=== PATIENT | male | born 1955 | race Caucasian/White ===

== ENCOUNTER → 2016-09-14 | Outpatient (REF) | payer BC ==
[2016-09-14 16:56] LABS: ALBUMIN 4.2 GM/DL (3.2-5.2); ALKALINE PHOSPHATASE 229 U/L (45-117); ALT/SGPT 387 U/L (12-78); ANION GAP 9 MEQ/L (8-16); AST/SGOT 514 U/L (15-37); BILIRUBIN,TOTAL 0.8 MG/DL (0.2-1.0); BLOOD UREA NITROGEN 5 MG/DL (7-18); CALCIUM LEVEL 9.1 MG/DL (8.8-10.2); CARBON DIOXIDE LEVEL 29 MEQ/L (21-32); CHLORIDE LEVEL 93 MEQ/L (98-107); CHOLESTEROL LEVEL 197 MG/DL (<200); CREATININE FOR GFR 0.91 MG/DL (0.70-1.30); GLOMERULAR FILTRATION RATE > 60.0 (>49); GLUCOSE, FASTING 92 MG/DL (80-110); POTASSIUM SERUM 5.1 MEQ/L (3.5-5.1); SODIUM LEVEL 131 MEQ/L (136-145); TOTAL PROTEIN 7.2 GM/DL (6.4-8.2); TRIGLYCERIDES LEVEL 40 MG/DL (<150)
== END ==
LOC: M SFHCSACK 07:57
PROVIDERS: ATTEND Physician Assistant
DX: I10 Essential (primary) hypertension (principal); E78.5 Hyperlipidemia, unspecified; E87.1 Hypo-osmolality and hyponatremia

== ENCOUNTER → 2016-09-22 | Outpatient (REF) | payer BC ==
[2016-09-22 15:25] LABS: BASO % 0.3 % (0.0-1.0); EOS % 0.7 % (0.0-3.0); LYMPH # 0.4 K/mm3 (1.5-4.5); LYMPH % 15.6 % (24.0-44.0); MEAN CORPUSCULAR HEMOGLOBIN 32.3 pg (27.0-33.0); MEAN CORPUSCULAR HGB CONC 34.3 g/dl (32.0-36.5); MEAN CORPUSCULAR VOLUME 94.2 fl (80.0-96.0); MONO # 0.5 K/mm3 (0.0-0.8); MONO % 16.8 % (0.0-5.0); NEUTROPHILS # 1.8 K/mm3 (1.8-7.7); NEUTROPHILS % 62.4 % (36.0-66.0); RED CELL DISTRIBUTION WIDTH 12.1 % (11.5-14.5); WHITE BLOOD COUNT 2.8 K/mm3 (4.0-10.0)
== END ==
LOC: M LAB REF 14:33
PROVIDERS: ATTEND Physician Assistant Medical
DX: K74.69 Other cirrhosis of liver (principal)

== ENCOUNTER → 2016-09-28 | Outpatient (CLI) | payer BC ==
[2016-09-28 11:04] LABS: ALBUMIN 4.3 GM/DL (3.2-5.2); ALBUMIN/GLOBULIN RATIO 1.39 (1.00-1.93); ALKALINE PHOSPHATASE 88 U/L (45-117); ALT/SGPT 50 U/L (12-78); ANION GAP 11 MEQ/L (8-16); AST/SGOT 40 U/L (15-37); BILIRUBIN,TOTAL 0.4 MG/DL (0.2-1.0); BLOOD UREA NITROGEN 5 MG/DL (7-18); CALCIUM LEVEL 8.8 MG/DL (8.8-10.2); CARBON DIOXIDE LEVEL 28 MEQ/L (21-32); CHLORIDE LEVEL 89 MEQ/L (98-107); CREATININE FOR GFR 0.98 MG/DL (0.70-1.30); GLOMERULAR FILTRATION RATE > 60.0 (>49); GLUCOSE, FASTING 108 MG/DL (80-110); POTASSIUM SERUM 4.4 MEQ/L (3.5-5.1); SODIUM LEVEL 128 MEQ/L (136-145); TOTAL PROTEIN 7.4 GM/DL (6.4-8.2)
--- NOTE | 2016-09-28 11:32 | REP ---
Chest x-ray: Two views. History: COPD. Comparison chest x-rays from April 08, 2015. Findings: The lungs are somewhat hyperinflated but clear. Pleural angles are sharp. Heart size is normal. The aorta is calcific and a little tortuous. Pulmonary vasculature is not increased. There are multiple old healed rib fractures on the right. Impression: Hyperinflation. Otherwise no acute disease. Signed by Rj Garcia MD 09/28/2016 10:19 A
--- NOTE | 2016-09-28 11:32 | REP ---
Right upper quadrant sonography: History: Increased liver function studies. Alcohol abuse. Comparison study: No comparison Findings: Scanning through the right upper quadrant of the abdomen demonstrates a normal sized, thin-walled gallbladder without evidence of stone or polyp. Common bile duct is mildly prominent measuring 0.8 cm in greatest diameter. No focal liver lesion is seen. Liver size is normal. No pancreatic abnormality is observed. No right renal abnormality is seen. There is no evidence of ascites. The right kidney measures 9.3 x 5.4 x 3.9 cm. Impression: Mildly dilated common bile duct, 0.8 cm, otherwise negative right upper quadrant sonography. Signed by Rj Garcia MD 09/28/2016 10:18 A
== END ==
LOC: M RAD 09:42 → M LAB 09:42
PROVIDERS: ATTEND Physician Assistant Medical
DX: K74.69 Other cirrhosis of liver (principal)

== ENCOUNTER → 2016-10-05 | Outpatient (CLI) | payer BC ==
[~2016-10-05] MED LIST: GASTROGRAFIN SOLUTION 30ML (Q9963) As Ordered ONE; ISOVUE-370 76% 100ML VIAL (Q9967) As Ordered ONE
--- NOTE | 2016-10-06 06:46 | REP ---
Clinical: Abdominal pain with history of cirrhosis. Technique: Axial contrast enhanced images from the lung bases to the pubic symphysis using oral and 100 ml Isovue 370 intravenous contrast material as well as precontrast and delayed images of the abdomen with coronal and sagittal re-formations. Comparison: None. Findings: Lung bases are clear. Visualized heart and pericardium normal. Liver, spleen, pancreas, gallbladder, bilateral adrenal glands and kidneys are normal. Specifically, the liver has a normal contour and without evidence for cirrhosis by CT evaluation and the spleen is of normal size without evidence for splenomegaly or portal venous hypertension. No varices are identified. The enteric system is without obstruction or acute inflammatory process. Normal terminal ileum and appendix are identified in the right lower quadrant. Scattered colonic and sigmoid diverticula noted without evidence for acute diverticulitis. Pelvis demonstrates normal partially collapsed bladder and age appropriate prostate/seminal vesicles. No pelvic fluid or ascites. Moderate atherosclerotic changes to the aorta and branch vessels noted. Skeletal structures demonstrate age-related changes without focal osseous abnormality. Impression: 1. Normal appearance to the liver and spleen without varices or CT evidence to suggest acute pathology or cirrhosis. 2. Moderate atherosclerotic changes to the aorta and branch vessels without dissection. 3. Colonic diverticula without acute diverticulitis. Signed by Huey Montes MD 10/06/2016 06:38 A
== END ==
LOC: M RAD 14:08
PROVIDERS: ATTEND Physician Assistant Medical
DX: K74.69 Other cirrhosis of liver (principal)
CPT/HCPCS: 74178; Q9963; Q9967

== ENCOUNTER 2016-12-28 09:53 | Inpatient (IN) | payer MEDICAID, SELFPAY ==
[~2016-12-28] VITALS: Ht 162.6 cm; Wt 51.3 kg
[2016-12-28] MEDS ORDERED: LISI40TAB PO (10:06)
[2016-12-28] MEDS ORDERED: METO-207 PO (10:06)
[2016-12-28] MEDS ORDERED: SIMV20TA2 PO (10:06)
[2016-12-28] MEDS ORDERED: NS 1,000 ML IV SCH (10:34)
[2016-12-28] MEDS ORDERED: NS 1,000 ML IV ONE (10:37)
[2016-12-28] MEDS ORDERED: ACETAMINOPHEN 325 MG TAB As Ordered ONE (10:41)
[2016-12-28] MEDS ORDERED: LISINOPRIL 40 MG TAB PO ONE (10:45)
[2016-12-28] MEDS ORDERED: methylPREDNISolone INJ 125 MG/2 ML VIAL (J2930) IV ONE (10:45)
[2016-12-28] MEDS ORDERED: LISINOPRIL 10 MG TAB PO ONE ×2 (10:45→22:15)
[2016-12-28] MEDS ORDERED: METOPROLOL SUCC (TopROL XL) 50MG **XL** TAB PO ONE ×2 (10:45→22:15)
[2016-12-28] MEDS: IPRATROPIUM 0.5MG/ALBUTEROL 2.5MG INH SOL UD 3ML (DUONEB)(J7620) NEB PRN ×3 (10:48→11:53)
[2016-12-28 10:53] LABS: INR 1.02
[2016-12-28 11:00] LABS: ALBUMIN 3.1 GM/DL (3.2-5.2); ALBUMIN/GLOBULIN RATIO 0.67 (1.00-1.93); ALKALINE PHOSPHATASE 53 U/L (45-117); ALT/SGPT 31 U/L (12-78); ANION GAP 11 MEQ/L (8-16); AST/SGOT 33 U/L (15-37); BILIRUBIN,DIRECT 0.2 MG/DL (0.0-0.2); BILIRUBIN,TOTAL 0.6 MG/DL (0.2-1.0); BLOOD UREA NITROGEN 10 MG/DL (7-18); CALCIUM LEVEL 8.9 MG/DL (8.8-10.2); CARBON DIOXIDE LEVEL 24 MEQ/L (21-32); CHLORIDE LEVEL 89 MEQ/L (98-107); CREATININE FOR GFR 0.83 MG/DL (0.70-1.30); GLOMERULAR FILTRATION RATE > 60.0 (>49); GLUCOSE, FASTING 116 MG/DL (80-110); POTASSIUM SERUM 3.8 MEQ/L (3.5-5.1); SODIUM LEVEL 124 MEQ/L (136-145); TOTAL PROTEIN 7.7 GM/DL (6.4-8.2)
[2016-12-28] MEDS ORDERED: ACETAMINOPHEN 325 MG TAB PO ONE (11:00)
[2016-12-28 11:04] LABS: MEAN CORPUSCULAR HEMOGLOBIN 32.7 pg (27.0-33.0); MEAN CORPUSCULAR HGB CONC 34.9 g/dl (32.0-36.5); MEAN CORPUSCULAR VOLUME 93.5 fl (80.0-96.0); PLATELET COUNT, AUTOMATED 247 k/mm3 (150-450); RED CELL DISTRIBUTION WIDTH 12.5 % (11.5-14.5); WHITE BLOOD COUNT 9.8 K/mm3 (4.0-10.0)
[2016-12-28 11:08] LABS: ABG BASE EXCESS 0.5 (-2.0-2.0); ABG HCO3 24.1 MEQ/L (22.0-26.0); ABG PARTIAL PRESSURE CO2 35.7 mmHg (35.0-45.0); ABG PARTIAL PRESSURE O2 75.7 mmHg (75.0-100.0); ABG STANDARD HCO3 24.9 MEQ/L (22.0-26.0); ABG TOTAL CO2 25.2 MEQ/L (23.0-31.0); ABG pH (ARTERIAL) 7.448 UNITS (7.350-7.450)
[2016-12-28 11:35] LABS: BANDS 13 % (< 11)
[2016-12-28 11:36] LABS: ANISOCYTOSIS 1+; DOHLE BODIES 1+; TOXIC GRANULATION 1+
--- NOTE | 2016-12-28 11:43 | REP ---
PORTABLE CHEST: COMPARISON: 09/28/2016 There is no evidence of acute infiltrate. No pleural effusion is seen. The heart is normal in size. The mediastinal silhouette is unremarkable. The visualized osseous structures are intact. IMPRESSION: No acute pulmonary disease. Signed by Eric Duffy MD 12/28/2016 05:42 P
[2016-12-28] MEDS ORDERED: THIAMINE HCL 200 MG/2 ML VIAL (J3411) IM ONE (15:45)
[2016-12-28] MEDS ORDERED: OXAZEPAM 15 MG CAP PO PRN (18:45)
[2016-12-28] MEDS ORDERED: methylPREDNISolone INJ 125 MG/2 ML VIAL (J2930) IV SCH (19:00)
[2016-12-28] MEDS: IPRATROPIUM 0.5MG/ALBUTEROL 2.5MG INH SOL UD 3ML (DUONEB)(J7620) NEB SCH (20:31)
[2016-12-28] MEDS ORDERED: SIMVASTATIN 20 MG TAB PO SCH (21:00)
[2016-12-28 21:09] LABS: OSMOLALITY SERUM 262 MOSM/KG (280-301)
--- NOTE | 2016-12-28 21:30 | HPEPDOC ---
General Date of Admission December 28, 2016 at 19:05 Primary Care Physician: Rosalba Savage Attending Physician: ALEX TILLMAN MD Chief Complaint The patient is a 61-year-old male admitted with a reason for visit of Copd W/ Acute Bronchitis. Source: Patient, RN notes reviewed, Old records Exam Limitations: No limitations Timing/Duration: Day(s) (5 days) Severity: Moderate Associated Symptoms: Cough, Loss of appetite, Shortness of breath History of Present Illness Mr. Joseph is a 61 year old male who presents to [facility]'s Emergency Department with breathing difficulties, non-productive cough , and sneezing productive of mucous. Past medical history is significant for hypertension, dyslipidemia, chronic obstructive pulmonary disease, history of B12 deficiency, low back pain status post fall, alcohol dependence, right sided ischemic cerebrovascular accident, mild diastolic dysfunction. Patient reports breathing difficulties, non-productive cough, and sneezing productive of mucous over the last 5 days. States that he did not initially present to the emergency department because he thought he would improve. Reports increased sleep, decreased appetite, feeling hot (but did not check his temperature) over the last 5 days. He has been using Breo which has significantly alleviated his breathing difficulties. Admits to sore throat secondary to cough. Denies hemoptysis and weight changes. Also reports non- bloody diarrhea over the last 5 days. Denies sick contacts. Reports increased shortness of breath with ambulation. At baseline has no limitations. Denies chest pain, headache, chills, night sweats, nausea, vomiting, abdominal pain, skin rashes or lesions, palpitations. Besides positive review of systems listed above, all others were negative. Hospitalist service was consulted and patient was subsequently admitted for further medical management. Home Medications Scheduled (Senna Plus 8.6-50 mg) 1 Tab Tab, 1 TAB PO BID Amlodipine Besylate (Amlodipine Besylate) 10 Mg Tab, 10 MG PO DAILY Aspirin (Aspirin Low Strength) 81 Mg Chw, 81 MG PO DAILY Enalapril Maleate (Enalapril Maleate) 10 Mg Tab, 10 MG PO BID Folic Acid (Folic Acid) 1 Mg Tab, 1 MG PO DAILY Ipratropium Gr[place] (Ipratropium Grimstead) 0.5 Mg/2.5 Ml Soln, 0.5 MG INH RQID Levalbuterol Hydrochloride (Xopenex Concentrate) 1.25 Mg/0.5 Ml Neb, 1.25 MG INH RQID Metoprolol Succinate (Metoprolol Succinate ER) 50 Mg Tab, 50 MG PO DAILY, ( Reported) Multivitamins *[facility] STOCKED* (Thera M Plus *[facility] STOCKED*) 1 Tab Tab, 1 TAB PO DAILY Nicotine (Nicotine Transdermal Syst) 21 Mg/24 Hr Dis, 1 PATCH TD DAILY Prednisone (Prednisone) 5 Mg Tab, 5 MG PO DAILY Thiamine Hcl (Thiamine Hcl) 100 Mg Tab, 100 MG PO DAILY Allergies Coded Allergies: No Known Allergies (Unverified , 12/28/16) Past Medical History Medical History 1. Hypertension 2. Dyslipidemia 3. Chronic obstructive pulmonary disease 4. History of B12 deficiency 5. Low back pain status post fall 6. Alcohol dependence 7. History of right sided ischemic cerebrovascular accident 8. Mild diastolic dysfunction Surgical History 1. Tonsillectomy 2. 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 Remote history of asbestos exposure Denies pets in the home Remote international travel Review of Symptoms Constitutional: Reports: Fever, Denies: Chills, Night Sweats, Weight Loss Eyes: Denies: Vision change ENT: Reports: Sinus Congestion, Sore Throat, Denies: Head Aches, Epistaxis Skin: Denies: Rash, Lesions Pulmonary: Reports: Dyspnea, Cough Cardiovascular: Denies: Chest Pain, Palpitations, Edema, Lt Headedness Gastrointestinal: Reports: Diarrhea, Denies: Nausea, Vomiting, Abdominal Pain, Constipation, Melena, Hematochezia Genitourinary: Denies: Dysuria, Frequency, Incontinence, Hematuria Hematologic: Denies: Bruising Musculoskeletal: Reports: Back Pain, Denies: Joint Pain Neurological: Denies: Weakness, Numbness Physical Examination General Exam: Positive: Alert, Cooperative Eye Exam: Positive: PERRLA, EOMI, Sclera icteric, Other Eye Symptoms (Wears spectacles) ENT Exam: Positive: Atraumatic, Mucous membr. moist/pink, Tongue Midline, Pharyngeal Edema, Nares Patent, Other ENT (Edentulous, upper partial denture) Neck Exam: Positive: Supple, Negative: JVD, thyromegaly, Lymphadenopathy Chest Exam: Positive: Wheezing, Diminished Heart Exam: Positive: Rate Normal, Tachycardic, Regular Rhythm, Normal S1, Normal S2, Negative: Gallops, Murmurs, Rubs Abdomen Exam: Positive: Normal bowel sounds, BS Hyperactive, Soft, Tenderness ( Rebound guarding in left upper quadrant), Negative: Hepatospenomegaly, Mass, Hernia Extremity Exam: Positive: Normal pulses, Negative: Clubbing, Cyanosis, Edema Skin Exam: Negative: Rash, Lesion Neuro Exam: Positive: Normal Speech, Strength at 5/5 X4 ext, Cranial Nerves 3- 12 NL Vital Signs Vital Signs Date Time Temp Pulse Resp B/P (MAP) Pulse Ox O2 Delivery O2 Flow Rate FiO2 12/28/16 17:32 88 18 95 12/28/16 17:31 179/87 (117) 12/28/16 15:39 Room Air 12/28/16 12:17 98.9 12/28/16 10:11 95 Height (in): 64 Weight (kg): 56.25 BMI (kg): 21.3 Laboratory Data Labs 24H Laboratory Tests 2 12/28/16 10:11: Anion Gap 11, Glomerular Filtration Rate > 60.0, Calcium Level 8.9, Aspartate Amino Transf (AST/SGOT) 33, Alanine Aminotransferase (ALT/SGPT) 31, Alkaline Phosphatase 53, Total Bilirubin 0.6, Direct Bilirubin 0.2, Total Creatine Kinase 73, Creatine Kinase MB 1.0, Creatine Kinase MB Relative Index 1.36, Troponin I < 0.02, B-Type Natriuretic Peptide 134H, Total Protein 7.7, Albumin 3.1L, Albumin/Globulin Ratio 0.67L, Thyroid Stimulating Hormone (TSH) 0.529 12/28/16 10:12: Neutrophils 69, Band Neutrophils 13H, Lymphocytes (Manual) 14L, Monocytes ( Manual) 4, Toxic Granulation 1+, Dohle Bodies 1+, Platelet Estimate NORMAL, Anisocytosis 1+, Prothrombin Time 13.5, Prothromb Time International Ratio 1.02 12/28/16 10:34: Lactic Acid Level 1.1, Magnesium Level 2.4 12/28/16 10:58: Blood Gas Bicarbonate Standard 24.9, Arterial Blood pH 7.448, Arterial Blood Partial Pressure CO2 35.7, Arterial Blood Partial Pressure O2 75.7, Arterial Blood Total CO2 25.2, Arterial Blood HCO3 24.1, Arterial Blood Base Excess 0.5, Arterial Blood Oxygen Saturation 95.1 CBC/BMP Laboratory Tests 12/28/16 10:11 12/28/16 10:12 Red Blood Count 3.99 L, Mean Corpuscular Volume 93.5, Mean Corpuscular Hemoglobin 32.7, Mean Corpuscular Hemoglobin Concent 34.9, Red Cell Distribution Width 12.5 Microbiology Microbiology 12/28/16 Blood Culture, Received Pending 12/28/16 Blood Culture, Received Pending RAD Interpretation STUDY: CXR (No acute cardiopulmonary process) Assessment/Plan Mr. Joseph is a 61 year old male who presents with symptoms most consistent with bronchitis vs. COPD exacerbation. 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 CXR was clear and ABG did not report any acute underlying abnormality. Have ordered Duoneb treatments. Patient takes Breo as an outpatient. Will continue with a similar medication while inpatient - Advair. After loading steroid dose, will start patient on SoluMedrol 60mg every eight hours. Due to patients decrease oxygenation, will maintain with oxygen therapy orders to maintain oxygenation between 88-92% and incentive spirometry. Also to be monitored continuously with pulse oximeter. Hyponatremia Patient's sodium at time of presentation was 124. Likely euvolemic with potential differentials including beer potomania, thyroid disease, adrenal insufficiency. Obtaining a serum osmolality, TSH, and AM cortisol level to evaluate for potential causes. Obtaining serial BMPs to evaluate sodium level. Tachycardia Patient's heart rate at time of admission was 104. During evaluation patient's heart rate was in the 80s. Patient has been restarted on his blood pressure medications, including metoprolol and lisinopril. Tachycardia could likely be secondary to underlying acute medical illness. Will monitor on telemetry and obtain a cardiac marker panel. Hypertension Patient has been without his anti-hypertensive medications and has been restarted on his medications while admitted. Patient's blood pressure at time of evaluation was 168/72. During evaluation his systolic blood pressure did increase to 179. Will start patient on Amlodipine 5mg daily. Dyslipidemia Patient has underlying dyslipidemia. Will continue patient on Zocor. Alcohol dependence Patient consumes approximately 3-10 beers per day. Have initiated alcohol withdrawal protocol with Serax 30mg four times a day, as needed. Have also ordered a multivitamin, folic acid, and thiamine daily. No tremulousness or asterixis noted on physical examination. Sclera did appear icteric. Obtaining liver profile secondary to long-term EtOH dependence. DVT prophylaxis: Lovenox 40mg SC daily Diet: COPD Disposition Admit: Progressive care unit Anticipated hospitalization: 2 nights Attending: Dr. Ferguson Diet: Continue Current (COPD diet) Activity: Bedrest Diagnostics: Check Labs, Repeat Labs in AM, Obtain Cultures Anticipated Discharge: Home GME ATTESTATION GME ATTESTATION My preceptor for this patient encounter was physically present in the building during the encounter and was fully available. As needed, all aspects of the patient interview, examination, medical decision making process, and medical care plan development were reviewed and approved by the preceptor. Preceptor is aware and concurs with the plan as stated in the body of this note and will attest to such by his/her cosignature. ATTENDING NOTE I, Alex Tillman, have both independently examined this patient as well as reviewed the documentation. I have discussed in detail with the resident the findings and plan of treatment as documented in the residents documentation. I will continue to follow the patient and offer further guidance to the patients care as necessary during this hospital stay. MI ROWLAND December 28, 2016 21:29 ALEX TILLMAN MD January 19, 2017 14:14
[2016-12-28 21:31] LABS: CORTISOL BASELINE 60.7 UG/DL (4.3-22.4)
[2016-12-28] MEDS: MULTIVITAMINS/MINERALS THERAP 1 TAB PO SCH (21:43)
[2016-12-28] MEDS: THIAMINE 100 MG TAB PO SCH (21:43)
[2016-12-28] MEDS: FOLIC ACID 1 MG TAB PO SCH (21:43)
[2016-12-28] MEDS: ENOXAPARIN 40 MG/0.4 ML SYRINGE (J1650) SC SCH (21:44)
[2016-12-28 21:51] LABS: ANION GAP 11 MEQ/L (8-16); BLOOD UREA NITROGEN 14 MG/DL (7-18); CALCIUM LEVEL 8.6 MG/DL (8.8-10.2); CARBON DIOXIDE LEVEL 25 MEQ/L (21-32); CHLORIDE LEVEL 91 MEQ/L (98-107); CREATININE FOR GFR 0.93 MG/DL (0.70-1.30); GLOMERULAR FILTRATION RATE > 60.0 (>49); GLUCOSE, FASTING 244 MG/DL (80-110); POTASSIUM SERUM 3.8 MEQ/L (3.5-5.1); SODIUM LEVEL 127 MEQ/L (136-145)
[2016-12-28] MEDS: methylPREDNISolone INJ 125 MG/2 ML VIAL (J2930) IV SCH (21:51)
[2016-12-28 22:00] VITALS: O2SAT 95
[2016-12-28 22:08] VITALS: BP 202/96
[2016-12-28] MEDS ORDERED: amLODIPine 5 MG TAB PO ONE (22:15)
[2016-12-28 23:00] VITALS: O2SAT 96
[2016-12-29] VITALS (35 sets, daily range): BP systolic 117–225; BP diastolic 57–126; O2SAT 89–98
[2016-12-29] MEDS: methylPREDNISolone INJ 125 MG/2 ML VIAL (J2930) IV SCH ×4 (02:36→18:12)
[2016-12-29] MEDS: IPRATROPIUM 0.5MG/ALBUTEROL 2.5MG INH SOL UD 3ML (DUONEB)(J7620) NEB SCH ×5 (03:14→19:41)
[2016-12-29] MEDS: FOLIC ACID 1 MG TAB PO SCH (07:39)
[2016-12-29] MEDS: THIAMINE 100 MG TAB PO SCH (07:39)
[2016-12-29] MEDS: MULTIVITAMINS/MINERALS THERAP 1 TAB PO SCH (07:39)
[2016-12-29] MEDS: ENOXAPARIN 40 MG/0.4 ML SYRINGE (J1650) SC SCH (07:41)
[2016-12-29 08:07] LABS: MEAN CORPUSCULAR HEMOGLOBIN 33.5 pg (27.0-33.0); MEAN CORPUSCULAR HGB CONC 35.1 g/dl (32.0-36.5); MEAN CORPUSCULAR VOLUME 95.4 fl (80.0-96.0); WHITE BLOOD COUNT 12.1 K/mm3 (4.0-10.0)
[2016-12-29 08:14] LABS: ANION GAP 9 MEQ/L (8-16); BLOOD UREA NITROGEN 13 MG/DL (7-18); CALCIUM LEVEL 9.4 MG/DL (8.8-10.2); CARBON DIOXIDE LEVEL 27 MEQ/L (21-32); CHLORIDE LEVEL 94 MEQ/L (98-107); GLOMERULAR FILTRATION RATE > 60.0 (>49); GLUCOSE, FASTING 150 MG/DL (80-110); POTASSIUM SERUM 3.6 MEQ/L (3.5-5.1); SODIUM LEVEL 130 MEQ/L (136-145)
--- NOTE | 2016-12-29 08:20 | ECGEPIP ---
Stationary ECG Study 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
[2016-12-29] MEDS ORDERED: amLODIPine 5 MG TAB PO SCH (09:00)
[2016-12-29] MEDS ORDERED: LISINOPRIL 40 MG TAB PO SCH (09:00)
[2016-12-29] MEDS ORDERED: ADVAIR DISKUS 500/50 INH PWD INH SCH (09:00)
[2016-12-29] MEDS ORDERED: METOPROLOL SUCC (TopROL XL) 50MG **XL** TAB PO SCH (09:00)
[2016-12-29] MEDS ORDERED: ALBUTEROL SULFATE 2.5 MG/0.5 ML INH NEB SOLN NEB PRN (12:15)
--- NOTE | 2016-12-29 12:39 | IPN ---
DATE: 12/29/2016 Hussein was seen in the emergency room on an interim bed status with an exacerbation of chronic obstructive pulmonary disease (COPD). I reviewed his E-clinical Works office record as part of this assessment. He has a history of hypertension, hyperlipidemia, stroke with transient left sided paralysis, chronic low back pain after slipping on ice in 2009, history of both tobacco and alcohol dependence, as well as B12 deficiency. Outpatient medications are: - albuterol inhaler - losartan 100 mg daily - simvastatin 20 mg daily - metoprolol XL 50 mg daily - Breo inhaler that he was not using He feels better than he did before admission. He has been having some elevated blood pressures, highest 220/120 in the emergency room this morning. He denies chest pain. His shortness of breath has improved. PHYSICAL EXAMINATION: 177/91, pulse 98, respiratory rate 20, 96% oxygen saturation on 1 liter, 98 degrees. GENERAL APPEARANCE: He looks anxious, dyspneic with prolonged discussion. Pupils are equal, round and reactive to light. Tympanic membranes clear. Oropharynx benign. Neck no masses. LUNGS: Expiratory wheeze in all funez. Fairly good air movement. HEART: Regular rate and rhythm. Tachycardic. ABDOMEN: Soft, nontender. No masses. EXTREMITIES: No peripheral edema. LABORATORY DATA: White count 12.1 (on steroids), hemoglobin 13, platelets 281. Sodium 130, potassium 3.6, BUN 13, creatinine 0.7, glucose 150. Chest x-ray showed no active disease. IMPRESSION: 1. Exacerbation of chronic obstructive pulmonary disease (COPD) secondary to presumed bronchitis. I will run a respiratory panel. There has just been a flu screen done so far. The importance of smoking cessation was discussed. Continue with nebulized bronchodilator but add as needed every hour to the scheduled albuterol. Continue inhaled steroid. Empiric oral antibiotic advised. There is no infiltrate on the chest x-ray, so he should not need intravenous antibiotic. 2. Hypertension. His blood pressure is elevated. Continue his lisinopril, Toprol, and he is on amlodipine 5 mg daily. I think much of his hypertension at this point of his hospitalization is due to alcohol withdrawal. 3. Alcohol abuse. I think that he has withdrawal from alcohol. He has Serax ordered. 4. Hyponatremia, probably due to his alcohol use and also some component of this could be from his respiratory infection with some transient syndrome of inappropriate secretion of antidiuretic hormone. We will continue to monitor this and if it gets worse we will do a sodium restriction, serum and urine osmolarity ordered. I will also reduce the dose of his steroid and that should help with his anxiety. It should be noted that the patient has transferred his care to Meka Savage, who I think at this point is at [facility]. He no longer goes to the [facility] in [place]. The patient confirmed this to me today.
[2016-12-29 12:56] LABS: ANION GAP 10 MEQ/L (8-16); BLOOD UREA NITROGEN 13 MG/DL (7-18); CALCIUM LEVEL 9.3 MG/DL (8.8-10.2); CARBON DIOXIDE LEVEL 27 MEQ/L (21-32); CHLORIDE LEVEL 93 MEQ/L (98-107); CREATININE FOR GFR 0.65 MG/DL (0.70-1.30); GLOMERULAR FILTRATION RATE > 60.0 (>49); GLUCOSE, FASTING 127 MG/DL (80-110); POTASSIUM SERUM 3.7 MEQ/L (3.5-5.1); SODIUM LEVEL 130 MEQ/L (136-145)
[2016-12-29 15:38] LABS: ABG BASE EXCESS -0.1 (-2.0-2.0); ABG HCO3 27.6 MEQ/L (22.0-26.0); ABG PARTIAL PRESSURE CO2 57.7 mmHg (35.0-45.0); ABG PARTIAL PRESSURE O2 142.5 mmHg (75.0-100.0); ABG STANDARD HCO3 24.4 MEQ/L (22.0-26.0); ABG TOTAL CO2 29.3 MEQ/L (23.0-31.0); ABG pH (ARTERIAL) 7.297 UNITS (7.350-7.450)
[2016-12-29] MEDS: OXAZEPAM 10 MG CAP PO SCH ×2 (16:00→20:36)
[2016-12-29] MEDS ORDERED: IPRATROPIUM 0.5MG/ALBUTEROL 2.5MG INH SOL UD 3ML (DUONEB)(J7620) NEB SCH (16:00)
[2016-12-29] MEDS ORDERED: OXAZEPAM 10 MG CAP PO PRN (16:15)
[2016-12-29] MEDS ORDERED: DOXYCYCLINE HYCLATE 100 MG in D5W MINI-BAG PLUS 100 ML IV SCH (17:00)
[2016-12-29] MEDS ORDERED: CEFTAROLINE FOSAMIL 600 MG in D5W MINI-BAG PLUS 50 ML IV SCH (17:00)
[2016-12-29] MEDS ORDERED: SUCCINYLCHOLINE INJ 200 MG/10 ML VIAL (J0330) As Ordered ONE (17:22)
[2016-12-29] MEDS ORDERED: ETOMIDATE INJ 20MG/10ML VIAL As Ordered ONE (17:22)
[2016-12-29] MEDS ORDERED: PROPOFOL 1,000 MG/100 ML VIAL As Ordered ONE (17:26)
[2016-12-29] MEDS ORDERED: NS 1,000 ML IV ONE ×2 (18:00→23:00)
[2016-12-29] MEDS: PROPOFOL 1,000 MG in APPROPRIATE DILUENT 1 EA IV SCH ×2 (18:00→21:26)
[2016-12-29] MEDS: hydrALAZINE INJ 20 MG/ML VIAL IV SCH ×2 (18:00→20:32)
[2016-12-29] MEDS ORDERED: SUCCINYLCHOLINE INJ 200 MG/10 ML VIAL (J0330) IV STA (18:10)
[2016-12-29] MEDS ORDERED: ETOMIDATE INJ 20MG/10ML VIAL IV STA (18:10)
[2016-12-29] MEDS: PANTOPRAZOLE 40MG INJ (PROTONIX) (C9113) IV SCH (18:12)
--- NOTE | 2016-12-29 18:53 | REP ---
PORTABLE CHEST: AP portable view of the chest is performed and compared to prior study of 12/28/2016. Endotracheal tube is seen with the tip approximately 3.5 cm above the kathleen. Nasogastric tube traverses into the stomach. No new infiltrates are seen. There is mild accentuation of interstitial markings diffusely bilaterally, unchanged. The heart is normal in size and the mediastinal silhouette is unchanged. IMPRESSION: Endotracheal tube and nasogastric tube placed and apparently in good position. Signed by Eric Duffy MD 12/29/2016 07:54 P
--- NOTE | 2016-12-29 18:57 | CCN ---
DATE: 12/29/2016 REASON FOR CLINICAL CARE: Acute hypercarbic respiratory failure. CRITICAL CARE TIME: 1 hour 20 minutes. This excludes all procedures. I was called by Dr. Kev Menjivar for worsening respiratory failure in this patient was admitted yesterday with chronic obstructive pulmonary disease. Apparently, there was concern for alcohol withdrawal and he was given Serax. He was unresponsive and had evidence of CO2 retention on his arterial blood gas. He was therefore initiated on bilevel therapy until I was able to get to the emergency room. On my arrival to the emergency room the patient was unresponsive to voice, barely responsive to sternal rub. It was determined he was unable to protect his airway, therefore he was intubated. I have no significant clinical history other than what is obtained in the chart. According to the history and physical, the patient had been having increased shortness of breath, nonproductive cough, increased fatigue and decreased appetite over the past few days. PAST MEDICAL HISTORY 1. Hypertension. 2. Alcohol abuse. 3. Dyslipidemia. 4. 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 5. History of B12 deficiency. 6. Low back pain status post fall. 7. History of right-sided ischemic cerebrovascular accident (CVA) with residual left-sided weakness. 8. Reported history of mild diastolic dysfunction. 9. Tonsillectomy. 10. History of rib fractures. I am unable to obtain any family history, social history or review of systems. PHYSICAL EXAMINATION: On mechanical ventilation. Oxygen saturations 98% on 0.35. He has a prolonged expiratory phase is on pressure control 18/5 with a respiratory rate of 15. Temperature 98.5. He is tachycardiac with a heart rate ranging from 103-120. Blood pressure is 155/79 on 50 mcg of propofol. He is breathing with the ventilator with a respiratory rate of 15. GENERAL: He is sedated on mechanical ventilation, is coughing up a large amounts of mucus into the endotracheal tube with suctioning of dunn sputum. HEENT: Pupils are small, approximately 3 mm but reactive to light. Mucous membranes appear dry. Tongue is midline. NECK: Supple. No tracheal deviation or mass. LYMPH: No cervical, supraclavicular, axillary adenopathy. CARDIAC: Distant S1, S2. Tachycardiac without audible murmur, rub or gallop. No elevated jugular venous pressure. No systemic edema. PULMONARY: Decreased breath sounds throughout both lung funez. Very prolonged expiratory phase. There is also an expiratory wheeze in all funez. No dullness to percussion. ABDOMEN: Soft, nontender, nondistended. No hepatosplenomegaly. No masses or hernia. No bruits or large vessel in the abdomen. LABORATORY EVALUATION: White blood cell count 12.1, hemoglobin 13.1, platelet count 281 with a bandemia of 13. Arterial blood gas initially is 7.29, pCO2 of 58, pO2 of 143. Sodium is 130, potassium 3.7, chloride 93, bicarbonate 27, BUN is 13, creatinine 0.65, with a glucose of 127. Serum osmolality 273. INR is 1.02. Sputum culture is pending from yesterday. IMPRESSION: 1. Hypercarbic hypoxic respiratory failure with inability to sustain airway; therefore, intubation, mechanical ventilation was performed. He does have evidence of a chronic obstructive pulmonary disease (COPD) exacerbation. 2. Chronic obstructive pulmonary disease (COPD) exacerbation. Will treat with Solu-Medrol. Continue antibiotics due to his thick mucus. Will await sputum cultures to de-escalate antibiotic therapy according to what is grown on culture data. There is one positive blood culture with gram-positive cocci in cluster. This could potentially be a contaminate. 3. Alcohol withdrawal. Will continue Serax. He has as needed benzodiazepine and has propofol. 4. Hypertension. Likely a component of his alcohol withdrawal syndrome. He has as needed hydralazine. 5. Dehydration. I have given 1 liter fluid. Due to his hyponatremia I did not want to correct it too quickly. At this point in time, his sodium has changed by six in the past. 24 hours. 7. Leukocytosis with bandemia. On ceftaroline. Will continue this for suspected COPD exacerbation. Monitor for alternative sources of infection. 8. Gastrointestinal (GI) prophylaxis with Protonix. 9. Deep venous thrombosis (DVT) prophylaxis with Lovenox. 10. Nutrition will initiate tube feeds in the morning.
[2016-12-29] MEDS: CEFTAROLINE FOSAMIL 600 MG in D5W MINI-BAG PLUS 50 ML IV SCH (19:37)
[2016-12-29 19:44] LABS: ABG BASE EXCESS 0.5 (-2.0-2.0); ABG HCO3 26.2 MEQ/L (22.0-26.0); ABG PARTIAL PRESSURE CO2 46.5 mmHg (35.0-45.0); ABG PARTIAL PRESSURE O2 77.8 mmHg (75.0-100.0); ABG STANDARD HCO3 24.8 MEQ/L (22.0-26.0); ABG TOTAL CO2 27.6 MEQ/L (23.0-31.0); ABG pH (ARTERIAL) 7.368 UNITS (7.350-7.450)
[2016-12-29] MEDS: CHLORHEXIDINE GLUCONATE 0.12 % 15ML UDC (PERIDEX ORAL RINSE) MT SCH (20:36)
[2016-12-29] MEDS: MORPHINE 2 MG/ML 1ML SYRINGE IV PRN (21:35)
[2016-12-29] MEDS ORDERED: methylPREDNISolone INJ 125 MG/2 ML VIAL (J2930) IV SCH (23:00)
[2016-12-30] VITALS (25 sets, daily range): BP systolic 106–151; BP diastolic 56–78; O2SAT 96–98
[2016-12-30] MEDS: IPRATROPIUM 0.5MG/ALBUTEROL 2.5MG INH SOL UD 3ML (DUONEB)(J7620) NEB SCH ×7 (00:02→23:30)
[2016-12-30] MEDS: MIDAZOLAM INJ 2 MG/2 ML VIAL (J2250) IV PRN ×6 (00:03→18:20)
--- NOTE | 2016-12-30 00:32 | RO ---
DATE OF PROCEDURE: 12/29/2016 PREPROCEDURE DIAGNOSES: Coma, altered mental status. POSTPROCEDURE DIAGNOSES: Coma, altered mental status. PROCEDURE: Endotracheal intubation. SURGEON: Dr. Chong Delaney MANAGER CASE MANAGEMENT: None ANESTHESIA: 30 mg of etomidate, 100 mg of succinylcholine. DESCRIPTION OF PROCEDURE: Patient was comatose, had hypercarbic respiratory failure, was unresponsive after being admitted in the hospital. Was observed in the emergency room (ER) overnight. He had received Serax. He would barely open his eyes to sternal rub while on bilevel. It was felt that he was unable to protect his airway; therefore, intubation was performed. DESCRIPTION OF INTUBATION: Time-out was performed identifying correct site, correct procedure with two patient identifiers. The patient was preoxygenated. He was placed in the sniffing position. The rapid sequence intubation was then initiated with etomidate followed by succinylcholine. The posterior pharynx was viewed using a GlideScope. There was a grade 1 view. 8.0 endotracheal tube was easily passed in through the vocal cords. Placement was confirmed with end- tidal CO2, auscultation, and chest x-ray. There were no complications. Patient's oxygen saturation remained 100% for the entire procedure. I transferred him over to ventilation pressure control. On 14/01, he was obtaining tidal volumes of 360. Arterial blood gas will be repeated in 1 hour. [facility]ITAL[facility]
[2016-12-30] MEDS: hydrALAZINE INJ 20 MG/ML VIAL IV SCH ×6 (01:22→21:22)
[2016-12-30] MEDS: PROPOFOL 1,000 MG in APPROPRIATE DILUENT 1 EA IV SCH ×5 (01:58→21:33)
[2016-12-30] MEDS: MORPHINE 2 MG/ML 1ML SYRINGE IV PRN (02:06)
[2016-12-30] MEDS: methylPREDNISolone INJ 125 MG/2 ML VIAL (J2930) IV SCH ×3 (03:13→18:20)
[2016-12-30 05:06] LABS: MEAN CORPUSCULAR HEMOGLOBIN 33.1 pg (27.0-33.0); MEAN CORPUSCULAR VOLUME 97.4 fl (80.0-96.0); RED CELL DISTRIBUTION WIDTH 13.2 % (11.5-14.5); WHITE BLOOD COUNT 12.6 K/mm3 (4.0-10.0)
[2016-12-30 05:18] LABS: ANION GAP 8 MEQ/L (8-16); BLOOD UREA NITROGEN 15 MG/DL (7-18); CARBON DIOXIDE LEVEL 26 MEQ/L (21-32); CHLORIDE LEVEL 101 MEQ/L (98-107); GLOMERULAR FILTRATION RATE > 60.0 (>49); GLUCOSE, FASTING 199 MG/DL (80-110); SODIUM LEVEL 135 MEQ/L (136-145)
[2016-12-30 05:36] LABS: POTASSIUM SERUM 2.9 MEQ/L (3.5-5.1)
[2016-12-30 05:47] LABS: ABG BASE EXCESS -1.9 (-2.0-2.0); ABG HCO3 23.1 MEQ/L (22.0-26.0); ABG PARTIAL PRESSURE CO2 40.4 mmHg (35.0-45.0); ABG PARTIAL PRESSURE O2 82.5 mmHg (75.0-100.0); ABG STANDARD HCO3 22.8 MEQ/L (22.0-26.0); ABG TOTAL CO2 24.3 MEQ/L (23.0-31.0); ABG pH (ARTERIAL) 7.375 UNITS (7.350-7.450)
[2016-12-30] MEDS: CEFTAROLINE FOSAMIL 600 MG in D5W MINI-BAG PLUS 50 ML IV SCH ×2 (06:08→18:20)
[2016-12-30] MEDS ORDERED: POTASSIUM CHLORIDE 10 MEQ SR TABLET PO ONE (06:30)
[2016-12-30] MEDS ORDERED: KCL 10MEQ IN 100ML SWI (KRUN) 10 MEQ in APPROPRIATE DILUENT 1 EA IV SCH ×2 (09:00)
--- NOTE | 2016-12-30 09:04 | IPN ---
DATE: 12/30/2016 Hussein is seen in intensive care unit (ICU). He has developed progressive respiratory failure with hypercapnic respiratory failure and then ultimately required intubation yesterday. Dr. Delaney' assistance is greatly appreciated. She is managing his care while in the intensive care unit (ICU). He is intubated and sedated. He was going through some alcohol withdrawal yesterday with agitation and tremor. He was given Serax, but then became progressively obtunded. PHYSICAL EXAMINATION: 123/63, pulse 79, respiratory rate 20, 98% oxygen saturation. GENERAL APPEARANCE: He is sedated. LUNGS: Decreased breath sounds. Much better air movement. HEART: Regular. ABDOMEN: Soft, nontender, nondistended. EXTREMITIES: No peripheral edema. LABORATORY DATA: Potassium is 2.9, BUN 15, creatinine 0.9. Sodium is 135. Serum osmolarity 606, white count 12.6 on steroids, hemoglobin 11.6, platelets 302. IMPRESSION: 1. Hypercapnic respiratory failure secondary to exacerbation of chronic obstructive pulmonary disease (COPD). Intubated. Pulmonary care is managed by Dr. Delaney. Appreciate her involvement. On nebulized bronchodilator, intravenous steroid, and now on intravenous antibiotic. 2. Hypertension. Blood pressure is under good control. 3. Alcohol abuse with alcohol withdrawal. Her Serax dose has been reduced. 4. Hyponatremia secondary to alcohol use. Probably some aspect of pulmonary as well. He has syndrome of inappropriate secretion of antidiuretic hormone (SIADH) as confirmed by his osmolarity studies. 5. SIADH. Restriction of free water advised. It should correct itself with treatment of the alcohol withdrawal and pulmonary issues.
[2016-12-30 09:17] LABS: MAGNESIUM LEVEL 2.5 MG/DL (1.8-2.4)
[2016-12-30] MEDS: MULTIVITAMINS/MINERALS THERAP 1 TAB PO SCH (09:20)
[2016-12-30] MEDS: ENOXAPARIN 40 MG/0.4 ML SYRINGE (J1650) SC SCH (09:20)
[2016-12-30] MEDS: OXAZEPAM 10 MG CAP PO SCH ×3 (09:21→21:26)
[2016-12-30] MEDS: THIAMINE 100 MG TAB PO SCH (09:21)
[2016-12-30] MEDS: FOLIC ACID 1 MG TAB PO SCH (09:21)
--- NOTE | 2016-12-30 09:22 | REP ---
PORTABLE CHEST: AP portable view of the chest performed and compared to a prior study of 12/29/2016. Endotracheal tube and nasogastric tube remain in good position. The heart and lungs appear unchanged. IMPRESSION: Stable exam. Signed by Eric Duffy MD 12/30/2016 04:44 P
[2016-12-30] MEDS: CHLORHEXIDINE GLUCONATE 0.12 % 15ML UDC (PERIDEX ORAL RINSE) MT SCH ×2 (09:29→21:26)
[2016-12-30] MEDS ORDERED: POTASSIUM CHLORIDE 10% LIQ 20 MEQ/15 ML UDC PO ONE (10:30)
[2016-12-30] MEDS ORDERED: GLUCOSE 4 GM CHEW TABLET PO PRN (10:45)
[2016-12-30] MEDS ORDERED: GLUCAGON FOR INJ 1 MG VIAL (J1610) SC PRN (10:45)
[2016-12-30] MEDS ORDERED: DEXTROSE 50% 50 ML SYRINGE IV PRN (10:45)
--- NOTE | 2016-12-30 11:03 | CCN ---
DATE: 12/30/2016 Mr. Joseph remains on mechanical ventilation for a chronic obstructive pulmonary disease (COPD) exacerbation and hypercarbic respiratory failure. He had significant bronchospasm on my first evaluation, this has decreased. He remains on pressure control ventilation 18/5 with a rate of 15. His arterial blood gases normalized on the settings with a pH of 7.37, pCO2 of 40, pO2 of 82.5. He has a sinus tachycardia on sedation vacation. He is on sedation vacation currently. At this point in time, he is not fully awake, however, he does respond to painful stimuli. His blood pressure has trended down with his current therapy. VITALS: Temperature is 98.4, pulse is 90 to 109, blood pressure is 118/65, oxygen saturation 96% on 0.30 FiO2. Respiratory rate is 24. The patient is overbreathing the vent. GENERAL: The patient is sedated on mechanical ventilation. Currently on sedation vacation awaiting for neurologic evaluation. HEENT: Pupils are approximately 3 mm but reactive to light. Sclerae is clear and anicteric. Mucous membranes are moist. Endotracheal tube is in place at 24 at the lip. Neck is supple. No tracheal deviation or mass. No elevated jugular venous pressure and carotid upstroke is good. LYMPHATICS: No cervical, supraclavicular or axillary adenopathy. CARDIAC: Distant S1, S2 without audible murmur, rub or gallop. PMI is nondisplaced. PULMONARY: There is rhonchorous breath sounds throughout both lung funez. Expiratory phase is somewhat improved since yesterday. Expiratory wheezes also improved and there is better air entry. Suctioning reveals copious amounts of thick dunn sputum. ABDOMEN: Slightly distended, tympanic with hypoactive bowel sounds. There does not appear to be tenderness to palpation, although the patient is sedated. I do not palpate any mass or splenomegaly. EXTREMITIES: No cyanosis, clubbing or edema. SKIN: No rash, jaundice, bruising. MUSCULOSKELETAL: Muscle tone is fairly normal for his stated age. No evidence of joint effusions or fractures. NEUROLOGIC: No unilateral weakness. The patient is responding to painful stimuli with facial grimacing. There is no evidence of seizure activity. No evidence of unilateral weakness. Further neurologic evaluation will occur after the patient has been on sedation vacation. LABORATORY: Lab evaluation shows hypokalemia with a potassium of 2.9, now up to 3.2. Sodium is 135, chloride is 101, bicarbonate is 26, BUN of 15, creatinine of 0.9, glucose is 199. White blood cell count is 12.6, hemoglobin 11.6, platelet of 302. Sputum Gram stain shows gram-negative rods, gram-positive cocci in pairs, chains , clusters. Sputum culture is pending. Arterial blood gas this morning shows a pH of 7.37, pCO2 of 40, pAO2 of 82.5. Chest x-ray shows that the endotracheal tube is in good position. Nasogastric tube is also in good position. Lung funez appear fairly clear with some hyperinflation. No evidence of pneumothorax. There is evidence of prior rib fracture on the right. IMPRESSION 1. Respiratory failure secondary to chronic obstructive pulmonary disease (COPD ) exacerbation. We will continue Solu-Medrol, DuoNebs and antibiotics. Await sputum culture for de-escalation of antibiotic therapy. 2. Hypokalemia. We will replace with oral potassium. 3. EtOH withdrawal. Will likely need further days of mechanical ventilation due to the severity of his withdrawal. He is currently on Serax, propofol and as needed Versed. There is no evidence of seizure activity and blood pressure has been fairly well controlled. The patient is on multivitamin, folic acid, and thiamine. 4. Nutrition. We will start Jevity one maida at 30 mL an hour. 5. Hyperglycemia. We will obtain fingersticks with sliding scale insulin. If blood sugar remains above 180 with sliding scale insulin, we will add additional insulin coverage. 6. Deep vein thrombosis (DVT) prophylaxis with Lovenox. 7. Gastrointestinal prophylaxis with Protonix. MTDD
[2016-12-30] MEDS: HumaLOG INSULIN (NovoLOG) PER UNIT SC SCH ×2 (11:35→18:20)
[2016-12-30] MEDS: PANTOPRAZOLE 40MG INJ (PROTONIX) (C9113) IV SCH (18:20)
[2016-12-30] MEDS ORDERED: NS 1,000 ML IV ONE (21:30)
[2016-12-31] VITALS (25 sets, daily range): BP systolic 99–164; BP diastolic 57–73; O2SAT 94–99
[2016-12-31] MEDS: HumaLOG INSULIN (NovoLOG) PER UNIT SC SCH ×4 (00:08→18:04)
[2016-12-31] MEDS: MIDAZOLAM INJ 2 MG/2 ML VIAL (J2250) IV PRN ×2 (00:24→16:25)
[2016-12-31] MEDS: hydrALAZINE INJ 20 MG/ML VIAL IV SCH ×6 (01:26→22:07)
[2016-12-31] MEDS: PROPOFOL 1,000 MG in APPROPRIATE DILUENT 1 EA IV SCH ×4 (02:12→20:44)
[2016-12-31] MEDS: methylPREDNISolone INJ 125 MG/2 ML VIAL (J2930) IV SCH ×3 (02:12→18:05)
[2016-12-31] MEDS: IPRATROPIUM 0.5MG/ALBUTEROL 2.5MG INH SOL UD 3ML (DUONEB)(J7620) NEB SCH ×6 (04:20→23:30)
[2016-12-31 05:18] LABS: MEAN CORPUSCULAR HEMOGLOBIN 32.3 pg (27.0-33.0); MEAN CORPUSCULAR HGB CONC 32.1 g/dl (32.0-36.5); MEAN CORPUSCULAR VOLUME 100.6 fl (80.0-96.0); RED CELL DISTRIBUTION WIDTH 13.3 % (11.5-14.5); WHITE BLOOD COUNT 15.4 K/mm3 (4.0-10.0)
[2016-12-31 05:34] LABS: ANION GAP 8 MEQ/L (8-16); BLOOD UREA NITROGEN 18 MG/DL (7-18); CALCIUM LEVEL 8.3 MG/DL (8.8-10.2); CARBON DIOXIDE LEVEL 26 MEQ/L (21-32); CHLORIDE LEVEL 103 MEQ/L (98-107); CREATININE FOR GFR 0.85 MG/DL (0.70-1.30); GLOMERULAR FILTRATION RATE > 60.0 (>49); GLUCOSE, FASTING 201 MG/DL (80-110); POTASSIUM SERUM 3.6 MEQ/L (3.5-5.1); SODIUM LEVEL 137 MEQ/L (136-145)
[2016-12-31 05:55] LABS: ABG BASE EXCESS -1.3 (-2.0-2.0); ABG HCO3 23.3 MEQ/L (22.0-26.0); ABG PARTIAL PRESSURE CO2 38.6 mmHg (35.0-45.0); ABG PARTIAL PRESSURE O2 117.5 mmHg (75.0-100.0); ABG STANDARD HCO3 23.5 MEQ/L (22.0-26.0); ABG TOTAL CO2 24.5 MEQ/L (23.0-31.0); ABG pH (ARTERIAL) 7.399 UNITS (7.350-7.450)
[2016-12-31] MEDS: CEFTAROLINE FOSAMIL 600 MG in D5W MINI-BAG PLUS 50 ML IV SCH (06:06)
[2016-12-31] MEDS: THIAMINE 100 MG TAB PO SCH (08:30)
[2016-12-31] MEDS: ENOXAPARIN 40 MG/0.4 ML SYRINGE (J1650) SC SCH (08:30)
[2016-12-31] MEDS: MULTIVITAMINS/MINERALS THERAP 1 TAB PO SCH (08:30)
[2016-12-31] MEDS: CHLORHEXIDINE GLUCONATE 0.12 % 15ML UDC (PERIDEX ORAL RINSE) MT SCH ×2 (08:30→20:43)
[2016-12-31] MEDS: FOLIC ACID 1 MG TAB PO SCH (08:30)
[2016-12-31] MEDS: OXAZEPAM 10 MG CAP PO SCH ×3 (08:30→20:43)
--- NOTE | 2016-12-31 09:10 | REP ---
PORTABLE CHEST: Portable view of the chest is performed and compared to a prior study of 12/30/2016. Study is limited by patient motion. Endotracheal tube and nasogastric tube are visualized. They are grossly unchanged in position. Cardiomediastinal silhouette is unchanged without cardiomegaly. Prominent interstitial markings in the lungs are stable with no gross new infiltrate. IMPRESSION: Limited exam due to patient motion. Essentially stable exam. Signed by Eric Duffy MD 01/01/2017 05:09 P
[2016-12-31] MEDS: cefTRIAXone SOD 2 GM in D5W MINI-BAG PLUS 50 ML IV SCH (12:04)
--- NOTE | 2016-12-31 12:33 | CCN ---
DATE OF SERVICE: 12/31/2016 Mr. Joseph remains intubated for respiratory failure given his severe chronic obstructive pulmonary disease (COPD) exacerbation and concomitant alcohol withdrawal requiring benzodiazepines. His sputum culture grew Haemophilus influenzae twice. This is sensitive to ceftriaxone. We will deescalate his therapy today. He had a sedation vacation this morning, became tachypneic, had coughing. I will perform a second sedation vacation today and place him on a spontaneous breathing trial to ascertain his readiness to extubate. He remains in a sinus rhythm, although tachycardic. His oxygen saturation is 98% on 0.30 FiO2. PHYSICAL EXAMINATION: VITAL SIGNS: Pulse is 101, blood pressure is 139/66, oxygen saturation is 98% on 0.30 FiO2, temperature is 97.5, respiratory rate is 22. Sclerae clear, anicteric. Pupils are approximately 3 mm and reactive to light. Mucous membranes are moist without lesions. Neck is supple. No tracheal deviation or mass. LYMPHATICS: No cervical, supraclavicular, or axillary adenopathy. CARDIAC: Tachycardic, S1, S2 without audible murmur, rub, or gallop. PULMONARY: Left expiratory wheeze prior, however, continues to have wheeze with scattered rhonchi throughout all lung funez. Overall, decreased breath sounds. Prolonged expiratory phase on ventilation. ABDOMEN: Is soft, nontender, nondistended. No hepatosplenomegaly but hypoactive bowel sounds. He has had no bowel movements. EXTREMITIES: No cyanosis or edema. Questionable clubbing of the 1st digit on the lower extremities. No finger clubbing. MUSCULOSKELETAL: No significant muscle wasting. No joint effusions or fracture. NEUROLOGIC: No unilateral weakness, tremor, or evidence of seizure activity. LABORATORY EVALUATION: Shows sodium 137, potassium of 3.6, chloride is 103, bicarbonate is 26, BUN of 18, creatinine of 0.85, glucose is 207. Arterial blood gas shows a pH of 7.40, PCO2 of 38.6, oxygen saturation of 117 on 0.30 FiO2. White blood cell count is up to 15.4, hemoglobin 11.2, hematocrit of 34.8, with a platelet of 322. IMPRESSION 1. Respiratory failure secondary to chronic obstructive pulmonary disease (COPD) exacerbation with concomitant alcohol withdrawal. The patient has slightly less bronchospasm on examination today. Haemophilus influenzae is likely the culprit precipitating the COPD exacerbation. I have deescalated his antibiotic therapy to ceftriaxone. 2. Alcohol withdrawal. Still requiring Serax with as needed Versed. Although his oxygenation and ventilation are more than adequate on mechanical ventilation currently, at this point in time, he remains intubated due to the severity of his withdrawal symptoms and the requirement of benzodiazepine that will likely cause respiratory failure if extubated. However, I will perform a spontaneous breathing trial today to see if he is able to awake and maintain his own respirations. 3. Nutrition. Will increase his Jevity to 50 mL an hour. Monitor for aspiration and bowel movements. 4. Gastrointestinal (GI) prophylaxis. On Protonix. 5. Hyperglycemia secondary to Solu-Medrol that is provided due to his COPD exacerbation. He is on a sliding scale insulin. If he has significant hyperglycemia, will add additional therapy. 6. Hypertension. Currently, blood pressure is under adequate control with his benzodiazepine therapy. He does have as needed hydralazine for extremes in blood pressure. 7. Leukocytosis, likely secondary to steroid use. Will continue to monitor for alternative sources of infection. Currently, on antibiotic therapy for Haemophilus influenzae and pneumonia/bronchitis. CRITICAL CARE TIME: Was 40 minutes. This excludes all procedures.
[2016-12-31] MEDS: PANTOPRAZOLE 40MG INJ (PROTONIX) (C9113) IV SCH (18:05)
[2016-12-31] MEDS ORDERED: MIDAZOLAM INJ 5 MG/ML VIAL (J2250) As Ordered ONE (21:18)
[2016-12-31] MEDS ORDERED: MIDAZOLAM INJ 2 MG/2 ML VIAL (J2250) IV ONE (21:30)
[2017-01-01] VITALS (27 sets, daily range): BP systolic 123–194; BP diastolic 57–133; O2SAT 98
[2017-01-01] MEDS: HumaLOG INSULIN (NovoLOG) PER UNIT SC SCH ×5 (00:17→23:54)
[2017-01-01] MEDS: MIDAZOLAM INJ 2 MG/2 ML VIAL (J2250) IV PRN ×4 (01:45→22:06)
[2017-01-01] MEDS: hydrALAZINE INJ 20 MG/ML VIAL IV SCH ×6 (02:00→22:00)
[2017-01-01] MEDS: methylPREDNISolone INJ 125 MG/2 ML VIAL (J2930) IV SCH ×3 (03:03→18:00)
[2017-01-01] MEDS: PROPOFOL 1,000 MG in APPROPRIATE DILUENT 1 EA IV SCH ×4 (03:08→22:06)
[2017-01-01] MEDS: IPRATROPIUM 0.5MG/ALBUTEROL 2.5MG INH SOL UD 3ML (DUONEB)(J7620) NEB SCH ×6 (03:18→23:23)
[2017-01-01 04:55] LABS: MEAN CORPUSCULAR HEMOGLOBIN 32.4 pg (27.0-33.0); MEAN CORPUSCULAR HGB CONC 32.9 g/dl (32.0-36.5); MEAN CORPUSCULAR VOLUME 98.3 fl (80.0-96.0); RED CELL DISTRIBUTION WIDTH 13.6 % (11.5-14.5); WHITE BLOOD COUNT 17.2 K/mm3 (4.0-10.0)
[2017-01-01 04:57] LABS: ANION GAP 8 MEQ/L (8-16); BLOOD UREA NITROGEN 22 MG/DL (7-18); CALCIUM LEVEL 8.2 MG/DL (8.8-10.2); CARBON DIOXIDE LEVEL 26 MEQ/L (21-32); CHLORIDE LEVEL 104 MEQ/L (98-107); CREATININE FOR GFR 0.91 MG/DL (0.70-1.30); GLOMERULAR FILTRATION RATE > 60.0 (>49); GLUCOSE, FASTING 156 MG/DL (80-110); POTASSIUM SERUM 4.6 MEQ/L (3.5-5.1); SODIUM LEVEL 138 MEQ/L (136-145)
[2017-01-01 05:48] LABS: ABG BASE EXCESS -3.8 (-2.0-2.0); ABG HCO3 20.1 MEQ/L (22.0-26.0); ABG PARTIAL PRESSURE CO2 32.9 mmHg (35.0-45.0); ABG PARTIAL PRESSURE O2 108.3 mmHg (75.0-100.0); ABG STANDARD HCO3 21.3 MEQ/L (22.0-26.0); ABG TOTAL CO2 21.1 MEQ/L (23.0-31.0); ABG pH (ARTERIAL) 7.404 UNITS (7.350-7.450)
[2017-01-01] MEDS: FOLIC ACID 1 MG TAB PO SCH (08:21)
[2017-01-01] MEDS: MULTIVITAMINS/MINERALS THERAP 1 TAB PO SCH (08:21)
[2017-01-01] MEDS: THIAMINE 100 MG TAB PO SCH (08:21)
[2017-01-01] MEDS: OXAZEPAM 10 MG CAP PO SCH ×3 (08:21→21:10)
[2017-01-01] MEDS: ENOXAPARIN 40 MG/0.4 ML SYRINGE (J1650) SC SCH (08:21)
[2017-01-01] MEDS: CHLORHEXIDINE GLUCONATE 0.12 % 15ML UDC (PERIDEX ORAL RINSE) MT SCH ×2 (08:21→21:10)
--- NOTE | 2017-01-01 09:24 | REP ---
AP PORTABLE CHEST: 01/01/2017. Comparison: 12/31/2016, 12/30/2016. Clinical history: Respiratory failure with acute bronchitis. Findings: Endotracheal tube and nasogastric tubes are unchanged. There is diffuse interstitial fibrotic appearance. The interstitial coarsening is somewhat greater than on the previous study and I suspect there may be some mild engorgement of upper lobe pulmonary veins with mild pulmonary venous hypertension. No luis manuel edema or dense consolidation. No effusion. Cardiomediastinal silhouette and airway unchanged. Aorta unremarkable. Impression: 1. COPD with diffuse interstitial fibrotic changes. Lines and tubes unchanged with the presence of some mild vascular redistribution seen today as described. No luis manuel edema, definite effusion or dense consolidation with air bronchograms. Signed by Christiano Dobbins MD 01/01/2017 04:43 P
--- NOTE | 2017-01-01 10:34 | CCN ---
DATE: 01/01/2017 Critical Care Time was 42 minutes. This excludes all procedures. The patient on sedation vacation. At the patient's bedside, the patient became tachycardiac, tachypneic. He is hospital day #5. He presented with an acute COPD exacerbation H. influenza, sputum positive. He continues to have same symptoms of alcohol withdrawal. I predict this will likely taper off in the next day or so. Based on my exam at his bedside, he is not ready to extubate because of his tachypnea, tachycardia with concomitant respiratory distress and diaphoresis. PHYSICAL EXAMINATION: Temperature is 99.1, pulse ranging from 98 to 140 in a sinus tachycardia, respiratory rate is 28 to 26, blood pressure is 151/72, oxygen saturation is 99% on 3 liters. Tube feeds are currently going at 50 mL an hour. He is receiving thiamine, multivitamin. GENERAL: The patient is diaphoretic tachypneic on mechanical ventilation. Does well with benzodiazepine sedation. HEENT: Sclerae clear and anicteric. Pupils equal, react to light. Mucous membranes are moist without lesions. Tongue is midline. He has poor dentition. NECK: Supple. No tracheal deviation or mass. LYMPH: No cervical, supraclavicular or axillary adenopathy. CARDIAC: Distant S1, S2, tachycardiac in nature without palpable PMI. EXTREMITIES: No cyanosis or edema. Questionable clubbing of the hallux. PULMONARY: Prolonged expiratory phase. Scattered expiratory wheeze and rhonchi. No rales. When on sedation vacation, he is using accessory muscles to breathe abdominal muscles. MUSCULOSKELETAL: Moves all extremities attempts to take off his protective mitts. NEUROLOGIC: He is not following commands at this point in time but does make purposeful movements. No evidence of seizure activity. Laboratory evaluation shows a white count of 17.2, hemoglobin 11.3, hematocrit of 34.3, platelet count of 369. Sodium 138, potassium is 4.6, chloride 104, bicarb 26, BUN of 22, creatinine 0.9 and a glucose of 156. Arterial blood gas shows a pH of 7.40, pCO2 of 33, pO2 of 108. Chest x-ray: Endotracheal tube is in good position. Emphysematous changes throughout both lung funez. Minimal non-consolidated infiltrate. Increased interstitial markings. IMPRESSION: 1. Respiratory failure with COPD exacerbation. Sputum culture growing Haemophilus influenza on ceftriaxone and Solu-Medrol. At this point in time I believe he is continuing withdrawal and he is too tachypneic, tachycardiac and diaphoretic to extubate today. I predict this will resolve with the next 24 to 48 hours. 2. Alcohol withdrawal treated with benzodiazepines on scheduled Serax, has as needed Versed, also on propofol for sedation. No evidence of seizure activity. Blood pressure fairly well controlled. The patient is on multivitamin, thiamine and will check magnesium tomorrow morning. This has been normal. 3. Hypertension on as needed hydralazine. 4. Leukocytosis: Likely Solu-Medrol induced but does have Haemophilus influenza infection that we are treating 5. Hyperglycemia, on sliding scale insulin. 6. Deep venous thrombosis prophylaxis with Lovenox. 7. GI prophylaxis with Protonix. 8. Nutrition, on Jevity one maida 50 mL an hour.
[2017-01-01] MEDS: cefTRIAXone SOD 2 GM in D5W MINI-BAG PLUS 50 ML IV SCH (11:49)
[2017-01-01] MEDS: PANTOPRAZOLE 40MG INJ (PROTONIX) (C9113) IV SCH (17:38)
--- NOTE | 2017-01-01 23:26 | ECGEPIP ---
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
[2017-01-02] VITALS (27 sets, daily range): BP systolic 119–182; BP diastolic 56–83
[2017-01-02] MEDS: hydrALAZINE INJ 20 MG/ML VIAL IV SCH ×6 (02:00→22:00)
[2017-01-02] MEDS: methylPREDNISolone INJ 125 MG/2 ML VIAL (J2930) IV SCH ×3 (03:08→18:12)
[2017-01-02] MEDS: PROPOFOL 1,000 MG in APPROPRIATE DILUENT 1 EA IV SCH ×6 (03:08→22:55)
[2017-01-02] MEDS: IPRATROPIUM 0.5MG/ALBUTEROL 2.5MG INH SOL UD 3ML (DUONEB)(J7620) NEB SCH ×6 (03:14→23:12)
[2017-01-02] MEDS: MIDAZOLAM INJ 2 MG/2 ML VIAL (J2250) IV PRN ×4 (04:08→19:39)
[2017-01-02 04:56] LABS: MEAN CORPUSCULAR HEMOGLOBIN 32.5 pg (27.0-33.0); MEAN CORPUSCULAR HGB CONC 32.4 g/dl (32.0-36.5); MEAN CORPUSCULAR VOLUME 100.2 fl (80.0-96.0); RED CELL DISTRIBUTION WIDTH 13.5 % (11.5-14.5); WHITE BLOOD COUNT 13.9 K/mm3 (4.0-10.0)
[2017-01-02 05:11] LABS: ANION GAP 8 MEQ/L (8-16); BLOOD UREA NITROGEN 26 MG/DL (7-18); CALCIUM LEVEL 8.3 MG/DL (8.8-10.2); CARBON DIOXIDE LEVEL 28 MEQ/L (21-32); CHLORIDE LEVEL 103 MEQ/L (98-107); CREATININE FOR GFR 0.83 MG/DL (0.70-1.30); GLOMERULAR FILTRATION RATE > 60.0 (>49); GLUCOSE, FASTING 141 MG/DL (80-110); MAGNESIUM LEVEL 2.8 MG/DL (1.8-2.4); POTASSIUM SERUM 4.7 MEQ/L (3.5-5.1); SODIUM LEVEL 139 MEQ/L (136-145)
[2017-01-02] MEDS: HumaLOG INSULIN (NovoLOG) PER UNIT SC SCH ×4 (05:26→23:35)
[2017-01-02 05:30] LABS: ABG BASE EXCESS 3.2 (-2.0-2.0); ABG HCO3 26.3 MEQ/L (22.0-26.0); ABG PARTIAL PRESSURE CO2 35.2 mmHg (35.0-45.0); ABG PARTIAL PRESSURE O2 103.6 mmHg (75.0-100.0); ABG STANDARD HCO3 27.3 MEQ/L (22.0-26.0); ABG TOTAL CO2 27.4 MEQ/L (23.0-31.0); ABG pH (ARTERIAL) 7.492 UNITS (7.350-7.450)
[2017-01-02] MEDS: CHLORHEXIDINE GLUCONATE 0.12 % 15ML UDC (PERIDEX ORAL RINSE) MT SCH ×2 (08:48→21:05)
[2017-01-02] MEDS: FOLIC ACID 1 MG TAB PO SCH (08:48)
[2017-01-02] MEDS: THIAMINE 100 MG TAB PO SCH (08:49)
[2017-01-02] MEDS: ENOXAPARIN 40 MG/0.4 ML SYRINGE (J1650) SC SCH (08:49)
[2017-01-02] MEDS: MULTIVITAMINS/MINERALS THERAP 1 TAB PO SCH (08:49)
[2017-01-02] MEDS: OXAZEPAM 10 MG CAP PO SCH ×3 (08:49→21:05)
[2017-01-02] MEDS: cefTRIAXone SOD 2 GM in D5W MINI-BAG PLUS 50 ML IV SCH (11:17)
--- NOTE | 2017-01-02 13:24 | REP ---
PORTABLE CHEST: HISTORY: Respiratory failure. COMPARISON: Yesterday at 6:44 a.m. The tubes are unchanged. Cardiomediastinal silhouette is stable. The heart is not enlarged. Subtle increase in the interstitial markings has improved. No new abnormal opacities. No change in the osseous structures. IMPRESSION: Improvement. Signed by Ralph Valle DO 01/02/2017 01:33 P
[2017-01-02] MEDS: MORPHINE 2 MG/ML 1ML SYRINGE IV PRN (15:56)
[2017-01-02] MEDS: PANTOPRAZOLE 40MG INJ (PROTONIX) (C9113) IV SCH (18:12)
[2017-01-03] VITALS (41 sets, daily range): BP systolic 121–191; BP diastolic 56–98; O2SAT 100
[2017-01-03] MEDS: hydrALAZINE INJ 20 MG/ML VIAL IV SCH ×6 (02:00→22:09)
[2017-01-03] MEDS: PROPOFOL 1,000 MG in APPROPRIATE DILUENT 1 EA IV SCH ×2 (02:04→06:44)
[2017-01-03] MEDS: IPRATROPIUM 0.5MG/ALBUTEROL 2.5MG INH SOL UD 3ML (DUONEB)(J7620) NEB SCH ×5 (03:15→20:59)
[2017-01-03] MEDS: methylPREDNISolone INJ 125 MG/2 ML VIAL (J2930) IV SCH ×3 (03:45→18:19)
[2017-01-03 04:37] LABS: MEAN CORPUSCULAR HEMOGLOBIN 32.5 pg (27.0-33.0); MEAN CORPUSCULAR VOLUME 101.5 fl (80.0-96.0); RED CELL DISTRIBUTION WIDTH 13.5 % (11.5-14.5); WHITE BLOOD COUNT 11.7 K/mm3 (4.0-10.0)
[2017-01-03 04:51] LABS: ANION GAP 7 MEQ/L (8-16); BLOOD UREA NITROGEN 31 MG/DL (7-18); CALCIUM LEVEL 7.9 MG/DL (8.8-10.2); CARBON DIOXIDE LEVEL 29 MEQ/L (21-32); CHLORIDE LEVEL 101 MEQ/L (98-107); CREATININE FOR GFR 0.98 MG/DL (0.70-1.30); GLOMERULAR FILTRATION RATE > 60.0 (>49); GLUCOSE, FASTING 195 MG/DL (80-110); POTASSIUM SERUM 4.9 MEQ/L (3.5-5.1); SODIUM LEVEL 137 MEQ/L (136-145)
[2017-01-03] MEDS: HumaLOG INSULIN (NovoLOG) PER UNIT SC SCH ×4 (05:33→23:34)
[2017-01-03 06:25] LABS: ABG BASE EXCESS 4.8 (-2.0-2.0); ABG HCO3 28.4 MEQ/L (22.0-26.0); ABG PARTIAL PRESSURE CO2 38.3 mmHg (35.0-45.0); ABG PARTIAL PRESSURE O2 140.2 mmHg (75.0-100.0); ABG STANDARD HCO3 28.8 MEQ/L (22.0-26.0); ABG TOTAL CO2 29.6 MEQ/L (23.0-31.0); ABG pH (ARTERIAL) 7.488 UNITS (7.350-7.450)
[2017-01-03] MEDS: THIAMINE 100 MG TAB PO SCH (08:31)
[2017-01-03] MEDS: MULTIVITAMINS/MINERALS THERAP 1 TAB PO SCH (08:31)
[2017-01-03] MEDS: ENOXAPARIN 40 MG/0.4 ML SYRINGE (J1650) SC SCH (08:31)
[2017-01-03] MEDS: CHLORHEXIDINE GLUCONATE 0.12 % 15ML UDC (PERIDEX ORAL RINSE) MT SCH (08:31)
[2017-01-03] MEDS: FOLIC ACID 1 MG TAB PO SCH (08:31)
[2017-01-03] MEDS: OXAZEPAM 10 MG CAP PO SCH ×3 (08:31→21:00)
[2017-01-03] MEDS: METOPROLOL 5 MG/5 ML VIAL IV SCH ×3 (10:01→20:55)
[2017-01-03] MEDS: amLODIPine 10 MG TAB PO SCH (10:02)
--- NOTE | 2017-01-03 10:08 | REP ---
PORTABLE CHEST: HISTORY: Followup respiratory failure. COMPARISON: Yesterday There is no change in the endotracheal tube or nasogastric tube. There is no change in the lung funez. The cardiomediastinal silhouette is stable. There is no change in the osseous structures. IMPRESSION: No change. Signed by Ralph Valle DO 01/03/2017 10:24 A
[2017-01-03] MEDS ORDERED: ALBUTEROL SULFATE 2.5 MG/0.5 ML INH NEB SOLN NEB PRN (12:00)
[2017-01-03] MEDS ORDERED: ALBUTEROL SULFATE 2.5 MG/0.5 ML INH NEB SOLN As Ordered ONE (12:02)
[2017-01-03] MEDS: cefTRIAXone SOD 2 GM in D5W MINI-BAG PLUS 50 ML IV SCH (12:24)
[2017-01-03] MEDS ORDERED: methylPREDNISolone INJ 125 MG/2 ML VIAL (J2930) IV ONE (12:30)
[2017-01-03] MEDS: LORazepam 2 MG/ML VIAL (J2060) IV PRN ×2 (15:40→22:09)
[2017-01-03] MEDS: PANTOPRAZOLE 40MG INJ (PROTONIX) (C9113) IV SCH (18:18)
[2017-01-04] VITALS (30 sets, daily range): BP systolic 139–192; BP diastolic 65–88; O2SAT 96–99
[2017-01-04] MEDS: IPRATROPIUM 0.5MG/ALBUTEROL 2.5MG INH SOL UD 3ML (DUONEB)(J7620) NEB SCH ×8 (01:03→23:11)
[2017-01-04] MEDS: hydrALAZINE INJ 20 MG/ML VIAL IV SCH ×6 (01:10→21:43)
[2017-01-04] MEDS: METOPROLOL 5 MG/5 ML VIAL IV SCH ×4 (04:10→20:32)
[2017-01-04] MEDS: methylPREDNISolone INJ 125 MG/2 ML VIAL (J2930) IV SCH ×3 (04:10→18:15)
[2017-01-04] MEDS: LORazepam 2 MG/ML VIAL (J2060) IV PRN ×5 (04:40→23:47)
[2017-01-04 04:42] LABS: MEAN CORPUSCULAR HEMOGLOBIN 32.9 pg (27.0-33.0); MEAN CORPUSCULAR HGB CONC 32.5 g/dl (32.0-36.5); RED CELL DISTRIBUTION WIDTH 13.4 % (11.5-14.5); WHITE BLOOD COUNT 12.4 K/mm3 (4.0-10.0)
[2017-01-04 04:54] LABS: ANION GAP 7 MEQ/L (8-16); BLOOD UREA NITROGEN 32 MG/DL (7-18); CALCIUM LEVEL 8.1 MG/DL (8.8-10.2); CARBON DIOXIDE LEVEL 32 MEQ/L (21-32); CHLORIDE LEVEL 104 MEQ/L (98-107); CREATININE FOR GFR 0.79 MG/DL (0.70-1.30); GLOMERULAR FILTRATION RATE > 60.0 (>49); GLUCOSE, FASTING 106 MG/DL (80-110); POTASSIUM SERUM 4.2 MEQ/L (3.5-5.1); SODIUM LEVEL 143 MEQ/L (136-145)
[2017-01-04] MEDS: HumaLOG INSULIN (NovoLOG) PER UNIT SC SCH (06:00)
[2017-01-04 06:10] LABS: ABG BASE EXCESS 6.2 (-2.0-2.0); ABG HCO3 30.9 MEQ/L (22.0-26.0); ABG PARTIAL PRESSURE O2 120.4 mmHg (75.0-100.0); ABG STANDARD HCO3 30.1 MEQ/L (22.0-26.0); ABG TOTAL CO2 32.2 MEQ/L (23.0-31.0); ABG pH (ARTERIAL) 7.454 UNITS (7.350-7.450)
[2017-01-04] MEDS: ENOXAPARIN 40 MG/0.4 ML SYRINGE (J1650) SC SCH (08:19)
[2017-01-04] MEDS ORDERED: OXAZEPAM 10 MG CAP PO PRN (08:45)
[2017-01-04] MEDS: FOLIC ACID 1 MG TAB PO SCH (08:48)
[2017-01-04] MEDS: amLODIPine 10 MG TAB PO SCH (08:48)
[2017-01-04] MEDS: MULTIVITAMINS/MINERALS THERAP 1 TAB PO SCH (08:49)
[2017-01-04] MEDS: THIAMINE 100 MG TAB PO SCH (08:49)
--- NOTE | 2017-01-04 08:54 | IPN ---
DATE: 01/04/2017 Hussein has been under the care of the pulmonary/welt stitch cleaner service for the last several days. Appreciate their managing the patient while on the ventilator. He has been extubated. He is quite sedated. He is not taking anything by mouth. Per his nurse, she cannot get him to eat or drink. He had an OG tube in while intubated. He is not answering questions or following commands. PHYSICAL EXAMINATION: 188/82, pulse of 118, respiratory rate around 20, 99% oxygen saturation on 1 liters. GENERAL APPEARANCE: He is alert, but no following commands. Staring, not responding. LUNGS: Expiratory wheezes both bases. HEART: Regular rate and rhythm, no murmur. ABDOMEN: Soft, nontender, nondistended. No masses. No peripheral edema. LABORATORIES: White count 12.4, hemoglobin 12, platelets 368, sodium 143, potassium 4.3, BUN 32, creatinine 0.7, glucose 106. ABG 7.45/45/120. Blood sugars have all been less than 200. IMPRESSION: 1. Respiratory failure secondary to chronic obstructive pulmonary disease (COPD) with several days of intubated ventilatory support. Sputum grew out Haemophilus influenza. He also had a rhinovirus and enterovirus on his respiratory panel. He grew out micrococcus on one blood culture. It was probably a contaminant. He is currently on 2 grams of Rocephin a day and IV steroids with nebulized bronchodilator. 2. Alcohol withdrawal. He is quite sedated. He has been on scheduled Serax. I am going to change that to as needed. I think at this point in his hospitalization most of his alcohol withdrawal should be behind him. 3. Hyperglycemia. Blood sugar is not sufficiently elevated to warrant continued coverage of sliding scale, so I will discontinue this. 4. Hypertension. Using as needed hydralazine. 5. Nutritional issues. Will try to have take p.o. If he gets hungry and thirsty enough and his sedation wanes, he should be able to take p.o. Otherwise, we will have to start some IV fluids. I asked his nurse to call me for this. 6. Deep vein thrombosis (DVT) prophylaxis. He is on Lovenox for this. 7. Gastrointestinal (GI) prophylaxis. He was on GI prophylaxis while intubated. We could discontinue this once he is out of the ICU.
--- NOTE | 2017-01-04 09:23 | REP ---
PORTABLE CHEST: AP portable view of the chest is performed and compared to a prior study of 01/03/2017. Endotracheal tube and nasogastric tube have been removed. The lungs, heart and mediastinum are unchanged in appearance with no new infiltrates. IMPRESSION: Removal of endotracheal tube and nasogastric tube. Otherwise stable. Signed by Eric Duffy MD 01/05/2017 04:00 P
[2017-01-04] MEDS: cefTRIAXone SOD 2 GM in D5W MINI-BAG PLUS 50 ML IV SCH (11:00)
[2017-01-04] MEDS ORDERED: KCL 20MEQ IN 0.45NS 1000ML 1,000 ML IV SCH (11:45)
[2017-01-04] MEDS: MORPHINE 2 MG/ML 1ML SYRINGE IV PRN (12:38)
[2017-01-04] MEDS: PANTOPRAZOLE 40MG INJ (PROTONIX) (C9113) IV SCH (17:37)
[2017-01-05] VITALS (15 sets, daily range): BP systolic 147–195; BP diastolic 69–89; O2SAT 98
[2017-01-05] MEDS: methylPREDNISolone INJ 125 MG/2 ML VIAL (J2930) IV SCH ×3 (02:33→18:13)
[2017-01-05] MEDS: hydrALAZINE INJ 20 MG/ML VIAL IV SCH ×6 (02:33→22:26)
[2017-01-05] MEDS: METOPROLOL 5 MG/5 ML VIAL IV SCH ×4 (02:58→21:13)
[2017-01-05] MEDS: LORazepam 2 MG/ML VIAL (J2060) IV PRN ×4 (02:58→16:59)
[2017-01-05] MEDS: IPRATROPIUM 0.5MG/ALBUTEROL 2.5MG INH SOL UD 3ML (DUONEB)(J7620) NEB SCH ×5 (04:07→19:47)
[2017-01-05 06:24] LABS: ABG BASE EXCESS 7.1 (-2.0-2.0); ABG HCO3 31.5 MEQ/L (22.0-26.0); ABG PARTIAL PRESSURE CO2 44.1 mmHg (35.0-45.0); ABG PARTIAL PRESSURE O2 84.7 mmHg (75.0-100.0); ABG STANDARD HCO3 30.9 MEQ/L (22.0-26.0); ABG TOTAL CO2 32.9 MEQ/L (23.0-31.0); ABG pH (ARTERIAL) 7.472 UNITS (7.350-7.450)
[2017-01-05 06:44] LABS: BASO % 0.1 % (0.0-1.0); LARGE UNSTAINED CELL # 0.1 K/mm3 (0.0-0.4); LARGE UNSTAINED CELL % 1.2 % (0.0-4.0); LYMPH # 0.2 K/mm3 (1.5-4.5); LYMPH % 2.4 % (24.0-44.0); MEAN CORPUSCULAR HEMOGLOBIN 32.3 pg (27.0-33.0); MEAN CORPUSCULAR HGB CONC 31.7 g/dl (32.0-36.5); MEAN CORPUSCULAR VOLUME 101.9 fl (80.0-96.0); MONO # 0.4 K/mm3 (0.0-0.8); MONO % 4.3 % (0.0-5.0); NEUTROPHILS # 9.1 K/mm3 (1.8-7.7); NEUTROPHILS % 92.1 % (36.0-66.0); PLATELET COUNT, AUTOMATED 346 k/mm3 (150-450); RED CELL DISTRIBUTION WIDTH 13.2 % (11.5-14.5); WHITE BLOOD COUNT 9.9 K/mm3 (4.0-10.0)
[2017-01-05 07:19] LABS: ALBUMIN 2.6 GM/DL (3.2-5.2); ALBUMIN/GLOBULIN RATIO 0.72 (1.00-1.93); ALKALINE PHOSPHATASE 42 U/L (45-117); ALT/SGPT 43 U/L (12-78); ANION GAP 5 MEQ/L (8-16); AST/SGOT 42 U/L (15-37); BILIRUBIN,TOTAL 0.4 MG/DL (0.2-1.0); BLOOD UREA NITROGEN 30 MG/DL (7-18); CALCIUM LEVEL 8.4 MG/DL (8.8-10.2); CARBON DIOXIDE LEVEL 33 MEQ/L (21-32); CHLORIDE LEVEL 109 MEQ/L (98-107); CHOLESTEROL LEVEL 202 MG/DL (< 200); CREATININE FOR GFR 0.73 MG/DL (0.70-1.30); GLOMERULAR FILTRATION RATE > 60.0 (>49); GLUCOSE, FASTING 125 MG/DL (80-110); PHOSPHORUS LEVEL 4.5 MG/DL (2.5-4.9); POTASSIUM SERUM 4.4 MEQ/L (3.5-5.1); SODIUM LEVEL 147 MEQ/L (136-145); TOTAL PROTEIN 6.2 GM/DL (6.4-8.2); TRIGLYCERIDES LEVEL 143 MG/DL (<150)
[2017-01-05] MEDS: FOLIC ACID 1 MG TAB PO SCH (08:44)
[2017-01-05] MEDS: amLODIPine 10 MG TAB PO SCH (08:44)
[2017-01-05] MEDS: MULTIVITAMINS/MINERALS THERAP 1 TAB PO SCH (08:44)
[2017-01-05] MEDS: THIAMINE 100 MG TAB PO SCH (08:45)
[2017-01-05] MEDS: ENOXAPARIN 40 MG/0.4 ML SYRINGE (J1650) SC SCH (08:51)
--- NOTE | 2017-01-05 10:05 | REP ---
SINGLE VIEW CHEST: COMPARISON: 01/04/2017. There is no evidence of acute infiltrate. No pleural effusion is seen. The heart is normal in size. The mediastinal silhouette is unremarkable. The visualized osseous structures are intact. IMPRESSION: No acute pulmonary disease. Signed by Eric Duffy MD 01/05/2017 04:06 P
[2017-01-05] MEDS: HALOPERIDOL 5 MG/ML VIAL (J1630) IM PRN (10:42)
[2017-01-05] MEDS: NS 0.45% 1,000 ML IV SCH (11:16)
[2017-01-05] MEDS: cefTRIAXone SOD 2 GM in D5W MINI-BAG PLUS 50 ML IV SCH (11:16)
[2017-01-05] MEDS: SODIUM CHLORIDE 0.9% INJ 10 ML SYR IV SCH (18:00)
[2017-01-05] MEDS: PANTOPRAZOLE 40MG INJ (PROTONIX) (C9113) IV SCH (18:13)
[2017-01-05] MEDS: LORazepam 2 MG/ML VIAL (J2060) IV SCH ×2 (18:14→22:26)
--- NOTE | 2017-01-05 18:42 | IPN ---
DATE: 01/05/2017 Patient is seen and examined in intensive care unit (ICU). This morning the patient has been arousable but not really following commands, mildly lethargic, but later throughout the day patient became more and more agitated, very restless, trying to get out of bed, but still not following specific commands. Does not appear to be in any significant pain, is not verbalizing. VITAL SIGNS: Temperature 98.3, pulse ranging from 97-122, sinus tachycardia, blood pressure ranging from 150/63 to 186/98, pulse oximetry 96% on 1 liter nasal cannula. LABORATORY DATA: WBC 9.9, hemoglobin and hematocrit 12.3/38.9, platelets 346. Chemistry: Sodium 147, potassium 4.4, chloride 109, bicarbonate 33, BUN 30, creatinine 0.73. PHYSICAL EXAMINATION: GENERAL: Patient alert, arousable, but not following commands, staring. HEENT: Normocephalic, atraumatic. PULMONARY: Expiratory wheeze bilateral base with mild, fine crackles. CARDIAC: Regular rate and rhythm, no murmurs detected. ABDOMEN: Soft, nontender, nondistended. Positive bowel sounds. EXTREMITIES: No edema bilateral lower extremities. Withdraws from pain, but seems to be weaker. ASSESSMENT AND PLAN: This is a 61-year-old male patient with underlying medical history of dyslipidemia, hypertension, chronic obstructive pulmonary disease (COPD), B12 deficiency, lower back pain with fall, alcohol dependence, right-sided CVA history, and congestive heart failure (CHF) with mild diastolic dysfunction. Patient initially presented with difficulty breathing, nonproductive cough, sneezing with mucus production, was found to have Human rhinovirus and enterovirus with Haemophilus influenzae pneumonia, requiring intubation for about 7 days, treated for acute chronic obstructive pulmonary disease (COPD) exacerbation. 1. Acute respiratory failure secondary to chronic obstructive pulmonary disease (COPD) exacerbation due to Haemophilus influenza pneumonia and rhinovirus and enterovirus. Patient was extubated 2 days ago, intubated for about 7 days. Continue Solu-Medrol steroid, nebulizer treatment. Patient given Rocephin for IV antibiotics. Respiratory panel and cultures appreciated. 2. Alcohol withdrawal. Patient has periodic sedation and agitation. Thiamine, folate, multivitamin. Monitor for withdrawal. Will place the patient on Ativan IV 2 mg every 4 hours and 2 mg every 2 hours as needed. Patient currently tachycardic. Will obtain EEG. 3. Encephalopathy, multifactorial, possibly secondary to delirium versus alcohol withdrawal versus seizure versus hypoxic brain injury. Will obtain CT scan first, then EEG. Neurologic checks. Continue to monitor. 4. Hyperglycemia. Followup glucose. Patient does not require any coverage at this time. Will continue to monitor. 5. Weakness, possibly secondary to critical care, neuropathy and myopathy. Will start physical therapy once patient's status improves. 6. Nutritional issue. Patient currently is nothing by mouth secondary to aspiration risk. Will evaluate the patient with speech and swallow and start feeding once patient's mental status improves. 7. Hypertension, possibly secondary to agitation. Will give hydralazine. Patient currently on Norvasc and metoprolol. Will monitor. Adjust as needed. 8. Gastrointestinal (GI) prophylaxis. Discontinued since patient is no longer intubated. 9. Deep venous thrombosis (DVT) prophylaxis. Lovenox subcutaneous. DISPOSITION PLANNING: Pending further workup, clinical improvement.
[2017-01-06] VITALS (21 sets, daily range): BP systolic 131–207; BP diastolic 66–113; O2SAT 96
[2017-01-06] MEDS: IPRATROPIUM 0.5MG/ALBUTEROL 2.5MG INH SOL UD 3ML (DUONEB)(J7620) NEB SCH ×7 (00:10→23:05)
[2017-01-06] MEDS: NS 0.45% 1,000 ML IV SCH ×2 (00:36→08:07)
[2017-01-06] MEDS: LORazepam 2 MG/ML VIAL (J2060) IV SCH ×6 (02:09→21:53)
[2017-01-06] MEDS: methylPREDNISolone INJ 125 MG/2 ML VIAL (J2930) IV SCH ×4 (02:10→23:59)
[2017-01-06] MEDS: hydrALAZINE INJ 20 MG/ML VIAL IV SCH ×6 (02:10→21:52)
[2017-01-06] MEDS: METOPROLOL 5 MG/5 ML VIAL IV SCH ×2 (03:39→08:08)
[2017-01-06] MEDS: SODIUM CHLORIDE 0.9% INJ 10 ML SYR IV SCH ×2 (06:00→17:23)
[2017-01-06 06:23] LABS: ABG BASE EXCESS 4.7 (-2.0-2.0); ABG HCO3 28.9 MEQ/L (22.0-26.0); ABG PARTIAL PRESSURE CO2 41.3 mmHg (35.0-45.0); ABG PARTIAL PRESSURE O2 83.1 mmHg (75.0-100.0); ABG STANDARD HCO3 28.7 MEQ/L (22.0-26.0); ABG TOTAL CO2 30.2 MEQ/L (23.0-31.0); ABG pH (ARTERIAL) 7.463 UNITS (7.350-7.450)
[2017-01-06 06:55] LABS: MEAN CORPUSCULAR HEMOGLOBIN 32.9 pg (27.0-33.0); MEAN CORPUSCULAR HGB CONC 32.9 g/dl (32.0-36.5); MEAN CORPUSCULAR VOLUME 100.1 fl (80.0-96.0); RED CELL DISTRIBUTION WIDTH 13.4 % (11.5-14.5)
[2017-01-06 07:09] LABS: ANION GAP 5 MEQ/L (8-16); BLOOD UREA NITROGEN 30 MG/DL (7-18); CALCIUM LEVEL 8.1 MG/DL (8.8-10.2); CARBON DIOXIDE LEVEL 30 MEQ/L (21-32); CHLORIDE LEVEL 110 MEQ/L (98-107); CREATININE FOR GFR 0.73 MG/DL (0.70-1.30); GLOMERULAR FILTRATION RATE > 60.0 (>49); GLUCOSE, FASTING 129 MG/DL (80-110); MAGNESIUM LEVEL 3.1 MG/DL (1.8-2.4); SODIUM LEVEL 145 MEQ/L (136-145)
[2017-01-06] MEDS: ENOXAPARIN 40 MG/0.4 ML SYRINGE (J1650) SC SCH (08:08)
[2017-01-06] MEDS: FOLIC ACID 1 MG TAB PO SCH (08:09)
[2017-01-06] MEDS: THIAMINE 100 MG TAB PO SCH (08:09)
[2017-01-06] MEDS: MULTIVITAMINS/MINERALS THERAP 1 TAB PO SCH (08:09)
[2017-01-06] MEDS: amLODIPine 10 MG TAB PO SCH (08:09)
--- NOTE | 2017-01-06 08:12 | EEG ---
DATE OF PROCEDURE: 01/05/2017 REFERRING PHYSICIAN: Dr. Maria Teresa Ferguson EEG NUMBER: [id number] HISTORY: The patient is a 61-year-old man who was admitted at [facility] due to shortness of breath, hypercapnic respiratory failure requiring intubation. He drinks excessive alcohol. The patient is confused since he has been extubated. This EEG was done to rule out epileptic potential and assess degree of encephalopathy. He is currently on ceftriaxone, folic acid, thiamine, multivitamin, amlodipine, Protonix, Solu-Medrol, hydralazine, metoprolol, Serax, Haldol, morphine, etc. TECHNICAL DESCRIPTION: This digital EEG was recorded by 21 scalp, ear and two EKG electrodes and was reviewed in bipolar and referential montages following reformatting in 10-20 international electrode placement system. INTERPRETATION: The patient was noted to be restless and confused during this EEG. Awake background rhythm consisted of 6-7 Hz theta activity measuring 15-40 microvolts in amplitude. No sleep was achieved. The patient remained restless throughout this study. Excessive muscle artifact was noted in bilateral temporal head regions. Hyperventilation could not be performed. Photic stimulation remained unremarkable. EKG revealed normal sinus rhythm. No focal, lateralizing or epileptiform abnormalities were seen. CONCLUSION: This EEG in awake state is abnormal due to presence of mild generalized slowing and disorganization of background consistent with nonspecific diffuse cerebral dysfunction such as seen in encephalopathy due to multiple potential causes including toxic, metabolic, medication related, autoimmune, infectious, or multifocal structural abnormalities. Excessive motion and muscle artifact were also noted.
[2017-01-06] MEDS: MORPHINE 2 MG/ML 1ML SYRINGE IV PRN ×2 (11:07→15:14)
[2017-01-06] MEDS: cefTRIAXone SOD 2 GM in D5W MINI-BAG PLUS 50 ML IV SCH (11:07)
--- NOTE | 2017-01-06 11:48 | REP ---
Portable chest x-ray: Single view. History: Respiratory failure. Comparison radiograph January 05, 2017. Findings: A right-sided PICC line is seen in place with its tip in the expected location of the superior vena cava. EKG monitoring electrodes overlie the chest. The heart is not enlarged. The lungs are symmetrically aerated and clear. Pleural angles are sharp. Impression: No active disease. Signed by Rj Garcia MD 01/06/2017 04:33 P
--- NOTE | 2017-01-06 11:55 | REP ---
Portable chest x-ray: Single view. History: Status post NG tube placement. Comparison radiograph is from January 06, 2017. Findings: Nasogastric tube is seen entering the left upper quadrant of the abdomen. A right sided PICC line is noted terminating in the expected location of the superior vena cava. EKG electrodes are seen. Heart is not enlarged. Lung funez are clear. Impression: NG tube is seen entering the left upper quadrant of the abdomen. Signed by Rj Garcia MD 01/06/2017 04:33 P
[2017-01-06] MEDS: LORazepam 2 MG/ML VIAL (J2060) IV PRN ×3 (12:43→22:29)
[2017-01-06] MEDS: ENALAPRIL MALEATE 10 MG TAB NG SCH ×2 (13:36→21:53)
--- NOTE | 2017-01-06 14:34 | REP ---
PORTABLE CHEST X-RAY: SINGLE VIEW. HISTORY: Status post NG tube placement. Comparison study is from 11:24 a.m. on the same date. FINDINGS: The current radiograph again demonstrates a nasogastric tube which is seen looped within the gastric fundus in good position. A right-sided PICC line is seen in the expected location of the superior vena cava. The visualized lung funez are clear. There are old healed rib fractures on the right. IMPRESSION: NG tube is in good position. Signed by Rj Garcia MD 01/06/2017 04:34 P
--- NOTE | 2017-01-06 16:55 | REP ---
Noncontrast head CT: History: Altered mental status. Comparison head CT study: 11/01/2007. CT findings: There is considerable motion artifact despite immobilization and repeat images. No bony destructive lesion or fracture is seen. There is mucosal thickening and partial filling of the ethmoid and sphenoid sinuses bilaterally. Heavy vascular calcifications noted in the distal carotid arteries. There is mild to moderate diffuse cerebral atrophy noted. Small vessel atherosclerotic changes are seen with low density areas in the periventricular white matter of the frontal lobes bilaterally. There is an old lacunar infarct in the anterior limb of the left basal ganglia unchanged from the 2008 prior study. No evidence of new infarct is seen. No hemorrhage is seen. No mass or midline shift is seen. Impression: Diffuse moderate atrophy, small vessel changes, vascular calcification. Old lacunar infarct anteriorly left internal capsule unchanged from 2008 prior study. Motion artifact. Signed by Rj Garcia MD 01/07/2017 12:52 P
--- NOTE | 2017-01-06 16:57 | REP ---
Procedure: PICC line insertion with Vane The procedure was performed under the direct supervision of Dr. Duffy. The risks and benefits of the procedure were explained and informed consent was obtained by the health care proxy. The right brachial vein was localized using ultrasound guidance. The skin was prepped and draped in a sterile fashion. 2% lidocaine was used as a local anesthetic. Using ultrasound guidance the brachial vein was cannulated and a 0.018 guidewire was inserted and advanced to the SVC using fluoroscopic guidance. The needle was removed and a 5.5 Japanese dilator and peel-away sheath was inserted over the guide wire. A 5.5 Japanese dual lumen catheter was cut to length of 43 cm. The dilator was removed and the catheter was inserted over the guide wire with the tip ending in the SVC. The peel-away sheath was removed and the catheter was flushed with heparinized saline as per Hospital protocol. The catheter was affixed to the skin and a sterile dressing was applied. The the patient tolerated the procedure well and there were no immediate complications. 0.3 minutes of fluoro time was utilized for this procedure. Reviewed by HARVEY Zambrano 01/05/2017 04:44 PSigned by Eric Duffy MD 01/06/2017 04:48 P
[2017-01-06] MEDS: PANTOPRAZOLE 40MG INJ (PROTONIX) (C9113) IV SCH (17:22)
[2017-01-07] VITALS (8 sets, daily range): BP systolic 134–181; BP diastolic 63–112
--- NOTE | 2017-01-07 00:24 | IPN ---
DATE: 01/06/2017 Patient seen and examined. Still slow to respond but seems to be minimally verbal. Follows simple commands but takes time. Denies any chest pain, pressure, or discomfort. VITAL SIGNS: Temperature 98.6, pulse 106, respirations 18, blood pressure 165/74, pulse oximetry 94% on 1 liter nasal cannula. LABORATORY DATA: WBC 8, hemoglobin and hematocrit 12.2/37, platelets 320. Chemistry: Sodium 145, potassium 4, chloride 110, bicarbonate 30, BUN 30, creatinine 0.73. C-reactive protein 0.63. PHYSICAL EXAMINATION: GENERAL: Patient alert, arousable, slow to follow commands. HEENT: Normocephalic, atraumatic. PULMONARY: Expiratory wheeze bilateral. Mild fine crackles. CARDIAC: Regular rate and rhythm. Normal S1, S2. No murmurs detected. ABDOMEN: Soft, nontender, nondistended, positive bowel sounds. EXTREMITIES: No edema, bilateral lower extremities. Withdraws from pain. Follows simple commands. Symmetrical weakness. ASSESSMENT AND PLAN: This is a 61-year-old male patient with underlying medical history of dyslipidemia, hypertension, chronic obstructive pulmonary disease (COPD), vitamin B12 deficiency, chronic back pain with fall, alcohol dependence, right-sided cerebrovascular accident (CVA), congestive heart failure with mild diastolic dysfunction. Patient initially presented with difficulty breathing, nonproductive cough, sneezing, with mucus production, and found to have human rhinovirus, enterovirus, and Haemophilus influenzae pneumonia, requiring intubation for about 7 days, treated for acute COPD exacerbation. 1. Acute respiratory failure secondary to COPD exacerbation due to Haemophilus influenzae pneumonia, rhinovirus, and enterovirus. Patient was extubated 3 days ago, intubated for about 7 days. Continue Solu-Medrol. Taper steroid as tolerated. Nebulizer treatment. Patient on Rocephin for antibiotic. Respiratory panel and cultures appreciated. 2. Alcohol withdrawal. Patient was periodically agitated. Thiamine, folate, and multivitamin. Monitor for withdrawal. Ativan was decreased to 1 mg every 4 hours and 2 mg every 2 hours as needed. 3. Electroencephalogram (EEG) shows encephalopathy, multifactorial, possibly secondary to delirium versus alcohol withdrawal versus seizures versus hypoxic brain injury. Followup CT scan of the head. EEG is appreciated. Neurologic checks. Continue to monitor. 4. Hyperglycemia. Followup glucose. Patient does not require any coverage at this time. Will continue to monitor. 5. 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 Will start physical therapy. 6. Nutrition. Given patient's mental status, patient remains nothing by mouth. Nasogastric (NG) tube placed. Aspiration risk. Tube feeding has been restarted. Once patient's mental status improves, will perform speech and swallow evaluation. 7. Hypertension secondary to agitation versus alcohol withdrawal. Treatment for withdrawal as above. Patient on hydralazine, Norvasc, and also enalapril has been added. Will adjust medication as needed. 8. Deep vein thrombosis (DVT) prophylaxis. Lovenox subcutaneous. DISPOSITION PLANNING: Pending clinical improvement and further workup.
[2017-01-07] MEDS: LORazepam 2 MG/ML VIAL (J2060) IV SCH ×6 (01:12→21:27)
[2017-01-07] MEDS: hydrALAZINE INJ 20 MG/ML VIAL IV SCH ×6 (01:12→21:27)
[2017-01-07] MEDS: LORazepam 2 MG/ML VIAL (J2060) IV PRN ×2 (04:31→10:08)
[2017-01-07] MEDS: IPRATROPIUM 0.5MG/ALBUTEROL 2.5MG INH SOL UD 3ML (DUONEB)(J7620) NEB SCH ×6 (04:37→23:49)
[2017-01-07] MEDS: SODIUM CHLORIDE 0.9% INJ 10 ML SYR IV SCH ×2 (05:39→17:19)
[2017-01-07 06:02] LABS: MEAN CORPUSCULAR HEMOGLOBIN 32.6 pg (27.0-33.0); MEAN CORPUSCULAR HGB CONC 32.6 g/dl (32.0-36.5); RED CELL DISTRIBUTION WIDTH 13.6 % (11.5-14.5); WHITE BLOOD COUNT 9.9 K/mm3 (4.0-10.0)
[2017-01-07 06:37] LABS: ANION GAP 5 MEQ/L (8-16); BLOOD UREA NITROGEN 28 MG/DL (7-18); CALCIUM LEVEL 8.2 MG/DL (8.8-10.2); CARBON DIOXIDE LEVEL 31 MEQ/L (21-32); CHLORIDE LEVEL 113 MEQ/L (98-107); CREATININE FOR GFR 0.85 MG/DL (0.70-1.30); GLOMERULAR FILTRATION RATE > 60.0 (>49); GLUCOSE, FASTING 185 MG/DL (80-110); MAGNESIUM LEVEL 2.9 MG/DL (1.8-2.4); POTASSIUM SERUM 3.8 MEQ/L (3.5-5.1); SODIUM LEVEL 149 MEQ/L (136-145)
[2017-01-07] MEDS: amLODIPine 10 MG TAB PO SCH (09:34)
[2017-01-07] MEDS: methylPREDNISolone INJ 125 MG/2 ML VIAL (J2930) IV SCH ×2 (09:34→22:06)
[2017-01-07] MEDS: ENOXAPARIN 40 MG/0.4 ML SYRINGE (J1650) SC SCH (09:35)
[2017-01-07] MEDS: THIAMINE 100 MG TAB PO SCH (09:35)
[2017-01-07] MEDS: ENALAPRIL MALEATE 10 MG TAB NG SCH ×2 (09:35→21:27)
[2017-01-07] MEDS: MULTIVITAMINS/MINERALS THERAP 1 TAB PO SCH (09:35)
[2017-01-07] MEDS: FOLIC ACID 1 MG TAB PO SCH (09:35)
[2017-01-07] MEDS: cefTRIAXone SOD 2 GM in D5W MINI-BAG PLUS 50 ML IV SCH (11:54)
[2017-01-07] MEDS: PANTOPRAZOLE 40MG INJ (PROTONIX) (C9113) IV SCH (17:18)
--- NOTE | 2017-01-07 19:30 | IPN ---
DATE: 01/07/2017 Patient seen and examined. No acute events overnight. Seems to be slightly more awake continues to be very slow to respond, minimally verbal. Denies any chest pain or discomfort. VITAL SIGNS: Temperature 98.9, pulse 114, respirations 20, blood pressure 128/59 , pulse oximetry 91% on room air. LABORATORY DATA: WBC 9.9, hemoglobin and hematocrit 11.5/35.2, platelets 269. Chemistry: Sodium 149, potassium 3.8, chloride 113, bicarbonate 31, BUN 28, creatinine 0.85. PHYSICAL EXAMINATION: GENERAL: Patient alert, arousable, slow to follow commands. HEENT: Normocephalic, atraumatic. PULMONARY: Expiratory wheeze bilateral. Fine crackles. CARDIAC: Regular rate and rhythm. Normal S1, S2. No murmurs detected. ABDOMEN: Soft, nontender, nondistended, positive bowel sounds. EXTREMITIES: No edema, bilateral lower extremities. Withdraws from pain. Follows simple commands but is very slow to respond. ASSESSMENT AND PLAN: This is a 61-year-old male patient with underlying medical history of dyslipidemia, hypertension, chronic obstructive pulmonary disease (COPD), vitamin B12 deficiency, chronic back pain with fall, alcohol dependence, right-sided cerebrovascular accident (CVA) history, congestive heart failure with mild diastolic dysfunction. Patient initially presented with difficulty breathing, nonproductive cough, sneezing, with mucus production, found to have human rhinovirus, enterovirus, and Haemophilus influenzae pneumonia, requiring intubation for about 7 days, treated for acute COPD exacerbation. PROBLEM: 1. Acute respiratory failure secondary to COPD exacerbation due to Haemophilus influenzae pneumonia, rhinovirus, and enterovirus. Patient was extubated 4 days ago, intubated for about 7 days. Continue Solu-Medrol. Taper steroids. Nebulizer treatment. Rocephin. Respiratory panel and cultures appreciated. 2. Alcohol withdrawal. Patient was periodically agitated. Thiamine, folate, and multivitamin. Monitor for withdrawal. Ativan has been decreased We will continue to monitor on telemetry. Patient mildly tachycardia. 3. Electroencephalogram (EEG) shows encephalopathy, multifactorial, possibly secondary to delirium metabolic encephalopathy versus alcohol versus hypoxic brain. CT scan appreciated. EEG is appreciated. Neurologic checks. Will consider neurology consultation. Unable to get an MRI at this point given patient is moving a lot. . 4. Hyperglycemia. Followup glucose. Patient does not require any coverage at this time. Will continue to monitor. 5. 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 Will start physical therapy once patient is able to follow commands. 6. Nutrition. Patient's mental status has not improved enough for oral feeding. Nasogastric (NG) tube placed. Started oral feeding. Aspiration precaution. Once patient's mental status improves, we will perform speech and swallow evaluation. 7. Hypertension secondary to agitation possible alcohol withdrawal. Treatment for withdrawal as above. Hydralazine, Norvasc, and also enalapril has been added. Will adjust medication as needed. 8. Deep vein thrombosis (DVT) prophylaxis. Lovenox subcutaneous. DISPOSITION PLANNING: Pending clinical improvement and further workup. MTDD
[2017-01-08] VITALS (10 sets, daily range): BP systolic 134–183; BP diastolic 62–88
[2017-01-08] MEDS: hydrALAZINE INJ 20 MG/ML VIAL IV SCH ×6 (02:00→21:30)
[2017-01-08] MEDS: LORazepam 2 MG/ML VIAL (J2060) IV SCH ×6 (02:05→21:33)
[2017-01-08] MEDS: IPRATROPIUM 0.5MG/ALBUTEROL 2.5MG INH SOL UD 3ML (DUONEB)(J7620) NEB SCH ×6 (03:45→23:28)
[2017-01-08] MEDS: SODIUM CHLORIDE 0.9% INJ 10 ML SYR IV SCH ×2 (05:14→18:32)
[2017-01-08 05:37] LABS: MEAN CORPUSCULAR HEMOGLOBIN 33.3 pg (27.0-33.0); MEAN CORPUSCULAR HGB CONC 33.1 g/dl (32.0-36.5); MEAN CORPUSCULAR VOLUME 100.6 fl (80.0-96.0); RED CELL DISTRIBUTION WIDTH 13.4 % (11.5-14.5); WHITE BLOOD COUNT 8.3 K/mm3 (4.0-10.0)
[2017-01-08 05:46] LABS: ANION GAP 6 MEQ/L (8-16); BLOOD UREA NITROGEN 25 MG/DL (7-18); CALCIUM LEVEL 7.7 MG/DL (8.8-10.2); CARBON DIOXIDE LEVEL 32 MEQ/L (21-32); CHLORIDE LEVEL 112 MEQ/L (98-107); CREATININE FOR GFR 0.83 MG/DL (0.70-1.30); GLOMERULAR FILTRATION RATE > 60.0 (>49); GLUCOSE, FASTING 235 MG/DL (80-110); MAGNESIUM LEVEL 2.6 MG/DL (1.8-2.4); SODIUM LEVEL 150 MEQ/L (136-145)
[2017-01-08] MEDS: LORazepam 2 MG/ML VIAL (J2060) IV PRN ×2 (07:23→16:36)
[2017-01-08] MEDS ORDERED: D5W 1,000 ML IV SCH (08:00)
[2017-01-08] MEDS: ENALAPRIL MALEATE 10 MG TAB NG SCH ×2 (08:12→21:00)
[2017-01-08] MEDS: THIAMINE 100 MG TAB PO SCH (08:12)
[2017-01-08] MEDS: FOLIC ACID 1 MG TAB PO SCH (08:12)
[2017-01-08] MEDS: ENOXAPARIN 40 MG/0.4 ML SYRINGE (J1650) SC SCH (08:12)
[2017-01-08] MEDS: amLODIPine 10 MG TAB PO SCH (08:15)
[2017-01-08] MEDS: HumaLOG INSULIN (NovoLOG) PER UNIT SC SCH ×4 (08:46→23:55)
[2017-01-08] MEDS: MULTIVITAMIN/MINERALS LIQUID 15ML ORAL SYRINGE PO SCH (09:00)
[2017-01-08] MEDS: cefTRIAXone SOD 2 GM in D5W MINI-BAG PLUS 50 ML IV SCH (11:10)
[2017-01-08] MEDS: MORPHINE 2 MG/ML 1ML SYRINGE IV PRN ×2 (11:12→15:25)
[2017-01-08] MEDS: methylPREDNISolone INJ 125 MG/2 ML VIAL (J2930) IV SCH ×2 (11:13→22:25)
--- NOTE | 2017-01-08 17:23 | REP ---
MRI study of the brain without contrast: History: Altered mental status. Comparison head CT study 01/06/2017. Technique: Axial and sagittal imaging planes are utilized for T1 and T2-weighted scans. Sequences include spin-echo, fast spin echo, FLAIR, and diffusion weighted sequences. MRI findings: No bony calvarial lesion is seen. Craniocervical junction and upper cervical cord are normal in appearance. Diffusion weighted scan show no evidence to suggest acute ischemia. There are extensive small vessel atherosclerotic changes in the periventricular and subcortical white matter of the supratentorial brain bilaterally. There are a few of these in the seymour as well. There are tiny low T1 high T2 signal intensity foci involving the left basal ganglia and periventricular white matter in the right posterior frontal lobe consistent with tiny lacunar infarcts. There is no evidence of acute infarction. No hemorrhage is seen. There is Seda sinusitis disease noted in the paranasal sinuses. No intraorbital abnormality is seen. Impression: 1. Diffuse atrophy and fairly advanced small vessel atherosclerotic changes. 2. Old lacunar infarcts. 3. No acute infarct or hemorrhage seen. 4. Extensive mucosal changes in the paranasal sinuses bilaterally. Signed by Rj Garcia MD 01/08/2017 06:10 P
--- NOTE | 2017-01-08 18:21 | REP ---
CHEST: Single view of the chest is performed and compared to prior study of 01/06/2017. No acute infiltrate is seen. Cardiomediastinal silhouette is unremarkable. Right central venous catheter is seen with the tip in the right atrium. Nasogastric tube traverses into the stomach. Signed by Eric Duffy MD 01/08/2017 08:06 P
[2017-01-08] MEDS: PANTOPRAZOLE 40MG INJ (PROTONIX) (C9113) IV SCH (18:31)
[2017-01-09] MEDS: LORazepam 2 MG/ML VIAL (J2060) IV SCH ×6 (01:35→22:05)
[2017-01-09] MEDS: hydrALAZINE INJ 20 MG/ML VIAL IV SCH ×6 (02:00→22:00)
[2017-01-09] MEDS: LORazepam 2 MG/ML VIAL (J2060) IV PRN (02:52)
--- NOTE | 2017-01-09 02:57 | IPN ---
DATE OF SERVICE: 01/08/2017 Patient seen and examined. Continued to be lethargic. Further history not possible. Awake, but very slow to follow commands. Still quite confused. Case discussed with patient's son, Steve. Discussed the possibility of tube feeding, as well as the need for placement as family expressed they are not being able to take care of the patient at this date at home. Will obtain MRI if patient tolerates. VITAL SIGNS: Temperature 99.4, pulse 99, respirations 22, blood pressure 122/56, pulse oximetry 98% on room air. LABORATORY: WBC 8.3, hemoglobin and hematocrit 10.8/32.8, platelets 209. Chemistry: Sodium 150, potassium 4, chloride 102, bicarbonate 32, BUN 25, creatinine 0.83. PHYSICAL EXAMINATION: GENERAL: Patient alert, arousable, slow to follow commands, confused. HEENT: Normocephalic, atraumatic. PULMONARY: Expiratory wheeze bilateral. Fine crackles. CARDIAC: Regular rate and rhythm. Normal S1, S2. No murmurs detected. ABDOMEN: Soft, nontender, nondistended, positive bowel sounds. EXTREMITIES: No edema bilateral lower extremities. Withdraws from pain. Follows simple commands, but very slow to respond. ASSESSMENT AND PLAN: This is a 61-year-old male patient with underlying medical history of dyslipidemia, hypertension, chronic obstructive pulmonary disease (COPD), vitamin B12 deficiency, chronic back pain with fall, alcohol dependence, right-sided CVA history, congestive heart failure with mild diastolic dysfunction. Patient initially presented with difficulty breathing, nonproductive cough, sneezing with mucus production, found to have human rhinovirus, enterovirus, and Haemophilus influenzae pneumonia, requiring intubation for about 7 days, treated for acute COPD exacerbation. 1. Acute respiratory failure secondary to COPD exacerbation due to Haemophilus influenzae pneumonia, rhinovirus, and enterovirus. Patient was extubated 5 days ago, intubated for a total of 7 days. Continue Solu-Medrol. Taper steroids. Nebulizer treatment. Rocephin. Respiratory panel and cultures appreciated. 2. Alcohol withdrawal. Patient was periodically agitated. Thiamine, folate, and multivitamin. Monitor for withdrawal. Ativan has been decreased. We will continue to monitor on telemetry. Patient mildly tachycardia. 3. Encephalopathy. Electroencephalogram (EEG) shows encephalopathy, multifactorial, possibly secondary to delirium metabolic encephalopathy versus alcohol versus hypoxia. CT scan appreciated. EEG is appreciated. Neurologic checks. Neurology has been consulted. MRI has been done given patient is slightly more calm today. 4. Hyperglycemia. Followup glucose. Will order coverage as needed. Follow fingersticks. 5. Hypernatremia. Likely secondary to dehydration. D5W. Tube feeding, free water, fluids have been increased. 6. 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 Will restart physical therapy once the patient is able to follow commands. 7. Nutrition. Patient's mental status has not improved to have oral feeding. Given aspiration risk, nasogastric (NG) tube placed. Oral feeding. Jevity. Aspiration precaution. If patient's mental status improves, we will consider speech and swallow. If not, will consider percutaneous endoscopic gastrostomy (PEG) feeding. 8. Hypertension secondary to agitation, possible alcohol withdrawal. Treatment for withdrawal as mentioned above. Hydralazine, Norvasc, enalapril. Will adjust medications as needed. 9. Deep vein thrombosis (DVT) prophylaxis. Lovenox subcutaneous. DISPOSITION PLANNING: Pending clinical improvement, possible PEG placement, and also need patient and family services (PFS) for disposition.
[2017-01-09] MEDS ORDERED: NICOTINE 21MG/24HR 1 EA TRANSDERMAL TD ONE (03:15)
[2017-01-09] MEDS: IPRATROPIUM 0.5MG/ALBUTEROL 2.5MG INH SOL UD 3ML (DUONEB)(J7620) NEB SCH ×6 (03:33→23:56)
[2017-01-09] MEDS: HALOPERIDOL 5 MG/ML VIAL (J1630) IM PRN ×3 (03:36→12:04)
[2017-01-09 04:00] VITALS: BP 150/80
[2017-01-09] MEDS: D5W 1,000 ML IV SCH (05:54)
[2017-01-09] MEDS: SODIUM CHLORIDE 0.9% INJ 10 ML SYR IV SCH ×2 (05:55→18:26)
[2017-01-09] MEDS: HumaLOG INSULIN (NovoLOG) PER UNIT SC SCH ×3 (05:55→18:24)
[2017-01-09 06:10] LABS: MEAN CORPUSCULAR HEMOGLOBIN 32.6 pg (27.0-33.0); MEAN CORPUSCULAR HGB CONC 32.3 g/dl (32.0-36.5); MEAN CORPUSCULAR VOLUME 100.8 fl (80.0-96.0); RED CELL DISTRIBUTION WIDTH 13.2 % (11.5-14.5); WHITE BLOOD COUNT 12.2 K/mm3 (4.0-10.0)
[2017-01-09 06:21] LABS: ANION GAP 9 MEQ/L (8-16); BLOOD UREA NITROGEN 24 MG/DL (7-18); CALCIUM LEVEL 7.9 MG/DL (8.8-10.2); CARBON DIOXIDE LEVEL 28 MEQ/L (21-32); CHLORIDE LEVEL 106 MEQ/L (98-107); CREATININE FOR GFR 0.74 MG/DL (0.70-1.30); GLOMERULAR FILTRATION RATE > 60.0 (>49); GLUCOSE, FASTING 163 MG/DL (80-110); MAGNESIUM LEVEL 2.5 MG/DL (1.8-2.4); POTASSIUM SERUM 4.2 MEQ/L (3.5-5.1); SODIUM LEVEL 143 MEQ/L (136-145)
[2017-01-09 08:00] VITALS: BP 138/86
[2017-01-09] MEDS: ENOXAPARIN 40 MG/0.4 ML SYRINGE (J1650) SC SCH (10:06)
--- NOTE | 2017-01-09 11:38 | REP ---
PORTABLE CHEST: AP portable view of the chest is performed and compared to prior study of 01/08/2017. The lungs remain clear. The heart is normal in size. Right arm PICC line is again noted. Nasogastric tube has been placed and the side port is in the stomach. Signed by Eric Duffy MD 01/09/2017 07:46 P
[2017-01-09 12:00] VITALS: BP 180/80
[2017-01-09] MEDS: ENALAPRIL MALEATE 10 MG TAB NG SCH ×2 (12:01→22:05)
[2017-01-09] MEDS: FOLIC ACID 1 MG TAB PO SCH (12:01)
[2017-01-09] MEDS: THIAMINE 100 MG TAB PO SCH (12:02)
[2017-01-09] MEDS: MULTIVITAMIN/MINERALS LIQUID 15ML ORAL SYRINGE PO SCH (12:03)
[2017-01-09] MEDS: cefTRIAXone SOD 2 GM in D5W MINI-BAG PLUS 50 ML IV SCH (12:03)
[2017-01-09] MEDS: amLODIPine 10 MG TAB PO SCH (12:03)
[2017-01-09] MEDS: methylPREDNISolone INJ 40 MG/1 ML VIAL (J2920) IV SCH ×2 (12:04→22:04)
[2017-01-09 16:00] VITALS: BP 155/72
[2017-01-09] MEDS: PANTOPRAZOLE 40MG INJ (PROTONIX) (C9113) IV SCH (18:25)
[2017-01-09 19:50] VITALS: BP 147/81
[2017-01-09] MEDS ORDERED: OLANZapine 2.5MG TABLET PO SCH (21:00)
--- NOTE | 2017-01-09 21:19 | IPN ---
DATE: 01/09/2017 The patient is seen and examined. Minimally verbal. Follows simple commands. In no acute distress. Slow to respond. Denies any significant pain. VITAL SIGNS: Temperature 98.7, pulse ranging from 117 to 120, respirations 20, blood pressure 152/86, pulse oximetry 95% on room air. LABORATORY DATA: WBC 12.2, hemoglobin and hematocrit 11.9/36.9, platelets 213. Chemistry: Sodium 143, potassium 4.2, chloride 106, bicarbonate 28, BUN 26, creatinine 0.74. PHYSICAL EXAMINATION: GENERAL: The patient is comfortable, arousable to verbal stimuli. In no acute distress. Slow to respond. Slow to follow commands. Still confused. Does not know what happened. HEENT: Normocephalic, atraumatic. PULMONARY: Bilateral wheeze with fine crackles. CARDIAC: Regular rate and rhythm. Normal S1, S2. No murmurs detected. ABDOMEN: Soft, nontender, nondistended. Positive bowel sounds. EXTREMITIES: No edema in bilateral lower extremities. Withdraws from pain. Follows simple commands but very slow to respond. ASSESSMENT AND PLAN: This is a 61-year-old male patient with underlying medical history of dyslipidemia, hypertension, chronic obstructive pulmonary disease (COPD), vitamin B12 deficiency, chronic back pain with fall, alcohol dependence, right sided CVA, congestive heart failure (CHF) with mild diastolic dysfunction. The patient initially presented with difficulty breathing, nonproductive cough, sneezing with mucous production and found to have human rhinovirus, enterovirus and Haemophilus influenzae pneumonia requiring intubation for about 7 days and treated for acute chronic obstructive pulmonary disease (COPD) exacerbation. 1. Acute respiratory failure secondary to acute COPD exacerbation due to Haemophilus pneumoniae, rhinovirus and enterovirus. The patient was extubated 6 days ago and intubated for a total of 7 days. Taper steroids, Solu-Medrol, nebulizer treatments, Rocephin. Cultures and respiratory panel appreciated. 2. Alcohol withdrawal. Periodically agitated. Thiamine, folate and multivitamin. Monitor for withdrawal. Ativan standing and as needed. Telemetry. The patient has mild tachycardia. Zyprexa. Neurology consulted. 3. Encephalopathy. EEG appreciated showing encephalopathy, possibly secondary to alcohol dementia versus delirium versus metabolic encephalopathy versus hypoxic brain injury. CT scan of the brain appreciated. MRI appreciated. EEG appreciated. Neurology consulted. Zyprexa has been added. 4. Hyperglycemia. Follow glucose. Coverage as needed. 5. Hypernatremia, likely secondary to dehydration. D5W, tube feedings, free water boluses. 6. Weakness. Possibly secondary to critical neuropathy, myopathy. We will restart physical therapy (PT) once the patient follows commands. 7. Nutrition. The patient's mental status has not improved to have oral feedings. Speech and swallow evaluation. Nasogastric tube for Jevity tube feedings. We will consider percutaneous endoscopic gastrostomy tube on Wednesday if the patient does not pass speech/swallow. 8. Hypertension secondary to agitation, possibly alcohol withdrawal. Treatment for withdrawal as mentioned above. Hydralazine, Norvasc, Enalapril. We will adjust medications as needed. 9. Deep vein thrombosis (DVT) prophylaxis. Lovenox subcutaneously. DISPOSITION PLANNING: Pending clinical improvement and possible PEG tube placement. Patient and family services (PFS) for disposition.
[2017-01-09] MEDS: OLANZapine 2.5MG TABLET NG SCH (22:04)
[2017-01-09 23:59] VITALS: BP 166/67
[2017-01-10] MEDS: HumaLOG INSULIN (NovoLOG) PER UNIT SC SCH ×4 (00:20→17:58)
[2017-01-10] MEDS: LORazepam 2 MG/ML VIAL (J2060) IV SCH ×4 (01:30→17:55)
[2017-01-10] MEDS: hydrALAZINE INJ 20 MG/ML VIAL IV SCH ×6 (01:51→21:50)
[2017-01-10] MEDS: D5W 1,000 ML IV SCH (01:52)
[2017-01-10 04:45] VITALS: BP 162/74
[2017-01-10] MEDS: IPRATROPIUM 0.5MG/ALBUTEROL 2.5MG INH SOL UD 3ML (DUONEB)(J7620) NEB SCH ×6 (05:03→20:08)
[2017-01-10] MEDS: SODIUM CHLORIDE 0.9% INJ 10 ML SYR IV SCH ×2 (05:43→17:56)
[2017-01-10 06:32] LABS: MEAN CORPUSCULAR HEMOGLOBIN 32.8 pg (27.0-33.0); MEAN CORPUSCULAR VOLUME 96.6 fl (80.0-96.0); RED CELL DISTRIBUTION WIDTH 13.3 % (11.5-14.5); WHITE BLOOD COUNT 7.3 K/mm3 (4.0-10.0)
[2017-01-10 06:48] LABS: ANION GAP 8 MEQ/L (8-16); BLOOD UREA NITROGEN 19 MG/DL (7-18); CARBON DIOXIDE LEVEL 29 MEQ/L (21-32); CHLORIDE LEVEL 99 MEQ/L (98-107); CREATININE FOR GFR 0.67 MG/DL (0.70-1.30); GLOMERULAR FILTRATION RATE > 60.0 (>49); GLUCOSE, FASTING 233 MG/DL (80-110); MAGNESIUM LEVEL 2.4 MG/DL (1.8-2.4); POTASSIUM SERUM 4.1 MEQ/L (3.5-5.1); SODIUM LEVEL 136 MEQ/L (136-145)
[2017-01-10 08:38] VITALS: BP 146/67
[2017-01-10] MEDS: ENALAPRIL MALEATE 10 MG TAB NG SCH ×2 (08:46→21:50)
[2017-01-10] MEDS: amLODIPine 10 MG TAB PO SCH (08:46)
[2017-01-10] MEDS: FOLIC ACID 1 MG TAB PO SCH (08:46)
[2017-01-10] MEDS: ENOXAPARIN 40 MG/0.4 ML SYRINGE (J1650) SC SCH (08:46)
[2017-01-10] MEDS: MULTIVITAMIN/MINERALS LIQUID 15ML ORAL SYRINGE PO SCH (08:49)
[2017-01-10] MEDS: NICOTINE 21MG/24HR 1 EA TRANSDERMAL TD SCH (08:50)
[2017-01-10] MEDS: THIAMINE 100 MG TAB PO SCH (08:50)
--- NOTE | 2017-01-10 09:33 | CR ---
DATE OF CONSULTATION: 01/09/2017 REFERRING PHYSICIAN: Dr. Maria Teresa Ferguson REASON FOR CONSULTATION: Altered mental status. HISTORY OF PRESENT ILLNESS: Hussein Terry is a 61-year-old man with history of alcohol abuse who was admitted at [facility] due to breathing difficulty, cough and sneezing. He developed respiratory failure and required mechanical ventilation for a few days. He has been extubated for roughly one week. He continues to remain confused and at times agitated. He is unable to provide most of the history. Information was obtained from the nurses, his electronic medical record and general medicine team. When he initially presented, he had difficulty breathing sneezing and cough for five days. He had decreased appetite and increased sleep. He had denied any hemoptysis or weight changes. He had non bloody diarrhea for five days. He currently denies any headaches, neck pain, back pain, diplopia or urinary incontinence. He has difficulty swallowing. He has been considered for percutaneous endoscopic gastrostomy (PEG) tube. DIAGNOSTIC STUDIES: His MRI scan of brain was reviewed and showed moderate cerebral atrophy and small-vessel ischemic disease of brain. HOME MEDICATIONS: - lisinopril 40 mg by mouth daily - metoprolol extended release 50 mg by mouth daily - simvastatin 20 mg by mouth daily ALLERGIES: None. PAST MEDICAL HISTORY: 1. Hypertension. 2. Dyslipidemia. 3. Chronic obstructive pulmonary disease (COPD). 4. Vitamin B12 deficiency. 5. Alcohol abuse. 6. History of right-sided stroke. 7. Tonsillectomy. 8. Rib fracture. SOCIAL HISTORY: There is history of heavy alcohol abuse. He used to drink 3-10 beers per day. He is currently unable to quantify his alcohol use. He smokes 1-1.5 packs per day for last 40 years or more. FAMILY HISTORY: Noncontributory. REVIEW OF SYSTEMS: All systems were reviewed and were found to be noncontributory except as mentioned history of present illness. PHYSICAL EXAMINATION: Temperature 98.7, pulse 118, respiratory rate 20, blood pressure 138/86 and his maximum temperature over last 36 hours was 100.8. He has been afebrile in the last 24 hours. Heart: Regular rate and rhythm. Lungs: Clear to auscultation. Abdomen: Soft, nontender, nondistended. Neurologic Examination: The patient is awake, alert, oriented to self mostly. He is unable to tell me the day, date, month, year, name of president or place. He is able to follow simple commands. He is able to say a few words, although not able to make sentences. Extraocular muscles are intact. No facial weakness. Tongue and uvula are midline. Pupils are 4 mm bilaterally and reactive to light. The visual funez are full to confrontation. 5/5 strength in all four extremities. Deep tendon flexes are 1+ in arms and knees and absent at ankles. He has decreased cold pinprick vibration sensation in his feet. Gait could not be tested. He has decreased pulses in his ankles. No pedal edema. No gross musculoskeletal abnormalities. His ears, nose and throat examination is within normal limits. ASSESSMENT: 1. Delirium tremens. 2. Alcoholic dementia. 3. History of alcohol abuse. 4. Moderate cerebral atrophy and small-vessel ischemic disease of brain. PLAN: 1. Zyprexa 2.5 mg by mouth at bedtime and increase the dose to improve delirium if needed. Risperdal will be another option. 2. Thiamine 100 mg by mouth daily and folic acid 1 mg by mouth daily. 3. He must quit drinking alcohol. 4. Aspirin 81 mg by mouth daily.
[2017-01-10] MEDS: methylPREDNISolone INJ 40 MG/1 ML VIAL (J2920) IV SCH ×2 (11:46→22:04)
[2017-01-10] MEDS: cefTRIAXone SOD 2 GM in D5W MINI-BAG PLUS 50 ML IV SCH (11:46)
[2017-01-10 12:00] VITALS: BP 142/66
--- NOTE | 2017-01-10 13:37 | IPN ---
DATE: 01/10/2017 The patient is seen and examined. Seems to be more alert and with it. Follows commands. Alert and oriented times two. Still slow to respond. VITAL SIGNS: Temperature 98.1, pulse 109, respirations 20, blood pressure 142/66, pulse oximetry 95% on room air. LABORATORY DATA: WBC 7.3, hemoglobin and hematocrit 11.5/33.9, platelets 175. Chemistry: Sodium 136, potassium 4.1, chloride 99, bicarbonate 29, BUN 19, creatinine 0.67. PHYSICAL EXAMINATION: GENERAL: The patient is comfortable, arousable, alert and oriented times two. Slow to respond. HEENT: Normocephalic, atraumatic. PULMONARY: Bilateral wheeze with fine crackles. CARDIAC: Regular rate and rhythm. Normal S1, S2. No murmurs detected. ABDOMEN: Soft, nontender, nondistended. Positive bowel sounds. EXTREMITIES: No edema in bilateral lower extremities. Withdraws from pain. Follows simple commands. ASSESSMENT AND PLAN: This is a 61-year-old male patient with underlying medical history of dyslipidemia, hypertension, chronic obstructive pulmonary disease (COPD), vitamin B12 deficiency, chronic back pain and fall, alcohol dependence, right sided CVA, congestive heart failure (CHF) with mild diastolic dysfunction, and sneezing who initially presented with difficulty breathing, productive cough, sneezing and mucus production and found to have human rhinovirus, enterovirus and Haemophilus influenzae pneumonia requiring intubation for about 7 days who was treated for acute chronic obstructive pulmonary disease (COPD) exacerbation. 1. Acute respiratory failure secondary to acute COPD exacerbation due to Haemophilus pneumoniae. Also has rhinovirus and enterovirus. The patient was extubated 7 days ago and intubated for a total of 7 days. Taper steroids. Nebulizer treatments. Rocephin. Cultures and respiratory panel appreciated. 2. Alcohol withdrawal. Periodically agitated. Thiamine, folate and multivitamin. Monitor for withdrawal. Ativan standing and as needed. Telemetry. Zyprexa. Neurology consulted. 3. Encephalopathy. EEG appreciated showing encephalopathy, possibly secondary to alcohol dementia versus delirium versus metabolic encephalopathy versus hypoxic brain injury. CT scan of the brain negative. MRI appreciated. EEG appreciated. Neurology consulted. Zyprexa has been added. 4. Hyperglycemia. Follow glucose. Coverage as needed. 5. Hypernatremia, likely secondary to dehydration. Improved. Free water boluses. 6. Weakness. Secondary to critical care neuropathy and myopathy. Physical therapy (PT) as tolerated. 7. Nutrition. The patient's mental status has improved. Will consider speech and swallow evaluation. Currently nasogastric tube with Jevity. Given patient's mental status has improved, patient likely will not need a PEG tube, but will have official speech and swallow evaluation. 8. Hypertension secondary to agitation, possibly alcohol withdrawal. Treatment for withdrawal as mentioned above. Hydralazine, Norvasc, Enalapril. Adjust medications as needed. 9. Deep vein thrombosis (DVT) prophylaxis. Lovenox subcutaneously. DISPOSITION: Pending clinical improvement, Patient and family services (PFS), physical therrapy, speech and swallow.
[2017-01-10 16:00] VITALS: BP 105/64
[2017-01-10] MEDS: PANTOPRAZOLE 40MG INJ (PROTONIX) (C9113) IV SCH (17:55)
[2017-01-10 20:00] VITALS: BP 136/60
[2017-01-10] MEDS: OLANZapine 2.5MG TABLET NG SCH (21:50)
[2017-01-11] VITALS: BP 137/62
[2017-01-11] MEDS: IPRATROPIUM 0.5MG/ALBUTEROL 2.5MG INH SOL UD 3ML (DUONEB)(J7620) NEB SCH ×7 (00:18→23:11)
[2017-01-11] MEDS: LORazepam 2 MG/ML VIAL (J2060) IV SCH ×2 (00:33→06:09)
[2017-01-11] MEDS: HumaLOG INSULIN (NovoLOG) PER UNIT SC SCH ×5 (00:34→23:38)
[2017-01-11] MEDS: hydrALAZINE INJ 20 MG/ML VIAL IV SCH ×6 (02:00→21:27)
[2017-01-11 04:00] VITALS: BP 137/65
[2017-01-11] MEDS: SODIUM CHLORIDE 0.9% INJ 10 ML SYR IV SCH ×2 (06:09→18:09)
[2017-01-11 06:56] LABS: MEAN CORPUSCULAR HEMOGLOBIN 32.9 pg (27.0-33.0); MEAN CORPUSCULAR VOLUME 96.5 fl (80.0-96.0); RED CELL DISTRIBUTION WIDTH 13.4 % (11.5-14.5); WHITE BLOOD COUNT 9.9 K/mm3 (4.0-10.0)
[2017-01-11 07:02] LABS: ANION GAP 9 MEQ/L (8-16); BLOOD UREA NITROGEN 20 MG/DL (7-18); CALCIUM LEVEL 7.6 MG/DL (8.8-10.2); CARBON DIOXIDE LEVEL 26 MEQ/L (21-32); CHLORIDE LEVEL 102 MEQ/L (98-107); CREATININE FOR GFR 0.72 MG/DL (0.70-1.30); GLOMERULAR FILTRATION RATE > 60.0 (>49); GLUCOSE, FASTING 146 MG/DL (80-110); MAGNESIUM LEVEL 2.3 MG/DL (1.8-2.4); POTASSIUM SERUM 4.2 MEQ/L (3.5-5.1); SODIUM LEVEL 137 MEQ/L (136-145)
[2017-01-11 08:00] VITALS: BP 131/67
[2017-01-11] MEDS: methylPREDNISolone INJ 40 MG/1 ML VIAL (J2920) IV SCH (10:49)
[2017-01-11] MEDS: ENOXAPARIN 40 MG/0.4 ML SYRINGE (J1650) SC SCH (10:49)
[2017-01-11] MEDS: SODIUM CHLORIDE 0.9% INJ 10 ML SYR IV PRN (10:50)
[2017-01-11] MEDS: NICOTINE 21MG/24HR 1 EA TRANSDERMAL TD SCH (10:53)
[2017-01-11] MEDS: FOLIC ACID 1 MG TAB PO SCH (10:55)
[2017-01-11] MEDS: ENALAPRIL MALEATE 10 MG TAB NG SCH ×2 (10:56→21:44)
[2017-01-11] MEDS: THIAMINE 100 MG TAB PO SCH (10:57)
[2017-01-11] MEDS: MULTIVITAMIN/MINERALS LIQUID 15ML ORAL SYRINGE PO SCH (10:58)
[2017-01-11] MEDS: amLODIPine 10 MG TAB PO SCH (10:58)
[2017-01-11 12:00] VITALS: BP 152/67
--- NOTE | 2017-01-11 13:14 | REP ---
Clinical: Cough. Comparison: 01/09/2017. Findings: Right PICC line with tip in the SVC/right atrium. Nasogastric tube courses below left hemidiaphragm. Mediastinum and cardiac silhouette normal. Lung funez demonstrate chronic stable changes. No acute consolidation, effusion, or pneumothorax. Skeletal structures intact. Impression: Stable chest x-ray. No acute cardiopulmonary process. Signed by Huey Montes MD 01/11/2017 01:05 P
--- NOTE | 2017-01-11 13:36 | IPN ---
DATE: 01/11/2017 SUBJECTIVE: Mr. Joseph is a 61-year-old male who was seen and examined at the bedside. The patient is more alert and oriented today compared to yesterday based upon the nursing report. However, he is still drowsy. The patient has tube feedings with 200 mL every 4 hours, bolus feeds. The patient has been evaluated by speech therapy; however, the result is pending at this time. No overnight issues. The patient continues to have tachycardia; however, heart rate has decreased compared to yesterday. VITAL SIGNS: Temperature 99.6, pulse 108, respiratory rate 19, blood pressure 131/67, pulse oximetry 93% on room air. HEENT: Normocephalic, atraumatic. Pupils are equal and reactive to light. Oral mucosa is moist. The patient has nasogastric tube, which is in place and functional. NECK: Soft, supple. No lymphadenopathy or thyromegaly. HEART: Regular rate and rhythm. Normal S1, S2. No murmur or gallop was noticed. LUNGS: The patient has bilateral wheezing and rales. ABDOMEN: Soft, nontender. Positive bowel sounds in all quadrants. EXTREMITIES: No lower extremity edema. +2 pulses in both lower extremities. LABORATORY DATA: White blood cells 9.9, red blood cells 3.56, hemoglobin 11.7, hematocrit 34.4, MCV 96.5, MCH 32.9, MCHC 34, RDW 18.4, platelet count 188. Sodium 137, potassium 4.2, chloride 102, carbon dioxide 26, anion gap 9, BUN 20, creatinine 0.72, GFR more than 60, fasting glucose 146, calcium 7.6, magnesium 2.3. ASSESSMENT AND PLAN: 1. Acute respiratory failure possibly secondary to acute chronic obstructive pulmonary disease (COPD) exacerbation due to Haemophilus pneumonia. The patient also has positive rhinovirus and enterovirus. The patient extubated about 8 days ago and the patient was intubated for a total of 7 days. At this point, the patient is on Solu-Medrol 30 mg every 12 hours IV; however, I have stopped the Solu-Medrol and started the patient on oral 40 mg steroid, which will be given through the feeding tube. The patient was on Rocephin; however, I have stopped the Rocephin at this time. However, due to the abnormal lung sounds, I have ordered a chest x-ray and result is pending at this time. 2. Alcohol withdrawal. Since this morning, the patient is less agitated. We will continue the patient on thiamine, folic and multivitamin. Monitor for withdrawal. The patient is on scheduled vitamin; however, I have stopped the scheduled and continued as needed. The patient was also started on Zyprexa and Neurology has been consulted. 3. Encephalopathy. EEG indicated encephalopathy possibly secondary to alcoholic dementia versus delirium versus metabolic encephalopathy versus hypoxic brain injury. Neurology has been consulted. Imaging did not show any new pathology. Zyprexa has been added to the patient's medications. 4. Hyperglycemia. The patient is on sliding scale. 5. Hypernatremia. At this point, the patient's sodium is in normal range. This was possibly secondary to dehydration. 6. Weakness. This is possibly secondary to alcohol withdrawal, as well as other neurological issues and encephalopathy. The patient is following with physical therapy (PT). 7. Nutrition. The patient has a nasogastric tube and using Jevity; however, we have consulted speech and swallow and based upon the evaluation the patient might not be required to have nasogastric tube and we can discontinue it. However, we are waiting for further recommendations. 8. Hypertension. This is possibly secondary to agitation, possibly alcohol withdrawal. We will continue the patient on hydralazine, Norvasc and enalapril. 9. Agitation, possibly secondary to alcohol withdrawal. The patient is on Ativan and Haldol as needed for agitation. 10. Deep vein thrombosis (DVT) prophylaxis. The patient is on Lovenox. My preceptor for this patient encounter was Dr. Ferguson. The preceptor was physically present in the building during the encounter and was fully available. As needed , all aspects of the patient interview, examination, medical decision making process, and medical care plan development were reviewed and approved by the preceptor. The preceptor is aware and concurs with the plan as stated in the body of this note and will attest to such by his/her cosignature. I have both independently examined this patient as well as reviewed the note. I have discussed in detail with the resident the findings and plan of treatment as documented in the residents note. I will continue to follow the patient and offer further guidance to the patients care as necessary during this hospital stay. Maria Teresa FERRER
[2017-01-11 16:00] VITALS: BP 142/69
[2017-01-11] MEDS: PANTOPRAZOLE 40MG INJ (PROTONIX) (C9113) IV SCH (18:09)
[2017-01-11 20:41] VITALS: BP 143/67
[2017-01-11] MEDS: OLANZapine 2.5MG TABLET NG SCH (21:44)
[2017-01-12] VITALS (9 sets, daily range): BP systolic 112–143; BP diastolic 58–71
[2017-01-12] MEDS: hydrALAZINE INJ 20 MG/ML VIAL IV SCH ×2 (02:00→05:45)
[2017-01-12] MEDS: IPRATROPIUM 0.5MG/ALBUTEROL 2.5MG INH SOL UD 3ML (DUONEB)(J7620) NEB SCH (03:54)
[2017-01-12] MEDS: SODIUM CHLORIDE 0.9% INJ 10 ML SYR IV SCH ×2 (04:49→18:12)
[2017-01-12 05:08] LABS: MEAN CORPUSCULAR HEMOGLOBIN 32.6 pg (27.0-33.0); MEAN CORPUSCULAR HGB CONC 33.7 g/dl (32.0-36.5); MEAN CORPUSCULAR VOLUME 96.7 fl (80.0-96.0); RED CELL DISTRIBUTION WIDTH 13.7 % (11.5-14.5); WHITE BLOOD COUNT 10.5 K/mm3 (4.0-10.0)
[2017-01-12] MEDS ORDERED: CHLORASEPTIC SPRAY MT PRN (05:15)
[2017-01-12 05:27] LABS: ANION GAP 6 MEQ/L (8-16); BLOOD UREA NITROGEN 20 MG/DL (7-18); CALCIUM LEVEL 7.3 MG/DL (8.8-10.2); CARBON DIOXIDE LEVEL 30 MEQ/L (21-32); CHLORIDE LEVEL 100 MEQ/L (98-107); CREATININE FOR GFR 0.67 MG/DL (0.70-1.30); GLOMERULAR FILTRATION RATE > 60.0 (>49); GLUCOSE, FASTING 96 MG/DL (80-110); MAGNESIUM LEVEL 2.1 MG/DL (1.8-2.4); SODIUM LEVEL 136 MEQ/L (136-145)
[2017-01-12] MEDS: HumaLOG INSULIN (NovoLOG) PER UNIT SC SCH ×5 (05:45→23:48)
[2017-01-12] MEDS ORDERED: IPRATROPIUM 0.02% SOLN 0.5MG/2.5 ML NEB INH PRN (06:30)
[2017-01-12] MEDS ORDERED: LEVALBUTEROL 1.25 MG/0.5 ML CONCENTRATE NEB INH PRN (06:30)
[2017-01-12] MEDS: IPRATROPIUM 0.02% SOLN 0.5MG/2.5 ML NEB INH SCH ×4 (07:14→20:02)
[2017-01-12] MEDS: LEVALBUTEROL 1.25 MG/0.5 ML CONCENTRATE NEB INH SCH ×4 (07:14→20:02)
[2017-01-12] MEDS: ASPIRIN 81 MG CHEW TABLET PO SCH (08:57)
[2017-01-12] MEDS: NICOTINE 21MG/24HR 1 EA TRANSDERMAL TD SCH (08:57)
[2017-01-12] MEDS: THIAMINE 100 MG TAB PO SCH (08:57)
[2017-01-12] MEDS: MULTIVITAMIN/MINERALS LIQUID 15ML ORAL SYRINGE PO SCH (08:57)
[2017-01-12] MEDS: ENOXAPARIN 40 MG/0.4 ML SYRINGE (J1650) SC SCH (08:57)
[2017-01-12] MEDS: amLODIPine 10 MG TAB PO SCH (08:58)
[2017-01-12] MEDS: predniSONE 20 MG TAB PO SCH (08:58)
[2017-01-12] MEDS: FOLIC ACID 1 MG TAB PO SCH (08:58)
[2017-01-12] MEDS: ENALAPRIL MALEATE 10 MG TAB NG SCH ×2 (08:58→21:50)
[2017-01-12 11:42] LABS: MEAN CORPUSCULAR HEMOGLOBIN 32.9 pg (27.0-33.0); MEAN CORPUSCULAR HGB CONC 33.8 g/dl (32.0-36.5); MEAN CORPUSCULAR VOLUME 97.4 fl (80.0-96.0); RED CELL DISTRIBUTION WIDTH 13.6 % (11.5-14.5)
[2017-01-12] MEDS: LORazepam 2 MG/ML VIAL (J2060) IV PRN (13:25)
[2017-01-12] MEDS: PANTOPRAZOLE 40MG INJ (PROTONIX) (C9113) IV SCH (18:12)
[2017-01-12] MEDS: OLANZapine 2.5MG TABLET NG SCH (21:50)
[2017-01-13] MEDS: LORazepam 2 MG/ML VIAL (J2060) IV PRN (03:49)
[2017-01-13] MEDS: SODIUM CHLORIDE 0.9% INJ 10 ML SYR IV SCH ×2 (03:50→17:30)
[2017-01-13] MEDS: HumaLOG INSULIN (NovoLOG) PER UNIT SC SCH ×3 (05:42→17:29)
[2017-01-13 06:00] VITALS: BP 144/71
[2017-01-13] MEDS: LEVALBUTEROL 1.25 MG/0.5 ML CONCENTRATE NEB INH SCH ×4 (08:48→20:55)
[2017-01-13] MEDS: IPRATROPIUM 0.02% SOLN 0.5MG/2.5 ML NEB INH SCH ×4 (08:48→20:54)
[2017-01-13 10:13] LABS: MEAN CORPUSCULAR HEMOGLOBIN 32.4 pg (27.0-33.0); MEAN CORPUSCULAR HGB CONC 33.6 g/dl (32.0-36.5); MEAN CORPUSCULAR VOLUME 96.7 fl (80.0-96.0); RED CELL DISTRIBUTION WIDTH 13.8 % (11.5-14.5); WHITE BLOOD COUNT 11.5 K/mm3 (4.0-10.0)
[2017-01-13] MEDS: THIAMINE 100 MG TAB PO SCH (10:27)
[2017-01-13] MEDS: amLODIPine 10 MG TAB PO SCH (10:27)
[2017-01-13] MEDS: FOLIC ACID 1 MG TAB PO SCH (10:27)
[2017-01-13] MEDS: predniSONE 20 MG TAB PO SCH (10:28)
[2017-01-13] MEDS: MULTIVITAMIN/MINERALS LIQUID 15ML ORAL SYRINGE PO SCH (10:28)
[2017-01-13] MEDS: ENOXAPARIN 40 MG/0.4 ML SYRINGE (J1650) SC SCH (10:28)
[2017-01-13] MEDS: ENALAPRIL MALEATE 10 MG TAB NG SCH ×2 (10:28→21:06)
[2017-01-13] MEDS: ASPIRIN 81 MG CHEW TABLET PO SCH (10:28)
[2017-01-13] MEDS: NICOTINE 21MG/24HR 1 EA TRANSDERMAL TD SCH (10:29)
[2017-01-13 10:38] LABS: ALBUMIN 2.6 GM/DL (3.2-5.2); ALBUMIN/GLOBULIN RATIO 1.08 (1.00-1.93); ALKALINE PHOSPHATASE 92 U/L (45-117); ALT/SGPT 283 U/L (12-78); ANION GAP 8 MEQ/L (8-16); AST/SGOT 170 U/L (15-37); BILIRUBIN,TOTAL 0.4 MG/DL (0.2-1.0); BLOOD UREA NITROGEN 19 MG/DL (7-18); CALCIUM LEVEL 7.7 MG/DL (8.8-10.2); CARBON DIOXIDE LEVEL 28 MEQ/L (21-32); CHLORIDE LEVEL 98 MEQ/L (98-107); CREATININE FOR GFR 0.65 MG/DL (0.70-1.30); GLOMERULAR FILTRATION RATE > 60.0 (>49); GLUCOSE, FASTING 106 MG/DL (80-110); POTASSIUM SERUM 4.4 MEQ/L (3.5-5.1); SODIUM LEVEL 134 MEQ/L (136-145)
[2017-01-13] MEDS: SODIUM CHLORIDE 0.9% INJ 10 ML SYR IV PRN (11:41)
[2017-01-13 14:00] VITALS: BP 132/60
[2017-01-13] MEDS: PANTOPRAZOLE 40MG INJ (PROTONIX) (C9113) IV SCH (17:29)
--- NOTE | 2017-01-13 18:47 | REP ---
Clinical: Abnormal liver function tests. Technique: Real time page scale ultrasound examination using curved array transducer. Findings: The liver demonstrates a coarsened echotexture suggesting hepatocellular disease without focal hepatic lesion identified. Visualized portions of pancreas are unremarkable. Gallbladder suggests adenomyomatosis and cholelithiasis without wall thickening or pericholecystic fluid. No sonographic Mcgowan's sign was elicited. The common bile duct and is minimally dilated measuring 8 mm diameter. The right kidney is normal in reniform shape without hydronephrosis and measures 9.6 x 3.9 x 4.1 cm. No ascites. Impression: 1. Coarsened hepatic echotexture consistent with hepatic cellular disease and no focal hepatic lesion identified. 2. Gallbladder suggests adenomyomatosis as well as gallstones and tumefactive sludge. The common bile duct is minimally dilated to 8 mm. No sonographic Mcgowan's sign or pericholecystic fluid is appreciated to suggest acute cholecystitis. Signed by Huey Montes MD 01/13/2017 06:39 P
[2017-01-13] MEDS: HEPARIN SOD (PORCINE) 5000 UNITS/ML VIAL SQ SCH (21:07)
[2017-01-13 22:00] VITALS: BP 133/63
[2017-01-14] MEDS: SODIUM CHLORIDE 0.9% INJ 10 ML SYR IV SCH ×2 (05:17→18:00)
[2017-01-14 05:39] LABS: BASO % 0.1 % (0.0-1.0); EOS % 0.2 % (0.0-3.0); LARGE UNSTAINED CELL # 0.1 K/mm3 (0.0-0.4); LARGE UNSTAINED CELL % 1.6 % (0.0-4.0); LYMPH # 0.9 K/mm3 (1.5-4.5); LYMPH % 10.3 % (24.0-44.0); MEAN CORPUSCULAR HEMOGLOBIN 33.1 pg (27.0-33.0); MEAN CORPUSCULAR HGB CONC 34.6 g/dl (32.0-36.5); MEAN CORPUSCULAR VOLUME 95.8 fl (80.0-96.0); MONO # 0.6 K/mm3 (0.0-0.8); MONO % 7.9 % (0.0-5.0); NEUTROPHILS # 6.3 K/mm3 (1.8-7.7); NEUTROPHILS % 79.9 % (36.0-66.0); PLATELET COUNT, AUTOMATED 213 k/mm3 (150-450); WHITE BLOOD COUNT 7.9 K/mm3 (4.0-10.0)
[2017-01-14 05:57] LABS: ALBUMIN 2.5 GM/DL (3.2-5.2); ALKALINE PHOSPHATASE 144 U/L (45-117); ALT/SGPT 248 U/L (12-78); ANION GAP 7 MEQ/L (8-16); AST/SGOT 95 U/L (15-37); BILIRUBIN,TOTAL 0.6 MG/DL (0.2-1.0); BLOOD UREA NITROGEN 19 MG/DL (7-18); CALCIUM LEVEL 7.9 MG/DL (8.8-10.2); CARBON DIOXIDE LEVEL 28 MEQ/L (21-32); CHLORIDE LEVEL 100 MEQ/L (98-107); CREATININE FOR GFR 0.74 MG/DL (0.70-1.30); GLOMERULAR FILTRATION RATE > 60.0 (>49); GLUCOSE, FASTING 79 MG/DL (80-110); POTASSIUM SERUM 3.9 MEQ/L (3.5-5.1); SODIUM LEVEL 135 MEQ/L (136-145)
[2017-01-14] MEDS: HumaLOG INSULIN (NovoLOG) PER UNIT SC SCH ×5 (05:59→21:00)
[2017-01-14 06:00] VITALS: BP 138/96
[2017-01-14] MEDS: LEVALBUTEROL 1.25 MG/0.5 ML CONCENTRATE NEB INH SCH ×4 (07:25→20:05)
[2017-01-14] MEDS: IPRATROPIUM 0.02% SOLN 0.5MG/2.5 ML NEB INH SCH ×4 (07:25→20:05)
--- NOTE | 2017-01-14 09:39 | IPN ---
DATE: 01/12/2017 SUBJECTIVE: Mr. Joseph is a 61-year-old male who was seen and examined at the bedside. Patient is alert and oriented to place and person but not to time. Speech therapy has visited the patient, recommend that patient continue with the NG tube feeding until tomorrow which patient will be re-evaluated by speech therapy and at that time if patient is stable, we can discontinue the feeding tube and patient can start on pureed and honey thick tomorrow. Patient did not have overnight issues. Patient denies chest pain, palpitation, racing or skipping heart beat. At this time, patient is on room air. Vitals: Temperature 98.7, pulse 104, respiratory rate 24, blood pressure 112/58, pulse oximetry 94 on room air. HEENT: Normocephalic, atraumatic. Pupils are equal and reactive to light. Oral mucosa is moist. Patient has nasogastric tube which is in place and intact and functional. Neck: Soft, supple, no lymphadenopathy or thyromegaly. No jugular venous distention (JVD). Heart: Regular rate and rhythm, normal S1, S2. No murmur or gallop was appreciated. Lungs: Patient has bilateral rales and rhonchi. Abdomen: Soft, nontender, positive bowel sounds in all quadrants. Extremities: No lower extremity edema. Positive pulses in both lower extremities. LABORATORY DATA: White blood cells 10.5, red blood cells 3.27, hemoglobin 10.7, hematocrit 31.6. MCV 96.7, MCH 32.6, MCHC 33.7, RDW 13.7, platelet count 179. Sodium 136, potassium 4, chloride 100, carbon dioxide 20, anion gap 6, BUN 20, creatinine 0.67, glomerular filtration rate more than 60, fasting glucose 96, calcium 7.3, magnesium 2.1. ASSESSMENT AND PLAN: 1. Acute respiratory failure possibly secondary to acute chronic obstructive pulmonary disease (COPD) exacerbation due to Haemophilus pneumonia we well as rhinovirus and enterovirus. The patient was extubated about 9 days ago and the patient was intubated for 7 days. The patient was on Solu-Medrol, however, I have stopped the Solu-Medrol and switched to prednisone yesterday. At this time, patient is on prednisone 40 mg and patient is on room air. Also patient was on Rocephin, however, we have stopped Rocephin. Chest x-ray did not show any acute pathology. We will continue patient on Xopenex as well as ipratropium bromide. At this time, patient is stable. 2. Alcohol withdrawal. Patient has no agitation as was reported by the nursing staff. We will continue the patient on thiamine, folic and vitamins. Patient also is on Zyprexa for encephalopathy. 3. Esophagogastroduodenoscopy (EGD), which indicated possibility of encephalopathy secondary to alcoholic dementia versus delirium versus metabolic encephalopathy versus hypoxic brain injury. Dr. Matos was consulted and based upon his note, patient has possibility of delirium tremors, alcohol dementia and moderate cerebral atrophy and small vessel ischemic disease of the brain. Dr. Matos has started patient on Zyprexa 2.5 mg and dose can be increased as well as aspirin 81 mg. However, at this point, patient is stable. 4. Hyperglycemia. The patient is on sliding scale. 5. Hypernatremia. It has resolved. This was possibly secondary to dehydration. 6. Weakness. The patient is following with physical therapy (PT). This could be secondary to alcohol withdrawal as well as neurological issues and encephalopathy. 7. Nutrition. At this time, patient is on nasogastric tube with Jevity, however, patient was seen by speech therapy who recommended to continue with the nasogastric tube feeding for another day and tomorrow patient will be evaluated again and there is the possibility that we can discontinue the nasogastric tube and start patient on pureed and honey thick. Also will continue patient on Phenol one spray every 2 hrs as needed sore throat, however at this time, patient is stable. 8. Hypertension. This is possibly secondary to agitation, possibly alcohol withdrawal. However, patient's blood pressure is stable today. We will continue the patient on current medication including enalapril 10 mg twice daily, Norvasc 10 mg by mouth daily. 9. Agitation. Patient is stable at this time. Patient is on Ativan as needed. 10. Deep vein thrombosis (DVT) prophylaxis. The patient is on Lovenox. 11. Gastrointestinal (GI) prophylaxis. Patient is on Protonix 40 mg every 24 hours IV. My preceptor for this patient encounter was Dr. Harish Batista. The preceptor was physically present in the building during the encounter and was fully available. As needed, all aspects of the patient interview, examination, medical decision making process, and medical care plan development were reviewed and approved by the preceptor. The preceptor is aware and concurs with the plan as stated in the body of this note and will attest to such by his/her cosignature.
[2017-01-14] MEDS: MULTIVITAMIN/MINERALS LIQUID 15ML ORAL SYRINGE PO SCH (10:29)
[2017-01-14] MEDS: FOLIC ACID 1 MG TAB PO SCH (10:30)
[2017-01-14] MEDS: predniSONE 20 MG TAB PO SCH (10:30)
[2017-01-14] MEDS: ASPIRIN 81 MG CHEW TABLET PO SCH (10:30)
[2017-01-14] MEDS: NICOTINE 21MG/24HR 1 EA TRANSDERMAL TD SCH (10:30)
[2017-01-14] MEDS: ENALAPRIL MALEATE 10 MG TAB NG SCH (10:30)
[2017-01-14] MEDS: THIAMINE 100 MG TAB PO SCH (10:31)
[2017-01-14] MEDS: HEPARIN SOD (PORCINE) 5000 UNITS/ML VIAL SQ SCH ×2 (10:31→21:42)
[2017-01-14] MEDS: amLODIPine 10 MG TAB PO SCH (10:31)
[2017-01-14] MEDS ORDERED: MOM 30ML SUSPENSION UDC PO PRN (12:45)
--- NOTE | 2017-01-14 13:31 | IPN ---
DATE: 01/13/2017 SUBJECTIVE: Mr. Joseph is a 61-year-old male who was seen and examined at the bedside. Patient denies overnight issues. Patient has the nasogastric (NG) feeding tube. However, patient has been seen by speech therapy. At this time, we will discontinue the NG tube and will have a 24 hour trials with oral. Patient also does not have any agitation. Patient also denies palpitations, racing or skipping heart beat. VITAL SIGNS: Temperature 99, pulse 98, respiratory rate 20, blood pressure 144/71, pulse oximetry 93 on room air. GENERAL APPEARANCE: Patient was sitting on the bed, no acute distress. Pt was awake, alert and oriented only to time but not to place and person. HEENT: Normocephalic, atraumatic. Pupils are equal and reactive to light. Oral mucosa is moist. NECK: Soft, supple. No lymphadenopathy or thyromegaly. HEART: Regular rate and rhythm. Normal S1, S2. LUNGS: Patient has scattered rales and rhonchi bilaterally, mostly at the base of the lung. ABDOMEN: Soft, nontender. Positive bowel sounds in all quadrants. EXTREMITIES: No lower extremity edema. Positive pulses in both lower extremities. LABORATORY DATA: White blood cells 11.5, red blood cells 2.4, hemoglobin 11, hematocrit 32.8. MCV 96.7, MCH 32.4, MCHC 33.6, RDW 10.8, platelet count 215. Neutrophil percentage 19, lymphocyte percentage 3, monocyte percentage 7, platelets normal, red blood cells morphology normal. Sodium 134, potassium 4.4, chloride 98, carbon dioxide 28, anion gap 8, BUN 19, creatinine 0.65, glomerular filtration rate more than 60, fasting glucose 106, calcium 7.7, total bilirubin 0.4, AST 170, ALT 283, alkaline phosphatase 92, ASSESSMENT AND PLAN: 1. Acute respiratory failure. This is possibly secondary to acute obstructive pulmonary disease (COPD) exacerbation due to Haemophilus pneumonia as well as rhinovirus and enterovirus. Patient was on Rocephin for 7 days and it was stopped 2 days ago. At this time, patient is stable. The x-ray did not show any new pathology. At this time, patient is on prednisone 40 mg as well as breathing treatments. We will continue to monitor patient for any abnormal symptoms. 2. Elevated liver function tests. This is possibly secondary to alcohol usage. Patient is on Lovenox and Zyprexa. However, I have stopped these two medications due to abnormal liver function and I have started patient on heparin 5000 twice a day. At this time, I have ordered liver ultrasound as well as hepatitis profile and result is pending at this time. Also, we have stopped Zyprexa and Lovenox and start patient on heparin 5000 twice a day. 3. Encephalopathy due to abnormal liver function. I have ordered ammonia level and the result is pending at this time. Also, esophagogastroduodenoscopy (EGD) did show that this is possibly secondary to alcohol dementia versus delirium versus metabolic encephalopathy versus hypoxic brain injury. Patient was on Zyprexa. However, I have stopped this medication due to abnormal liver function. 4. Hyperglycemia. Patient on sliding scale. 5. Hypernatremia. This could be secondary to dehydration. We will check a sodium level again tomorrow. 6. Weakness. This is possibly secondary to alcohol withdrawal versus encephalopathy. Patient is following with occupational therapy (OT) and they recommended [facility] (SNF) and anticipate subacute rehabilitation needed per OT evaluation to rehabilitation/SNF setting only. At this time, patient is not safe to be discharged. 7. Nutrition. At this time, patient was seen by speech therapy who recommended that patient discontinue the nasogastric tube and start patient on diet for 24 hours for a trial However, if the patient aspirates it is a possibility that patient need percutaneous endoscopic gastrostomy (PEG) tube and we will speak with the family regarding this recommendation. 8. Hypertension. Patient is stable. We will continue patient on hydralazine, Norvasc and enalapril. 9. Agitation. Patient is stable at this time. This is possibly secondary to withdrawal. Patient is on Haldol and Ativan as needed. 10. Deep vein thrombosis (DVT) prophylaxis. Patient is on heparin 5000 twice a day. My preceptor for this patient encounter was Harish Batista MD. The preceptor was physically present in the building during the encounter and was fully available. As needed, all aspects of the patient interview, examination, medical decision making process, and medical care plan development were reviewed and approved by the preceptor. The preceptor is aware and concurs with the plan as stated in the body of this note and will attest to such by his/her co-signature. CARISSA
[2017-01-14 14:00] VITALS: BP 116/58
[2017-01-14] MEDS: SENOKOT S TAB PO SCH ×2 (14:38→21:42)
[2017-01-14] MEDS: PANTOPRAZOLE 40MG TAB (PROTONIX) PO SCH (14:38)
[2017-01-14] MEDS: SODIUM CHLORIDE 0.9% INJ 10 ML SYR IV PRN (14:38)
[2017-01-14] MEDS: ENALAPRIL MALEATE 10 MG TAB PO SCH (21:42)
[2017-01-14 22:00] VITALS: BP 113/52
--- NOTE | 2017-01-14 22:28 | IPN ---
DATE: 01/14/2017 SUBJECTIVE: Mr. Joseph is a 61-year-old male who was seen and examined at the bedside. Patient was awake, alert and oriented to time, place and person. Today is day two of (NG) feeding tube discontinuation and the patient is tolerating oral intake well. Patient denies chest pain, orthopnea, or paroxysmal nocturnal dyspnea (PND). Patient also denies nausea, vomiting, diarrhea, or constipation. OBJECTIVE: VITAL SIGNS: Temperature 99.2, pulse 93, respiratory rate 18, blood pressure 138/96, pulse oximetry 93% on room air. Total intake from yesterday 800 mL, total output 875 mL. GENERAL APPEARANCE: Patient was sitting on the chair in no acute distress. Patient was awake, alert and oriented to time, place and person. HEENT: Normocephalic, atraumatic. Pupils are equal and reactive to light. Oral mucosa is moist. NECK: Soft, supple. No lymphadenopathy. No thyromegaly. No jugular venous distention (JVD). HEART: Regular rate and rhythm, normal S1, S2. No gallop or murmur was appreciated. LUNGS: Patient has clear breath sounds bilaterally with good air movement. ABDOMEN: Soft, nontender. Positive bowel sounds in all quadrants. EXTREMITIES: No lower extremity edema. Positive pulses in both lower extremities. LABORATORY DATA: White blood cells 7.9, red blood cells 3.17, hemoglobin 10.5, hematocrit 30.4. MCV 95.8, MCH 33.1, MCHC 34.6, RDW 214, platelet count 215. Neutrophil percentage 79.9, lymphocyte percentage 10.3, monocyte percentage 7.9, eosinophil percentage 0.2, basophil percentage 0.1, leukocyte percentage 1.6. Sodium 135, potassium 3.9, chloride 100, carbon dioxide 28, anion gap 7, BUN 19, creatinine 0.74, glomerular filtration rate more than 60, fasting glucose 79, calcium 7.9, total bilirubin 0.6, AST 95, ALT 248, alkaline phosphatase 144, total protein 5, albumin 2.5. IMAGING STUDIES: Liver ultrasound shows coarsened hepatic echotexture consistent with hepatic cellular disease with no focal hepatic lesions identified. Gallbladder suggests adenomyomatosis as well as gallstones and tumefactive sludge. The common bile duct is minimally dilated to 8 mm. No sonographic Mcgowan's sign or pericholecystic fluid is appreciated to suggest acute cholecystitis. ASSESSMENT AND PLAN: 1. Transaminitis. Today, the patient's aspartate aminotransferase (AST) and alanine aminotransferase (ALT) level have decreased compared to yesterday. This is possibly secondary to medication, including Lovenox. We will continue monitoring the patient's liver function. Also, ultrasound indicated the possibility of hepatic cellular disease. We will continue monitoring the patient for any abnormal symptoms. The patient is stable. Also, we have ordered a hepatitis profile and it was negative. We will continue monitoring the patient for any abnormal symptoms. 2. Acute respiratory failure, possibly secondary to acute obstructive pulmonary disease (COPD) exacerbation, secondary to Haemophilus pneumonia as well as rhinovirus and enterovirus. At this time, the patient is stable. The patient has no sign and symptoms. 3. Alcohol withdrawal. At this time, patient is stable. The patient is on Ativan 1 mg IV every two hours as needed agitation. However, at this time, the patient does not have any signs or symptoms of withdrawal. We will continue the patient on folic acid as well as thiamine and vitamins. The patient was on Zyprexa. However, we have stopped this medication yesterday. 4. Encephalopathy. Today, the patient is more alert and oriented compared to yesterday. Patient was on Zyprexa. However, we have stopped this medication. Patient's ammonia level is normal. EEG indicated the possibility of encephalopathy secondary to alcoholic dementia versus delirium versus metabolic encephalopathy versus hypoxic brain injury. Dr. Matos has been consulted. We will continue monitoring for any abnormal symptoms. Also, the patient is on aspirin 81 mg. Patient is stable. 5. Hyperglycemia. Patient is on sliding scale. 6. Hypernatremia. This has resolved. 7. Weakness. Patient is following with physical therapy (PT). 8. Nutrition. Patient is tolerating oral intake well. At this time, the patient is on mechanical soft. If patient cannot tolerate and aspirates, we may have to put a nasogastric (NG) tube or put the percutaneous endoscopic gastrostomy (PEG) . We will continue to monitor the patient for any abnormal symptoms. 9. Hypertension. At this time, the patient's blood pressure is stable. Patient is on Norvasc and enalapril. 10. Agitation. Patient is stable. 11. Deep vein thrombosis (DVT) prophylaxis. Patient is on heparin. 12. Gastrointestinal (GI) prophylaxis. Patient is on Protonix 40 mg by mouth daily. 13. History of smoking. Patient is on nicotine one patch transdermal. My preceptor for this patient encounter was Harish Batista MD. The preceptor was physically present in the building during the encounter and was fully available. As needed, all aspects of the patient interview, examination, medical decision making process, and medical care plan development were reviewed and approved by the preceptor. The preceptor is aware and concurs with the plan as stated in the body of this note and will attest to such by his/her co-signature. CARISSA
[2017-01-15] MEDS: SODIUM CHLORIDE 0.9% INJ 10 ML SYR IV SCH ×2 (05:03→18:33)
[2017-01-15 05:23] LABS: EOS % 0.2 % (0.0-3.0); LARGE UNSTAINED CELL # 0.1 K/mm3 (0.0-0.4); LARGE UNSTAINED CELL % 1.7 % (0.0-4.0); LYMPH # 0.7 K/mm3 (1.5-4.5); LYMPH % 9.2 % (24.0-44.0); MEAN CORPUSCULAR HEMOGLOBIN 32.6 pg (27.0-33.0); MEAN CORPUSCULAR HGB CONC 33.2 g/dl (32.0-36.5); MEAN CORPUSCULAR VOLUME 98.3 fl (80.0-96.0); MONO # 0.6 K/mm3 (0.0-0.8); MONO % 8.3 % (0.0-5.0); NEUTROPHILS # 5.9 K/mm3 (1.8-7.7); NEUTROPHILS % 80.5 % (36.0-66.0); PLATELET COUNT, AUTOMATED 241 k/mm3 (150-450); RED CELL DISTRIBUTION WIDTH 13.9 % (11.5-14.5); WHITE BLOOD COUNT 7.3 K/mm3 (4.0-10.0)
[2017-01-15 06:00] VITALS: BP 133/60
[2017-01-15 06:03] LABS: ALBUMIN 2.4 GM/DL (3.2-5.2); ALBUMIN/GLOBULIN RATIO 0.92 (1.00-1.93); ALKALINE PHOSPHATASE 110 U/L (45-117); ALT/SGPT 165 U/L (12-78); ANION GAP 7 MEQ/L (8-16); AST/SGOT 39 U/L (15-37); BILIRUBIN,TOTAL 0.6 MG/DL (0.2-1.0); BLOOD UREA NITROGEN 20 MG/DL (7-18); CALCIUM LEVEL 7.5 MG/DL (8.8-10.2); CARBON DIOXIDE LEVEL 27 MEQ/L (21-32); CHLORIDE LEVEL 104 MEQ/L (98-107); CREATININE FOR GFR 0.76 MG/DL (0.70-1.30); GLOMERULAR FILTRATION RATE > 60.0 (>49); GLUCOSE, FASTING 73 MG/DL (80-110); POTASSIUM SERUM 3.9 MEQ/L (3.5-5.1); SODIUM LEVEL 138 MEQ/L (136-145)
[2017-01-15] MEDS: IPRATROPIUM 0.02% SOLN 0.5MG/2.5 ML NEB INH SCH ×4 (07:05→19:20)
[2017-01-15] MEDS: LEVALBUTEROL 1.25 MG/0.5 ML CONCENTRATE NEB INH SCH ×4 (07:05→19:20)
[2017-01-15] MEDS: HumaLOG INSULIN (NovoLOG) PER UNIT SC SCH ×4 (07:30→21:00)
[2017-01-15] MEDS: FOLIC ACID 1 MG TAB PO SCH (09:52)
[2017-01-15] MEDS: SENOKOT S TAB PO SCH ×2 (09:52→21:02)
[2017-01-15] MEDS: predniSONE 20 MG TAB PO SCH (09:52)
[2017-01-15] MEDS: MULTIVITAMINS/MINERALS THERAP 1 TAB PO SCH (09:52)
[2017-01-15] MEDS: THIAMINE 100 MG TAB PO SCH (09:52)
[2017-01-15] MEDS: amLODIPine 10 MG TAB PO SCH (09:52)
[2017-01-15] MEDS: PANTOPRAZOLE 40MG TAB (PROTONIX) PO SCH (09:52)
[2017-01-15] MEDS: ASPIRIN 81 MG CHEW TABLET PO SCH (09:54)
[2017-01-15] MEDS: HEPARIN SOD (PORCINE) 5000 UNITS/ML VIAL SQ SCH ×2 (09:54→21:02)
[2017-01-15] MEDS: NICOTINE 21MG/24HR 1 EA TRANSDERMAL TD SCH (09:54)
[2017-01-15] MEDS: ENALAPRIL MALEATE 10 MG TAB PO SCH ×2 (09:55→20:59)
[2017-01-15 14:00] VITALS: BP 137/63
[2017-01-15 22:00] VITALS: BP 110/55
[2017-01-16] MEDS: SODIUM CHLORIDE 0.9% INJ 10 ML SYR IV SCH ×2 (05:00→17:41)
[2017-01-16 05:15] LABS: BASO % 0.1 % (0.0-1.0); EOS % 0.4 % (0.0-3.0); LARGE UNSTAINED CELL # 0.1 K/mm3 (0.0-0.4); LARGE UNSTAINED CELL % 2.1 % (0.0-4.0); LYMPH # 0.6 K/mm3 (1.5-4.5); LYMPH % 10.8 % (24.0-44.0); MEAN CORPUSCULAR HEMOGLOBIN 32.6 pg (27.0-33.0); MEAN CORPUSCULAR HGB CONC 32.5 g/dl (32.0-36.5); MEAN CORPUSCULAR VOLUME 100.3 fl (80.0-96.0); MONO # 0.4 K/mm3 (0.0-0.8); MONO % 7.2 % (0.0-5.0); NEUTROPHILS # 4.1 K/mm3 (1.8-7.7); NEUTROPHILS % 79.4 % (36.0-66.0); PLATELET COUNT, AUTOMATED 206 k/mm3 (150-450); WHITE BLOOD COUNT 5.1 K/mm3 (4.0-10.0)
[2017-01-16 05:39] LABS: ALBUMIN 2.3 GM/DL (3.2-5.2); ALBUMIN/GLOBULIN RATIO 0.77 (1.00-1.93); ALKALINE PHOSPHATASE 88 U/L (45-117); ALT/SGPT 118 U/L (12-78); ANION GAP 6 MEQ/L (8-16); AST/SGOT 24 U/L (15-37); BILIRUBIN,TOTAL 0.5 MG/DL (0.2-1.0); BLOOD UREA NITROGEN 20 MG/DL (7-18); CARBON DIOXIDE LEVEL 27 MEQ/L (21-32); CHLORIDE LEVEL 105 MEQ/L (98-107); CREATININE FOR GFR 0.73 MG/DL (0.70-1.30); GLOMERULAR FILTRATION RATE > 60.0 (>49); GLUCOSE, FASTING 82 MG/DL (80-110); POTASSIUM SERUM 3.6 MEQ/L (3.5-5.1); SODIUM LEVEL 138 MEQ/L (136-145); TOTAL PROTEIN 5.3 GM/DL (6.4-8.2)
[2017-01-16 06:00] VITALS: BP 126/69
[2017-01-16] MEDS: HumaLOG INSULIN (NovoLOG) PER UNIT SC SCH ×4 (07:30→21:00)
[2017-01-16] MEDS: IPRATROPIUM 0.02% SOLN 0.5MG/2.5 ML NEB INH SCH ×4 (07:37→20:09)
[2017-01-16] MEDS: LEVALBUTEROL 1.25 MG/0.5 ML CONCENTRATE NEB INH SCH ×4 (07:37→20:09)
[2017-01-16 08:42] LABS: MEAN CORPUSCULAR HEMOGLOBIN 32.2 pg (27.0-33.0); MEAN CORPUSCULAR HGB CONC 33.1 g/dl (32.0-36.5); MEAN CORPUSCULAR VOLUME 97.3 fl (80.0-96.0); RED CELL DISTRIBUTION WIDTH 14.1 % (11.5-14.5); WHITE BLOOD COUNT 8.2 K/mm3 (4.0-10.0)
[2017-01-16] MEDS: NICOTINE 21MG/24HR 1 EA TRANSDERMAL TD SCH (09:51)
[2017-01-16] MEDS: SENOKOT S TAB PO SCH ×2 (09:52→21:11)
[2017-01-16] MEDS: PANTOPRAZOLE 40MG TAB (PROTONIX) PO SCH (09:52)
[2017-01-16] MEDS: predniSONE 20 MG TAB PO SCH (09:52)
[2017-01-16] MEDS: ENALAPRIL MALEATE 10 MG TAB PO SCH ×2 (09:52→21:11)
[2017-01-16] MEDS: ASPIRIN 81 MG CHEW TABLET PO SCH (09:52)
[2017-01-16] MEDS: HEPARIN SOD (PORCINE) 5000 UNITS/ML VIAL SQ SCH ×2 (09:52→21:10)
[2017-01-16] MEDS: MULTIVITAMINS/MINERALS THERAP 1 TAB PO SCH (09:52)
[2017-01-16] MEDS: FOLIC ACID 1 MG TAB PO SCH (09:52)
[2017-01-16] MEDS: amLODIPine 10 MG TAB PO SCH (09:52)
[2017-01-16] MEDS: THIAMINE 100 MG TAB PO SCH (09:53)
--- NOTE | 2017-01-16 11:00 | IPN ---
DATE: 01/16/2017 SUBJECTIVE: Mr. Terry is a 61-year-old male who was seen and examined at the bedside. The patient denies chest pain, orthopnea or paroxysmal nocturnal dyspnea (PND). The patient also denies nausea, vomiting, diarrhea or constipation. The patient has been seen by occupational therapy (OT) who recommended continuing rehabilitation after discharge (DC) and they are requesting that patient be discharged to a rehabilitation setting only. OBJECTIVE: VITAL SIGNS: Temperature 99.6, pulse 103, respiratory rate 17, blood pressure 133/60, pulse oximeter 91% on room air. Total intake from yesterday 240. Total output 225. GENERAL APPEARANCE: The patient was lying in bed in no acute distress. The patient was awake, alert, and oriented to time, place and person. HEENT: Normocephalic, atraumatic. Pupils equal, round, and reactive to light. Oral mucosa is moist. NECK: Soft, supple, no lymphadenopathy. No thyromegaly. No jugular venous distention (JVD). HEART: Tachycardic. Normal S1, S2. LUNGS: The patient has scattered rhonchi at the base of the lung. Good air movement. ABDOMEN: Soft, nontender. Positive bowel sounds in all quadrants. LABORATORY DATA: White blood cells 7.3, red blood cells 3.03, hemoglobin 9.9, hematocrit 29.7, MCV 98.3, MCH 32.6, MCHC 33.2, RDW 13.9, platelet count 241, neutrophil percentage 80.5, lymphocyte percentage 9.2, monocyte percentage 8.3, eosinophil percentage 0.2, basophil percentage 0, leucocyte percentage 1.7. Sodium 138, potassium 3.9, chloride 104, carbon dioxide 27, anion gap 7, BUN 20, creatinine 0.7, glomerular infiltration rate more than 60, fasting glucose 73, calcium 7.5, total bilirubin 0.6, AST 39, ALT 165, alkaline phosphatase 110, total protein 5, albumin 2.4, ASSESSMENT/PLAN: 1. Transaminitis: Possibly secondary to medication. Today, the patient's aspartate aminotransferase (AST) and alanine aminotransferase (ALT) level have decreased compared to yesterday. We will continue with the current medication. 2. Acute respiratory failure: At this time, the patient is stable and he is on room air. We will continue the patient on breathing treatment and 20 mg prednisone. 3. Alcohol withdrawal: The patient is stable. No new episode of agitation. The patient is on Ativan 1 mg IV every two hours as needed for agitation. At this time we will continue the patient on folic acid, thiamine and vitamins. 4. Encephalopathy: This has resolved. 5. Hyperglycemia: Patient is on sliding scale. 6. Hypernatremia: Resolved. 7. Weakness: Patient is following with occupational therapy (OT) who recommended the patient be discharged to rehabilitation or rehabilitation setting. 8. Nutrition: At this time, the patient is on soft mechanical diet with no aspiration. If the patient can tolerate this, we will further advance the patient to a regular diet. 9. Hypertension: The patient's blood pressure is controlled. Patient is on Norvasc and enalapril. 10. Agitation: Patient is stable. 11. Deep vein thrombosis (DVT) prophylaxis. Patient is on heparin. 12. Gastrointestinal (GI) prophylaxis. Patient is on Protonix 40 mg by mouth daily. 13. History of smoking: Patient is on nicotine one patch transdermal. My preceptor for this patient encounter was Harish Batista MD. The preceptor was physically present in the building during the encounter and was fully available. As needed, all aspects of the patient interview, examination, medical decision making process, and medical care plan development were reviewed and approved by the preceptor. The preceptor is aware and concurs with the plan as stated in the body of this note and will attest to such by his/her co-signature.
[2017-01-16 22:00] VITALS: BP 113/56
--- NOTE | 2017-01-16 22:19 | IPN ---
DATE: 01/16/2017 SUBJECTIVE: Mr. Joseph is a 61-year-old male who was seen and examined at the bedside. The patient denies chest pain, orthopnea, paroxysmal nocturnal dyspnea. The patient also denies nausea, vomiting, diarrhea, constipation. The patient was asymptomatic last night and no overnight issues. The patient tolerated the mechanical soft well. However, at this time, we will start the patient on regular diet with the aspiration precaution. OBJECTIVE: VITAL SIGNS: Temperature 98.7, pulse 102, respiratory rate 17, blood pressure 126/69, pulse oximetry 95% on room air. GENERAL APPEARANCE: The patient as seen in bed, no acute distress. The patient was alert, awake, oriented to time, place and person. HEENT: Normocephalic, atraumatic. Pupils equal and reactive to light. Oral mucosa is moist. NECK: Soft, supple. No lymphadenopathy, no thyromegaly. No jugular venous distention (JVD). HEART: Regular rate and rhythm. Normal S1, S2. LUNGS: Clear breath sounds bilaterally. Good air movement. ABDOMEN: Soft, nontender. Positive bowel sounds in all quadrants. EXTREMITIES: No lower extremity edema. Plus two pulses. LABORATORY DATA: White blood cells 8.2, red blood cells 3.12, hemoglobin 10.1, hematocrit 30.6, MCV 97.3, MCH 32.2, MCHC 33.1, RDW 14.1, platelet count 269. Sodium 138, potassium 3.6, chloride 106, carbon dioxide 27, anion gap 6, BUN 20, creatinine 0.73, GFR greater than 60, fasting glucose 82, calcium 8, bilirubin 0.5, AST 24, ALT 118, alkaline phosphatase 88, total protein 5.3, albumin 2.3. ASSESSMENT AND PLAN: 1. Transaminitis. The patient's aspartate transaminase (AST) and alanine transaminase (ALT) have decreased compared to yesterday. This is possibly secondary to medications (Lovenox). At this time, we will continue with the current medication. 2. Acute respiratory failure. The patient is stable on room air. We will continue patient on breathing treatment. Also, the patient was on prednisone 20 mg daily; however, I have decreased it to 10 mg daily. 3. Alcohol withdrawal. No agitation has been reported. The patient is on Ativan 1 mg intravenous (IV) every two hours as needed for agitation. Also, continue patient on folic acid as well as thiamine and vitamins. 4. Encephalopathy. The patient is stable, and awake and oriented. The patient was on Zyprexa; however, we have stopped this medication. 5. Hyperglycemia. The patient is on sliding scale. 6. Hypernatremia is resolving. 7. Weakness. The patient is followed by occupational therapy (OT) who recommended the patient being discharged to rehabilitation setting. 8. Nutrition. We have advanced the patient's diet to regular diet with aspiration precautions. Continue to monitor the patient for any abnormal symptoms. 9. Hypertension. The patient's blood pressure is normal. We will continue the patient on Norvasc and enalapril. 10. Agitation. The patient is stable. 11. Deep venous thrombosis (DVT) prophylaxis. The patient is on heparin. 12. Gastrointestinal (GI) prophylaxis. The patient is on Protonix. 13. History of smoking. The patient is on nicotine patch. My preceptor for this patient encounter was Dr. Harish Batista. The preceptor was physically present in the building during the encounter and was fully available as needed. All aspects of the patient interview, examination, medical decision making process, and medical care plan development were reviewed and approved by the preceptor. The preceptor is aware and concurs with the plan as stated in the body of this note and will attest to such by his/her co-signature. CARISSA
[2017-01-17] MEDS: SODIUM CHLORIDE 0.9% INJ 10 ML SYR IV SCH ×2 (05:37→17:48)
[2017-01-17 05:57] LABS: BASO % 0.1 % (0.0-1.0); EOS % 0.3 % (0.0-3.0); LARGE UNSTAINED CELL # 0.1 K/mm3 (0.0-0.4); LARGE UNSTAINED CELL % 1.7 % (0.0-4.0); LYMPH # 0.7 K/mm3 (1.5-4.5); LYMPH % 9.3 % (24.0-44.0); MEAN CORPUSCULAR HEMOGLOBIN 32.7 pg (27.0-33.0); MEAN CORPUSCULAR HGB CONC 33.5 g/dl (32.0-36.5); MEAN CORPUSCULAR VOLUME 97.6 fl (80.0-96.0); MONO # 0.6 K/mm3 (0.0-0.8); MONO % 8.6 % (0.0-5.0); NEUTROPHILS # 5.1 K/mm3 (1.8-7.7); PLATELET COUNT, AUTOMATED 269 k/mm3 (150-450); RED CELL DISTRIBUTION WIDTH 13.9 % (11.5-14.5); WHITE BLOOD COUNT 6.4 K/mm3 (4.0-10.0)
[2017-01-17 06:00] VITALS: BP 130/73
[2017-01-17 06:24] LABS: ALBUMIN 2.5 GM/DL (3.2-5.2); ALBUMIN/GLOBULIN RATIO 0.76 (1.00-1.93); ALKALINE PHOSPHATASE 167 U/L (45-117); ALT/SGPT 345 U/L (12-78); ANION GAP 8 MEQ/L (8-16); AST/SGOT 257 U/L (15-37); BILIRUBIN,TOTAL 0.6 MG/DL (0.2-1.0); BLOOD UREA NITROGEN 16 MG/DL (7-18); CARBON DIOXIDE LEVEL 27 MEQ/L (21-32); CHLORIDE LEVEL 104 MEQ/L (98-107); CREATININE FOR GFR 0.77 MG/DL (0.70-1.30); GLOMERULAR FILTRATION RATE > 60.0 (>49); GLUCOSE, FASTING 91 MG/DL (80-110); POTASSIUM SERUM 3.7 MEQ/L (3.5-5.1); SODIUM LEVEL 139 MEQ/L (136-145); TOTAL PROTEIN 5.8 GM/DL (6.4-8.2)
[2017-01-17] MEDS: HumaLOG INSULIN (NovoLOG) PER UNIT SC SCH ×4 (07:30→20:46)
[2017-01-17] MEDS: IPRATROPIUM 0.02% SOLN 0.5MG/2.5 ML NEB INH SCH ×4 (08:46→20:23)
[2017-01-17] MEDS: LEVALBUTEROL 1.25 MG/0.5 ML CONCENTRATE NEB INH SCH ×4 (08:46→20:23)
[2017-01-17] MEDS: predniSONE 10 MG TAB PO SCH (10:29)
[2017-01-17] MEDS: NICOTINE 21MG/24HR 1 EA TRANSDERMAL TD SCH (10:29)
[2017-01-17] MEDS: HEPARIN SOD (PORCINE) 5000 UNITS/ML VIAL SQ SCH ×2 (10:29→20:55)
[2017-01-17] MEDS: MULTIVITAMINS/MINERALS THERAP 1 TAB PO SCH (10:30)
[2017-01-17] MEDS: SENOKOT S TAB PO SCH ×2 (10:30→20:54)
[2017-01-17] MEDS: FOLIC ACID 1 MG TAB PO SCH (10:30)
[2017-01-17] MEDS: PANTOPRAZOLE 40MG TAB (PROTONIX) PO SCH (10:30)
[2017-01-17] MEDS: THIAMINE 100 MG TAB PO SCH (10:30)
[2017-01-17] MEDS: amLODIPine 10 MG TAB PO SCH (10:33)
[2017-01-17] MEDS: ASPIRIN 81 MG CHEW TABLET PO SCH (10:33)
[2017-01-17] MEDS: ENALAPRIL MALEATE 10 MG TAB PO SCH ×2 (10:33→20:54)
[2017-01-18] MEDS: SODIUM CHLORIDE 0.9% INJ 10 ML SYR IV SCH (05:16)
[2017-01-18 05:34] LABS: BASO % 0.1 % (0.0-1.0); EOS % 0.7 % (0.0-3.0); LARGE UNSTAINED CELL # 0.1 K/mm3 (0.0-0.4); LARGE UNSTAINED CELL % 1.9 % (0.0-4.0); LYMPH # 0.8 K/mm3 (1.5-4.5); MEAN CORPUSCULAR HEMOGLOBIN 32.7 pg (27.0-33.0); MEAN CORPUSCULAR HGB CONC 33.1 g/dl (32.0-36.5); MEAN CORPUSCULAR VOLUME 98.7 fl (80.0-96.0); MONO # 0.4 K/mm3 (0.0-0.8); MONO % 7.5 % (0.0-5.0); NEUTROPHILS # 4.1 K/mm3 (1.8-7.7); NEUTROPHILS % 75.8 % (36.0-66.0); PLATELET COUNT, AUTOMATED 276 k/mm3 (150-450); RED CELL DISTRIBUTION WIDTH 13.9 % (11.5-14.5); WHITE BLOOD COUNT 5.4 K/mm3 (4.0-10.0)
[2017-01-18 05:55] LABS: ALBUMIN 2.5 GM/DL (3.2-5.2); ALBUMIN/GLOBULIN RATIO 0.86 (1.00-1.93); ALKALINE PHOSPHATASE 130 U/L (45-117); ALT/SGPT 238 U/L (12-78); ANION GAP 9 MEQ/L (8-16); AST/SGOT 72 U/L (15-37); BILIRUBIN,TOTAL 0.5 MG/DL (0.2-1.0); BLOOD UREA NITROGEN 15 MG/DL (7-18); CALCIUM LEVEL 8.1 MG/DL (8.8-10.2); CARBON DIOXIDE LEVEL 26 MEQ/L (21-32); CHLORIDE LEVEL 106 MEQ/L (98-107); CREATININE FOR GFR 0.72 MG/DL (0.70-1.30); GLOMERULAR FILTRATION RATE > 60.0 (>49); GLUCOSE, FASTING 86 MG/DL (80-110); POTASSIUM SERUM 3.8 MEQ/L (3.5-5.1); SODIUM LEVEL 141 MEQ/L (136-145); TOTAL PROTEIN 5.4 GM/DL (6.4-8.2)
[2017-01-18 06:00] VITALS: BP 142/65
[2017-01-18] MEDS: HumaLOG INSULIN (NovoLOG) PER UNIT SC SCH ×2 (07:30→12:00)
[2017-01-18] MEDS: LEVALBUTEROL 1.25 MG/0.5 ML CONCENTRATE NEB INH SCH ×2 (07:31→13:00)
[2017-01-18] MEDS: IPRATROPIUM 0.02% SOLN 0.5MG/2.5 ML NEB INH SCH ×2 (07:32→13:00)
[2017-01-18] MEDS ORDERED: VITMTA PO (07:57)
[2017-01-18] MEDS ORDERED: PRED5TA PO (07:57)
[2017-01-18] MEDS ORDERED: FOLI1TAB2 PO (07:57)
[2017-01-18] MEDS ORDERED: LEVA12INH INH (07:57)
[2017-01-18] MEDS ORDERED: NICO21PAT TD (07:57)
[2017-01-18] MEDS ORDERED: ASPI81TA PO (07:57)
[2017-01-18] MEDS ORDERED: IPRA2IN INH (07:57)
[2017-01-18] MEDS ORDERED: SENN1TAB2 PO (07:57)
[2017-01-18] MEDS ORDERED: AMLO10TA2 PO (07:57)
[2017-01-18] MEDS ORDERED: ENAL10TA2 PO (07:57)
[2017-01-18] MEDS ORDERED: THIA100TA PO (07:57)
[2017-01-18 08:13] VITALS: BP 142/65
[2017-01-18] MEDS: FOLIC ACID 1 MG TAB PO SCH (08:13)
[2017-01-18] MEDS: amLODIPine 10 MG TAB PO SCH (08:13)
[2017-01-18] MEDS: ASPIRIN 81 MG CHEW TABLET PO SCH (08:13)
[2017-01-18] MEDS: predniSONE 10 MG TAB PO SCH (08:13)
[2017-01-18] MEDS: MULTIVITAMINS/MINERALS THERAP 1 TAB PO SCH (08:13)
[2017-01-18] MEDS: THIAMINE 100 MG TAB PO SCH (08:13)
[2017-01-18] MEDS: ENALAPRIL MALEATE 10 MG TAB PO SCH (08:13)
[2017-01-18] MEDS: NICOTINE 21MG/24HR 1 EA TRANSDERMAL TD SCH (08:14)
[2017-01-18] MEDS: HEPARIN SOD (PORCINE) 5000 UNITS/ML VIAL SQ SCH (08:14)
[2017-01-18] MEDS: PANTOPRAZOLE 40MG TAB (PROTONIX) PO SCH (08:14)
[2017-01-18] MEDS: SENOKOT S TAB PO SCH (08:14)
--- NOTE | 2017-01-20 21:42 | DSES ---
DATE OF ADMISSION: 12/28/2016 DATE OF DISCHARGE: 01/18/2017 PRIMARY CARE PHYSICIAN: Rosalba Savage PA-C CONSULTANTS: Dr. Delaney and Dr. Matos PROCEDURES: Intubation. DISCHARGE HOME MEDICATION: - amlodipine besylate 10 mg by mouth daily for 30 days - aspirin 81 mg - enalapril 10 mg by mouth twice a day - folic acid 1 mg by mouth daily - ipratropium bromide 0.5 mg INH or four times a day - levalbuterol hydrochloride 1.25 mg per 0.5 mL - multivitamins one tab by mouth daily - nicotine one patch TD daily - prednisone 5 mg by mouth daily - senna one tab by mouth twice a day - thiamine HCl 100 mg by mouth daily - metoprolol succinate 50 mg by mouth daily PRIMARY DIAGNOSIS: - Acute respiratory failure. SECONDARY DIAGNOSES: 1. Chronic obstructive pulmonary disease (COPD). 2. Alcohol withdrawal. 3. Encephalopathy. 4. Hyperglycemia. 5. Hypernatremia. 6. Weakness. 7. Hypertension. HOSPITAL COURSE: Mr. Joseph is a 61-year-old male, who presented to [facility] with breathing difficulty, nonproductive cough and sneezing productive of mucus. The patient was started on steroids and breathing treatments and oxygen therapy. Also, the patient had tachycardia. Cardiac panel was ordered, which was negative. During hospital course, the patient developed hypercarbic hypoxic respiratory failure with inability to sustain airway; patient was intubated. he has advanced chronic obstructive pulmonary disease ( COPD) exacerbation and was treated with Solu-Medrol. The patient was also started on antibiotic. Sputum culture came back positive for Haemophilus influenza. Also respiratory panel indicated human rotavirus, as well as enterovirus. The patient's blood culture also grew micrococcus luteus; however, the second blood culture was negative. The patient also had withdrawal symptoms during the intubation. During the time that the patient was intubated, the patient had an episode of withdrawal with tachypnea and tachycardia and fatigue. The patient was on benzodiazepine, on a schedule of Serax and Versed as needed. Also on propofol for sedation due to intubation. Also, the patient was continued on multivitamins, thiamine, as well as following magnesium level. The patient has leukocytosis, this was possibly secondary to Solu-Medrol, but also the patient has an infection, secondary to infection including Haemophilus influenza. After extubation, the patient continued to be on IV antibiotic. The patient was on a schedule Ativan; however, the patient was stable from alcohol withdrawal, we stopped the scheduled Ativan and we continued the Ativan as needed. Due to encephalopathy, electroencephalogram (EEG) was performed, which indicates multifactorial possibly secondary to delirium versus alcohol withdrawal versus seizure versus hypoxic brain injury. The patient was nothing by mouth and was started on nasogastric tube feeding. However, the patient was getting better and evaluated by speech therapy, who recommended the patient started on diet, which he tolerated well. Nasogastric tube was discharged. After the patient became medically optimized, we consulted physical medicine and rehabilitation (PM R). Also during hospitalization, the patient had elevated liver function. We have tested for hepatitis, which was negative. Liver ultrasound suggested adenomyomatosis, as well as gallstone; however, no sonographic Mcgowan sign or pericolic ascitic fluid was appreciated. Also, coarsened hepatic echotexture, consistent with hepatocellular disease was found; however, no focal hepatic lesions were identified. The patient, after being optimized, was discharged to PM R. DISCHARGE PLACEMENT: Physical medicine and rehabilitation (PM R). FOLLOWUP: Please followup with your primary care physician. ACTIVITY: Activity will be managed by physical medicine and rehabilitation. My preceptor for this patient encounter was Dr. Marquez. The preceptor was physically present in the building during the encounter and was fully available. As needed, all aspects of the patient interview, examination, medical decision making process, and medical care plan development were reviewed and approved by the preceptor. The preceptor is aware and concurs with the plan as stated in the body of this note and will attest to such by his/her cosignature. CARISSA
== END 2017-01-18 14:57 | DRG 130 ==
LOC: EDBD 09:53 → M ED 12:25 → M ED INP 19:05 → M ICU 12-29 17:20 → M PCU 01-08 16:18 → M MSPAV 01-12 20:43
PROVIDERS: ADMIT Internal Medicine; ATTEND Hospitalist
PROC: 0BH17EZ Insertion of Endotracheal Airway into Trachea, Via Natural or Artificial Opening (ICD-10-PCS; principal; 2016-12-29)
PROC: 5A1955Z Respiratory Ventilation, Greater than 96 Consecutive Hours (ICD-10-PCS; 2016-12-29)
PROC: 02HV33Z Insertion of Infusion Device into Superior Vena Cava, Percutaneous Approach (ICD-10-PCS; 2017-01-05)
DX: J44.1 Chronic obstructive pulmonary disease with (acute) exacerbation (principal); G93.40 Encephalopathy, unspecified; E87.0 Hyperosmolality and hypernatremia; F10.27 Alcohol dependence with alcohol-induced persisting dementia; E22.2 Syndrome of inappropriate secretion of antidiuretic hormone; I50.30 Unspecified diastolic (congestive) heart failure; E53.8 Deficiency of other specified B group vitamins; I11.9 Hypertensive heart disease without heart failure; Z79.899 Other long term (current) drug therapy; Z79.82 Long term (current) use of aspirin; E78.5 Hyperlipidemia, unspecified; M54.5 Low back pain; Z79.52 Long term (current) use of systemic steroids; Z86.73 Personal history of transient ischemic attack (TIA), and cerebral infarction without residual deficits; F17.200 Nicotine dependence, unspecified, uncomplicated; J96.01 Acute respiratory failure with hypoxia; J96.02 Acute respiratory failure with hypercapnia; B96.3 Hemophilus influenzae [H. influenzae] as the cause of diseases classified elsewhere; B97.19 Other enterovirus as the cause of diseases classified elsewhere; F10.239 Alcohol dependence with withdrawal, unspecified; D72.829 Elevated white blood cell count, unspecified; E87.6 Hypokalemia; R73.9 Hyperglycemia, unspecified; J44.0 Chronic obstructive pulmonary disease with (acute) lower respiratory infection

== ENCOUNTER 2017-01-18 11:20 | Inpatient (IN) | payer MEDICAID, SELFPAY ==
[~2017-01-18] VITALS: Ht 162.6 cm; Wt 49.6 kg
[~2017-01-18 11:20] MED LIST changes: +AMLO10TA2 PO; +ASPI81TA PO; +ENAL10TA2 PO; +FOLI1TAB2 PO; -GASTROGRAFIN SOLUTION 30ML (Q9963) As Ordered ONE; +IPRA2IN INH; -ISOVUE-370 76% 100ML VIAL (Q9967) As Ordered ONE; +LEVA12INH INH; +LISI40TAB PO; +METO-207 PO; +NICO21PAT TD; +PRED5TA PO; +SENN1TAB2 PO; +SIMV20TA2 PO; +THIA100TA PO; +VITMTA PO
[2017-01-18] MEDS ORDERED: ACETAMINOPHEN TAB 650MG DOSE (2X325MG) PO PRN (12:00)
[2017-01-18] MEDS ORDERED: MOM 30ML SUSPENSION UDC PO PRN (12:30)
[2017-01-18] MEDS ORDERED: GLUCAGON FOR INJ 1 MG VIAL (J1610) SC PRN (15:00)
[2017-01-18] MEDS ORDERED: DEXTROSE 50% 50 ML SYRINGE IV PRN (15:00)
[2017-01-18] MEDS ORDERED: GLUCOSE 4 GM CHEW TABLET PO PRN (15:00)
[2017-01-18] MEDS: LEVALBUTEROL 1.25 MG/0.5 ML CONCENTRATE NEB INH SCH ×2 (16:07→20:51)
[2017-01-18] MEDS: IPRATROPIUM 0.02% SOLN 0.5MG/2.5 ML NEB INH SCH ×2 (16:07→20:51)
--- NOTE | 2017-01-18 17:00 | PMRHPE ---
DATE OF ADMISSION: 01/18/2017 CHIEF COMPLAINT: Debilitation secondary to chronic obstructive pulmonary disease (COPD) exacerbated by alcohol withdrawal. HISTORY OF PRESENT ILLNESS: Patient is a 61-year-old right handed white male with longstanding history of COPD that on approximately 12/28/2016, started to decompensate and was seen at [facility] Room. He was admitted to the critical care unit on 12/29/2016, and required intubation due to respiratory distress. The patient also felt to have alcohol withdrawal and was treated for that and possible pneumonia/bronchitis along with hyponatremia and tachycardia. Sputum grew Haemophilus influenzae. However, patient progressed and was extubated on 01/03/2017. 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 His mental status improved and the Zyprexa was stopped. However, patient, while progressing to fairly good distance of level of ambulation, has not been able to do stairs and lives on a second floor apartment where he must enter via 12-14 stairs. Therefore, the patient who has medically been stabilizing, still needs additional training to build up his safety in ambulating the stairs, plus also has some deficits in activities of daily living (ADLs). Patient is a right-handed gentleman. Patient expresses that his code status is FULL CODE. PAST MEDICAL HISTORY: Includes: 1. 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 2. Mild diastolic heart dysfunction. 3. Hypertension. 4. Hyperlipidemia. 5. History of vitamin B12 deficiency. 6. Osteoarthritis. 7. History of low back pain due to a fall. 8. Prior history of rib fractures. SURGICAL HISTORY: Status post tonsillectomy. The patient reports no significant family history. SOCIAL HISTORY: Patient was smoking one to 1-1/2 packs per day for the last 40 years up until admission. Has been placed on Nicoderm patch. Alcohol: Reports 3-10 beers per day. Denies illegal drugs. Lives alone. 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 No travel risk noted. REVIEW OF SYSTEMS: Patient reports: Negative constitutional. Negative eyes. Negative ears, nose, throat (ENT). Negative skin. Negative pulmonary. Negative cardiovascular except for prior history. Negative gastrointestinal (GI) and genitourinary (). He does have a history of easy bruising on hematological. Musculoskeletal, as noted above, the back pain and some joint pain. Neurologic is the left hemiparesis from the stroke. ALLERGIES: No known drug allergies. MEDICATIONS: On admission: - Tylenol 650 mg every 6 hours for pain - Norvasc 10 mg daily for blood pressure - enteric coated aspirin 81 mg daily for clot prevention - Senokot-S one tablet by mouth twice a day for bowel management - Vasotec 10 mg twice a day for blood pressure control - folic acid 1 mg by mouth daily - heparin 5000 units subcutaneous every 12 hours for deep venous thrombosis (DVT ) prophylaxis - Humalog insulin sliding scale before food and nightly - ipratropium bromide 0.02% inhaler solution by nebulizer 0.5 mg inhaled four times a day - levalbuterol 1.25 mg inhaled four times a day - milk of magnesia as needed for constipation - multivitamin one daily - he has been tapered down to Nicoderm 14 mg every 24 hours for the next week and then is to go to 7 mg every 24 hours for another week and hopefully discontinue smoking - Protonix 40 mg daily - prednisone 5 mg by mouth daily - thiamine 100 mg by mouth daily - glucagon glucose and dextrose 50% in water (D50W) have been ordered as needed for hypoglycemia PHYSICAL EXAMINATION: The patient is a short, thin, late middle aged, white male who is alert and oriented times four and appears to be in minimal to no acute distress. HEENT: Normocephalic, atraumatic, with brunette hair going to page and no thinning noted and a large bushy españa. No significant facial asymmetry is noted. Good control of facial muscles. However, on jutting his tongue out it does show some fasciculations. No fasciculations could be elicited in the cheek muscles. Speech is clear, coherent, and appropriate with no dysarthria, no gurgling sounds were heard. NECK: Supple, nontender, with midline thyroid with no nodules and of normal size. No cervical lymph nodes were noted. LUNGS: Clear in all funez to auscultation. CORONARY: Regular rate and rhythm with normal S1, S2 without S3, S4, murmurs or rubs. ABDOMEN: Normal, nontender, but does have a number of bruises from the heparin injections. Bowel sounds are present in all quadrants. EXTREMITIES: Normal functional range of motion. Very mild left hemiparesis noted. Sensorium is intact in bilateral upper and lower extremities. Deep tendon reflexes show trace ankle jerks, 2/4 knee jerks. Biceps, triceps, brachial radialis with normal tone in bilateral upper and lower extremities, good warmth. Good hair distribution throughout bilateral upper and lower extremities but some arthritic changes present. DIAGNOSTIC DATA: Does show patient with a moderate anemia with a hemoglobin of 9.1 and hematocrit of 27.4 and platelets of 276. With correction of his hyponatremia having a sodium of 141 now, and otherwise noted normal electrolytes, creatinine, BUN, glomerular filtration rate, blood sugars, and calcium. However, patient on 01/17/2017, had notable elevation of AST and ALT but today these have gone from 257 to 72 and 345 to 238 and his albumin appears to be stable at 2.5 which is hypoalbuminemic. ASSESSMENT/PLAN: 1. Rehabilitation of multiple medical debilitations secondary to chronic obstructive pulmonary disease (COPD) exacerbation with alcohol intoxication and flare-up with the bronchitis and then alcohol withdrawal and subsequent delirium tremens and alcohol dementia. Patient has become deconditioned by these events and while he has progressed fairly well he still is at standby assistance in most of his activities of daily living (ADLs) and ambulating about 200 feet with assistive device and contact guard to standby assistance but has not been able to be tried on stairs yet, yet needs to be modified independent and proficient with stairs to allow his return to home. He has shown himself to be ready, willing, and able to participate in, and that he has been benefiting from, participation in physical and occupational therapy and therefore, is appropriate for a trial of rehabilitation to recondition him to prepare him to return to home with good relative safety. 2. Moderate anemia. We will continue to monitor this and continue patient on nutritional support. 3. Type 2 diabetes mellitus. Patient has required management with insulin sliding scale, however we will monitor this and look to transition to either diet or oral and diet. 4. Cirrhosis with acute liver flare-up evidenced by elevated aspartate aminotransferase (AST) and alanine aminotransferase (ALT) enzymes. Will go ahead and continue to follow this and will consult medicine service to continue to follow and assist with patient's management. 5. Hypoalbuminemia. Will try and get patient to do protein stores rebuilding with diet. POSTADMISSION PHYSICIAN EVALUATION: I feel patient is consistent with his preadmission screen showing his multiple medical problems. He is a pleasant gentleman who does express his readiness and willingness to work. He is cognitively intact for that and his motor deficits from his prior CVA do not appear to be significant enough to impede him from being able to achieve discharge goals to allow him to return to living independently at home. He has multiple areas that need to improve to the level of modified independent and I think his prognosis is at least fair to good and his estimated length of stay will be 5-8 days. Time spent on chart review, history and physical (H and P), and documentation is 70 minutes. CARISSA
[2017-01-18] MEDS: HumaLOG INSULIN (NovoLOG) PER UNIT SC SCH ×2 (17:21→21:00)
[2017-01-18 20:00] VITALS: BP 146/67
[2017-01-18] MEDS: ENALAPRIL MALEATE 10 MG TAB PO SCH (21:01)
[2017-01-18] MEDS: HEPARIN SOD (PORCINE) 5000 UNITS/ML VIAL SC SCH (21:01)
[2017-01-18] MEDS: SENOKOT S TAB PO SCH (21:01)
[2017-01-19 06:00] VITALS: BP 151/78
[2017-01-19 07:29] LABS: BASO % 0.3 % (0.0-1.0); EOS # 0.1 K/mm3 (0.0-0.50); EOS % 1.4 % (0.0-3.0); LARGE UNSTAINED CELL # 0.2 K/mm3 (0.0-0.4); LARGE UNSTAINED CELL % 2.7 % (0.0-4.0); LYMPH # 0.9 K/mm3 (1.5-4.5); LYMPH % 13.5 % (24.0-44.0); MEAN CORPUSCULAR HEMOGLOBIN 32.4 pg (27.0-33.0); MEAN CORPUSCULAR HGB CONC 33.4 g/dl (32.0-36.5); MEAN CORPUSCULAR VOLUME 97.1 fl (80.0-96.0); MONO # 0.4 K/mm3 (0.0-0.8); MONO % 7.3 % (0.0-5.0); NEUTROPHILS # 4.1 K/mm3 (1.8-7.7); NEUTROPHILS % 74.9 % (36.0-66.0); PLATELET COUNT, AUTOMATED 309 k/mm3 (150-450); RED CELL DISTRIBUTION WIDTH 14.2 % (11.5-14.5); WHITE BLOOD COUNT 5.5 K/mm3 (4.0-10.0)
[2017-01-19 07:42] LABS: ALBUMIN 2.6 GM/DL (3.2-5.2); ALBUMIN/GLOBULIN RATIO 0.81 (1.00-1.93); ALKALINE PHOSPHATASE 119 U/L (45-117); ALT/SGPT 176 U/L (12-78); ANION GAP 7 MEQ/L (8-16); AST/SGOT 35 U/L (15-37); BILIRUBIN,TOTAL 0.4 MG/DL (0.2-1.0); BLOOD UREA NITROGEN 13 MG/DL (7-18); CALCIUM LEVEL 8.5 MG/DL (8.8-10.2); CARBON DIOXIDE LEVEL 28 MEQ/L (21-32); CHLORIDE LEVEL 104 MEQ/L (98-107); GLOMERULAR FILTRATION RATE > 60.0 (>49); GLUCOSE, FASTING 89 MG/DL (80-110); POTASSIUM SERUM 4.4 MEQ/L (3.5-5.1); SODIUM LEVEL 139 MEQ/L (136-145); TOTAL PROTEIN 5.8 GM/DL (6.4-8.2)
[2017-01-19] MEDS: IPRATROPIUM 0.02% SOLN 0.5MG/2.5 ML NEB INH SCH ×4 (08:00→19:40)
[2017-01-19] MEDS: LEVALBUTEROL 1.25 MG/0.5 ML CONCENTRATE NEB INH SCH ×4 (08:00→19:40)
[2017-01-19] MEDS: HumaLOG INSULIN (NovoLOG) PER UNIT SC SCH ×4 (08:01→20:41)
[2017-01-19] MEDS: THIAMINE 100 MG TAB PO SCH (08:28)
[2017-01-19] MEDS: FOLIC ACID 1 MG TAB PO SCH (08:28)
[2017-01-19] MEDS: PANTOPRAZOLE 40MG TAB (PROTONIX) PO SCH (08:28)
[2017-01-19] MEDS: predniSONE 5 MG TAB PO SCH (08:28)
[2017-01-19] MEDS: ASPIRIN 81 MG CHEW TABLET PO SCH (08:28)
[2017-01-19] MEDS: SENOKOT S TAB PO SCH ×2 (08:28→20:41)
[2017-01-19] MEDS: MULTIVITAMINS/MINERALS THERAP 1 TAB PO SCH (08:29)
[2017-01-19] MEDS: ENALAPRIL MALEATE 10 MG TAB PO SCH ×2 (08:29→20:39)
[2017-01-19] MEDS: amLODIPine 10 MG TAB PO SCH (08:29)
[2017-01-19] MEDS: HEPARIN SOD (PORCINE) 5000 UNITS/ML VIAL SC SCH ×2 (08:30→20:38)
[2017-01-19] MEDS: NICOTINE 14 MG/24 HR TRANSDERMAL TD SCH (08:30)
[2017-01-19] MEDS ORDERED: MULTIVITAMINS/MINERALS THERAP 1 TAB PO SCH (09:00)
[2017-01-19] MEDS ORDERED: METOPROLOL SUCC (TopROL XL) 50MG **XL** TAB PO SCH (09:00)
--- NOTE | 2017-01-19 11:13 | IPNPDOC ---
Subjective Date Seen The patient was seen on 01/19/17. Subjective Chief Complaint/HPI The patient is a 61-year-old male admitted with a reason for visit of Acute Respiratory Failure. Events since last encounter Pt states feeling well. Denies CP/SOB/Abdominal pain. ENT: Denies: Head Aches, Dysphagia Skin: Denies: Rash, Lesions, Breakdown Pulmonary: Denies: Dyspnea, Cough Cardiovascular: Denies: Chest Pain, Palpitations, Orthopnea, Paroxysmal Noc. Dyspnea, Lt Headedness Gastrointestinal: Denies: Nausea, Vomiting, Abdominal Pain, Diarrhea, Constipation Genitourinary: Denies: Dysuria, Frequency, Incontinence, Retention Objective Physical Examination General Exam: Positive: Alert Eye Exam: Positive: PERRLA ENT Exam: Positive: Atraumatic Neck Exam: Positive: Supple, Negative: JVD Chest Exam: Positive: Clear to auscultation, Normal air movement Heart Exam: Positive: Rate Normal, Regular Rhythm, Normal S1, Normal S2, Negative: Murmurs, Rubs Abdomen Exam: Positive: Normal bowel sounds, Soft, Negative: Tenderness, Hepatospenomegaly Skin Exam: Positive: Nl turgor and temperature Neuro Exam: Positive: Other (ambulating with walker. ) Assessment /Plan Problems (1) Respiratory failure Status: Chronic Response to Treatment: Stable Problem Text: * ARU as per Dr Raya. * PT/OT * Extubated 01/03/17 (2) Alcohol dependence Status: Chronic Problem Text: * Continue to encourage discontinuation of ETOH * Cont MVI/thiamine/folic acid supplement. (3) Hyponatremia Status: Resolved Problem Text: * monitor labs (4) Hypertension Status: Chronic Problem Text: * Vasotec * Norvasc * ASA81 mg daily. (5) COPD (chronic obstructive pulmonary disease) with acute bronchitis Status: Chronic Problem Text: * Pt to finish prednisone taper * Nebs QID. (6) Elevated LFTs Status: Acute Problem Text: * trending downward * RUQ U/S Coarsened hepatic echotexture consistent with hepatic cellular disease and no focal hepatic lesion identified. 2. Gallbladder suggests adenomyomatosis as well as gallstones and tumefactive sludge. The common bile duct is minimally dilated to 8 mm. No sonographic Mcgowan's sign or pericholecystic fluid is appreciated to suggest acute cholecystitis * Hepatitis profile neg. (7) Hyperglycemia Problem Text: * SSI Plan/VTE VTE Prophylaxis Ordered?: No (ambulatory) Disposition as per ARU. VS, I&O, [facility] Vital Signs/I&O Vital Signs Date Time Temp Pulse Resp B/P (MAP) Pulse Ox O2 Delivery O2 Flow Rate FiO2 01/19/17 09:00 Room Air 01/19/17 08:29 151/78 01/19/17 06:00 99.1 100 18 98 I&O- Last 24 Hours up to 6 AM 01/19/17 06:00 Intake Total 480 ml Output Total 450 ml Balance 30 ml Laboratory Data 24H LABS Laboratory Tests 2 01/18/17 17:16: Bedside Glucose (Misc Panel) 136H 01/18/17 20:28: Urine Appearance CLEAR, Urine Color YELLOW, Urine pH 7.0, Urine Specific [place] 1.012, Urine Protein NEGATIVE, Urine Glucose (UA) NEGATIVE, Urine Ketones NEGATIVE, Urine Urobilinogen 0.2, Urine Bilirubin NEGATIVE, Urine Leukocyte Esterase NEGATIVE, Urine Blood NEGATIVE, Urine Nitrite NEGATIVE, Urine WBC (Auto) 0, Urine RBC (Auto) 2, Urine Hyaline Casts (Auto) 0, Urine Bacteria (Auto) NEGATIVE, Urine Squamous Epithelial Cells 0, Urine Sperm (Auto) 01/18/17 20:43: Bedside Glucose (Misc Panel) 123H 01/19/17 06:30: Bedside Glucose (Misc Panel) 84 01/19/17 06:50: White Blood Count 5.5, Red Blood Count 2.99L, Hemoglobin 9.7L, Hematocrit 29.1L , Mean Corpuscular Volume 97.1H, Mean Corpuscular Hemoglobin 32.4, Mean Corpuscular Hemoglobin Concent 33.4, Red Cell Distribution Width 14.2, Platelet Count 309, Neutrophils (%) (Auto) 74.9H, Lymphocytes (%) (Auto) 13.5L, Monocytes (%) (Auto) 7.3H, Eosinophils (%) (Auto) 1.4, Basophils (%) (Auto) 0.3 , Neutrophils # (Auto) 4.1, Lymphocytes # (Auto) 0.9L, Monocytes # (Auto) 0.4, Eosinophils # (Auto) 0.1, Basophils # (Auto) 0.0, Large Unclassified Cells % 2.7 , Large Unclassified Cells # 0.2, Anion Gap 7L, Glomerular Filtration Rate > 60.0, Blood Urea Nitrogen 13, Creatinine 0.70, Sodium Level 139, Potassium Level 4.4, Chloride Level 104, Carbon Dioxide Level 28, Calcium Level 8.5L, Aspartate Amino Transf (AST/SGOT) 35, Alanine Aminotransferase (ALT/SGPT) 176H, Alkaline Phosphatase 119H, Total Bilirubin 0.4, Total Protein 5.8L, Albumin 2.6L , Magnesium Level 2.0, Albumin/Globulin Ratio 0.81L CBC/BMP Laboratory Tests 01/19/17 06:50 Red Blood Count 2.99 L, Mean Corpuscular Volume 97.1 H, Mean Corpuscular Hemoglobin 32.4, Mean Corpuscular Hemoglobin Concent 33.4, Red Cell Distribution Width 14.2, Neutrophils (%) (Auto) 74.9 H, Lymphocytes (%) (Auto) 13.5 L, Monocytes (%) (Auto) 7.3 H, Eosinophils (%) (Auto) 1.4, Basophils (%) ( Auto) 0.3, Neutrophils # (Auto) 4.1, Lymphocytes # (Auto) 0.9 L, Monocytes # ( Auto) 0.4, Eosinophils # (Auto) 0.1, Basophils # (Auto) 0.0, Calcium Level 8.5 L , Aspartate Amino Transf (AST/SGOT) 35, Alanine Aminotransferase (ALT/SGPT) 176 H, Alkaline Phosphatase 119 H, Total Bilirubin 0.4, Total Protein 5.8 L, Albumin 2.6 L Jayde Carpio January 19, 2017 11:13
--- NOTE | 2017-01-19 12:29 | IPNPDOC ---
[employer] Super[employer] Progress Note DATE OF SERVICE: 01/19/17 DATE OF ADMISSION: January 18, 2017 at 15:00 INPATIENT REHABILITATION ADMISSION DAY: #1 SUBJECTIVE: Patient is a 61-year-old white male with multiple debilitation related to COPD and bronchitis flare. Patient also with history of ethanol abuse and secondary sequela including liver cirrhosis. Patient reports feeling fairly good today without significant complaints or pain. ALLERGIES: See Below MEDICATIONS: Reviewed, see below. OBJECTIVE: VITAL SIGNS: Please see below. PHYSICAL EXAMINATION: GENERAL: Shortness and late middle-aged white male who is alert and well oriented. HEENT: Normocephalic/atraumatic with very minimal left droop of the face. CARDIOVASCULAR: Regular rate and rhythm with normal S1 and S2. 2 out 4 radial pulses. LUNGS: All funez clear to auscultation. ABDOMEN: Benign with normal bowel sounds no quadrants. NEUROLOGICAL: Patient who is in good spirits still has some challenges with balance and thereby safety in ADLs and stair climbing. SKIN: Intact. LABORATORY DATA: Reviewed. Please see below. MICROBIOLOGY: Please see below. IMAGING: No new imaging. DVT prophylaxis ordered?: ASHLEY herrera. ASSESSMENT AND PLAN: 1. Rehabilitation rehabilitation: Patient starring assessment with physical and occupational therapy today. Due to home status being independent with a flight of stairs to get in or out of the home it is recalled that his balance improved and he show at least modified independence with stairs on consistent basis. 2. Anemia: H&H is improved to 9.7 and 29.1% but still remains a moderate anemia and we will continue to follow.. 3. Cirrhosis with elevated liver function tests: Patient with normal AST today and ALT is decreased down to 176 and alkaline phosphatase is improved to 119. Is albumin is 2.6 so he does have hypoalbuminemia. We will continue to monitor liver function and nutrition while he is here. TIME SPENT: Chart Review, examination and documentation greater than 15 minutes. Allergies Coded Allergies: No Known Allergies (Unverified , 12/28/16) Vital Signs Vital Signs Date Time Temp Pulse Resp B/P (MAP) Pulse Ox O2 Delivery O2 Flow Rate FiO2 01/19/17 09:00 Room Air 01/19/17 08:29 151/78 01/19/17 06:00 99.1 100 18 98 Laboratory Data CBC/BMP Laboratory Tests 01/19/17 06:50 Red Blood Count 2.99 L, Mean Corpuscular Volume 97.1 H, Mean Corpuscular Hemoglobin 32.4, Mean Corpuscular Hemoglobin Concent 33.4, Red Cell Distribution Width 14.2, Neutrophils (%) (Auto) 74.9 H, Lymphocytes (%) (Auto) 13.5 L, Monocytes (%) (Auto) 7.3 H, Eosinophils (%) (Auto) 1.4, Basophils (%) ( Auto) 0.3, Neutrophils # (Auto) 4.1, Lymphocytes # (Auto) 0.9 L, Monocytes # ( Auto) 0.4, Eosinophils # (Auto) 0.1, Basophils # (Auto) 0.0, Calcium Level 8.5 L , Aspartate Amino Transf (AST/SGOT) 35, Alanine Aminotransferase (ALT/SGPT) 176 H, Alkaline Phosphatase 119 H, Total Bilirubin 0.4, Total Protein 5.8 L, Albumin 2.6 L Labs 24H Laboratory Tests 2 01/18/17 17:16: Bedside Glucose (Misc Panel) 136H 01/18/17 20:28: Urine Appearance CLEAR, Urine Color YELLOW, Urine pH 7.0, Urine Specific [place] 1.012, Urine Protein NEGATIVE, Urine Glucose (UA) NEGATIVE, Urine Ketones NEGATIVE, Urine Urobilinogen 0.2, Urine Bilirubin NEGATIVE, Urine Leukocyte Esterase NEGATIVE, Urine Blood NEGATIVE, Urine Nitrite NEGATIVE, Urine WBC (Auto) 0, Urine RBC (Auto) 2, Urine Hyaline Casts (Auto) 0, Urine Bacteria (Auto) NEGATIVE, Urine Squamous Epithelial Cells 0, Urine Sperm (Auto) 01/18/17 20:43: Bedside Glucose (Misc Panel) 123H 01/19/17 06:30: Bedside Glucose (Misc Panel) 84 01/19/17 06:50: White Blood Count 5.5, Red Blood Count 2.99L, Hemoglobin 9.7L, Hematocrit 29.1L , Mean Corpuscular Volume 97.1H, Mean Corpuscular Hemoglobin 32.4, Mean Corpuscular Hemoglobin Concent 33.4, Red Cell Distribution Width 14.2, Platelet Count 309, Neutrophils (%) (Auto) 74.9H, Lymphocytes (%) (Auto) 13.5L, Monocytes (%) (Auto) 7.3H, Eosinophils (%) (Auto) 1.4, Basophils (%) (Auto) 0.3 , Neutrophils # (Auto) 4.1, Lymphocytes # (Auto) 0.9L, Monocytes # (Auto) 0.4, Eosinophils # (Auto) 0.1, Basophils # (Auto) 0.0, Large Unclassified Cells % 2.7 , Large Unclassified Cells # 0.2, Anion Gap 7L, Glomerular Filtration Rate > 60.0, Blood Urea Nitrogen 13, Creatinine 0.70, Sodium Level 139, Potassium Level 4.4, Chloride Level 104, Carbon Dioxide Level 28, Calcium Level 8.5L, Aspartate Amino Transf (AST/SGOT) 35, Alanine Aminotransferase (ALT/SGPT) 176H, Alkaline Phosphatase 119H, Total Bilirubin 0.4, Total Protein 5.8L, Albumin 2.6L , Magnesium Level 2.0, Albumin/Globulin Ratio 0.81L 01/19/17 11:45: Bedside Glucose (Misc Panel) 115 Current Medications Current Medications Current Medications Acetaminophen (Tylenol Tab) 650 mg Q6HP PRN PO MILD PAIN (PS 1-4); Start at 12:00; Stop 02/17/17 at 11:59 Amlodipine Besylate (Norvasc) 10 mg DAILY PO Last administered on 01/19/17 08: 29; Start 01/19/17 at 09:00; Stop 02/18/17 at 08:59 Aspirin (Aspirin Chewable) 81 mg DAILY PO Last administered on 01/19/17 08:28 ; Start 01/19/17 at 09:00; Stop 02/18/17 at 08:59 Dextrose (Dextrose 50%) 25 ml ASDIRECTED PRN IV SEE LABEL COMMENTS; Start 01/18 at 15:00; Stop 02/17/17 at 14:59 Enalapril Maleate (Vasotec) 10 mg BID PO Last administered on 01/19/17 08:29; Start 01/18/17 at 21:00; Stop 02/17/17 at 20:59 Folic Acid (Folic Acid) 1 mg DAILY PO Last administered on 01/19/17 08:28; Start 01/19/17 at 09:00; Stop 02/18/17 at 08:59 Glucagon (Glucagon) 1 mg ASDIRECTED PRN SC SEE LABEL COMMENTS; Start 01/18/17 at 15:00; Stop 02/17/17 at 14:59 Glucose (Glucose) 16 GM ASDIRECTED PRN PO SEE LABEL COMMENTS; Start 01/18/17 at 15:00; Stop 02/17/17 at 14:59 Heparin Sodium (Porcine) (Heparin) 5,000 units Q12H SC Last administered on 08:30; Start 01/18/17 at 21:00; Stop 01/23/17 at 20:59 Insulin Human Lispro (HumaLOG INSULIN) See Protocol Table AC SC Last administered on 01/18/17 17:21; Start 01/18/17 at 17:30; Stop 02/17/17 at 17:29 Insulin Human Lispro (HumaLOG INSULIN) See Protocol Table QHS SC ; Start at 21:00; Stop 02/17/17 at 20:59 Ipratropium [place] (Atrovent 0.02%) 0.5 mg RQID INH Last administered on 11:35; Start 01/18/17 at 16:00; Stop 02/17/17 at 15:59 Levalbuterol HCl (Xopenex Neb) 1.25 mg RQID INH Last administered on 01/19/17 11:35; Start 01/18/17 at 16:00; Stop 02/17/17 at 15:59 Magnesium Hydroxide (Milk Of Magnesia) 30 ml BIDP PRN PO CONSTIPATION; Start at 12:30; Stop 02/17/17 at 12:29 Metoprolol Succinate (TopROL XL) 50 mg DAILY PO ; Start 01/19/17 at 09:00; Stop 02/18/17 at 08:59; Status UNV Multivitamins (Theragram-M) 1 tab DAILY PO Last administered on 01/19/17 08:29 ; Start 01/19/17 at 09:00; Stop 02/18/17 at 08:59 Multivitamins (Theragram-M) 1 tab DAILY PO ; Start 01/19/17 at 09:00; Stop 02/18 at 08:59; Status UNV Nicotine (Nicoderm Cq 14mg) 1 patch DAILY TD Last administered on 01/19/17 08: 30; Start 01/19/17 at 09:00; Stop 01/25/17 at 12:00 Nicotine (Nicoderm Cq 7 Mg) 1 patch DAILY TD ; Start 01/26/17 at 09:00; Stop 02/01/17 at 12:00 Pantoprazole Sodium (Protonix) 40 mg DAILY PO Last administered on 01/19/17 08 :28; Start 01/19/17 at 09:00; Stop 02/18/17 at 08:59 Prednisone (Deltasone) 5 mg DAILY PO Last administered on 01/19/17 08:28; Start 01/19/17 at 09:00; Stop 02/18/17 at 08:59 Senna/Docusate Sodium (Senokot S) 1 tab BID PO Last administered on 01/19/17 08:28; Start 01/18/17 at 21:00; Stop 02/17/17 at 20:59 Thiamine HCl (Thiamine HCl) 100 mg DAILY PO Last administered on 01/19/17 08: 28; Start 01/19/17 at 09:00; Stop 02/18/17 at 08:59 ALEXA WEBBER MD January 19, 2017 12:29
[2017-01-19 14:00] VITALS: BP 139/65
[2017-01-19 20:00] VITALS: BP 146/68
[2017-01-20 06:00] VITALS: BP 136/67
[2017-01-20] MEDS: HumaLOG INSULIN (NovoLOG) PER UNIT SC SCH ×4 (07:30→20:30)
[2017-01-20] MEDS: LEVALBUTEROL 1.25 MG/0.5 ML CONCENTRATE NEB INH SCH ×4 (08:00→20:26)
[2017-01-20] MEDS: HEPARIN SOD (PORCINE) 5000 UNITS/ML VIAL SC SCH ×2 (08:17→20:30)
[2017-01-20] MEDS: PANTOPRAZOLE 40MG TAB (PROTONIX) PO SCH (08:17)
[2017-01-20] MEDS: predniSONE 5 MG TAB PO SCH (08:18)
[2017-01-20] MEDS: FOLIC ACID 1 MG TAB PO SCH (08:18)
[2017-01-20] MEDS: MULTIVITAMINS/MINERALS THERAP 1 TAB PO SCH (08:18)
[2017-01-20] MEDS: ASPIRIN 81 MG CHEW TABLET PO SCH (08:18)
[2017-01-20] MEDS: NICOTINE 14 MG/24 HR TRANSDERMAL TD SCH (08:18)
[2017-01-20] MEDS: ENALAPRIL MALEATE 10 MG TAB PO SCH ×2 (08:18→20:31)
[2017-01-20] MEDS: amLODIPine 10 MG TAB PO SCH (08:19)
[2017-01-20] MEDS: THIAMINE 100 MG TAB PO SCH (08:19)
[2017-01-20] MEDS: SENOKOT S TAB PO SCH ×2 (08:20→20:30)
[2017-01-20] MEDS: IPRATROPIUM 0.02% SOLN 0.5MG/2.5 ML NEB INH SCH ×4 (09:17→20:26)
--- NOTE | 2017-01-20 12:57 | IPNPDOC ---
[employer]inist Progress Note DATE OF SERVICE: 01/20/17 DATE OF ADMISSION: January 18, 2017 at 15:00 INPATIENT REHABILITATION ADMISSION DAY: #2 SUBJECTIVE: Patient is a 61-year-old white male with multiple debilitation related to COPD and bronchitis flare. Patient also with history of ethanol abuse and secondary sequela including liver cirrhosis. Patient reports feeling fairly good today without significant complaints or pain. ALLERGIES: See Below MEDICATIONS: Reviewed, see below. OBJECTIVE: VITAL SIGNS: Please see below. PHYSICAL EXAMINATION: GENERAL: Shortness and late middle-aged white male who is alert and oriented times 4. HEENT: Normocephalic/atraumatic with very minimal left droop of the face. CARDIOVASCULAR: Regular rate and rhythm with normal S1 and S2. 2 out 4 radial pulses. LUNGS: All funez clear to auscultation. ABDOMEN: Benign with normal bowel sounds no quadrants. NEUROLOGICAL: Patient who is in good spirits still has some challenges with balance and thereby safety in ADLs and stair climbing. SKIN: Intact. LABORATORY DATA: Reviewed. Please see below. MICROBIOLOGY: Please see below. IMAGING: No new imaging. DVT prophylaxis ordered?: ASHLEY herrera. ASSESSMENT AND PLAN: 1. Rehabilitation rehabilitation: Patient starring assessment with physical and occupational therapy today. Due to home status being independent with a flight of stairs to get in or out of the home it is recalled that his balance improved and he show at least modified independence with stairs on consistent basis. 2. Cirrhosis: No change, but we'll continue to monitor periodic liver function tests. 3. Respiratory: Patient maintaining normal respiratory rate with good oxygenation on room air. TIME SPENT: Chart Review, examination and documentation greater than 25 minutes. Allergies Coded Allergies: No Known Allergies (Unverified , 12/28/16) Vital Signs Vital Signs Date Time Temp Pulse Resp B/P (MAP) Pulse Ox O2 Delivery O2 Flow Rate FiO2 01/20/17 08:19 97 136/67 01/20/17 08:00 Room Air 01/20/17 06:00 99.2 18 99 Laboratory Data Labs 24H Laboratory Tests 2 01/19/17 16:54: Bedside Glucose (Misc Panel) 95 01/19/17 20:41: Bedside Glucose (Misc Panel) 139H 01/20/17 06:13: Bedside Glucose (Misc Panel) 96 01/20/17 11:23: Bedside Glucose (Misc Panel) 167H Current Medications Current Medications Current Medications Acetaminophen (Tylenol Tab) 650 mg Q6HP PRN PO MILD PAIN (PS 1-4); Start at 12:00; Stop 02/17/17 at 11:59 Amlodipine Besylate (Norvasc) 10 mg DAILY PO Last administered on 01/20/17 08: 19; Start 01/19/17 at 09:00; Stop 02/18/17 at 08:59 Aspirin (Aspirin Chewable) 81 mg DAILY PO Last administered on 01/20/17 08:18 ; Start 01/19/17 at 09:00; Stop 02/18/17 at 08:59 Dextrose (Dextrose 50%) 25 ml ASDIRECTED PRN IV SEE LABEL COMMENTS; Start 01/18 at 15:00; Stop 02/17/17 at 14:59 Enalapril Maleate (Vasotec) 10 mg BID PO Last administered on 01/20/17 08:18; Start 01/18/17 at 21:00; Stop 02/17/17 at 20:59 Folic Acid (Folic Acid) 1 mg DAILY PO Last administered on 01/20/17 08:18; Start 01/19/17 at 09:00; Stop 02/18/17 at 08:59 Glucagon (Glucagon) 1 mg ASDIRECTED PRN SC SEE LABEL COMMENTS; Start 01/18/17 at 15:00; Stop 02/17/17 at 14:59 Glucose (Glucose) 16 GM ASDIRECTED PRN PO SEE LABEL COMMENTS; Start 01/18/17 at 15:00; Stop 02/17/17 at 14:59 Heparin Sodium (Porcine) (Heparin) 5,000 units Q12H SC Last administered on 08:17; Start 01/18/17 at 21:00; Stop 01/23/17 at 20:59 Insulin Human Lispro (HumaLOG INSULIN) See Protocol Table AC SC Last administered on 01/20/17 12:06; Start 01/18/17 at 17:30; Stop 02/17/17 at 17:29 Insulin Human Lispro (HumaLOG INSULIN) See Protocol Table QHS SC ; Start at 21:00; Stop 02/17/17 at 20:59 Ipratropium [place] (Atrovent 0.02%) 0.5 mg RQID INH Last administered on 11:52; Start 01/18/17 at 16:00; Stop 02/17/17 at 15:59 Levalbuterol HCl (Xopenex Neb) 1.25 mg RQID INH Last administered on 01/20/17 11:52; Start 01/18/17 at 16:00; Stop 02/17/17 at 15:59 Magnesium Hydroxide (Milk Of Magnesia) 30 ml BIDP PRN PO CONSTIPATION; Start at 12:30; Stop 02/17/17 at 12:29 Metoprolol Succinate (TopROL XL) 50 mg DAILY PO ; Start 01/19/17 at 09:00; Stop 02/18/17 at 08:59; Status UNV Multivitamins (Theragram-M) 1 tab DAILY PO Last administered on 01/20/17 08:18 ; Start 01/19/17 at 09:00; Stop 02/18/17 at 08:59 Multivitamins (Theragram-M) 1 tab DAILY PO ; Start 01/19/17 at 09:00; Stop 02/18 at 08:59; Status UNV Nicotine (Nicoderm Cq 14mg) 1 patch DAILY TD Last administered on 01/20/17 08: 18; Start 01/19/17 at 09:00; Stop 01/25/17 at 12:00 Nicotine (Nicoderm Cq 7 Mg) 1 patch DAILY TD ; Start 01/26/17 at 09:00; Stop 02/01/17 at 12:00 Pantoprazole Sodium (Protonix) 40 mg DAILY PO Last administered on 01/20/17 08 :17; Start 01/19/17 at 09:00; Stop 02/18/17 at 08:59 Prednisone (Deltasone) 5 mg DAILY PO Last administered on 01/20/17 08:18; Start 01/19/17 at 09:00; Stop 02/18/17 at 08:59 Senna/Docusate Sodium (Senokot S) 1 tab BID PO Last administered on 01/19/17 08:28; Start 01/18/17 at 21:00; Stop 02/17/17 at 20:59 Thiamine HCl (Thiamine HCl) 100 mg DAILY PO Last administered on 01/20/17 08: 19; Start 01/19/17 at 09:00; Stop 02/18/17 at 08:59 ALEXA WEBBER MD January 20, 2017 12:57
[2017-01-20 14:00] VITALS: BP 113/55
[2017-01-20 19:42] VITALS: BP 127/61
[2017-01-21 03:29] VITALS: BP 148/70
[2017-01-21 07:30] LABS: MEAN CORPUSCULAR HGB CONC 32.9 g/dl (32.0-36.5); MEAN CORPUSCULAR VOLUME 97.2 fl (80.0-96.0); WHITE BLOOD COUNT 5.9 K/mm3 (4.0-10.0)
[2017-01-21 07:51] LABS: ALBUMIN 2.7 GM/DL (3.2-5.2); ALKALINE PHOSPHATASE 94 U/L (45-117); ALT/SGPT 121 U/L (12-78); ANION GAP 8 MEQ/L (8-16); AST/SGOT 26 U/L (15-37); BILIRUBIN,TOTAL 0.3 MG/DL (0.2-1.0); BLOOD UREA NITROGEN 12 MG/DL (7-18); CALCIUM LEVEL 8.4 MG/DL (8.8-10.2); CARBON DIOXIDE LEVEL 27 MEQ/L (21-32); CHLORIDE LEVEL 104 MEQ/L (98-107); CREATININE FOR GFR 0.72 MG/DL (0.70-1.30); GLOMERULAR FILTRATION RATE > 60.0 (>49); GLUCOSE, FASTING 101 MG/DL (80-110); POTASSIUM SERUM 3.6 MEQ/L (3.5-5.1); SODIUM LEVEL 139 MEQ/L (136-145); TOTAL PROTEIN 5.4 GM/DL (6.4-8.2)
[2017-01-21] MEDS: LEVALBUTEROL 1.25 MG/0.5 ML CONCENTRATE NEB INH SCH ×4 (07:59→19:40)
[2017-01-21] MEDS: IPRATROPIUM 0.02% SOLN 0.5MG/2.5 ML NEB INH SCH ×4 (07:59→19:40)
[2017-01-21] MEDS: HumaLOG INSULIN (NovoLOG) PER UNIT SC SCH ×4 (08:12→20:12)
[2017-01-21] MEDS: MULTIVITAMINS/MINERALS THERAP 1 TAB PO SCH (08:13)
[2017-01-21] MEDS: HEPARIN SOD (PORCINE) 5000 UNITS/ML VIAL SC SCH ×2 (08:13→20:12)
[2017-01-21] MEDS: THIAMINE 100 MG TAB PO SCH (08:13)
[2017-01-21] MEDS: predniSONE 5 MG TAB PO SCH (08:13)
[2017-01-21] MEDS: PANTOPRAZOLE 40MG TAB (PROTONIX) PO SCH (08:13)
[2017-01-21] MEDS: ASPIRIN 81 MG CHEW TABLET PO SCH (08:13)
[2017-01-21] MEDS: amLODIPine 10 MG TAB PO SCH (08:13)
[2017-01-21] MEDS: NICOTINE 14 MG/24 HR TRANSDERMAL TD SCH (08:13)
[2017-01-21] MEDS: FOLIC ACID 1 MG TAB PO SCH (08:13)
[2017-01-21] MEDS: ENALAPRIL MALEATE 10 MG TAB PO SCH ×2 (08:14→20:12)
[2017-01-21] MEDS: SENOKOT S TAB PO SCH ×2 (08:14→20:12)
--- NOTE | 2017-01-21 11:24 | IPNPDOC ---
[employer] Progress Note DATE OF SERVICE: 01/21/2017 DATE OF ADMISSION: January 18, 2017 at 15:00 INPATIENT REHABILITATION ADMISSION DAY: #3 SUBJECTIVE: Patient is a 61-year-old white male with multiple debilitation related to COPD and bronchitis flare. Patient also with history of ethanol abuse and secondary sequela including liver cirrhosis. Patient reports feeling good today without significant complaints or pain. ALLERGIES: See Below MEDICATIONS: Reviewed, see below. OBJECTIVE: VITAL SIGNS: Please see below. PHYSICAL EXAMINATION: GENERAL: Shortness and late middle-aged white male who is alert and oriented times 4. HEENT: Normocephalic/atraumatic with very minimal left droop of the face. CARDIOVASCULAR: Regular rate and rhythm with normal S1 and S2. 2 out 4 radial pulses. LUNGS: All funez clear to auscultation. ABDOMEN: Benign with normal bowel sounds no quadrants. NEUROLOGICAL: Patient who is in good spirits still has some challenges with balance and thereby safety in ADLs and stair climbing. SKIN: Intact. LABORATORY DATA: Reviewed. Please see below. MICROBIOLOGY: Please see below. IMAGING: No new imaging. DVT prophylaxis ordered?: ASHLEY herrera. ASSESSMENT AND PLAN: 1. Rehabilitation rehabilitation: Patient starring assessment with physical and occupational therapy today. Due to home status being independent with a flight of stairs to get in or out of the home it is recalled that his balance improved and he show at least modified independence with stairs on consistent basis. Team Review at Team Rounds today shows patient making some big gains in mobility and endurance with training. Estimated date of D/C to home is 2016. 2. Cirrhosis: No change, but we'll continue to monitor periodic liver function tests. 3. Respiratory: Patient maintaining normal respiratory rate 18 with good oxygenation on room air at 92%. TIME SPENT: Chart Review, examination and documentation is greater than 35 minutes. Allergies Coded Allergies: No Known Allergies (Unverified , 12/28/16) Vital Signs Vital Signs Date Time Temp Pulse Resp B/P (MAP) Pulse Ox O2 Delivery O2 Flow Rate FiO2 01/21/17 08:14 148/70 01/21/17 08:13 90 01/21/17 08:00 Room Air 01/21/17 03:29 99.2 16 96 Laboratory Data CBC/BMP Laboratory Tests 01/21/17 07:15 Calcium Level 8.4 L, Aspartate Amino Transf (AST/SGOT) 26, Alanine Aminotransferase (ALT/SGPT) 121 H, Alkaline Phosphatase 94, Total Bilirubin 0.3 , Total Protein 5.4 L, Albumin 2.7 L 01/21/17 07:16 Red Blood Count 3.06 L, Mean Corpuscular Volume 97.2 H, Mean Corpuscular Hemoglobin 32.0, Mean Corpuscular Hemoglobin Concent 32.9, Red Cell Distribution Width 14.0 Labs 24H Laboratory Tests 2 01/20/17 11:23: Bedside Glucose (Misc Panel) 167H 01/20/17 16:28: Bedside Glucose (Misc Panel) 127H 01/20/17 20:23: Bedside Glucose (Misc Panel) 118H 01/21/17 06:15: Bedside Glucose (Misc Panel) 107 01/21/17 07:15: Anion Gap 8, Glomerular Filtration Rate > 60.0, Blood Urea Nitrogen 12, Creatinine 0.72, Sodium Level 139, Potassium Level 3.6, Chloride Level 104, Carbon Dioxide Level 27, Calcium Level 8.4L, Aspartate Amino Transf (AST/SGOT) 26, Alanine Aminotransferase (ALT/SGPT) 121H, Alkaline Phosphatase 94, Total Bilirubin 0.3, Total Protein 5.4L, Albumin 2.7L, Albumin/Globulin Ratio 1.00 Current Medications Current Medications Current Medications Acetaminophen (Tylenol Tab) 650 mg Q6HP PRN PO MILD PAIN (PS 1-4); Start at 12:00; Stop 02/17/17 at 11:59 Amlodipine Besylate (Norvasc) 10 mg DAILY PO Last administered on 01/21/17 08: 13; Start 01/19/17 at 09:00; Stop 02/18/17 at 08:59 Aspirin (Aspirin Chewable) 81 mg DAILY PO Last administered on 01/21/17 08:13 ; Start 01/19/17 at 09:00; Stop 02/18/17 at 08:59 Dextrose (Dextrose 50%) 25 ml ASDIRECTED PRN IV SEE LABEL COMMENTS; Start 01/18 at 15:00; Stop 02/17/17 at 14:59 Enalapril Maleate (Vasotec) 10 mg BID PO Last administered on 01/21/17 08:14; Start 01/18/17 at 21:00; Stop 02/17/17 at 20:59 Folic Acid (Folic Acid) 1 mg DAILY PO Last administered on 01/21/17 08:13; Start 01/19/17 at 09:00; Stop 02/18/17 at 08:59 Glucagon (Glucagon) 1 mg ASDIRECTED PRN SC SEE LABEL COMMENTS; Start 01/18/17 at 15:00; Stop 02/17/17 at 14:59 Glucose (Glucose) 16 GM ASDIRECTED PRN PO SEE LABEL COMMENTS; Start 01/18/17 at 15:00; Stop 02/17/17 at 14:59 Heparin Sodium (Porcine) (Heparin) 5,000 units Q12H SC Last administered on 08:13; Start 01/18/17 at 21:00; Stop 01/23/17 at 20:59 Insulin Human Lispro (HumaLOG INSULIN) See Protocol Table AC SC Last administered on 01/21/17 08:12; Start 01/18/17 at 17:30; Stop 02/17/17 at 17:29 Insulin Human Lispro (HumaLOG INSULIN) See Protocol Table QHS SC ; Start at 21:00; Stop 02/17/17 at 20:59 Ipratropium [place] (Atrovent 0.02%) 0.5 mg RQID INH Last administered on 07:59; Start 01/18/17 at 16:00; Stop 02/17/17 at 15:59 Levalbuterol HCl (Xopenex Neb) 1.25 mg RQID INH Last administered on 01/21/17 07:59; Start 01/18/17 at 16:00; Stop 02/17/17 at 15:59 Magnesium Hydroxide (Milk Of Magnesia) 30 ml BIDP PRN PO CONSTIPATION; Start at 12:30; Stop 02/17/17 at 12:29 Metoprolol Succinate (TopROL XL) 50 mg DAILY PO ; Start 01/19/17 at 09:00; Stop 02/18/17 at 08:59; Status UNV Multivitamins (Theragram-M) 1 tab DAILY PO Last administered on 01/21/17 08:13 ; Start 01/19/17 at 09:00; Stop 02/18/17 at 08:59 Multivitamins (Theragram-M) 1 tab DAILY PO ; Start 01/19/17 at 09:00; Stop 02/18 at 08:59; Status UNV Nicotine (Nicoderm Cq 14mg) 1 patch DAILY TD Last administered on 01/21/17 08: 13; Start 01/19/17 at 09:00; Stop 01/25/17 at 12:00 Nicotine (Nicoderm Cq 7 Mg) 1 patch DAILY TD ; Start 01/26/17 at 09:00; Stop 02/01/17 at 12:00 Pantoprazole Sodium (Protonix) 40 mg DAILY PO Last administered on 01/21/17 08 :13; Start 01/19/17 at 09:00; Stop 02/18/17 at 08:59 Prednisone (Deltasone) 5 mg DAILY PO Last administered on 01/21/17 08:13; Start 01/19/17 at 09:00; Stop 02/18/17 at 08:59 Senna/Docusate Sodium (Senokot S) 1 tab BID PO Last administered on 01/19/17 08:28; Start 01/18/17 at 21:00; Stop 02/17/17 at 20:59 Thiamine HCl (Thiamine HCl) 100 mg DAILY PO Last administered on 01/21/17 08: 13; Start 01/19/17 at 09:00; Stop 02/18/17 at 08:59 ALEXA WEBBER MD January 21, 2017 11:23
--- NOTE | 2017-01-21 11:45 | IPNPDOC ---
Subjective Date Seen The patient was seen on 01/21/17. Subjective Chief Complaint/HPI The patient is a 61-year-old male admitted with a reason for visit of Acute Respiratory Failure. Events since last encounter Pt is OOB to chair and has no complaints at this time. States he is feeling stronger. ENT: Denies: Head Aches, Dysphagia Pulmonary: Denies: Dyspnea, Cough Cardiovascular: Denies: Chest Pain, Palpitations, Orthopnea, Paroxysmal Noc. Dyspnea, Lt Headedness Gastrointestinal: Denies: Nausea, Vomiting, Abdominal Pain, Diarrhea, Constipation Genitourinary: Denies: Dysuria, Frequency, Incontinence, Retention Objective Physical Examination General Exam: Positive: Alert Eye Exam: Positive: PERRLA ENT Exam: Positive: Atraumatic Neck Exam: Positive: Supple, Negative: JVD Chest Exam: Positive: Clear to auscultation, Normal air movement Heart Exam: Positive: Rate Normal, Regular Rhythm, Normal S1, Normal S2, Negative: Murmurs, Rubs Abdomen Exam: Positive: Normal bowel sounds, Soft, Negative: Tenderness, Hepatospenomegaly Skin Exam: Positive: Nl turgor and temperature Neuro Exam: Positive: Other (ambulating with walker. ) Assessment /Plan Problems (1) Respiratory failure Status: Chronic Response to Treatment: Stable Problem Text: * ARU as per Dr Raya. * PT/OT * Extubated 01/03/17 (2) Alcohol dependence Status: Chronic Problem Text: * Continue to encourage discontinuation of ETOH * Cont MVI/thiamine/folic acid supplement. (3) Hyponatremia Status: Resolved Problem Text: * monitor labs (4) Hypertension Status: Chronic Problem Text: * Vasotec * Norvasc * ASA81 mg daily. (5) COPD (chronic obstructive pulmonary disease) with acute bronchitis Status: Chronic Problem Text: * Pt to finish prednisone taper * Nebs QID. (6) Elevated LFTs Status: Acute Problem Text: * trending downward * RUQ U/S Coarsened hepatic echotexture consistent with hepatic cellular disease and no focal hepatic lesion identified. Gallbladder suggests adenomyomatosis as well as gallstones and tumefactive sludge. The common bile duct is minimally dilated to 8 mm. No sonographic Mcgowan's sign or pericholecystic fluid is appreciated to suggest acute cholecystitis * Hepatitis profile neg. (7) Hyperglycemia Problem Text: * SSI Plan/VTE VTE Prophylaxis Ordered?: No (ambulatory) Disposition as per ARU. VS, I&O, 24H, Fishbone Vital Signs/I&O Vital Signs Date Time Temp Pulse Resp B/P (MAP) Pulse Ox O2 Delivery O2 Flow Rate FiO2 01/21/17 08:14 148/70 01/21/17 08:13 90 01/21/17 08:00 Room Air 01/21/17 03:29 99.2 16 96 I&O- Last 24 Hours up to 6 AM 01/21/17 06:00 Intake Total 720 ml Output Total 500 ml Balance 220 ml Laboratory Data 24H LABS Laboratory Tests 2 01/20/17 16:28: Bedside Glucose (Misc Panel) 127H 01/20/17 20:23: Bedside Glucose (Misc Panel) 118H 01/21/17 06:15: Bedside Glucose (Misc Panel) 107 01/21/17 07:15: Anion Gap 8, Glomerular Filtration Rate > 60.0, Blood Urea Nitrogen 12, Creatinine 0.72, Sodium Level 139, Potassium Level 3.6, Chloride Level 104, Carbon Dioxide Level 27, Calcium Level 8.4L, Aspartate Amino Transf (AST/SGOT) 26, Alanine Aminotransferase (ALT/SGPT) 121H, Alkaline Phosphatase 94, Total Bilirubin 0.3, Total Protein 5.4L, Albumin 2.7L, Albumin/Globulin Ratio 1.00 01/21/17 11:26: Bedside Glucose (Misc Panel) 109 CBC/BMP Laboratory Tests 01/21/17 07:15 Calcium Level 8.4 L, Aspartate Amino Transf (AST/SGOT) 26, Alanine Aminotransferase (ALT/SGPT) 121 H, Alkaline Phosphatase 94, Total Bilirubin 0.3 , Total Protein 5.4 L, Albumin 2.7 L 01/21/17 07:16 Red Blood Count 3.06 L, Mean Corpuscular Volume 97.2 H, Mean Corpuscular Hemoglobin 32.0, Mean Corpuscular Hemoglobin Concent 32.9, Red Cell Distribution Width 14.0 Jayde Carpio January 21, 2017 11:45
[2017-01-21 14:00] VITALS: BP 136/68
[2017-01-21 19:38] VITALS: BP 139/68
[2017-01-22 03:46] VITALS: BP 161/74
[2017-01-22] MEDS: LEVALBUTEROL 1.25 MG/0.5 ML CONCENTRATE NEB INH SCH ×4 (08:39→19:30)
[2017-01-22] MEDS: IPRATROPIUM 0.02% SOLN 0.5MG/2.5 ML NEB INH SCH ×4 (08:39→19:30)
[2017-01-22] MEDS: HumaLOG INSULIN (NovoLOG) PER UNIT SC SCH ×4 (09:20→21:00)
[2017-01-22] MEDS: PANTOPRAZOLE 40MG TAB (PROTONIX) PO SCH (09:21)
[2017-01-22] MEDS: HEPARIN SOD (PORCINE) 5000 UNITS/ML VIAL SC SCH ×2 (09:21→21:24)
[2017-01-22] MEDS: SENOKOT S TAB PO SCH ×3 (09:21→21:00)
[2017-01-22] MEDS: MULTIVITAMINS/MINERALS THERAP 1 TAB PO SCH (09:21)
[2017-01-22] MEDS: amLODIPine 10 MG TAB PO SCH (09:21)
[2017-01-22] MEDS: FOLIC ACID 1 MG TAB PO SCH (09:21)
[2017-01-22] MEDS: predniSONE 5 MG TAB PO SCH (09:22)
[2017-01-22] MEDS: ENALAPRIL MALEATE 10 MG TAB PO SCH ×2 (09:22→21:24)
[2017-01-22] MEDS: THIAMINE 100 MG TAB PO SCH (09:22)
[2017-01-22] MEDS: ASPIRIN 81 MG CHEW TABLET PO SCH (09:22)
[2017-01-22] MEDS: NICOTINE 14 MG/24 HR TRANSDERMAL TD SCH (09:22)
--- NOTE | 2017-01-22 10:27 | IPNPDOC ---
[employer] Progress Note DATE OF SERVICE: 01/22/2017 DATE OF ADMISSION: January 18, 2017 at 15:00 INPATIENT REHABILITATION ADMISSION DAY: #4 SUBJECTIVE: Patient is a 61-year-old white male with multiple debilitation related to COPD and bronchitis flare. Patient also with history of ethanol abuse and secondary sequela including liver cirrhosis. Patient reports feeling good today without significant complaints or pain. ALLERGIES: See Below MEDICATIONS: Reviewed, see below. OBJECTIVE: VITAL SIGNS: Please see below. PHYSICAL EXAMINATION: GENERAL: Shortness and late middle-aged white male who is alert and oriented times 4. HEENT: Normocephalic/atraumatic with very minimal left droop of the face. CARDIOVASCULAR: Regular rate and rhythm with normal S1 and S2. 2 out 4 radial pulses. LUNGS: All funez clear to auscultation. ABDOMEN: Benign with normal bowel sounds no quadrants. NEUROLOGICAL: Patient who is in good spirits still has some challenges with balance and thereby safety in ADLs and stair climbing. SKIN: Intact. LABORATORY DATA: Reviewed. Please see below. MICROBIOLOGY: Please see below. IMAGING: No new imaging. DVT prophylaxis ordered?: ASHLEY hose and 5000 units of heparin Q12hrs. ASSESSMENT AND PLAN: 1. Rehabilitation rehabilitation: Patient starring assessment with physical and occupational therapy today. Due to home status being independent with a flight of stairs to get in or out of the home it is recalled that his balance improved and he show at least modified independence with stairs on consistent basis. Team Review at Team Rounds today shows patient making some big gains in mobility and endurance with training. Estimated date of D/C to home is 2016. 2. Hypertension: Patient with some elevation between midnight and 3 AM the last couple nights with that region 161 systolic blood pressure last night about 3 AM. If this progresses then then we will have medicine team make appropriate adjustments. 3. Respiratory: Patient maintaining normal respiratory rate 14 with good oxygenation on room air at 95%. TIME SPENT: Chart Review, examination and documentation requires greater than 25 minutes. Allergies Coded Allergies: No Known Allergies (Unverified , 12/28/16) Vital Signs Vital Signs Date Time Temp Pulse Resp B/P (MAP) Pulse Ox O2 Delivery O2 Flow Rate FiO2 01/22/17 09:22 161/74 01/22/17 09:21 91 01/22/17 09:00 Room Air 01/22/17 03:46 98.4 14 95 Laboratory Data Labs 24H Laboratory Tests 2 01/21/17 11:26: Bedside Glucose (Misc Panel) 109 01/21/17 16:45: Bedside Glucose (Misc Panel) 135H 01/21/17 20:08: Bedside Glucose (Misc Panel) 138H 01/22/17 05:17: Bedside Glucose (Misc Panel) 118H Current Medications Current Medications Current Medications Acetaminophen (Tylenol Tab) 650 mg Q6HP PRN PO MILD PAIN (PS 1-4); Start at 12:00; Stop 02/17/17 at 11:59 Amlodipine Besylate (Norvasc) 10 mg DAILY PO Last administered on 01/22/17 09: 21; Start 01/19/17 at 09:00; Stop 02/18/17 at 08:59 Aspirin (Aspirin Chewable) 81 mg DAILY PO Last administered on 01/22/17 09:22 ; Start 01/19/17 at 09:00; Stop 02/18/17 at 08:59 Dextrose (Dextrose 50%) 25 ml ASDIRECTED PRN IV SEE LABEL COMMENTS; Start 01/18 at 15:00; Stop 02/17/17 at 14:59 Enalapril Maleate (Vasotec) 10 mg BID PO Last administered on 01/22/17 09:22; Start 01/18/17 at 21:00; Stop 02/17/17 at 20:59 Folic Acid (Folic Acid) 1 mg DAILY PO Last administered on 01/22/17 09:21; Start 01/19/17 at 09:00; Stop 02/18/17 at 08:59 Glucagon (Glucagon) 1 mg ASDIRECTED PRN SC SEE LABEL COMMENTS; Start 01/18/17 at 15:00; Stop 02/17/17 at 14:59 Glucose (Glucose) 16 GM ASDIRECTED PRN PO SEE LABEL COMMENTS; Start 01/18/17 at 15:00; Stop 02/17/17 at 14:59 Heparin Sodium (Porcine) (Heparin) 5,000 units Q12H SC Last administered on 09:21; Start 01/18/17 at 21:00; Stop 01/26/17 at 23:55 Insulin Human Lispro (HumaLOG INSULIN) See Protocol Table AC SC Last administered on 01/22/17 09:20; Start 01/18/17 at 17:30; Stop 02/17/17 at 17:29 Insulin Human Lispro (HumaLOG INSULIN) See Protocol Table QHS SC ; Start at 21:00; Stop 02/17/17 at 20:59 Ipratropium [place] (Atrovent 0.02%) 0.5 mg RQID INH Last administered on 08:39; Start 01/18/17 at 16:00; Stop 02/17/17 at 15:59 Levalbuterol HCl (Xopenex Neb) 1.25 mg RQID INH Last administered on 01/22/17 08:39; Start 01/18/17 at 16:00; Stop 02/17/17 at 15:59 Magnesium Hydroxide (Milk Of Magnesia) 30 ml BIDP PRN PO CONSTIPATION; Start at 12:30; Stop 02/17/17 at 12:29 Metoprolol Succinate (TopROL XL) 50 mg DAILY PO ; Start 01/19/17 at 09:00; Stop 02/18/17 at 08:59; Status UNV Multivitamins (Theragram-M) 1 tab DAILY PO Last administered on 01/22/17 09:21 ; Start 01/19/17 at 09:00; Stop 02/18/17 at 08:59 Multivitamins (Theragram-M) 1 tab DAILY PO ; Start 01/19/17 at 09:00; Stop 02/18 at 08:59; Status UNV Nicotine (Nicoderm Cq 14mg) 1 patch DAILY TD Last administered on 01/22/17 09: 22; Start 01/19/17 at 09:00; Stop 01/25/17 at 12:00 Nicotine (Nicoderm Cq 7 Mg) 1 patch DAILY TD ; Start 01/26/17 at 09:00; Stop 02/01/17 at 12:00 Pantoprazole Sodium (Protonix) 40 mg DAILY PO Last administered on 01/22/17 09 :21; Start 01/19/17 at 09:00; Stop 02/18/17 at 08:59 Prednisone (Deltasone) 5 mg DAILY PO Last administered on 01/22/17 09:22; Start 01/19/17 at 09:00; Stop 02/18/17 at 08:59 Senna/Docusate Sodium (Senokot S) 1 tab BID PO Last administered on 01/19/17 08:28; Start 01/18/17 at 21:00; Stop 02/17/17 at 20:59 Thiamine HCl (Thiamine HCl) 100 mg DAILY PO Last administered on 01/22/17 09: 22; Start 01/19/17 at 09:00; Stop 02/18/17 at 08:59 ALEXA WEBBER MD January 22, 2017 10:27
[2017-01-22 14:00] VITALS: BP 132/62
--- NOTE | 2017-01-22 14:58 | IPN ---
DATE: 01/22/2017 61-year-old gentleman seen at bedside this morning. He is just finishing with physical therapy. He is able to do some of his activities of daily living and participating well. He has no complaints. No chest pain, shortness breath, productive sputum, cough, hemoptysis. No difficulty breathing. OBJECTIVE: Temperature is 98.4, pulse 91, respiratory rate is 14, BP 161/74, SPO2 is 94% on room air. General: The patient appears to be in no acute distress. He is alert, oriented, pleasant to talk to. HEENT: Unremarkable. Lungs: Clear. Heart: Regular rhythm. Abdomen: Soft. Extremities: No edema or calf tenderness. LABORATORY DATA: White count is 5.9, hemoglobin 9.8, platelets 319,000. Sodium 139, potassium 3.6, chloride 104, bicarb 27, anion gap 8, BUN 12, AST 26, ALT 121, alkaline phosphatase 94, albumin is 2.7. ASSESSMENT/PLAN: 1. Chronic respiratory failure, stable. Continue physical therapy (PT), occupational therapy (OT). He has been extubated since 01/03/2017. 2. Alcohol dependence which is chronic. Continue to encourage abstinance. Continue multivitamin, thiamine, folic acid supplementation. 3. Hyponatremia resolved. 4. Hypertension, chronic. Could be better controlled. He has no known drug allergies. Currently he is on Norvasc 10 mg daily, Vasotec 10 mg twice a day. I am going to add chlorthalidone as well. We will watch his renal profile and see how his blood pressure is controlled. 5. Diabetes. Continue sliding scale. 6. COPD, stable. Finish his prednisone taper and nebulizers four times a day. 7. Elevated liver function test, this is acute, but does appear to be trending downward. Hepatitis profile is negative. Hepatic echotexture does appear to be consistent with hepatic cellular disease, but no hepatic lesion identified. He can followup as outpatient but will continue to trend his transaminases. 8. Hyperglycemia as indicated above. 9. Deep venous thrombosis (DVT) prophylaxis. The patient is ambulatory. DISPOSITION: Will continue to follow along for medical management during his stay in [facility].
[2017-01-22 20:00] VITALS: BP 137/65
[2017-01-23 06:00] VITALS: BP 141/70
--- NOTE | 2017-01-23 08:21 | IPN ---
DATE OF SERVICE: 01/23/2017 A 61-year-old gentleman seen at bedside. No overnight issues reported. He denies chest pain, shortness of breath, productive sputum, nausea, or vomiting. His attitude continues to be doing well, and he was joking with me quite a bit as I visited with him this morning. No overnight issues reported. OBJECTIVE: Temperature is 99.3, pulse 92, respiratory rate is 18, blood pressure (BP) 141/70, with SpO2 of 97% on room air. I did notice that he had a temporal temperature reading of 100.2 last night, but he denied any fevers, chills, rigors, or any other symptoms that would be consistent with an infectious process. HEENT: Unremarkable. Lungs: Clear. Heart: Regular rate and rhythm. Abdomen: Soft. Extremities: No edema. LABORATORY DATA: None checked this morning. I will go ahead and add on a complete blood count (CBC) and a basic metabolic profile (BMP). ASSESSMENT AND PLAN: 1. Chronic respiratory failure, stable. Continue with physical therapy, occupational therapy. He has been extubated on 01/03/2017 and doing well. 2. Alcohol dependence, which is chronic. Encourage continue with abstinence. Continue with multivitamin, thiamine, folic acid. 3. Hyponatremia, resolved. 4. Hypertension, chronic, stable. Will continue to follow. I did add on chlorthalidone, which he will start today. 5. Diabetes. Continue sliding scale and coverage as needed. 6. Chronic obstructive pulmonary disease (COPD), stable. Continue with prednisone taper and nebulizers. 7. Elevated liver function tests. This was acute. Did appear to trend downward. Hepatitis profile was negative. Can followup outpatient to repeat transaminases. 8. Hyperglycemia. As indicated above. 9. Deep venous thrombosis (DVT) prophylaxis. The patient remains ambulatory. DISPOSITION: Continues to do well from a rehabilitation standpoint. Will defer that to the physical medicine and rehabilitation ([facility]) physicians; but from a medical standpoint, he appears to be progressing nicely.
[2017-01-23] MEDS: NICOTINE 14 MG/24 HR TRANSDERMAL TD SCH (08:28)
[2017-01-23] MEDS: HEPARIN SOD (PORCINE) 5000 UNITS/ML VIAL SC SCH ×2 (08:28→20:39)
[2017-01-23] MEDS: PANTOPRAZOLE 40MG TAB (PROTONIX) PO SCH (08:29)
[2017-01-23] MEDS: MULTIVITAMINS/MINERALS THERAP 1 TAB PO SCH (08:29)
[2017-01-23] MEDS: ASPIRIN 81 MG CHEW TABLET PO SCH (08:29)
[2017-01-23] MEDS: HumaLOG INSULIN (NovoLOG) PER UNIT SC SCH ×4 (08:29→21:00)
[2017-01-23] MEDS: predniSONE 5 MG TAB PO SCH (08:29)
[2017-01-23] MEDS: amLODIPine 10 MG TAB PO SCH (08:29)
[2017-01-23] MEDS: THIAMINE 100 MG TAB PO SCH (08:29)
[2017-01-23] MEDS: SENOKOT S TAB PO SCH ×2 (08:30→20:42)
[2017-01-23] MEDS: FOLIC ACID 1 MG TAB PO SCH (08:30)
[2017-01-23] MEDS: ENALAPRIL MALEATE 10 MG TAB PO SCH ×2 (08:30→20:40)
[2017-01-23] MEDS: LEVALBUTEROL 1.25 MG/0.5 ML CONCENTRATE NEB INH SCH ×4 (08:34→19:27)
[2017-01-23] MEDS: IPRATROPIUM 0.02% SOLN 0.5MG/2.5 ML NEB INH SCH ×4 (08:34→19:27)
[2017-01-23 09:03] LABS: MEAN CORPUSCULAR HEMOGLOBIN 31.7 pg (27.0-33.0); MEAN CORPUSCULAR HGB CONC 32.8 g/dl (32.0-36.5); MEAN CORPUSCULAR VOLUME 96.8 fl (80.0-96.0); RED CELL DISTRIBUTION WIDTH 14.3 % (11.5-14.5); WHITE BLOOD COUNT 6.1 K/mm3 (4.0-10.0)
[2017-01-23 09:19] LABS: ANION GAP 7 MEQ/L (8-16); BLOOD UREA NITROGEN 12 MG/DL (7-18); CALCIUM LEVEL 8.6 MG/DL (8.8-10.2); CARBON DIOXIDE LEVEL 27 MEQ/L (21-32); CHLORIDE LEVEL 104 MEQ/L (98-107); CREATININE FOR GFR 0.87 MG/DL (0.70-1.30); GLOMERULAR FILTRATION RATE > 60.0 (>49); GLUCOSE, FASTING 116 MG/DL (80-110); POTASSIUM SERUM 3.8 MEQ/L (3.5-5.1); SODIUM LEVEL 138 MEQ/L (136-145)
[2017-01-23] MEDS: CHLORTHALIDONE 12.5MG PER 1/2 TABLET PO SCH (10:54)
[2017-01-23 14:24] VITALS: BP 117/57
[2017-01-23 22:00] VITALS: BP 126/65
[2017-01-24 06:00] VITALS: BP 159/74
[2017-01-24 06:43] LABS: MEAN CORPUSCULAR HEMOGLOBIN 32.7 pg (27.0-33.0); MEAN CORPUSCULAR HGB CONC 33.9 g/dl (32.0-36.5); MEAN CORPUSCULAR VOLUME 96.6 fl (80.0-96.0); RED CELL DISTRIBUTION WIDTH 14.4 % (11.5-14.5); WHITE BLOOD COUNT 5.6 K/mm3 (4.0-10.0)
[2017-01-24] MEDS: HumaLOG INSULIN (NovoLOG) PER UNIT SC SCH ×4 (08:29→21:00)
[2017-01-24] MEDS: NICOTINE 14 MG/24 HR TRANSDERMAL TD SCH (08:30)
[2017-01-24] MEDS: HEPARIN SOD (PORCINE) 5000 UNITS/ML VIAL SC SCH ×2 (08:32→20:10)
[2017-01-24] MEDS: CHLORTHALIDONE 12.5MG PER 1/2 TABLET PO SCH (08:32)
[2017-01-24] MEDS: ENALAPRIL MALEATE 10 MG TAB PO SCH ×2 (08:33→20:09)
[2017-01-24] MEDS: SENOKOT S TAB PO SCH ×3 (08:33→20:04)
[2017-01-24] MEDS: predniSONE 5 MG TAB PO SCH (08:34)
[2017-01-24] MEDS: FOLIC ACID 1 MG TAB PO SCH (08:34)
[2017-01-24] MEDS: PANTOPRAZOLE 40MG TAB (PROTONIX) PO SCH (08:34)
[2017-01-24] MEDS: amLODIPine 10 MG TAB PO SCH (08:34)
[2017-01-24] MEDS: ASPIRIN 81 MG CHEW TABLET PO SCH (08:34)
[2017-01-24] MEDS: MULTIVITAMINS/MINERALS THERAP 1 TAB PO SCH (08:35)
[2017-01-24] MEDS: THIAMINE 100 MG TAB PO SCH (08:35)
[2017-01-24] MEDS: LEVALBUTEROL 1.25 MG/0.5 ML CONCENTRATE NEB INH SCH ×4 (08:44→20:00)
[2017-01-24] MEDS: IPRATROPIUM 0.02% SOLN 0.5MG/2.5 ML NEB INH SCH ×4 (08:44→20:00)
--- NOTE | 2017-01-24 11:56 | IPN ---
DATE OF SERVICE: 01/24/2017 A 61-year-old gentleman seen at bedside. No overnight issues reported. Resting comfortably. No chest pain, shortness of breath. No nausea or vomiting. Tolerating meals. OBJECTIVE: Temperature is 98.8, pulse 87, respiratory rate 18, blood pressure (BP) 135/73, SpO2 is 96% on room air. General: The patient appears to be in no acute distress. Is alert, oriented. HEENT: Unremarkable. Lungs: Clear. Heart: Regular rate and rhythm. Abdomen: Soft. Extremities: No edema. No calf tenderness. LABORATORY DATA: White count 5.6, hemoglobin 10.0, platelets 371,000. Sodium 138, potassium 3.8, chloride 104, bicarbonate 27, anion gap 7, BUN 12, creatinine 0.87, glucose 116. ASSESSMENT AND PLAN: 1. Chronic respiratory failure, stable. Continue with physical therapy and occupational therapy. Was extubated on 01/03/2017. Doing well. 2. Alcohol dependence, which is chronic. Encouraged abstinence. Continue with multivitamin, thiamine, and folic acid. 3. Hyponatremia, resolved. 4. Hypertension, which appears to be stable and chronic. I will continue to follow. We did add chlorthalidone yesterday. Will see how he does over the next few days. 5. Diabetes. Continue with sliding scale coverage based on fingersticks. 6. Chronic obstructive pulmonary disease (COPD), stable. Continue with prednisone taper and nebulizers. 7. History of elevated liver function tests, which was acute. Hepatitis profile was negative. Followup outpatient transaminases. 8. Hyperglycemia, as indicated. 9. Deep venous thrombosis (DVT) prophylaxis. He remains ambulatory. DISPOSITION: Continues to do well with physical medicine and rehabilitation ([facility]). From a medical standpoint is stable. Will continue to follow along for medical management.
[2017-01-24 14:00] VITALS: BP 124/58
[2017-01-24 20:00] VITALS: BP 125/63
[2017-01-25 06:00] VITALS: BP 133/69
[2017-01-25] MEDS: IPRATROPIUM 0.02% SOLN 0.5MG/2.5 ML NEB INH SCH ×5 (08:00→19:32)
[2017-01-25] MEDS: LEVALBUTEROL 1.25 MG/0.5 ML CONCENTRATE NEB INH SCH ×5 (08:00→19:32)
[2017-01-25] MEDS: NICOTINE 14 MG/24 HR TRANSDERMAL TD SCH (08:43)
[2017-01-25] MEDS: CHLORTHALIDONE 12.5MG PER 1/2 TABLET PO SCH (08:44)
[2017-01-25] MEDS: ENALAPRIL MALEATE 10 MG TAB PO SCH ×2 (08:44→20:49)
[2017-01-25] MEDS: FOLIC ACID 1 MG TAB PO SCH (08:44)
[2017-01-25] MEDS: HEPARIN SOD (PORCINE) 5000 UNITS/ML VIAL SC SCH ×2 (08:44→20:48)
[2017-01-25] MEDS: THIAMINE 100 MG TAB PO SCH (08:44)
[2017-01-25] MEDS: predniSONE 5 MG TAB PO SCH (08:44)
[2017-01-25] MEDS: MULTIVITAMINS/MINERALS THERAP 1 TAB PO SCH (08:44)
[2017-01-25] MEDS: PANTOPRAZOLE 40MG TAB (PROTONIX) PO SCH (08:44)
[2017-01-25] MEDS: HumaLOG INSULIN (NovoLOG) PER UNIT SC SCH ×4 (08:45→21:00)
[2017-01-25] MEDS: amLODIPine 10 MG TAB PO SCH (08:45)
[2017-01-25] MEDS: ASPIRIN 81 MG CHEW TABLET PO SCH (08:45)
[2017-01-25] MEDS: SENOKOT S TAB PO SCH ×2 (08:46→20:49)
[2017-01-25 14:00] VITALS: BP 124/61
[2017-01-25 20:00] VITALS: BP 116/55
[2017-01-26 06:00] VITALS: BP 131/68
[2017-01-26] MEDS: IPRATROPIUM 0.02% SOLN 0.5MG/2.5 ML NEB INH SCH ×2 (07:10→12:00)
[2017-01-26] MEDS: LEVALBUTEROL 1.25 MG/0.5 ML CONCENTRATE NEB INH SCH ×2 (07:10→12:00)
[2017-01-26] MEDS: HumaLOG INSULIN (NovoLOG) PER UNIT SC SCH (08:17)
[2017-01-26] MEDS: HEPARIN SOD (PORCINE) 5000 UNITS/ML VIAL SC SCH (08:17)
[2017-01-26 08:18] VITALS: BP 131/68
[2017-01-26] MEDS: ENALAPRIL MALEATE 10 MG TAB PO SCH (08:18)
[2017-01-26] MEDS: MULTIVITAMINS/MINERALS THERAP 1 TAB PO SCH (08:18)
[2017-01-26] MEDS: FOLIC ACID 1 MG TAB PO SCH (08:18)
[2017-01-26] MEDS: amLODIPine 10 MG TAB PO SCH (08:18)
[2017-01-26] MEDS: PANTOPRAZOLE 40MG TAB (PROTONIX) PO SCH (08:18)
[2017-01-26] MEDS: CHLORTHALIDONE 12.5MG PER 1/2 TABLET PO SCH (08:18)
[2017-01-26] MEDS: THIAMINE 100 MG TAB PO SCH (08:18)
[2017-01-26] MEDS: predniSONE 5 MG TAB PO SCH (08:18)
[2017-01-26] MEDS: ASPIRIN 81 MG CHEW TABLET PO SCH (08:19)
[2017-01-26] MEDS: SENOKOT S TAB PO SCH (08:19)
[2017-01-26] MEDS ORDERED: NICOTINE 7 MG/24 HR TRANSDERMAL TD SCH (09:00)
[2017-01-26] MEDS ORDERED: CHLO125TA PO (10:25)
[2017-01-26] MEDS ORDERED: PANT40TA2 PO (10:25)
[2017-01-26] MEDS ORDERED: NICO7PA TD (10:25)
--- NOTE | 2017-01-26 20:47 | PMRDS ---
DATE OF ADMISSION: 01/18/2017 DATE OF DISCHARGE: 01/26/2017 DISCHARGE DIAGNOSES: 1. Debilitation secondary to multiple medical problems. 2. Atherosclerotic cardiovascular disease with mild diastolic heart dysfunction. 3. Hypertension. 4. Hyperlipidemia. 5. Chronic obstructive pulmonary disease (COPD) with bronchitis, complicated by alcohol intoxication and withdrawal with delirium tremens and alcohol dementia. 6. 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 7. Type 2 diabetes mellitus. 8. Moderate anemia. 9. Hypoalbuminemia. HISTORY: The patient was admitted to [facility] on 12/28/2016 for debilitation and alcohol intoxication with secondary bronchitis. He required intubation and mechanical ventilation. The patient was further evaluated and stabilized and on 01/18/2017, the patient, who lives in an upstairs apartment independently, was not felt to be relatively safe for return home and the rehabilitation unit was consulted and assessed him and felt that he would benefit from acute intensive rehabilitation to regain modified independence, independence in activities of daily living, mobility, including being able to handle more than 14 stairs to enter and exit his apartment, as well as to ambulate moderate distances to be able to return to the community. PHYSICAL EXAMINATION: The patient is a cachectic, late middle aged, white male, who initially had some problems with breathing, but tends to be doing very well on that now and has shown marked improvement in balance, endurance and ambulation. He is alert and oriented times four and aware of the discharge plan. PROCEDURES PERFORMED: None on this unit. DIAGNOSTIC AND LABORATORY DATA: The patient's hemoglobin and hematocrit on admission were 9.7 and 29.1 and the most current values are 10.0 and 29.5, so they have remained stable with electrolytes in the normal range throughout the admission, along with BUN and creatinine, though he has had some elevated fasting blood sugars and his ALT was elevated and returned toward normal early on in his admission. No signs of jaundice during the course of this admission and his alkaline phosphatase, while elevated on admission, has returned to normal, and his albumin is slowly improving, most recent on the 2.7. HOSPITALIZATION COURSE: The patient was admitted to the acute rehabilitation unit on 01/18/2017 and started on a program in physical and occupational therapy, also on a titration down with NicoDerm patches. He has six more days needed at 7 mg per 24 hours, and then to discontinue. The patient's overall mobility has transitioned from standby assistance at 150 feet but only four stairs, to now repeatedly above 250 feet and over 18 stairs with modified independence and from standby assistance to contact guard in activities of daily living to modified independence to independent in activities of daily living. DISCHARGE MEDICATIONS: - chlorthalidone 12.5 mg daily - NicoDerm 7 mg per 24 hour patch, dispense seven patches and using one every 24 hours for 7 days and then discontinue - pantoprazole 40 mg daily for gastrointestinal protection - amlodipine 10 mg daily - aspirin 81 mg chewable daily - enalapril 10 mg by mouth twice a day for hypertension - folic acid 1 mg daily - ipratropium bromide solution inhaled four times a day for respiratory - levalbuterol hydrochloride 1.25 mg/0.5 mL nebulizer four times a day - multivitamin daily - prednisone 5 mg daily for 3 days - Senna plus one tablet twice a day - thiamine 100 mg daily The patient is no longer on metoprolol succinate and has cutdown from NicoDerm 21 mg per 24 hours to the 7 mg. He is strongly encouraged get involved in ongoing alcohol abstinence program and has been given literature on local resources for that. COMPLICATIONS DURING THIS ADMISSION: No complications. DISCHARGE PLAN AND INSTRUCTIONS: The patient is discharged to home. He has a friend picking him up. He will be in a hotel for three days and then return to his apartment. He is to followup with his primary care provider, ANDREA Sharma, within the next 2 weeks. Time spent on this discharge summary is greater than 35 minutes.
== END 2017-01-26 12:21 | disposition home or self-care (01) | DRG 58 ==
LOC: M PM&R 15:00
PROVIDERS: ADMIT Physical Medicine & Rehabilitation; ATTEND Physical Medicine & Rehabilitation
DX: I69.354 Hemiplegia and hemiparesis following cerebral infarction affecting left non-dominant side (principal); J96.00 Acute respiratory failure, unspecified whether with hypoxia or hypercapnia; I11.0 Hypertensive heart disease with heart failure; J44.0 Chronic obstructive pulmonary disease with (acute) lower respiratory infection; E11.9 Type 2 diabetes mellitus without complications; D64.9 Anemia, unspecified; I50.30 Unspecified diastolic (congestive) heart failure; K70.30 Alcoholic cirrhosis of liver without ascites; E88.09 Other disorders of plasma-protein metabolism, not elsewhere classified; E78.5 Hyperlipidemia, unspecified; M19.90 Unspecified osteoarthritis, unspecified site; M54.5 Low back pain; R26.81 Unsteadiness on feet; R74.0 Nonspecific elevation of levels of transaminase and lactic acid dehydrogenase [LDH]; F10.20 Alcohol dependence, uncomplicated; Z79.899 Other long term (current) drug therapy; Z79.82 Long term (current) use of aspirin; Z79.01 Long term (current) use of anticoagulants; Z79.4 Long term (current) use of insulin; Z79.52 Long term (current) use of systemic steroids; Z87.891 Personal history of nicotine dependence

== ENCOUNTER 2017-02-02 07:42 | Observation (INO) | payer MEDICAID ==
[~2017-02-02] VITALS: Ht 162.6 cm; Wt 52.3 kg
[~2017-02-02 07:42] MED LIST changes: +CHLO125TA PO; +NICO7PA TD; +PANT40TA2 PO
[2017-02-02] MEDS ORDERED: ANOR1AER INH (08:06)
[2017-02-02] MEDS ORDERED: NS 1,000 ML IV ONE (08:30)
[2017-02-02] MEDS ORDERED: methylPREDNISolone INJ 125 MG/2 ML VIAL (J2930) IV ONE (08:30)
[2017-02-02] MEDS ORDERED: IPRATROPIUM 0.5MG/ALBUTEROL 2.5MG INH SOL UD 3ML (DUONEB)(J7620) NEB PRN ×2 (08:30→10:30)
--- NOTE | 2017-02-02 08:32 | ECGEPIP ---
Stationary ECG Study [facility] - ED Test Date: 2017-02-02 Pat Name: ROSALES MURRAY Department: Room: - Gender: M Picker Feeder: navjot : 1955 Requested By: Luz Maria Gonzales Order Number: [id number] Reading MD: Souleymane Garsia Measurements Intervals Igo Rate: 94 P: 57 NC: 153 QRS: 52 QRSD: 80 T: 70 QT: 324 QTc: 407 Interpretive Statements SINUS RHYTHM Electronically Signed On 02-02-2017 8:32:28 EDT by Souleymane Garsia
[2017-02-02 08:49] LABS: BASO % 0.3 % (0.0-1.0); EOS % 0.5 % (0.0-3.0); LARGE UNSTAINED CELL # 0.1 K/mm3 (0.0-0.4); LARGE UNSTAINED CELL % 1.5 % (0.0-4.0); LYMPH # 0.4 K/mm3 (1.5-4.5); LYMPH % 3.2 % (24.0-44.0); MEAN CORPUSCULAR HEMOGLOBIN 31.2 pg (27.0-33.0); MEAN CORPUSCULAR HGB CONC 33.6 g/dl (32.0-36.5); MEAN CORPUSCULAR VOLUME 92.7 fl (80.0-96.0); MONO # 0.6 K/mm3 (0.0-0.8); MONO % 6.6 % (0.0-5.0); NEUTROPHILS # 7.4 K/mm3 (1.8-7.7); NEUTROPHILS % 87.9 % (36.0-66.0); PLATELET COUNT, AUTOMATED 466 k/mm3 (150-450); RED CELL DISTRIBUTION WIDTH 14.7 % (11.5-14.5); WHITE BLOOD COUNT 8.4 K/mm3 (4.0-10.0)
[2017-02-02 08:58] LABS: ABG BASE EXCESS 1.1 (-2.0-2.0); ABG HCO3 23.2 MEQ/L (22.0-26.0); ABG PARTIAL PRESSURE CO2 28.5 mmHg (35.0-45.0); ABG STANDARD HCO3 25.5 MEQ/L (22.0-26.0); ABG pH (ARTERIAL) 7.528 UNITS (7.350-7.450)
[2017-02-02 09:02] LABS: ALBUMIN 2.9 GM/DL (3.2-5.2); ALBUMIN/GLOBULIN RATIO 0.69 (1.00-1.93); ALKALINE PHOSPHATASE 58 U/L (45-117); ALT/SGPT 44 U/L (12-78); ANION GAP 12 MEQ/L (8-16); AST/SGOT 28 U/L (15-37); BILIRUBIN,DIRECT 0.1 MG/DL (0.0-0.2); BILIRUBIN,TOTAL 0.5 MG/DL (0.2-1.0); BLOOD UREA NITROGEN 29 MG/DL (7-18); CALCIUM LEVEL 8.9 MG/DL (8.8-10.2); CARBON DIOXIDE LEVEL 26 MEQ/L (21-32); CHLORIDE LEVEL 90 MEQ/L (98-107); CREATININE FOR GFR 1.91 MG/DL (0.70-1.30); GLOMERULAR FILTRATION RATE 38.2 (>49); GLUCOSE, FASTING 166 MG/DL (80-110); POTASSIUM SERUM 4.1 MEQ/L (3.5-5.1); SODIUM LEVEL 128 MEQ/L (136-145); TOTAL PROTEIN 7.1 GM/DL (6.4-8.2)
[2017-02-02] MEDS ORDERED: AMLO10TA2 PO (09:20)
[2017-02-02] MEDS ORDERED: ASPI81TA7 PO (09:20)
[2017-02-02] MEDS ORDERED: NICO7DIS2 TD (09:20)
[2017-02-02] MEDS ORDERED: VITMTA PO (09:20)
[2017-02-02] MEDS ORDERED: FOLI1TAB2 PO (09:20)
[2017-02-02] MEDS ORDERED: ALBU17IN INH (09:22)
[2017-02-02] MEDS ORDERED: LISI20TA PO (09:22)
[2017-02-02] MEDS ORDERED: PANT40TA2 PO (09:22)
[2017-02-02] MEDS ORDERED: THIA100T PO (09:22)
[2017-02-02] MEDS ORDERED: SIMV20TA2 PO (09:22)
[2017-02-02] MEDS ORDERED: SODIUM CHLORIDE 0.9% 1000 ML IV ONE (09:45)
--- NOTE | 2017-02-02 09:47 | REP ---
PORTABLE CHEST X-RAY: Sitting AP view. HISTORY: Dyspnea and cough. Comparison chest x-ray: January 11, 2017. FINDINGS: The patient is rotated slightly to the left. The lungs are well inflated and clear. Cardiomediastinal silhouette is unremarkable. There are multiple old healed rib fractures on the right. EKG monitoring electrodes overlie the chest. IMPRESSION: No active disease. Signed by Rj Garcia MD 02/02/2017 02:50 P
[2017-02-02] MEDS ORDERED: IPRATROPIUM 0.5MG/ALBUTEROL 2.5MG INH SOL UD 3ML (DUONEB)(J7620) NEB ONE (10:15)
[2017-02-02] MEDS ORDERED: ACETAMINOPHEN TAB 650MG DOSE (2X325MG) PO PRN (10:30)
[2017-02-02] MEDS ORDERED: ALBUTEROL 90 MCG/ACT 8GM HFA INHALER INH PRN (10:30)
[2017-02-02] MEDS ORDERED: ONDANSETRON 4MG/2ML VIAL (J2405) IV PRN (10:30)
[2017-02-02 11:25] VITALS: BP 103/53
--- NOTE | 2017-02-02 11:30 | HPE ---
DATE OF ADMISSION: 02/02/2017 PRIMARY CARE PROVIDER: ANDREA Roman HISTORY OF PRESENT ILLNESS: This patient is a 61-year-old male with a past medical history significant for hypertension, dyslipidemia, chronic obstructive pulmonary disease (COPD), history of alcohol abuse, history of right-sided ischemic cerebrovascular accident (CVA), mild diastolic dysfunction, was instructed to come to [facility] Room by his primary care provider. The patient stated since yesterday, he started having dizziness and weakness, more severe when the patient is trying to sit up or stand up. Today, the patient started to have worsening weakness and shortness of breath. Denied any increased cough, increased sputum production. The patient did have a history of alcohol abuse. Per the patient, his last drink was approximately 1 month ago. No recent medication changes. PAST MEDICAL HISTORY: 1. Hypertension. 2. Dyslipidemia. 3. COPD. 4. History of vitamin B12 deficiency. 5. History of alcohol abuse. 6. History of right-sided ischemic CVA. 7. Diastolic congestive heart failure. PAST SURGICAL HISTORY: 1. Tonsillectomy. 2. History of rib fracture. ALLERGIES: No known drug allergies. SOCIAL HISTORY: History of a smoker, smoked more than 40 years. The patient had a history of drinking 3-10 beers per day. Per the patient, his last drink was approximately a month ago. REVIEW OF SYSTEMS: General: Increased weakness for the past 2 days. No fever or chills. HEENT: No vision changes. No auditory changes. CARDIOVASCULAR: No chest pain. No palpitations. RESPIRATORY: Has a worsening shortness of breath and increased wheeze. History of COPD. GASTROINTESTINAL (GI): No nausea. No vomiting. No abdominal pain. No diarrhea. MUSCULOSKELETAL: No muscle pain or joint pain. NEUROLOGICAL: No numbness or tingling. OBJECTIVE: VITAL SIGNS: Temperature is 100.2. Pulse is 90. Respiration rate is 18. Blood pressure is 101/55. Pulse oximetry is 95% in room air. GENERAL: Fatigued. No sign of acute distress. Alert and oriented times three. HEENT: Normocephalic, atraumatic. Extraocular motor grossly intact. Wearing corrective lenses. CARDIOVASCULAR: Positive S1, S2. Tachycardic with a heart rate of around 100. RESPIRATORY: Positive expiratory wheezes throughout. No crackles. Poor respiratory efforts, accessory muscle use. ABDOMEN: Soft. Nontender. Nondistended. Bowel sounds present. No rebound. No guarding. EXTREMITIES: No edema. No sign of cyanosis. NEUROLOGICAL: Sensation to fine touch grossly intact. Muscle strength 5/5. LABORATORY DATA: WBC is 8.4, hemoglobin 10.8, hematocrit 32, platelet count is 466. Sodium is 128, potassium 4.1, chloride is 90, carbon dioxide 26, BUN 29, creatinine 1.91, GFR is 38.2, fasting glucose 166, lactic acid 2, calcium is 8.9 , total bilirubin 0.5, direct bilirubin is 0.1, AST 28, ALT is 44, alkaline phosphatase 58, troponin I is less than 0.02, BNP is 32.5, total protein 7.1, albumin is 2.9. Arterial blood gas (ABG) show a pH of 7.528, PCO2 is 28.5, pO2 is 84. MICROBIOLOGY: Blood culture is pending times two sets. Chest x-ray shows no acute disease. ASSESSMENT AND PLAN: 1. Symptomatic orthostatic hypotension . The patient was admitted to the medical-surgical floor under observation status. The patient is having severe dehydration. The patient received a 1 liter bolus and will continue fluid at 100 mL per hour. Will followup with orthostatic hypotension. 2. Chronic obstructive pulmonary disease exacerbation. The patient does have increased difficulty breathing with worsening wheezes. The patient's respiratory symptom is not well controlled after several sessions of nebulizer treatments. The patient on by mouth prednisone. Continue nebulizer treatments. 3. Acute kidney injury. Most likely, secondary to severe dehydration. At the baseline, the patient has the creatinine of 0.7 and glomerular filtration rate (GFR) greater than 60. Currently, the patient has a creatinine of 1.91 and GFR of 38.2. Will continue with fluid resuscitation. Continue to monitor renal function on the daily basis. 4. Hyponatremia with hypokalemia. The patient has a normal saline IV. 5. Dyslipidemia. Continue statin. 6. Hypertension. Currently, the patient is hypotensive. Blood pressure medication will be on hold. At the emergency room, the patient had a blood pressure of 96/51. 7. History of vitamin B12 deficiency. Continue supplement. 8. History of alcohol abuse. Continue on multivitamin, folic acid, and thiamine. 9. Mild diastolic dysfunction. Currently, the patient is severely dehydrated. The patient will be on fluid resuscitation. Will continue to watch the patient' s fluid status. 10. Deep venous thrombosis (DVT) prophylaxis. The patient will be on heparin. MTDD
[2017-02-02] MEDS: predniSONE 20 MG TAB PO SCH (11:42)
[2017-02-02] MEDS: NS 1,000 ML IV SCH ×2 (11:43→20:27)
[2017-02-02 11:45] VITALS: BP_SYST 104; BP_SYST 79; BP_SYST 84; BP_DIAS 51; BP_DIAS 52; BP_DIAS 54
[2017-02-02 12:00] VITALS: BP 99/54
[2017-02-02] MEDS: NICOTINE 7 MG/24 HR TRANSDERMAL TD SCH (12:45)
[2017-02-02 14:00] VITALS: BP 115/57
[2017-02-02] MEDS: HEPARIN SOD (PORCINE) 5000 UNITS/ML VIAL SC SCH ×2 (14:30→21:07)
[2017-02-02 21:00] VITALS: BP_SYST 109; BP_SYST 111; BP_SYST 123; BP_DIAS 57; BP_DIAS 59; BP_DIAS 60
[2017-02-02 22:00] VITALS: BP 110/58
[2017-02-03] MEDS: NS 1,000 ML IV SCH (05:44)
[2017-02-03] MEDS: HEPARIN SOD (PORCINE) 5000 UNITS/ML VIAL SC SCH ×3 (05:45→22:10)
[2017-02-03 06:00] VITALS: BP 125/59
[2017-02-03 06:47] LABS: MEAN CORPUSCULAR HEMOGLOBIN 31.1 pg (27.0-33.0); MEAN CORPUSCULAR HGB CONC 33.6 g/dl (32.0-36.5); MEAN CORPUSCULAR VOLUME 92.6 fl (80.0-96.0); RED CELL DISTRIBUTION WIDTH 14.5 % (11.5-14.5); WHITE BLOOD COUNT 12.9 K/mm3 (4.0-10.0)
[2017-02-03 06:52] LABS: BLOOD UREA NITROGEN 26 MG/DL (7-18); CALCIUM LEVEL 8.2 MG/DL (8.8-10.2); CARBON DIOXIDE LEVEL 24 MEQ/L (21-32); CHLORIDE LEVEL 104 MEQ/L (98-107); CREATININE FOR GFR 0.97 MG/DL (0.70-1.30); GLOMERULAR FILTRATION RATE > 60.0 (>49); GLUCOSE, FASTING 139 MG/DL (80-110)
[2017-02-03 06:59] LABS: ANION GAP 9 MEQ/L (8-16); SODIUM LEVEL 137 MEQ/L (136-145)
[2017-02-03 07:00] LABS: POTASSIUM SERUM 3.8 MEQ/L (3.5-5.1)
[2017-02-03] MEDS: MULTIVITAMINS/MINERALS THERAP 1 TAB PO SCH (09:10)
[2017-02-03] MEDS: ASPIRIN 81 MG ENTERIC TAB PO SCH (09:10)
[2017-02-03] MEDS: PANTOPRAZOLE 40MG TAB (PROTONIX) PO SCH (09:10)
[2017-02-03] MEDS: NICOTINE 7 MG/24 HR TRANSDERMAL TD SCH (09:10)
[2017-02-03] MEDS: predniSONE 20 MG TAB PO SCH (09:10)
[2017-02-03] MEDS: FOLIC ACID 1 MG TAB PO SCH (09:10)
[2017-02-03] MEDS: SIMVASTATIN 20 MG TAB PO SCH (09:11)
[2017-02-03] MEDS: THIAMINE 100 MG TAB PO SCH (09:11)
[2017-02-03 09:20] VITALS: BP_SYST 117; BP_SYST 127; BP_SYST 135; BP_DIAS 57; BP_DIAS 59; BP_DIAS 65
[2017-02-03] MEDS: ALBUTEROL SULFATE 2.5 MG/0.5 ML INH NEB SOLN NEB SCH ×2 (10:14→19:17)
[2017-02-03] MEDS ORDERED: SODIUM CHLORIDE 0.9% 1000 ML IV ONE (14:30)
--- NOTE | 2017-02-03 14:54 | IPN ---
DATE OF SERVICE: 02/03/2017 SUBJECTIVE: The patient seen and examined in the room today. The patient stated he is feeling some improvement. However, he still has some lightheadedness when he tries to sit up or stand up. The patient did complain about some phlegm or sputum stuck in the chest, and he has difficult time getting the sputum out of his throat. He is not requiring any oxygen support. The patient's oxygen (O2) saturation is within normal range on room air. OBJECTIVE: VITAL SIGNS: Temperature is 97.6, pulse is 93, respiration 18, blood pressure supine is 135/65, sitting is 127/59, standing is 117/57. GENERAL: No sign of acute distress. Alert and oriented times three. HEENT: Normocephalic, atraumatic. Extraocular motor grossly intact. Wearing corrective lenses. CARDIOVASCULAR: Positive S1, S2. Regular rate. RESPIRATORY: Coarse lung sounds. Has expiratory wheezes. Positive accessory muscle use. ABDOMEN: Soft, nontender, nondistended. Bowel sounds present. No rebound. No guarding. EXTREMITIES: No edema. No sign of cyanosis. LABORATORY DATA: WBC is 12.9, hemoglobin 8.8, hematocrit 26.2, platelet count is 461. Sodium 137, potassium 3.8, chloride 104, carbon dioxide 24, BUN 26, creatinine 0.97, GFR greater than 60, fasting glucose 139, lactic acid is 20, calcium is 8.2, C-reactive protein 2.19. ASSESSMENT AND PLAN: 1. Symptomatic orthostatic hypotension. The patient has been receiving intravenous (IV) fluid since admission. The patient continues to have hypotension. Will give the patient additional 1 liter bolus. Per the patient, the patient has started having good oral intake. After fluid bolus, will hold the fluid resuscitation. Continue to monitor how the patient maintains his fluid status. The patient's medications have been reviewed. There is no medication that has potential side effect for orthostatic hypotension. 2. Chronic obstructive pulmonary disease (COPD) exacerbation. The patient continues to have worsening expiratory wheezes with the increased difficulty breathing. The patient will continue with nebulizer treatments. Continue on oral prednisone. The patient will be on azithromycin. 3. Acute kidney injury. Most likely, secondary to dehydration. At admission, the patient had a creatinine of 1.91 with a glomerular filtration rate (GFR) 38.2. With fluid resuscitation, today, the patient's GFR has returned to normal range with a creatinine of 0.97 and GFR greater than 60. 4. Hyponatremia with hypokalemia. Corrected with fluid resuscitation. Currently, the patient still has orthostasis. Will give a trial of bolus fluid and will see how the patient maintains his fluid status. 5. Dyslipidemia. On statin. 6. Hypertension. The patient currently has soft blood pressures, and he is orthostatic hypotensive. Blood pressure medication is on hold at this moment. At the time of admission, the patient had a blood pressure of 96/51. 7. History of vitamin B12 deficiency. Continue supplement. 8. History of alcohol abuse. The patient is on multivitamin, folic acid, and thiamine. 9. Mild diastolic dysfunction. The patient currently is being treated for orthostatic hypotension. The patient had severe dehydration, resulting in acute kidney injury. The patient just had a fluid resuscitation. No sign of fluid overload at this moment. Continue to monitor. 10. Deep venous thrombosis (DVT) prophylaxis. The patient is on heparin.
[2017-02-03] MEDS: AZITHROMYCIN 250 MG TAB PO SCH (14:59)
[2017-02-03 19:54] VITALS: BP_SYST 118; BP_SYST 120; BP_SYST 126; BP_DIAS 55; BP_DIAS 59; BP_DIAS 61
[2017-02-03 19:58] VITALS: BP 126/61
[2017-02-04 04:26] VITALS: BP_SYST 120; BP_SYST 130; BP_SYST 132; BP_DIAS 58; BP_DIAS 62
[2017-02-04] MEDS: HEPARIN SOD (PORCINE) 5000 UNITS/ML VIAL SC SCH (05:11)
[2017-02-04 06:00] VITALS: BP 127/64
[2017-02-04 06:54] LABS: MEAN CORPUSCULAR HEMOGLOBIN 31.3 pg (27.0-33.0); MEAN CORPUSCULAR HGB CONC 33.6 g/dl (32.0-36.5); MEAN CORPUSCULAR VOLUME 93.2 fl (80.0-96.0); RED CELL DISTRIBUTION WIDTH 14.4 % (11.5-14.5); WHITE BLOOD COUNT 13.4 K/mm3 (4.0-10.0)
[2017-02-04 07:15] LABS: ANION GAP 10 MEQ/L (8-16); BLOOD UREA NITROGEN 19 MG/DL (7-18); CALCIUM LEVEL 8.5 MG/DL (8.8-10.2); CARBON DIOXIDE LEVEL 23 MEQ/L (21-32); CHLORIDE LEVEL 106 MEQ/L (98-107); CREATININE FOR GFR 0.86 MG/DL (0.70-1.30); GLOMERULAR FILTRATION RATE > 60.0 (>49); GLUCOSE, FASTING 99 MG/DL (80-110); POTASSIUM SERUM 3.2 MEQ/L (3.5-5.1); SODIUM LEVEL 139 MEQ/L (136-145)
[2017-02-04] MEDS: ALBUTEROL SULFATE 2.5 MG/0.5 ML INH NEB SOLN NEB SCH (07:49)
[2017-02-04] MEDS: AZITHROMYCIN 250 MG TAB PO SCH (09:01)
[2017-02-04] MEDS: SIMVASTATIN 20 MG TAB PO SCH (09:01)
[2017-02-04] MEDS: THIAMINE 100 MG TAB PO SCH (09:01)
[2017-02-04] MEDS: ASPIRIN 81 MG ENTERIC TAB PO SCH (09:02)
[2017-02-04] MEDS: FOLIC ACID 1 MG TAB PO SCH (09:02)
[2017-02-04] MEDS: MULTIVITAMINS/MINERALS THERAP 1 TAB PO SCH (09:02)
[2017-02-04] MEDS: PANTOPRAZOLE 40MG TAB (PROTONIX) PO SCH (09:02)
[2017-02-04] MEDS: NICOTINE 7 MG/24 HR TRANSDERMAL TD SCH (09:02)
[2017-02-04] MEDS: predniSONE 20 MG TAB PO SCH (09:02)
[2017-02-04] MEDS ORDERED: AZIT25TA PO (09:08)
[2017-02-04] MEDS ORDERED: PRED10TA PO (09:08)
[2017-02-04] MEDS ORDERED: POTASSIUM CHLORIDE 10 MEQ SR TABLET PO ONE (10:00)
--- NOTE | 2017-02-04 17:05 | DSES ---
DATE OF ADMISSION: 02/02/2017 DATE OF DISCHARGE: 02/04/2017 PRIMARY CARE PROVIDER: ANDREA Roman CONSULTANTS: None. PROCEDURES: None. COMPLICATIONS: None. ADMISSION/DISCHARGE DIAGNOSES: 1. Acute kidney injury. 2. Symptomatic orthostatic hypotension. 3. Chronic obstructive pulmonary disease (COPD) exacerbation. 4. Hyponatremia and hypochloremia. 5. Hypokalemia. 6. Dyslipidemia. 7. Hypertension. 8. Vitamin D deficiency. 9. History of alcohol abuse. 10. Mild diastolic dysfunction. HOSPITALIZATION COURSE: Patient is a 61-year-old male who was instructed to come to [facility] by his primary care provider on 02/02/2017, for symptomatic orthostasis. During admission, patient was found to have acute kidney injury with significant symptomatic orthostasis. Patient's blood pressure medication and diuretic was discontinued and patient was started on aggressive IV support. Patient was also noted to have COPD exacerbation and patient was started on azithromycin and prednisone. With aggressive IV support, finally achieved to a balance where patient does not have any orthostasis and patient is not showing any sign of fluid overload and patient's kidney function showed dramatic improvement. On 02/04/2017, patient is determined to be medically stable for discharge with recommendation to followup with primary care provider in 1 week. OBJECTIVE: VITAL SIGNS: Temperature 97.9, pulse 82, respirations 17, blood pressure supine is 132/62, sitting is 120/58, standing is 130/62, oxygen saturation is 97% in room air. LABORATORY DATA: WBC 13.4, hemoglobin 8.4, hematocrit 25.1, platelet count 501. Sodium 139, potassium 3.2, chloride 106, carbon dioxide 23, BUN 19, creatinine 0.86, GFR greater than 60, fasting glucose 99, calcium 8.5. Blood cultures are negative after 48 hours times two sets. IMAGING STUDIES: Chest xray shows no acute disease. DISCHARGE MEDICATIONS: - azithromycin 500 mg by mouth daily for four more days - prednisone on tapering dose - Ventolin two puffs inhalation every 4 hours as needed - Anoro Ellipta inhalation daily - aspirin 81 mg by mouth daily - folic acid 1 mg by mouth daily - multivitamin one tablet by mouth daily - nicotine patch transdermally daily - pantoprazole 40 mg by mouth daily - simvastatin 20 mg by mouth daily - thiamine 100 mg by mouth daily DISCHARGE INSTRUCTIONS: Discontinue lines. Discharge home. Activity as tolerated. Patient should followup with primary care provider in 1 week. Patient has been off blood pressure medication since admission and patient continued to show blood pressure within the satisfactory range and it is recommended to hold the blood pressure medication and diuretic until reevaluated by the primary care provider. DISCHARGE CONDITION: Stable. DISCHARGE TIME: Greater than 30 minutes.
== END 2017-02-04 13:51 | disposition home or self-care (01) ==
LOC: M ED 08:30 → M ED INP 10:19 → M MSPAV 11:24
PROVIDERS: ADMIT Internal Medicine; ATTEND Internal Medicine
DX: N17.9 Acute kidney failure, unspecified (principal); I95.1 Orthostatic hypotension; J44.1 Chronic obstructive pulmonary disease with (acute) exacerbation; E87.1 Hypo-osmolality and hyponatremia; E87.8 Other disorders of electrolyte and fluid balance, not elsewhere classified; E87.6 Hypokalemia; E78.4 Other hyperlipidemia; I10 Essential (primary) hypertension; E55.9 Vitamin D deficiency, unspecified; Z79.51 Long term (current) use of inhaled steroids; Z79.899 Other long term (current) drug therapy; Z87.891 Personal history of nicotine dependence
CPT/HCPCS: 36415; 36600; 71010; 80048; 80076; 82550; 82553; 82803; 83605; 83880; 84443; 85025; 85027; 86140; 87040; 93005; 93041; 94640; 96361; 96372; 96374; 97161; 99285; G0480; J2930

== ENCOUNTER → 2017-02-26 | Outpatient (REF) | payer MEDICAID ==
[~2017-02-26] MED LIST changes: +ALBU17IN INH; +ANOR1AER INH; +ASPI1TAB15 PO; +AZIT250T8 PO; -FOLI1TAB2 PO; +FOLI1TAB4 PO; +LISI20TA PO; -METO-207 PO; +METO1TAB7 PO; +NICO7DIS2 TD; +PRED10TA2 PO; +THIA100T6 PO
[2017-02-26 13:03] LABS: BASO % 0.5 % (0.0-1.0); EOS # 1.5 K/mm3 (0.0-0.50); EOS % 22.9 % (0.0-3.0); LYMPH # 0.8 K/mm3 (1.5-4.5); LYMPH % 11.6 % (24.0-44.0); MEAN CORPUSCULAR HEMOGLOBIN 32.3 pg (27.0-33.0); MEAN CORPUSCULAR HGB CONC 34.7 g/dl (32.0-36.5); MEAN CORPUSCULAR VOLUME 93.1 fl (80.0-96.0); MONO # 0.7 K/mm3 (0.0-0.8); MONO % 10.1 % (0.0-5.0); NEUTROPHILS # 3.3 K/mm3 (1.8-7.7); RED CELL DISTRIBUTION WIDTH 14.9 % (11.5-14.5); WHITE BLOOD COUNT 6.7 K/mm3 (4.0-10.0)
[2017-02-26 14:45] LABS: ALBUMIN 3.3 GM/DL (3.2-5.2); ALBUMIN/GLOBULIN RATIO 1.03 (1.00-1.93); ALKALINE PHOSPHATASE 55 U/L (45-117); ALT/SGPT 40 U/L (12-78); ANION GAP 12 MEQ/L (8-16); AST/SGOT 25 U/L (15-37); BILIRUBIN,TOTAL 0.2 MG/DL (0.2-1.0); BLOOD UREA NITROGEN 9 MG/DL (7-18); CALCIUM LEVEL 8.9 MG/DL (8.8-10.2); CARBON DIOXIDE LEVEL 23 MEQ/L (21-32); CHLORIDE LEVEL 102 MEQ/L (98-107); CHOLESTEROL LEVEL 195 MG/DL (<200); CREATININE FOR GFR 0.94 MG/DL (0.70-1.30); GLOMERULAR FILTRATION RATE > 60.0 (>49); GLUCOSE, FASTING 100 MG/DL (80-110); POTASSIUM SERUM 4.1 MEQ/L (3.5-5.1); SODIUM LEVEL 137 MEQ/L (136-145); TOTAL PROTEIN 6.5 GM/DL (6.4-8.2); TRIGLYCERIDES LEVEL 188 MG/DL (<150)
== END ==
LOC: M SHH 12:04
PROVIDERS: ATTEND Physician Assistant Medical
DX: I10 Essential (primary) hypertension (principal)

== ENCOUNTER → 2017-05-04 | Outpatient (CLI) | payer MEDICAID, OTHER ==
[2017-05-04 13:28] LABS: ALBUMIN 4.1 GM/DL (3.2-5.2); ALBUMIN/GLOBULIN RATIO 1.46 (1.00-1.93); ALKALINE PHOSPHATASE 49 U/L (45-117); ALT/SGPT 33 U/L (12-78); ANION GAP 6 MEQ/L (8-16); AST/SGOT 18 U/L (15-37); BILIRUBIN,TOTAL 0.3 MG/DL (0.2-1.0); BLOOD UREA NITROGEN 14 MG/DL (7-18); CALCIUM LEVEL 9.7 MG/DL (8.8-10.2); CARBON DIOXIDE LEVEL 32 MEQ/L (21-32); CHLORIDE LEVEL 99 MEQ/L (98-107); CREATININE FOR GFR 1.02 MG/DL (0.70-1.30); GLOMERULAR FILTRATION RATE > 60.0 (>49); GLUCOSE, FASTING 81 MG/DL (80-110); POTASSIUM SERUM 4.8 MEQ/L (3.5-5.1); SODIUM LEVEL 137 MEQ/L (136-145); TOTAL PROTEIN 6.9 GM/DL (6.4-8.2)
[2017-05-04 13:40] LABS: BASO % 0.4 % (0.0-1.0); EOS # 0.1 K/mm3 (0.0-0.50); EOS % 1.9 % (0.0-3.0); MEAN CORPUSCULAR HEMOGLOBIN 30.1 pg (27.0-33.0); MEAN CORPUSCULAR HGB CONC 33.8 g/dl (32.0-36.5); MEAN CORPUSCULAR VOLUME 89.3 fl (80.0-96.0); MONO # 0.4 K/mm3 (0.0-0.8); MONO % 9.6 % (0.0-5.0); NEUTROPHILS # 2.8 K/mm3 (1.8-7.7); NEUTROPHILS % 61.2 % (36.0-66.0); RED CELL DISTRIBUTION WIDTH 12.9 % (11.5-14.5); WHITE BLOOD COUNT 4.5 K/mm3 (4.0-10.0)
== END ==
LOC: M LAB 11:28
PROVIDERS: ATTEND Physician Assistant Medical
DX: J44.9 Chronic obstructive pulmonary disease, unspecified (principal)

== ENCOUNTER → 2017-07-21 | Outpatient (CLI) | payer OTHER ==
[2017-07-21 08:31] LABS: BASO % 0.5 % (0.0-1.0); EOS # 0.2 10^3/uL (0.0-0.50); EOS % 3.2 % (0.0-3.0); IMMATURE GRANULOCYTE % 0.3 % (0-0); LYMPH # 1.3 10^3/uL (1.5-4.5); LYMPH % 21.2 % (24.0-44.0); MEAN CORPUSCULAR HEMOGLOBIN 30.2 pg (27.0-33.0); MEAN CORPUSCULAR HGB CONC 33.6 g/dl (32.0-36.5); MEAN CORPUSCULAR VOLUME 89.9 fl (80.0-96.0); MONO # 0.7 10^3/uL (0.0-0.8); MONO % 11.7 % (0.0-5.0); NEUTROPHILS % 63.1 % (36.0-66.0); PLATELET COUNT, AUTOMATED 294 10^3/uL (150-450); RED CELL DISTRIBUTION WIDTH 13.2 % (11.5-14.5); WHITE BLOOD COUNT 6.3 10^3/uL (4.0-10.0)
== END ==
LOC: M LAB 07:58
PROVIDERS: ATTEND Physician Assistant Medical
DX: I10 Essential (primary) hypertension (principal)

== ENCOUNTER → 2017-09-24 | Outpatient (CLI) | payer OTHER ==
[2017-09-24 10:34] LABS: ALKALINE PHOSPHATASE 62 U/L (45-117); ALT/SGPT 25 U/L (12-78); ANION GAP 6 MEQ/L (8-16); AST/SGOT 19 U/L (7-37); BILIRUBIN,TOTAL 0.4 MG/DL (0.2-1.0); BLOOD UREA NITROGEN 18 MG/DL (7-18); CALCIUM LEVEL 9.5 MG/DL (8.8-10.2); CARBON DIOXIDE LEVEL 30 MEQ/L (21-32); CHLORIDE LEVEL 104 MEQ/L (98-107); CHOLESTEROL LEVEL 231 MG/DL (<200); CREATININE FOR GFR 1.14 MG/DL (0.70-1.30); GLOMERULAR FILTRATION RATE > 60.0 (>49); GLUCOSE, FASTING 99 MG/DL (70-100); HDL CHOLESTEROL 55 MG/DL (>40); POTASSIUM SERUM 4.4 MEQ/L (3.5-5.1); SODIUM LEVEL 140 MEQ/L (136-145); TRIGLYCERIDES LEVEL 119 MG/DL (<150)
[2017-09-24 10:35] LABS: ALBUMIN 4.6 GM/DL (3.2-5.2); ALBUMIN/GLOBULIN RATIO 1.59 (1.00-1.93); FERRITIN 286 NG/ML (26-388); IRON (FE) 101 UG/DL (65-175); LDL CHOLESTEROL 152.2 MG/DL (<100); NON-HDL-C 176 MG/DL; TOTAL PROTEIN 7.5 GM/DL (6.4-8.2)
== END ==
LOC: M LAB 09:09
DX: E78.2 Mixed hyperlipidemia (principal); E64.9 Sequelae of unspecified nutritional deficiency
CPT/HCPCS: 83540

== ENCOUNTER 2017-12-20 16:09 | Emergency (ER) | payer OTHER, BC ==
[2017-12-20 17:08] LABS: BEDSIDE GLUCOSE 106 MG/DL (80-115)
[2017-12-20] MEDS ORDERED: ALTEPLASE 100MG INJ (J2997) As Ordered ×3 (17:09)
[2017-12-20] MEDS ORDERED: LABETALOL HCL 100 MG/20 ML VIAL As Ordered ×3 (17:11)
[2017-12-20 17:19] LABS: BASO % 0.3 % (0.0-1.0); EOS % 0.4 % (0.0-3.0); HEMATOCRIT 46.7 % (42.0-52.0); HEMOGLOBIN 15.9 g/dl (13.5-17.5); IMMATURE GRANULOCYTE % 0.3 % (0-3.0); LYMPH # 1.1 10^3/uL (1.5-4.5); LYMPH % 11.9 % (24.0-44.0); MEAN CORPUSCULAR HEMOGLOBIN 30.3 pg (27.0-33.0); MONO # 0.8 10^3/uL (0.0-0.8); NEUTROPHILS # 7.3 10^3/uL (1.8-7.7); NEUTROPHILS % 78.1 % (36.0-66.0); PLATELET COUNT, AUTOMATED 249 10^3/uL (150-450); RED BLOOD COUNT 5.25 10^6/uL (4.30-6.10); RED CELL DISTRIBUTION WIDTH 12.4 % (11.5-14.5); WHITE BLOOD COUNT 9.3 10^3/uL (4.0-10.0)
[2017-12-20] MEDS: LABETALOL HCL 100 MG/20 ML VIAL IV ×9 (17:21→19:05)
[2017-12-20 17:50] LABS: ANION GAP 7 MEQ/L (8-16); BLOOD UREA NITROGEN 21 MG/DL (7-18); CALCIUM LEVEL 9.8 MG/DL (8.8-10.2); CARBON DIOXIDE LEVEL 29 MEQ/L (21-32); CHLORIDE LEVEL 101 MEQ/L (98-107); CPK CREATINE PHOSPHOKINASE 71 U/L (39-308); CREATININE FOR GFR 1.37 MG/DL (0.70-1.30); GLOMERULAR FILTRATION RATE 55.9 (>49); GLUCOSE, FASTING 98 MG/DL (70-100); POTASSIUM SERUM 4.3 MEQ/L (3.5-5.1); SODIUM LEVEL 137 MEQ/L (136-145); TROPONIN I < 0.02 NG/ML (< 0.10)
[2017-12-20 17:51] LABS: CK-MB VALUE MASS < 1.0 NG/ML (<3.6); PROTHROMBIN TIME 12.2 SECONDS (12.4-14.5)
[2017-12-20 17:52] LABS: PARTIAL THROMBOPLASTIN TIME 24.6 SECONDS (26.8-37.9)
[2017-12-20] MEDS: ALTEPLASE 100MG INJ (J2997) IV ×3 (17:54)
[2017-12-20] MEDS: ALTEPLASE RECOMBINANT IV ×3 (17:55)
[2017-12-20] MEDS: DILUENT IV ×3 (17:55)
[2017-12-20] MEDS: NS 1,000 ML IV ×6 (18:10)
[2017-12-20] MEDS ORDERED: METAL LOCK LOOP XX ×3 (18:42)
== END 2017-12-20 19:07 | disposition short-term general hospital (02) ==
LOC: M ED 16:09
DX: I63.9 Cerebral infarction, unspecified (principal); J44.9 Chronic obstructive pulmonary disease, unspecified; I50.9 Heart failure, unspecified; M19.90 Unspecified osteoarthritis, unspecified site; I10 Essential (primary) hypertension; Z86.73 Personal history of transient ischemic attack (TIA), and cerebral infarction without residual deficits; F10.11 Alcohol abuse, in remission; Z79.82 Long term (current) use of aspirin; Z79.899 Other long term (current) drug therapy
CPT/HCPCS: J2997

== ENCOUNTER → 2017-12-25 | Outpatient (CLI) | payer OTHER ==
[2017-12-25 09:08] LABS: BASO % 0.3 % (0.0-1.0); EOS # 0.2 10^3/uL (0.0-0.50); EOS % 1.5 % (0.0-3.0); HEMATOCRIT 43.7 % (42.0-52.0); HEMOGLOBIN 14.8 g/dl (13.5-17.5); IMMATURE GRANULOCYTE % 0.3 % (0-3.0); LYMPH # 0.9 10^3/uL (1.5-4.5); MEAN CORPUSCULAR HEMOGLOBIN 30.6 pg (27.0-33.0); MEAN CORPUSCULAR HGB CONC 33.9 g/dl (32.0-36.5); MEAN CORPUSCULAR VOLUME 90.5 fl (80.0-96.0); MONO # 1.2 10^3/uL (0.0-0.8); MONO % 10.3 % (0.0-5.0); NEUTROPHILS # 9.4 10^3/uL (1.8-7.7); NEUTROPHILS % 79.6 % (36.0-66.0); PLATELET COUNT, AUTOMATED 254 10^3/uL (150-450); RED BLOOD COUNT 4.83 10^6/uL (4.30-6.10); RED CELL DISTRIBUTION WIDTH 12.6 % (11.5-14.5); WHITE BLOOD COUNT 11.8 10^3/uL (4.0-10.0)
[2017-12-25 09:32] LABS: ALBUMIN/GLOBULIN RATIO 1.33 (1.00-1.93); ALKALINE PHOSPHATASE 65 U/L (45-117); ALT/SGPT 23 U/L (12-78); ANION GAP 5 MEQ/L (8-16); AST/SGOT 20 U/L (7-37); BILIRUBIN,TOTAL 0.6 MG/DL (0.2-1.0); BLOOD UREA NITROGEN 22 MG/DL (7-18); CALCIUM LEVEL 8.6 MG/DL (8.8-10.2); CARBON DIOXIDE LEVEL 27 MEQ/L (21-32); CHLORIDE LEVEL 107 MEQ/L (98-107); CHOLESTEROL LEVEL 173 MG/DL (<200); CHOLESTEROL RISK RATIO 4.435 (<5); CREATININE FOR GFR 1.43 MG/DL (0.70-1.30); FERRITIN 492 NG/ML (26-388); FREE T4 1.11 NG/DL (0.76-1.46); GLOMERULAR FILTRATION RATE 53.2 (>49); GLUCOSE, FASTING 99 MG/DL (70-100); HDL CHOLESTEROL 39 MG/DL (>40); IRON (FE) 65 UG/DL (65-175); LDL CHOLESTEROL 108.2 MG/DL (<100); NON-HDL-C 134 MG/DL; PERCENT SATURATION 24.4 % (19.7-50.0); POTASSIUM SERUM 4.5 MEQ/L (3.5-5.1); SODIUM LEVEL 139 MEQ/L (136-145); TOTAL IRON BINDING CAPACITY 266 UG/DL (250-450); TRIGLYCERIDES LEVEL 129 MG/DL (<150)
[2017-12-27 09:27] LABS: TOTAL 25(OH) VITAMIN D 29.2 NG/ML (30.0-100.0)
== END ==
LOC: M LAB 08:19
DX: Z13.29 Encounter for screening for other suspected endocrine disorder (principal); Z13.21 Encounter for screening for nutritional disorder; Z86.2 Personal history of diseases of the blood and blood-forming organs and certain disorders involving the immune mechanism; E78.5 Hyperlipidemia, unspecified
CPT/HCPCS: 83550

== ENCOUNTER 2018-01-31 13:10 | Outpatient (RCR) | payer OTHER | END 2018-02-26 | LOC: M ST 13:10 | DX: Z51.89 Encounter for other specified aftercare (principal); I63.9 Cerebral infarction, unspecified | CPT/HCPCS: 92507 ==

== ENCOUNTER → 2018-03-28 | Outpatient (CLI) | payer OTHER ==
[2018-03-28 12:40] LABS: CREATININE FOR GFR 1.19 MG/DL (0.70-1.30); GLOMERULAR FILTRATION RATE > 60.0 (>49)
[2018-03-28 12:40] LABS: BLOOD UREA NITROGEN 18 MG/DL (7-18)
== END ==
LOC: M LAB 11:19
DX: N28.9 Disorder of kidney and ureter, unspecified (principal)
CPT/HCPCS: 82565

== ENCOUNTER → 2018-04-06 | Outpatient (CLI) | payer OTHER ==
[2018-04-06 09:23] LABS: BASO % 0.5 % (0.0-1.0); EOS # 0.2 10^3/uL (0.0-0.50); EOS % 2.4 % (0.0-3.0); HEMATOCRIT 41.7 % (42.0-52.0); HEMOGLOBIN 14.1 g/dl (13.5-17.5); IMMATURE GRANULOCYTE % 0.2 % (0-3.0); LYMPH # 1.4 10^3/uL (1.5-4.5); LYMPH % 17.7 % (24.0-44.0); MEAN CORPUSCULAR HEMOGLOBIN 30.9 pg (27.0-33.0); MEAN CORPUSCULAR HGB CONC 33.8 g/dl (32.0-36.5); MEAN CORPUSCULAR VOLUME 91.2 fl (80.0-96.0); MONO # 0.8 10^3/uL (0.0-0.8); MONO % 9.8 % (0.0-5.0); NEUTROPHILS # 5.6 10^3/uL (1.8-7.7); NEUTROPHILS % 69.4 % (36.0-66.0); PLATELET COUNT, AUTOMATED 285 10^3/uL (150-450); RED BLOOD COUNT 4.57 10^6/uL (4.30-6.10); RED CELL DISTRIBUTION WIDTH 12.7 % (11.5-14.5); WHITE BLOOD COUNT 8.1 10^3/uL (4.0-10.0)
[2018-04-06 09:48] LABS: ALBUMIN 4.2 GM/DL (3.2-5.2); ALBUMIN/GLOBULIN RATIO 1.45 (1.00-1.93); ALKALINE PHOSPHATASE 71 U/L (45-117); ALT/SGPT 35 U/L (12-78); ANION GAP 5 MEQ/L (8-16); AST/SGOT 15 U/L (7-37); BILIRUBIN,TOTAL 0.4 MG/DL (0.2-1.0); BLOOD UREA NITROGEN 14 MG/DL (7-18); CALCIUM LEVEL 9.5 MG/DL (8.8-10.2); CARBON DIOXIDE LEVEL 28 MEQ/L (21-32); CHLORIDE LEVEL 105 MEQ/L (98-107); CREATININE FOR GFR 1.15 MG/DL (0.70-1.30); FERRITIN 517 NG/ML (26-388); GLOMERULAR FILTRATION RATE > 60.0 (>49); GLUCOSE, FASTING 99 MG/DL (70-100); IRON (FE) 143 UG/DL (65-175); PERCENT SATURATION 49.8 % (19.7-50.0); POTASSIUM SERUM 4.8 MEQ/L (3.5-5.1); SODIUM LEVEL 138 MEQ/L (136-145); TOTAL IRON BINDING CAPACITY 287 UG/DL (250-450); TOTAL PROTEIN 7.1 GM/DL (6.4-8.2)
[2018-04-06 09:55] LABS: TOTAL 25(OH) VITAMIN D 96.1 NG/ML (30.0-100.0)
== END ==
LOC: M LAB 08:32
DX: E78.5 Hyperlipidemia, unspecified (principal); E55.9 Vitamin D deficiency, unspecified; Z86.2 Personal history of diseases of the blood and blood-forming organs and certain disorders involving the immune mechanism
CPT/HCPCS: 83550

== ENCOUNTER → 2018-10-27 | Outpatient (CLI) | payer OTHER ==
[~2018-10-27] MED LIST changes: -AMLO10TA2 PO; +AMLO10TA5 PO; +AMLO5TAB6; +ASPI81CH40 PO; -ASPI81TA PO; +ATOR40TA75; +AZIT-10 PO; -AZIT250T8 PO; +BUPR150T5; +CERTTAB3; +FERR1TAB8; +FOLI1TAB11 PO; -FOLI1TAB4 PO; +LISI40TA PO; -LISI40TAB PO; +LOSA100T50; +METO1TAB33; -PANT40TA2 PO; +PANT40TA3 PO; -THIA100T6 PO; +THIA100T7 PO
[2018-10-27 11:01] LABS: BASO % 0.6 % (0.0-1.0); EOS # 0.1 10^3/uL (0.0-0.50); EOS % 2.1 % (0.0-3.0); HEMATOCRIT 43.2 % (42.0-52.0); HEMOGLOBIN 14.4 g/dl (13.5-17.5); LYMPH # 1.4 10^3/uL (1.5-4.5); LYMPH % 20.4 % (24.0-44.0); MEAN CORPUSCULAR HEMOGLOBIN 30.5 pg (27.0-33.0); MEAN CORPUSCULAR HGB CONC 33.3 g/dl (32.0-36.5); MEAN CORPUSCULAR VOLUME 91.5 fl (80.0-96.0); MONO # 0.6 10^3/uL (0.0-0.8); MONO % 9.5 % (0.0-5.0); NEUTROPHILS # 4.5 10^3/uL (1.8-7.7); NEUTROPHILS % 67.1 % (36.0-66.0); PLATELET COUNT, AUTOMATED 253 10^3/uL (150-450); RED BLOOD COUNT 4.72 10^6/uL (4.30-6.10); WHITE BLOOD COUNT 6.8 10^3/uL (4.0-10.0)
[2018-10-27 11:40] LABS: ALBUMIN 4.3 GM/DL (3.2-5.2); BILIRUBIN,TOTAL 0.5 MG/DL (0.2-1.0); CHOLESTEROL RISK RATIO 4.4 (<5); CREATININE FOR GFR 1.35 MG/DL (0.70-1.30); GLOMERULAR FILTRATION RATE 56.6 (>49); PERCENT SATURATION 41.4 % (19.7-50.0); POTASSIUM SERUM 4.5 MEQ/L (3.5-5.1); TOTAL PROTEIN 7.4 GM/DL (6.4-8.2)
[2018-10-27 11:41] LABS: TOTAL 25(OH) VITAMIN D 78.8 NG/ML (30.0-100.0)
== END ==
LOC: M LAB 10:26
PROVIDERS: ATTEND Physician Assistant
DX: D50.9 Iron deficiency anemia, unspecified (principal); E78.5 Hyperlipidemia, unspecified; E55.9 Vitamin D deficiency, unspecified

== ENCOUNTER → 2019-02-09 | Outpatient (CLI) | payer MEDICARE, OTHER ==
[~2019-02-09] MED LIST changes: +ASPI81CH36 PO; -ASPI81CH40 PO; -SENN1TAB2 PO; +SENN1TAB40 PO
--- NOTE | 2019-02-09 14:01 | REP ---
LOW-DOSE LUNG SCREENING CT: Low-dose lung screening CT exam is accomplished in the axial plane. Comparison made with prior study, 01/18/2018. There is no evidence of pulmonary nodule in either lung. No significant abnormal opacification is seen bilaterally. Heart is normal in size. There are mild degenerative changes of the spine. No mediastinal contour abnormality is seen. No pleural effusion is seen. IMPRESSION: Lung-RADS category 1, negative low-dose lung screening CT exam. Annual low-dose lung screening CT recommended. Electronically Signed by Eric Duffy MD 02/09/2019 04:44 P
== END ==
LOC: M RAD 12:42
PROVIDERS: ATTEND Physician Assistant
DX: Z87.891 Personal history of nicotine dependence (principal)

== ENCOUNTER → 2019-04-03 | Outpatient (CLI) | payer MEDICARE ==
--- NOTE | 2019-04-04 07:04 | REP ---
BILATERAL LOWER EXTREMITY DUPLEX DOPPLER ARTERIAL ULTRASOUND: Real-time ultrasound evaluation and duplex Doppler interrogation of bilateral lower extremities arterial systems performed. Severe plaquing and narrowing is seen bilaterally with predominately monophasic wave forms distal to the common femoral arteries, which demonstrate triphasic wave forms. There is occlusion of the right superficial femoral artery proximally with reconstitution distally. There is relatively slow flow in the right popliteal and calf arteries. There appears to be stenosis at the left profunda artery. There may be some degree of stenosis of the proximal to mid left SFA with slow flow in the distal left SFA. Probable stenosis of the left anterior tibial artery with slow flow. RIGHT PSV LEFT PSV Common femoral artery 92.0 cm/s 117.0 cm/s Profunda 121 218 Proximal SFA Occluded 105 Mid SFA Occluded 131 Distal SFA 47 7.2 Popliteal 15.3 58 Proximal FRANCESCO 14 10 Tibioperoneal trunk 49 50.8 Proximal STEAM SHOVEL OPERATING ENGINEER 18.9 35.1 Distal STEAM SHOVEL OPERATING ENGINEER 19.6 27.9 Distal FRANCESCO 23.0 6.8 IMPRESSION: Severe plaquing and narrowing bilaterally. There is occlusion of the proximal right superficial femoral artery with reconstitution of the distal aspect of the superficial femoral artery. I suspect stenosis of the left profunda and proximal to mid SFA. I also suspect stenosis of the left anterior tibial artery. Electronically Signed by Eric Duffy MD 04/04/2019 07:13 P
== END ==
LOC: M RAD 12:35
PROVIDERS: ATTEND Surgery Vascular Surgery
DX: I70.213 Atherosclerosis of native arteries of extremities with intermittent claudication, bilateral legs (principal)

== ENCOUNTER → 2019-04-26 | Outpatient (CLI) | payer MEDICARE ==
[~2019-04-26] MED LIST changes: +BUPIVACAINE HCL 0.5% 10 ML VIAL As Ordered ONE; +DRIS50003 PO; +HEPARIN 1,000 UNITS/ML 10ML VIAL (FOR RADIOLOGY& DIALYSIS ONLY) As Ordered ONE; +ISOVUE-300 61% 50ML VIAL (Q9967) As Ordered ONE; +LIDOCAINE 2% MDV 20 ML VIAL As Ordered ONE; -LISI20TA PO; +LISI20TA19 PO; +MIDAZOLAM INJ 2 MG/2 ML VIAL (J2250) As Ordered ONE; +PROTAMINE SULF INJ 50 MG/5 ML VIAL (J2720) As Ordered ONE; +STIO1AER INH; +diphenhydrAMINE INJ 50MG/ML VIAL (J1200) As Ordered ONE; +fentaNYL 100 MCG/2 ML INJECTION (J3010) As Ordered ONE
[2019-04-26 08:35] LABS: HEMATOCRIT 42.6 % (42.0-52.0); HEMOGLOBIN 13.8 g/dl (13.5-17.5); MEAN CORPUSCULAR HEMOGLOBIN 30.3 pg (27.0-33.0); MEAN CORPUSCULAR HGB CONC 32.4 g/dl (32.0-36.5); MEAN CORPUSCULAR VOLUME 93.4 fl (80.0-96.0); PLATELET COUNT, AUTOMATED 254 10^3/uL (150-450); RED BLOOD COUNT 4.56 10^6/uL (4.30-6.10)
[2019-04-26 08:48] LABS: CALCIUM LEVEL 9.2 MG/DL (8.8-10.2); CREATININE FOR GFR 1.36 MG/DL (0.70-1.30); GLOMERULAR FILTRATION RATE 56.2 (>49); POTASSIUM SERUM 4.6 MEQ/L (3.5-5.1)
[2019-04-26 14:30] VITALS: BP 136/63
--- NOTE | 2019-05-03 07:05 | REPIR ---
DATE OF PROCEDURE: 04/26/2019 ATTENDING SURGEON: Dr. Bry Franco COMMERCIAL INSULATOR: Francois Alvarez and Sylvia Hill PREOPERATIVE DIAGNOSIS: Left lower extremity pain, chronic renal insufficiency, right superficial femoral arterial occlusion, left superficial femoral atherosclerotic arterial occlusive disease. POSTOPERATIVE DIAGNOSIS: Left lower extremity pain, chronic renal insufficiency, right superficial femoral arterial occlusion, left superficial femoral atherosclerotic arterial occlusive disease. PROCEDURE: Right common femoral artery cannulation, selective left common femoral artery catheter placement with left lower extremity angiogram, MYNX closure of the right common femoral arteriotomy. INDICATION: The patient is a 63-year-old male with pain in his left lower extremity with ultrasound showing bilateral lower extremity atherosclerotic arterial occlusive disease in his superficial femoral arteries. The patient will undergo an angiogram with possible angioplasty stent and/or atherectomy. ANESTHESIA: Local with sedation with 1 mg of Versed and 50 mcg of fentanyl and 20 mL of 2% lidocaine mixed with 0.5% Marcaine. CONTRAST: 3 mL of Isovue-300. SEDATION TIME: 10:30 a.m. to 10:46 a.m. for a total of 16 minutes. COMPLICATIONS: None. DRAINS: None. SPECIMENS: None. IMPLANTS: None. PROCEDURE: The patient was taken to the angiography suite and placed supine on the angiography room table and then prepped and draped in a standard surgical fashion. The right common femoral artery was then cannulated with a micropuncture needle after anesthetizing the overlying skin and subcutaneous tissue. The micropuncture wire was advanced through the micropuncture needle which was upsized to a micropuncture sheath and a catheter was brought up and over the bifurcation of the iliac arteries and placed in the left common femoral artery and a left lower extremity angiogram was performed showing severe disease in the left common femoral, superficial femoral and profunda femoris artery junctions. The catheters and wires were then removed and a MYNX closure device was used to close the arteriotomy in the right common femoral artery with an additional 10 minutes of adjunctive pressure applied for hemostasis. Dressings were then applied. The patient tolerated the procedure well. All instrument, sponge and needle counts were correct at the end the case. There were no complications. Dr. Franco was present for and directed the entire case. The patient was transferred to the holding area and subsequently discharged in stable condition
== END ==
LOC: M IRPRO 07:53
PROVIDERS: ATTEND Surgery Vascular Surgery
DX: I70.203 Unspecified atherosclerosis of native arteries of extremities, bilateral legs (principal); M79.605 Pain in left leg; I10 Essential (primary) hypertension; E78.5 Hyperlipidemia, unspecified; J44.9 Chronic obstructive pulmonary disease, unspecified
CPT/HCPCS: 36246; 75710; 80048; 85027; C1760; C1769; C1887; C1894; G0269; J1200; J2250; J3010; Q9967

== ENCOUNTER → 2019-05-03 | Outpatient (REF) | payer OTHER ==
[~2019-05-03] MED LIST changes: -BUPIVACAINE HCL 0.5% 10 ML VIAL As Ordered ONE; -HEPARIN 1,000 UNITS/ML 10ML VIAL (FOR RADIOLOGY& DIALYSIS ONLY) As Ordered ONE; -ISOVUE-300 61% 50ML VIAL (Q9967) As Ordered ONE; -LIDOCAINE 2% MDV 20 ML VIAL As Ordered ONE; -MIDAZOLAM INJ 2 MG/2 ML VIAL (J2250) As Ordered ONE; -PROTAMINE SULF INJ 50 MG/5 ML VIAL (J2720) As Ordered ONE; -diphenhydrAMINE INJ 50MG/ML VIAL (J1200) As Ordered ONE; -fentaNYL 100 MCG/2 ML INJECTION (J3010) As Ordered ONE
[2019-05-03 14:34] LABS: BASO % 0.4 % (0.0-1.0); EOS # 0.3 10^3/uL (0.0-0.5); EOS % 2.8 % (0.0-3.0); HEMATOCRIT 40.3 % (42.0-52.0); HEMOGLOBIN 13.1 g/dl (13.5-17.5); LYMPH # 1.3 10^3/uL (1.5-5.0); LYMPH % 12.6 % (24.0-44.0); MEAN CORPUSCULAR HEMOGLOBIN 31.2 pg (27.0-33.0); MEAN CORPUSCULAR HGB CONC 32.5 g/dl (32.0-36.5); NEUTROPHILS # 7.5 10^3/uL (1.5-8.5); NEUTROPHILS % 73.6 % (36.0-66.0); PLATELET COUNT, AUTOMATED 321 10^3/uL (150-450); WHITE BLOOD COUNT 10.2 10^3/uL (4.0-10.0)
[2019-05-03 14:43] LABS: ALBUMIN 4.1 GM/DL (3.2-5.2); CALCIUM LEVEL 9.8 MG/DL (8.8-10.2); CHOLESTEROL RISK RATIO 4.085 (<5); CREATININE FOR GFR 1.52 MG/DL (0.70-1.30); GLOMERULAR FILTRATION RATE 49.4 (>49); PERCENT SATURATION 20.8 % (19.7-50.0); POTASSIUM SERUM 5.1 MEQ/L (3.5-5.1); TOTAL PROTEIN 7.4 GM/DL (6.4-8.2)
[2019-05-03 14:50] LABS: TOTAL 25(OH) VITAMIN D 78.3 NG/ML (30.0-100.0)
[2019-05-03 14:58] LABS: HEMOGLOBIN A1c 5.8 %
== END ==
LOC: M SFHCSACK 10:23
PROVIDERS: ATTEND Physician Assistant
DX: D50.9 Iron deficiency anemia, unspecified (principal); E78.5 Hyperlipidemia, unspecified; R73.01 Impaired fasting glucose; Z12.5 Encounter for screening for malignant neoplasm of prostate; E55.9 Vitamin D deficiency, unspecified

== ENCOUNTER 2019-06-09 17:47 | Emergency (ER) | payer MEDICARE, OTHER ==
--- NOTE | 2019-06-09 19:59 | REPVR ---
PROCEDURE INFORMATION: Exam: CT Head Without Contrast Exam date and time: 06/09/2019 7:04 PM Clinical history: 63 years old, male; Syncope and collapse TECHNIQUE: Imaging protocol: Computed tomography of the head without contrast. Radiation optimization: All CT scans at this facility use at least one of these dose optimization techniques: automated exposure control; mA and/or kV adjustment per patient size (includes targeted exams where dose is matched to clinical indication); or iterative reconstruction. COMPARISON: CT Head without contrast 12/20/2017 4:26 PM FINDINGS: Brain: Diffuse cerebral age related volume loss and patchy low attenuation in the white matter compatible with chronic small vessel ischemic disease. No midline shift, mass, fluid collection, or evidence of hemorrhage. Right putaminal chronic lacunar infarct. Chronic left frontal lateral cortical infarct. Ventricles: Ventricular enlargement proportional to volume loss. Bones/joints: Unremarkable. No acute fracture. Sinuses: Visualized sinuses are unremarkable. No fluid levels. Mastoid air cells: Visualized mastoid air cells are well aerated. Soft tissues: Unremarkable. Vasculature: Coarse atherosclerotic calcifications in the vertebral and internal carotid arteries. IMPRESSION: Advanced age related involutional changes. Electronically signed by: Niraj Mendiola On 06/09/2019 19:59:40 PM
--- NOTE | 2019-06-09 20:03 | REP ---
HISTORY: Syncope. COMPARISON: Multiple, the latest 12/20/2017. The technique utilized in obtaining the radiograph has magnified the cardiac silhouette and accentuated the interstitial markings. The superior mediastinal structures are midline. The cardiac silhouette is unremarkable in size, shape, and position. The diaphragmatic surfaces of the lungs are regular, and the costophrenic angles are clear. The pulmonary funez are clear. The imaged osseous structures are intact. IMPRESSION: There is no acute cardiopulmonary disease. No change from the prior exam. Electronically Signed by Ralph Valle DO 06/10/2019 09:06 A
[2019-06-09 20:08] LABS: VENOUS BASE EXCESS 0.7 (-2.0-2.0); VENOUS HCO3 27.4 MEQ/L (23.0-27.0); VENOUS PARTIAL PRESSURE CO2 52.4 mmHg (38.0-50.0); VENOUS PARTIAL PRESSURE O2 32.8 mmHg (30.0-50.0); VENOUS PH 7.337 UNITS (7.330-7.430); VENOUS STANDARD HCO3 24.3 MEQ/L; VENOUS TOTAL CO2 29.1 MEQ/L (24.0-28.0)
[2019-06-09 20:09] LABS: BASO # 0.1 10^3/uL (0.0-0.2); BASO % 0.5 % (0.0-1.0); EOS # 0.2 10^3/uL (0.0-0.5); EOS % 1.6 % (0.0-3.0); HEMATOCRIT 39.6 % (42.0-52.0); HEMOGLOBIN 12.9 g/dl (13.5-17.5); MEAN CORPUSCULAR HEMOGLOBIN 30.9 pg (27.0-33.0); MEAN CORPUSCULAR HGB CONC 32.6 g/dl (32.0-36.5); MONO # 0.8 10^3/uL (0.0-0.8); MONO % 8.2 % (0.0-5.0); NEUTROPHILS # 7.2 10^3/uL (1.5-8.5); NEUTROPHILS % 78.2 % (36.0-66.0); PLATELET COUNT, AUTOMATED 238 10^3/uL (150-450); RED BLOOD COUNT 4.17 10^6/uL (4.30-6.10); WHITE BLOOD COUNT 9.2 10^3/uL (4.0-10.0)
[2019-06-09 20:39] LABS: ALBUMIN 4.1 GM/DL (3.2-5.2); ALT/SGPT 34 U/L (12-78); BILIRUBIN,DIRECT 0.1 MG/DL (0.0-0.2); BILIRUBIN,TOTAL 0.3 MG/DL (0.2-1.0); BLOOD UREA NITROGEN 21 MG/DL (7-18); CALCIUM LEVEL 9.1 MG/DL (8.8-10.2); CARBON DIOXIDE LEVEL 29 MEQ/L (21-32); CHLORIDE LEVEL 106 MEQ/L (98-107); CREATININE FOR GFR 1.45 MG/DL (0.70-1.30); ETHYL ALCOHOL (ETHANOL) < 0.003 % (0.000-0.010); GLOMERULAR FILTRATION RATE 52.2 (>49); GLUCOSE, FASTING 94 MG/DL (70-100); POTASSIUM SERUM 4.3 MEQ/L (3.5-5.1); SODIUM LEVEL 141 MEQ/L (136-145)
[2019-06-09 20:45] VITALS: BP 159/72
--- NOTE | 2019-06-10 05:39 | ECGEPIP ---
[facility] - ED Test Date: 2019-06-09 Pat Name: ROSALES MURRAY Department: Room: - Gender: Male Talent Analyst: mahesh : 1955 Requested By: FARAZ VERDUZCO Order Number: [id number] Reading MD: Souleymane Garsia Measurements Intervals Zephyr Rate: 63 P: 65 MS: 182 QRS: 42 QRSD: 90 T: 74 QT: 396 QTc: 408 Interpretive Statements SINUS RHYTHM SIMILAR TO 12/20/17 Electronically Signed on 06-10-2019 5:38:47 EDT by Souleymane Garsia
== END 2019-06-09 21:18 | disposition home or self-care (01) ==
LOC: EDBD 17:47 → M ED 17:47
DX: R42 Dizziness and giddiness (principal); I10 Essential (primary) hypertension; Z86.73 Personal history of transient ischemic attack (TIA), and cerebral infarction without residual deficits; J44.9 Chronic obstructive pulmonary disease, unspecified; K74.60 Unspecified cirrhosis of liver; F10.20 Alcohol dependence, uncomplicated; D50.9 Iron deficiency anemia, unspecified; N28.9 Disorder of kidney and ureter, unspecified; Z79.82 Long term (current) use of aspirin; Z79.899 Other long term (current) drug therapy
CPT/HCPCS: 70450; 71045; 80048; 80076; 82140; 82803; 85025; 93005; 99284; G0480

== ENCOUNTER → 2019-07-06 | Outpatient (CLI) | payer MEDICARE ==
[~2019-07-06] MED LIST changes: +SENN-53 PO; -SENN1TAB40 PO
[2019-07-06 11:08] LABS: BASO % 0.5 % (0.0-1.0); EOS # 0.2 10^3/uL (0.0-0.5); HEMATOCRIT 44.5 % (42.0-52.0); HEMOGLOBIN 14.1 g/dl (13.5-17.5); LYMPH % 12.5 % (24.0-44.0); MEAN CORPUSCULAR HEMOGLOBIN 30.6 pg (27.0-33.0); MEAN CORPUSCULAR HGB CONC 31.7 g/dl (32.0-36.5); MEAN CORPUSCULAR VOLUME 96.5 fl (80.0-96.0); MONO # 0.7 10^3/uL (0.0-0.8); MONO % 9.2 % (0.0-5.0); NEUTROPHILS % 74.4 % (36.0-66.0); PLATELET COUNT, AUTOMATED 288 10^3/uL (150-450); RED BLOOD COUNT 4.61 10^6/uL (4.30-6.10); WHITE BLOOD COUNT 8.1 10^3/uL (4.0-10.0)
[2019-07-06 11:30] LABS: HEMOGLOBIN A1c 5.8 %
[2019-07-06 11:43] LABS: BILIRUBIN,TOTAL 0.6 MG/DL (0.2-1.0); CALCIUM LEVEL 9.7 MG/DL (8.8-10.2); CHOLESTEROL RISK RATIO 3.071 (<5); CREATININE FOR GFR 1.43 MG/DL (0.70-1.30); FREE T4 1.18 NG/DL (0.76-1.46); POTASSIUM SERUM 4.9 MEQ/L (3.5-5.1); TOTAL PROTEIN 7.1 GM/DL (6.4-8.2)
== END ==
LOC: M LAB 08:47
PROVIDERS: ATTEND Psychiatry & Neurology Neurology
DX: E11.9 Type 2 diabetes mellitus without complications (principal); E07.9 Disorder of thyroid, unspecified

== ENCOUNTER 2019-08-21 07:30 | Inpatient (IN) | payer MEDICARE ==
--- NOTE | 2019-08-10 18:37 | HPE ---
DATE OF SCHEDULED ADMISSION: 08/21/2019 This is a preoperative history and physical for surgery scheduled 08/21/2019. CHIEF COMPLAINT: Lifestyle limiting claudication. HISTORY OF THE PRESENT ILLNESS: Mr. Joseph is a very pleasant 63-year-old gentleman with lifestyle limiting claudication at short distance with long recovery time, status post recent left lower extremity arteriogram with Dr. Franco that revealed a near occlusive plaque in the left common femoral artery. The patient does have some disease distal to this, but the worst of the disease is at the inflow in the common femoral artery. I also noted that he had SFA, popliteal, and tibial disease, but it is not as severe as the common femoral stenosis. I discussed with the patient today my findings on his recent imaging, and my recommendation for a left common femoral endarterectomy. I would like to see if this relieves his claudication, and if not, we can pursue intervention distal to this with an endovascular procedure, but if this alleviates his claudication, no further intervention will be required at this time. The risks, benefits, and alternatives to a common femoral endarterectomy were explained to the patient, and he is agreeable to proceed. Informed consent was obtained. We would like to hold the Plavix 3 days prior to surgery. Patient is agreeable to this plan. MEDICATIONS: - Norvasc 5 mg daily - Arnuity Ellipta 200 mcg/Act one puff daily - aspirin 81 mg daily - atorvastatin 80 mg daily - bupropion 150 mg twice a day - CertaVite Antioxidants one tablet daily - iron 325 mg twice a day - losartan 100 mg daily - Lopressor extended release 100 mg daily - Plavix 75 mg daily - polyethylene glycol 3350, 17 grams daily as needed - Stiolto Respimat 2.5/2.5 mcg/Act two puffs daily - Ventolin 108 mcg/Act two puffs four times a day - vitamin D 50,000 units every other week ALLERGIES: No known drug allergies. PAST MEDICAL HISTORY: Chronic obstructive pulmonary disease (COPD). Ex-smoker. Cerebral arterial occlusion. Hypertension. Borderline insulin resistance. Peripheral vascular disease. SURGICAL HISTORY: Tonsillectomy. Loop recorder. Angiogram. FAMILY HISTORY: His father had hypertension and a stroke. Mother had hypertension and stroke. SOCIAL HISTORY: The patient is a former smoker with an 80 pack-year history and quit in 2017. He denies alcohol or drug use. REVIEW OF SYSTEMS: Constitutional: Denies fevers, chills, weight gain, weight loss. Eyes: No new vision changes. Ear, Nose, Mouth and Throat: Denies hearing loss, denies congestion, denies dysphagia. Cardiovascular: Denies chest pain and palpitations. Respiratory: Reports COPD and shortness of breath but denies cough and hemoptysis. Gastrointestinal (GI): Denies abdominal pain, constipation, diarrhea, nausea or vomiting. Musculoskeletal: Reports intermittent claudication and trouble walking, but denies myalgia and pain. Skin: Denies skin cancer, rash and wound. Neurologic: Reports stroke and dysphasia but denies focal deficits, headache and seizures. Psychiatric: Denies anxiety and depression. Endocrine: Denies diabetes, hyperthyroidism or hypothyroidism. Hematology: Reports easy bruising and has a history of anemia but no current anemia. PHYSICAL EXAMINATION: The patient is afebrile. Vital signs are stable. Constitutional: He appears medically stable and no signs of apparent distress are present. Head and Face: Normal on inspection. Ears, Nose, Mouth and Throat: Tympanic membranes are intact. External nose within normal limits. Neck: Supple. No carotid bruits noted. Respiratory: No wheezing, clear to auscultation bilaterally. Cardiovascular: Regular rate and rhythm. Abdomen: Soft, nontender, nondistended. Bowel sounds are positive. Lymph: No palpable or visible lymphadenopathy. Musculoskeletal: Gait is steady. Distal pulses are 2+ dorsalis pedis (DP) and posterior tibial on the right, monophasic signals on the left. Skin: No rashes or lesions. Neurologic: Alert and oriented times three. Moves all extremities equally with no focal deficits noted. Speech is mildly delayed and a bit pressured, but he is able to articulate what he is trying to say if he takes his time. Psychiatric: Pleasant and cooperative. IMAGING: Arteriogram imaging of the left lower extremity was reviewed with the patient. Please see history of the present illness for relevant interpretation. ASSESSMENT AND PLAN: This is a very pleasant 63-year-old gentleman with lifestyle limiting claudication and near occlusive plaque in the left common femoral artery. 1. Left common femoral endarterectomy. Hold Plavix 3 days prior to the procedure. 2. If claudication not relieved with endarterectomy, we can consider a more distal arteriogram intervention at a later date. We appreciate the opportunity to participate in the care of this patient.
[~2019-08-21] VITALS: Ht 162.6 cm; Wt 62.1 kg
[~2019-08-21 07:30] MED LIST changes: -AMLO5TAB6; +AMLO5TAB6 PO; +ATOR80TA59 PO; -BUPR150T5; +BUPR150T5 PO; +CLOP75TA2 PO; -FERR1TAB8; +FERR1TAB8 PO; -LOSA100T50; +LOSA100T50 PO; +LR 1,000 ML IV ONE; -METO1TAB33; +METO1TAB33 PO; -SIMV20TA2 PO; +SIMV20TA22 PO; +VENTAER INH; +ceFAZolin SOD 2 GM in IV 1 EA IV ONE
[2019-08-21] MEDS ORDERED: ceFAZolin 2 GM/D5W 50 ML IV BAG (J0690 PER 500MG) As Ordered ONE (10:40)
[2019-08-21] MEDS ORDERED: BUPIVACAINE/EPIN 0.25% 30 ML VIAL As Ordered ONE (10:54)
[2019-08-21] MEDS ORDERED: HEPARIN SOD (PORCINE) 5000 UNITS/ML VIAL As Ordered ONE ×3 (10:54→14:26)
[2019-08-21] MEDS ORDERED: THROMBIN SOLN 20,000 UNITS KIT As Ordered ONE (10:54)
[2019-08-21] MEDS ORDERED: ONDANSETRON 4MG/2ML VIAL (J2405) As Ordered ONE (11:26)
[2019-08-21] MEDS ORDERED: PROPOFOL 500 MG/50 ML VIAL As Ordered ONE (11:26)
[2019-08-21] MEDS ORDERED: MIDAZOLAM INJ 2 MG/2 ML VIAL (J2250) As Ordered ONE (11:26)
[2019-08-21] MEDS ORDERED: dexameTHASONE 4 MG/ML 1ML VIAL (J1100) As Ordered ONE (11:26)
[2019-08-21] MEDS ORDERED: fentaNYL 100 MCG/2 ML INJECTION (J3010) As Ordered ONE (11:26)
[2019-08-21] MEDS ORDERED: LIDOCAINE 2% INJ 100 MG/5 ML SDV (FOR ANES.) As Ordered ONE (11:27)
[2019-08-21] MEDS ORDERED: ACETAMINOPHEN 1000MG 100ML IV BTL (OFIRMEV) (J0131 PER 10MG) As Ordered ONE (14:53)
[2019-08-21] MEDS ORDERED: LR 1,000 ML IV SCH (15:30)
[2019-08-21] MEDS ORDERED: diazePAM 5 MG TAB PO PRN (15:30)
[2019-08-21] MEDS ORDERED: fentaNYL 100 MCG/2 ML INJECTION (J3010) IV PRN (15:30)
[2019-08-21] MEDS ORDERED: METOCLOPRAMIDE INJ 10MG/2ML VIAL (J2765) IV PRN (15:30)
[2019-08-21] MEDS ORDERED: PERCOCET 5MG/325MG TAB PO PRN (15:30)
[2019-08-21] MEDS ORDERED: ONDANSETRON 4MG/2ML VIAL (J2405) IV PRN (15:30)
[2019-08-21] MEDS ORDERED: HYDROmorphone 2 MG TAB PO PRN (15:30)
--- NOTE | 2019-08-21 15:33 | ROOPDOC ---
[facility] Report Of Operation Report of Operation DATE OF PROCEDURE: 08/21/19 PREPROCEDURE DIAGNOSES: Atherosclerosis the [place] vessels with lifestyle limiting claudication. POSTPROCEDURE DIAGNOSES: Same. PROCEDURE: Left common femoral endarterectomy and profundoplasty with Xenosure patch angioplasty SURGEON: Zay Gudino MD ANESTHESIA: LMA anesthesia and local anesthesia. INDICATION FOR PROCEDURE: Mr. Joseph is a very pleasant 64-year-old gentleman with severe near occlusive plaque in the left common femoral artery, as well as some distal near occlusions in the superficial femoral artery and tibial disease. We plan for a 2 part procedure, with the first part being a left common femoral endarterectomy and patch angioplasty. Risks benefits and alternatives to this procedure were explained to the patient he is agreeable to proceed. Next, in a month or so, we will bring the patient back for a left superficial femoral artery angioplasty plus or minus stenting, unless the endarterectomy provides enough blood flow to allow him to walk and do his normal activities without so much discomfort and claudication. I believe if the patient can quit smoking, do well from the endarterectomy, and ambulate daily, he may be able to develop enough collateral circulation that he does not need endovascular intervention, we will see how he does after surgery. REPORT OF OPERATION: The patient was brought to the operating room in stable condition and LMA anesthesia and antibiotics were administered without complication. His left abdomen thigh and groin was prepped and draped in sterile fashion. A timeout was performed. Local anesthesia was administered to the skin and subcutaneous tissue. An oblique incision was made over the inguinal ligament and carried down through subcutaneous tissue. Bridging veins were suture ligated and divided. We continued her dissection down to the inguinal ligament and then along the posterior edge of the inguinal ligament. We opened the femoral sheath longitudinally. The femoral vessel was skeletonized proximally and distally within the incision. Vesseloops were placed around the circumflex vessels and around the common femoral artery. We then dissected distally towards the superficial femoral artery and profunda. Vesseloops were placed around each vessel. Next, 5000 units of heparin was given a lab circulate. A clamp was secured on the common femoral artery and the Vesseloops were secured on the femoral branches. A knife was used to make an arteriotomy and this was extended proximally and distally with a pot scissors. It was difficult to even getting access to the vessel due to heavily calcified near occlusive plaque. We were able to get a right ankle around the plaque and transected. We then feathered the plaque out proximally and distally. It was granular, bulky, and difficult to remove. Eventually we were able to get a good endarterectomy point proximally, and we were able to get a good endarterectomy point within the profunda. The superficial femoral artery was difficult to endarterectomized this plaque continued deep down through the vessel. We were able to get to a good point however. Care was taken to remove all loose intima and debris. We irrigated with copious amounts of heparinized saline. The Xenosure patch angioplasty was performed. We anastomosis the patch in a running fashion with 5-0 Prolene hemostatic suture. Before the final sutures are placed we flushed the inflow and outflow of the artery. We restart flow and there was a little bit of bleeding from the distal aspect of the patch. We then placed a 6-0 Prolene repair stitch, but it appeared there was some bleeding from the posterior aspect of the profunda. We resecure the Vesseloops and explore the area but did not see any branch disconnection or source of bleeding. When we remove the Vesseloops, there was no flow from the profunda into the common femoral, and therefore additional heparin was given and a small incision was made in the middle of the patch and 3 David was passed through the SFA and the profunda. Good backbleeding was noted. Minimal platelet aggregate was noted at the origin of the profunda. After this, there was good flow from the profunda into the common femoral artery. We irrigated with copious amounts of heparinized saline and the incision in the patch was closed with a running 6-0 Prolene suture. We then secured the Vesseloops on the profunda open the Vesseloops on the SFA and restart flow from the common femoral artery, and then restart flow to the profunda. Following this, we had good Doppler signals at the SFA proximally the profunda proximally and the common femoral artery. We then irrigated with copious amounts of saline. The deep layers were approximated with running 2-0 Vicryl suture, the superficial fascia was closed with a running 3-0 Vicryl suture in the deep dermal layer was approximated with interrupted 3-0 Vicryl sutures. The skin was closed with yue. The patient was allowed to awaken from anesthesia was taken to recovery in stable condition. There were no complications and the patient tolerated the procedure well. ESTIMATED BLOOD LOSS: Approximately 100 mL. COMPLICATIONS: None. SPECIMENS: Left femoral plaque sent for pathology DRAINS: None PLAN: The patient will be admitted to the floor for postoperative observation and care. We will restart his aspirin and Plavix tonight. He'll be on bedrest overnight with bathroom privileges with assist, and we will increase his activity tomorrow depending on how he is doing. He can have a regular diet, high-protein to help with wound healing. ZAY GUDINO MD Aug 21, 2019 15:33
[2019-08-21] MEDS ORDERED: PILL CUTTER 1 EACH XX PRN (15:45)
[2019-08-21] MEDS ORDERED: CLOPIDOGREL 75 MG TAB PO ONE (16:00)
[2019-08-21 16:33] VITALS: BP 126/60
[2019-08-21 17:09] VITALS: BP 123/60
--- NOTE | 2019-08-21 17:39 | HPEPDOC ---
[facility] Medical History & Physical Date of Admission Aug 21, 2019 Date of Service: Aug 21, 2019 Attending Physician: DEVON SIMON MD History and Physical CHIEF COMPLAINT: Status post left common femoral endarterectomy and angioplasty HISTORY OF PRESENT ILLNESS: [64-year-old male with past medical history of CVA, COPD, peripheral vascular disease, hypertension, hyperlipidemia and chronic kidney disease is being admitted status post left common femoral endarterectomy. Patient is seen in PACU, confused about his current whereabouts and situation, repeatedly asking the same questions, but otherwise appropriate when asked about his prior history. Apart from confusion he has no other complaints at this time, denies any pain, shortness of breath, chest pain, nausea, vomiting, abdominal pain or diarrhea. Case discussed with Dr. Gudino, no complications during surgery, estimated blood loss of 50-100 mL, plan for 2 part procedure, first part being today (common femoral endarterectomy and angioplasty), second part in 1 month regarding superficial femoral artery intervention if needed. 10 point review of system was negative except for above PAST MEDICAL HISTORY: 1. Hypertension. 2. Hyperlipidemia. 3. Chronic kidney disease. 4. COPD 5. CVA. 6. Peripheral respiratory disease PAST SURGICAL HISTORY: 1. Loop recorder. 2. Common femoral endarterectomy. SOCIAL HISTORY: Ex-smoker, heavy for 30+ years, quit a few years ago. Denies all use. Denies drug use FAMILY HISTORY: Positive for heart disease ALLERGIES: Please see below. HOME MEDICATIONS: Please see below. PHYSICAL EXAMINATION: VITAL SIGNS: Please see below. GENERAL: No distress HEENT: Normocephalic, atraumatic, moist mucous membranes NECK: Supple CARDIOVASCULAR EXAMINATION: S1, S2, no murmurs RESPIRATORY EXAMINATION: Scattered rhonchi, no wheezing ABDOMINAL EXAMINATION: Soft, nontender, nondistended, positive bowel sounds EXTREMITIES: Range of motion intact, dressing clean, dry and intact in the groin area, left dorsalis pedis pulse present by Doppler SKIN: No rash NEUROLOGICAL EXAMINATION: Alert and oriented 2, no focal deficits PSYCHIATRIC EXAMINATION: Confused LABORATORY DATA: See below. MICROBIOLOGY: Please see below. ASSESSMENT: 64-year-old male with an extensive history including severe vascular disease is being admitted status post left common femoral endarterectomy. PLAN: 1. Extensive peripheral vascular disease with claudication. Status post left common femoral endarterectomy and profundoplasty, no complications, EBL <100 ml, patient with slight postop confusion requiring repetitive reorientation, management as per vascular surgery, aspirin, Plavix and statin restarted. 2. CVA. Has residual deficit of delayed speech, continue aspirin, Plavix, statin. 3. COPD Continue home inhalers, stable. 4. Chronic kidney disease. Renal function at baseline, will monitor. 5. Hypertension. Continue home Norvasc, losartan and metoprolol. DVT prophylaxis: Lovenox. GI prophylaxis: Not needed Vital Signs Vital Signs Date Time Temp Pulse Resp B/P (MAP) Pulse Ox O2 Delivery O2 Flow Rate FiO2 08/21/19 16:33 97.9 66 16 126/60 (82) 94 08/21/19 15:38 Room Air Home Medications Scheduled Amlodipine Besylate (Amlodipine Besylate) 5 Mg Tab, PO DAILY Aspirin (Aspirin EC) 81 Mg Tab, 81 MG PO DAILY Atorvastatin Calcium (Atorvastatin Calcium) 80 Mg Tablet, 80 MG PO QPM Bupropion Hcl (Bupropion HCl Sr) 150 Mg Tab, PO BID Clopidogrel Bisulfate (Clopidogrel) 75 Mg Tablet, 75 MG PO DAILY Ergocalciferol (Vitamin D2) (Drisdol) 50,000 Unit Capsule, 50,000 UNIT PO Q2WK Ferrous Sulfate (Ferrous Sulfate) 325 Mg Tab, PO BID Losartan Potassium (Losartan Potassium) 100 Mg Tab, PO DAILY Metoprolol Succinate (Metoprolol Succinate) 100 Mg Tab, PO DAILY Tiotropium Br/Olodaterol HCl (Stiolto Respimat Inhal [place]) 4 Gm Mist.inhal, 2 PUFF INH DAILY Umeclidinium Brm/Vilanterol Tr (Anoro Ellipta 62.5-25 Mcg INH) 1 Aer Aer, 1 PUFF INH DAILY Scheduled PRN Albuterol Sulfate (Ventolin Hfa) 18 Gm Hfa.aer.ad, 2 PUFF INH Q4-6HP PRN for wheezing Allergies Coded Allergies: No Known Allergies (Unverified , 08/07/19) A-FIB/CHADSVASC A-FIB History Current/History of A-Fib/PAF?: No DEVON SIMON MD Aug 21, 2019 17:39
[2019-08-21 18:00] VITALS: BP 125/60
[2019-08-21 19:02] VITALS: BP 124/61
[2019-08-21 20:50] VITALS: BP 123/58
[2019-08-21] MEDS: FERROUS SULFATE 325MG TAB PO SCH (21:43)
[2019-08-21] MEDS: ATORVASTATIN 20 MG TAB PO SCH (21:43)
[2019-08-21] MEDS: buPROPion **SR TABLET** (ZYBAN) 150MG PO SCH (21:43)
[2019-08-22 01:00] VITALS: BP 123/61
[2019-08-22 06:00] VITALS: BP 144/67
[2019-08-22 06:59] LABS: HEMOGLOBIN 11.9 g/dl (13.5-17.5); MEAN CORPUSCULAR HEMOGLOBIN 30.5 pg (27.0-33.0); MEAN CORPUSCULAR HGB CONC 33.1 g/dl (32.0-36.5); MEAN CORPUSCULAR VOLUME 92.3 fl (80.0-96.0); PLATELET COUNT, AUTOMATED 228 10^3/uL (150-450); WHITE BLOOD COUNT 14.7 10^3/uL (4.0-10.0)
[2019-08-22 07:17] LABS: ALBUMIN 3.1 GM/DL (3.2-5.2); BILIRUBIN,TOTAL 0.4 MG/DL (0.2-1.0); CALCIUM LEVEL 8.3 MG/DL (8.8-10.2); CREATININE FOR GFR 1.3 MG/DL (0.70-1.30); MAGNESIUM LEVEL 2.1 MG/DL (1.8-2.4); POTASSIUM SERUM 4.5 MEQ/L (3.5-5.1); TOTAL PROTEIN 5.9 GM/DL (6.4-8.2)
[2019-08-22] MEDS: CLOPIDOGREL 75 MG TAB PO SCH (08:58)
[2019-08-22] MEDS: buPROPion **SR TABLET** (ZYBAN) 150MG PO SCH ×2 (08:58→20:47)
[2019-08-22] MEDS: ASPIRIN 81 MG ENTERIC TAB PO SCH (08:58)
[2019-08-22] MEDS: METOPROLOL SUCC (TopROL XL) 100MG *XL* TAB PO SCH (08:58)
[2019-08-22] MEDS: LOSARTAN 50 MG TAB PO SCH (08:58)
[2019-08-22] MEDS: FERROUS SULFATE 325MG TAB PO SCH ×2 (08:58→20:47)
[2019-08-22] MEDS: ENOXAPARIN 30 MG/0.3 ML SYR (J1650) SC SCH (08:59)
[2019-08-22] MEDS: amLODIPine 5 MG TAB PO SCH (08:59)
[2019-08-22] MEDS: TIOTROPIUM INH SCH (09:00)
[2019-08-22] MEDS ORDERED: PREVNAR 13 VACCINE SYRINGE (CPT CODE:90670) IM ONE (09:00)
[2019-08-22] MEDS: OLODATEROL INH SCH (09:00)
--- NOTE | 2019-08-22 12:40 | IPNPDOC ---
Date Seen The patient was seen on 08/22/19. Progress Note Patient seen and examined. Doing well postop day #1 status post left femoral endarterectomy and profundoplasty with patch angioplasty. The patient had near occlusive plaque in the left common femoral artery. Today he says his pain is well controlled on oral pain medication. He is tolerating a diet. He has had no trouble urinating. On exam, his left groin incision is clean dry and intact with minimal serosanguineous drainage on the dressing. No significant bruising is noted. No swelling or hematoma is noted around the incision. There is appropriate postoperative tenderness to palpation. The left foot is warm and well-perfused. There is a biphasic PT signals and monophasic AT signal, which we expect since we only improved inflow with the procedure yesterday, but the patient may still need endovascular intervention for his known superficial femoral artery and tibial disease on the left. His incision was clean and dried and a dry dressing was placed. The patient tolerated this well. Today, we will take the patient off bed rest and he can ambulate with nurse assist. He should continue his high-protein diet to help with wound healing. We appreciate the hospitalist management of his medical issues. Our plan will be to see how the patient does with ambulation and see how he feels tomorrow. It's possible he could be ready for home tomorrow, depending on if he is able to get up and around with minimal assist. Over the next 2 months, we will see how he does with this claudication. If improving inflow through the nearly occluded common femoral artery is enough to alleviate his significant claudication and he can continue to improve with daily ambulation and avoiding tobacco products, we may not need to intervene on the outflow. However, if his claudication persists, we will plan to bring him back in 6-8 weeks for an endovascular procedure to try to improve flow through superficial femoral artery and tibial vessels. The patient is agreeable to this plan. VS, I&O, 24H, Fishbone Vital Signs/I&O Vital Signs Date Time Temp Pulse Resp B/P (MAP) Pulse Ox O2 Delivery O2 Flow Rate FiO2 08/22/19 08:59 99 144/67 08/22/19 06:12 18 08/22/19 06:00 98.3 60 Room Air I&O- Last 24 Hours up to 6 AM 08/22/19 05:59 Intake Total 1550 ml Output Total 400 ml Balance 1150 ml Laboratory Data 24H LABS Laboratory Tests 2 08/22/19 06:38: Nucleated Red Blood Cells % (auto) 0.0, Anion Gap 8, Glomerular Filtration Rate 59.0, Calcium Level 8.3L, Magnesium Level 2.1, Total Bilirubin 0.4, Aspartate Amino Transf (AST/SGOT) 21, Alanine Aminotransferase (ALT/SGPT) 33, Alkaline Phosphatase 78, Total Protein 5.9L, Albumin 3.1L, Albumin/Globulin Ratio 1.11 CBC/BMP Laboratory Tests 08/22/19 06:38 ZAY NAVA MD Aug 22, 2019 12:40
--- NOTE | 2019-08-22 13:04 | IPNPDOC ---
Subjective Date Seen The patient was seen on 08/22/19. Subjective Chief Complaint/HPI Patient comfortable offers no new complaints and possible ablation today General: Denies: ROS Unobtainable, Chills, Night Sweats, Fatigue, Malaise, Normal Appetite, Other Symptoms Constitutional: Denies: Chills, Fever, Malaise, Night Sweats, Weakness, Fatigue, Weight Loss, Lethargy, Other Eyes: Denies: Pain, Vision change, Conjunctivae inflammation, Eyelid inflammation, Redness, Other ENT: Denies: Head Aches, Ear Pain, Dysphagia, Sinus Congestion, Post Nasal Drip, Sore Throat, Epistaxis, Other Symptoms Skin: Denies: Rash, Lesions, Jaundice, Bruising, Itching, Dry, Breakdown, Nail Changes, Other Pulmonary: Denies: Dyspnea, Cough, Pleuritic Chest Pain, Other Symptoms Cardiovascular: Denies: Chest Pain, Palpitations, Orthopnea, Paroxysmal Noc. Dyspnea, Edema, Lt Headedness, Other Symptoms Gastrointestinal: Denies: Nausea, Vomiting, Abdominal Pain, Diarrhea, C onstipation, Melena, Hematochezia, Other Symptoms Genitourinary: Denies: Dysuria, Frequency, Incontinence, Hematuria, Retention, Other Symptoms Musculoskeletal: Denies: Neck Pain, Back Pain, Shoulder Pain, Arm Pain, Hand Pain, Leg Pain, Foot Pain, Joint Pain, Muscle Pain, Spasms, Other Symptoms Neurological: Denies: Weakness, Numbness, Incoordination, Change in speech, Confusion, Seizures, Other Symptoms Objective Physical Examination General Exam: Positive: Alert, Cooperative Eye Exam: Positive: PERRLA, Conjunctiva & lids normal ENT Exam: Positive: Atraumatic Chest Exam: Positive: Clear to auscultation Heart Exam: Positive: Rate Normal, Normal S1 Abdomen Exam: Positive: Soft Extremity Exam: Positive: Normal pulses Skin Exam: Positive: Nl turgor and temperature Neuro Exam: Positive: Strength at 5/5 X4 ext, Sensation Intact, Cranial Nerves 3-12 NL Assessment /Plan Problems (1) PVD (peripheral vascular disease) Problem Text: Extensive peripheral vascular disease with claudication. Status post left common femoral endarterectomy and profundoplasty, no complications, EBL <100 ml, , management as per vascular surgery, aspirin, Plavix and statin restarted. Vascular surgery follow-up noted. Patient will be ambulated today and observe Discharge once cleared from vascular (2) Hypertension Status: Chronic Problem Text: Continue home medication (3) Dyslipidemia Status: Chronic Problem Text: . 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 Plan/VTE VTE Prophylaxis Ordered?: Yes VS, I&O, 24H, Fishbone Vital Signs/I&O Vital Signs Date Time Temp Pulse Resp B/P (MAP) Pulse Ox O2 Delivery O2 Flow Rate FiO2 08/22/19 08:59 99 144/67 08/22/19 06:12 18 08/22/19 06:00 98.3 60 Room Air I&O- Last 24 Hours up to 6 AM 08/22/19 06:00 Intake Total 1550 ml Output Total 900 ml Balance 650 ml Laboratory Data 24H LABS Laboratory Tests 2 08/22/19 06:38: Nucleated Red Blood Cells % (auto) 0.0, Anion Gap 8, Glomerular Filtration Rate 59.0, Calcium Level 8.3L, Magnesium Level 2.1, Total Bilirubin 0.4, Aspartate Amino Transf (AST/SGOT) 21, Alanine Aminotransferase (ALT/SGPT) 33, Alkaline Phosphatase 78, Total Protein 5.9L, Albumin 3.1L, Albumin/Globulin Ratio 1.11 CBC/BMP Laboratory Tests 08/22/19 06:38 CATIA AZUL MD Aug 22, 2019 13:04
[2019-08-22 14:01] VITALS: BP 141/68
[2019-08-22] MEDS: PERCOCET 5MG/325MG TAB PO PRN (18:20)
[2019-08-22] MEDS: ATORVASTATIN 20 MG TAB PO SCH (20:46)
[2019-08-22 22:00] VITALS: BP 147/72
[2019-08-23] MEDS: PERCOCET 5MG/325MG TAB PO PRN ×2 (05:28→16:05)
[2019-08-23 06:00] VITALS: BP 150/69
[2019-08-23] MEDS: OLODATEROL INH SCH (08:03)
[2019-08-23] MEDS: TIOTROPIUM INH SCH (08:03)
[2019-08-23] MEDS: ENOXAPARIN 30 MG/0.3 ML SYR (J1650) SC SCH (09:05)
[2019-08-23] MEDS: FERROUS SULFATE 325MG TAB PO SCH (09:05)
[2019-08-23] MEDS: ASPIRIN 81 MG ENTERIC TAB PO SCH (09:05)
[2019-08-23] MEDS: CLOPIDOGREL 75 MG TAB PO SCH (09:05)
[2019-08-23] MEDS: buPROPion **SR TABLET** (ZYBAN) 150MG PO SCH (09:05)
[2019-08-23 09:07] VITALS: BP 145/68
[2019-08-23] MEDS: METOPROLOL SUCC (TopROL XL) 100MG *XL* TAB PO SCH (09:07)
[2019-08-23] MEDS: amLODIPine 5 MG TAB PO SCH (09:07)
[2019-08-23] MEDS: LOSARTAN 50 MG TAB PO SCH (09:07)
--- NOTE | 2019-08-23 09:58 | IPNPDOC ---
Subjective Date Seen The patient was seen on 08/23/19. Subjective Chief Complaint/HPI Patient comfortable, ambulatory, awaiting clearance from vascular surgery before discharge General: Denies: ROS Unobtainable, Chills, Night Sweats, Fatigue, Malaise, Normal Appetite, Other Symptoms Constitutional: Denies: Chills, Fever, Malaise, Night Sweats, Weakness, Fatigue, Weight Loss, Lethargy, Other ENT: Denies: Head Aches, Ear Pain, Dysphagia, Sinus Congestion, Post Nasal Drip, Sore Throat, Epistaxis, Other Symptoms Pulmonary: Denies: Dyspnea, Cough, Pleuritic Chest Pain, Other Symptoms Cardiovascular: Denies: Chest Pain, Palpitations, Orthopnea, Paroxysmal Noc. Dyspnea, Edema, Lt Headedness, Other Symptoms Gastrointestinal: Denies: Nausea, Vomiting, Abdominal Pain, Diarrhea, Constipation, Melena, Hematochezia, Other Symptoms Musculoskeletal: Denies: Neck Pain, Back Pain, Shoulder Pain, Arm Pain, Hand Pain, Leg Pain, Foot Pain, Joint Pain, Muscle Pain, Spasms, Other Symptoms Neurological: Denies: Weakness, Numbness, Incoordination, Change in speech, Confusion, Seizures, Other Symptoms Psych: Denies: Mood Normal, Anxiety, Depression, Memory Issues, Thoughts of Self Harm, Anger, Thoughts of Harming Other, Other Psych Objective Physical Examination General Exam: Positive: Alert, Cooperative Eye Exam: Positive: PERRLA, Conjunctiva & lids normal ENT Exam: Positive: Atraumatic Chest Exam: Positive: Clear to auscultation Heart Exam: Positive: Rate Normal, Normal S1 Abdomen Exam: Positive: Soft Extremity Exam: Positive: Normal pulses Skin Exam: Positive: Nl turgor and temperature Neuro Exam: Positive: Strength at 5/5 X4 ext, Sensation Intact, Cranial Nerves 3-12 NL Assessment /Plan Problems (1) PVD (peripheral vascular disease) Problem Text: Extensive peripheral vascular disease with claudication. Status post left common femoral endarterectomy and profundoplasty, no complications, EBL <100 ml, , management as per vascular surgery, aspirin, Plavix and statin restarted. Vascular surgery follow-up noted. Patient will be ambulated today and observe Discharge once cleared from vascular (2) Hypertension Status: Chronic Problem Text: Continue home medication (3) Dyslipidemia Status: Chronic Problem Text: . 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 Plan/VTE VTE Prophylaxis Ordered?: Yes VS, I&O, 24H, Fishbone Vital Signs/I&O Vital Signs Date Time Temp Pulse Resp B/P (MAP) Pulse Ox O2 Delivery O2 Flow Rate FiO2 08/23/19 09:07 61 145/68 08/23/19 06:00 97.9 20 97 Room Air I&O- Last 24 Hours up to 6 AM 08/23/19 06:00 Intake Total 1160 ml Output Total 1410 ml Balance -250 ml CATIA AZUL MD Aug 23, 2019 09:58
[2019-08-23 14:00] VITALS: BP 149/66
--- NOTE | 2019-08-23 14:09 | IPNPDOC ---
Date Seen The patient was seen on 08/23/19. Progress Note Patient seen and examined. Doing well postoperative day 2 status post left common femoral endarterectomy, profundoplasty, and patch angioplasty. Patient to get out of bed to go to the bathroom yesterday, said he did not get dizzy or have any issues. He however has not ambulated in the chua or for any distance and did not ambulate at all today. He says he has had minimal pain, and has asked for minimal pain medication. He is urinating without difficulty. He is tolerating a regular high-protein diet and is eating full meals. He says he is ready to go home today. On exam, the patient's left groin incision is clean dry and intact. Scant serosanguineous drainage is noted on the dressing, but it is mostly dry. He has no erythema or induration. So far he is healing very well. He has appropriate tenderness to palpation around the incision. I went over the dressing change with the patient and asked him to show me that he could do his dressings. He was able to clean the incision, and place a dry dressing with paper tape. He has a biphasic PT signals are monophasic DP signal, his foot is warm and pink. He has triphasic flow at the common femoral artery and profunda and biphasic in the SFA. I think it is fine for the patient to go home. We will ask the nurses to walk him in the chua and to help him take a shower prior to discharge. If he is able to do those 2 things without difficulty, he can discharge home today. He will need to shower daily, with his dressing off, and then he will need to replace with a dry dressing, once a day. Since he is not requiring very much in regards to narcotic pain medication, recommend sending him with 5 days of Percocet only. His activity should be limited to moderate ambulation, okay to go up and down stairs, no strenuous exercise, no heavy lifting. He will need a follow-up in a week to check his incision and in 2-3 weeks for staple removal. He should continue to high-protein diet at home to help with wound healing. He should continue to abstain from tobacco and nicotine. VS, I&O, 24H, Fishbone Vital Signs/I&O Vital Signs Date Time Temp Pulse Resp B/P (MAP) Pulse Ox O2 Delivery O2 Flow Rate FiO2 08/23/19 09:07 61 145/68 08/23/19 06:00 97.9 20 97 Room Air I&O- Last 24 Hours up to 6 AM 08/23/19 06:00 Intake Total 1160 ml Output Total 1410 ml Balance -250 ml ZAY NAVA MD Aug 23, 2019 14:09
[2019-08-23] MEDS ORDERED: PERCOCET PO (15:18)
--- NOTE | 2019-08-23 15:21 | DS.PDOC ---
Discharge Summary General Date of Admission Aug 21, 2019 at 10:00 Date of Discharge 08/23/19 Discharge Summary PROCEDURES PERFORMED DURING STAY: None. ADMITTING DIAGNOSES: 1. PVD, hypertension, dyslipidemia, CK D, COPD, NH, history of CVA. DISCHARGE DIAGNOSES: 1. PVD, status post left common femoral endarterectomy, hypertension, dyslipidemia, CK D, COPD, history of CVA. COMPLICATIONS/CHIEF COMPLAINT: Atherosclerosis Of Andreafski Arteries With .... HISTORY OF PRESENT ILLNESS: 64-year-old male with past medical history of CVA, COPD, peripheral vascular disease, hypertension, hyperlipidemia and chronic kidney disease is being admitted status post left common femoral endarterectomy. Patient is seen in PACU, confused about his current whereabouts and situation, repeatedly asking the same questions, but otherwise appropriate when asked about his prior history. Apart from confusion he has no other complaints at this time, denies any pain, shortness of breath, chest pain, nausea, vomiting, abdominal pain or diarrhea. Case discussed with Dr. Gudino, no complications during surgery, estimated blood loss of 50-100 mL, plan for 2 part procedure, first part being today (common femoral endarterectomy and angioplasty), second part in 1 month regarding superficial femoral artery intervention if needed.. HOSPITAL COURSE: Patient was admitted with Extensive peripheral vascular disease with claudication by vascular surgery He had a left, femoral endarterectomy and profundoplasty done by Dr. kaiser Patient had no postoperative complications. There was minimum loss of blood postop. Physical therapy was started. Patient is ambulatory, has been cleared by Dr. kaiser for discharge Patient will be discharged home on all his present medications as well as Percocet when necessary as per vascular surgery's recommendation . DISCHARGE MEDICATIONS: Please see below. ALLERGIES: Please see below. PHYSICAL EXAMINATION ON DISCHARGE: VITAL SIGNS: Please see below. GENERAL: Within normal limits HEENT: PERRLA. Extraocular muscles intact NECK: Supple CARDIOVASCULAR EXAMINATION: S1, S2, regular RESPIRATORY EXAMINATION: Clear to A&P ABDOMINAL EXAMINATION: Benign EXTREMITIES: No clubbing, cyanosis, edema SKIN: Normal NEUROLOGICAL EXAMINATION: Focal motor sensory deficit PSYCHIATRIC EXAMINATION: Normal LABORATORY DATA: Please see below. IMAGING: None PROGNOSIS: Good ACTIVITY: As tolerated. DIET: As tolerated DISCHARGE PLAN: Discharge home DISPOSITION: . Home DISCHARGE INSTRUCTIONS: 1. . As per discharge instructions ITEMS TO FOLLOWUP ON ON OUTPATIENT: 1. . Follow with Dr. reese outpatient DISCHARGE CONDITION: Stable. TIME SPENT ON DISCHARGE: 34 Vital Signs/I&Os Vital Signs Date Time Temp Pulse Resp B/P (MAP) Pulse Ox O2 Delivery O2 Flow Rate FiO2 08/23/19 09:07 61 145/68 08/23/19 06:00 97.9 20 97 Room Air I&O- Last 24 Hours up to 6 AM 08/23/19 06:00 Intake Total 1160 ml Output Total 1410 ml Balance -250 ml Discharge Medications Scheduled Amlodipine Besylate (Amlodipine Besylate) 5 Mg Tab, PO DAILY, (Reported) Aspirin (Aspirin EC) 81 Mg Tab, 81 MG PO DAILY, (Reported) Atorvastatin Calcium (Atorvastatin Calcium) 80 Mg Tablet, 80 MG PO QPM, (Reported) Bupropion Hcl (Bupropion HCl Sr) 150 Mg Tab, PO BID, (Reported) Clopidogrel Bisulfate (Clopidogrel) 75 Mg Tablet, 75 MG PO DAILY, (Reported) Ergocalciferol (Vitamin D2) (Drisdol) 50,000 Unit Capsule, 50,000 UNIT PO Q2WK, (Reported) Ferrous Sulfate (Ferrous Sulfate) 325 Mg Tab, PO BID, (Reported) Losartan Potassium (Losartan Potassium) 100 Mg Tab, PO DAILY, (Reported) Metoprolol Succinate (Metoprolol Succinate) 100 Mg Tab, PO DAILY, (Reported) Tiotropium Br/Olodaterol HCl (Stiolto Respimat Inhal [place]) 4 Gm Mist.inhal, 2 PUFF INH DAILY, (Reported) Scheduled PRN Albuterol Sulfate (Ventolin Hfa) 18 Gm Hfa.aer.ad, 2 PUFF INH Q4-6HP PRN for wh eezing, (Reported) Oxycodone/Acetaminophen (Oxycodone-Acetaminophen 5-325) 1 Each Tablet, 1 TAB PO Q4HP PRN for MILD/MODERATE PAIN (PS 1-7) Allergies Coded Allergies: No Known Allergies (Unverified , 08/07/19) CATIA AZUL MD Aug 23, 2019 15:21
== END 2019-08-23 16:25 | disposition home or self-care (01) | DRG 253 ==
LOC: M OR 10:00 → M MS5PR 16:05
PROVIDERS: ADMIT Surgery Vascular Surgery; ATTEND Internal Medicine
PROC: 04CL0ZZ Extirpation of Matter from Left Femoral Artery, Open Approach (ICD-10-PCS; 2019-08-21)
PROC: 041K0JJ Bypass Right Femoral Artery to Left Femoral Artery with Synthetic Substitute, Open Approach (ICD-10-PCS; principal; 2019-08-21 11:45)
DX: I70.212 Atherosclerosis of native arteries of extremities with intermittent claudication, left leg (principal); J44.0 Chronic obstructive pulmonary disease with (acute) lower respiratory infection; I12.9 Hypertensive chronic kidney disease with stage 1 through stage 4 chronic kidney disease, or unspecified chronic kidney disease; E78.5 Hyperlipidemia, unspecified; N18.9 Chronic kidney disease, unspecified; Z86.73 Personal history of transient ischemic attack (TIA), and cerebral infarction without residual deficits; Z79.82 Long term (current) use of aspirin; Z79.899 Other long term (current) drug therapy; Z87.891 Personal history of nicotine dependence; I69.328 Other speech and language deficits following cerebral infarction; J20.9 Acute bronchitis, unspecified

== ENCOUNTER → 2019-10-02 | Outpatient (CLI) | payer MEDICARE ==
[~2019-10-02] MED LIST changes: +ASPI81CH32 PO; -ASPI81CH36 PO; -LR 1,000 ML IV ONE; +PERCOCET PO; -ceFAZolin SOD 2 GM in IV 1 EA IV ONE
--- NOTE | 2019-10-02 16:38 | REP ---
Bilateral lower extremity arterial Doppler ultrasound: History: Claudication. Atherosclerosis. Findings: Ankle brachial indices are decreased bilaterally measured at 0.6 on the right and 0.6 on the left. There is fairly severe plaquing seen throughout the lower extremity arteries. The right superficial femoral artery is occluded in its proximal and mid section with several areas of reconstituted flow. Reverse to revascularization flow is seen in the proximal anterior tibial artery on the right. There is a short segment of the left distal superficial femoral artery which is felt to be occluded showing reversed revascularized flow just beyond it. Revascularize reverse flow seen in the proximal anterior tibial artery on the left. Monophasic waveforms are noted extensively in the lower extremities bilaterally. Right lower extremity arterial Doppler velocity chart: CF A 72 cm/S Profunda 88 Proximal SFA occluded Mid SFA occluded Distal SFA 140 Popliteal 22 Proximal AT A 18 reversed Tibioperoneal trunk 28 Proximal CAN STACKER 13 Distal CAN STACKER 16 Distal AT A 7 Left lower extremity arterial Doppler velocity chart: CF A 88 cm/S Profunda 163/151 Proximal SFA 42 Mid SFA 18/56 Distal SFA 122 reversed Popliteal 21 Proximal AT A 15 Tibioperoneal trunk 28 Proximal CAN STACKER 69 Distal CAN STACKER 22 Distal AT A 13/18 Electronically Signed by Rj Garcia MD 10/02/2019 04:30 P
== END ==
LOC: M RAD 12:08
PROVIDERS: ATTEND Physician Assistant
DX: I70.213 Atherosclerosis of native arteries of extremities with intermittent claudication, bilateral legs (principal); Z48.89 Encounter for other specified surgical aftercare

== ENCOUNTER → 2019-11-09 | Outpatient (CLI) | payer MEDICARE ==
[2019-11-09 09:34] LABS: BASO # 0.1 10^3/uL (0.0-0.2); BASO % 0.6 % (0.0-1.0); EOS # 0.2 10^3/uL (0.0-0.5); EOS % 2.8 % (0.0-3.0); HEMATOCRIT 42.5 % (42.0-52.0); HEMOGLOBIN 13.7 g/dl (13.5-17.5); LYMPH # 1.7 10^3/uL (1.5-5.0); LYMPH % 19.7 % (24.0-44.0); MEAN CORPUSCULAR HEMOGLOBIN 30.7 pg (27.0-33.0); MEAN CORPUSCULAR HGB CONC 32.2 g/dl (32.0-36.5); MEAN CORPUSCULAR VOLUME 95.3 fl (80.0-96.0); MONO # 0.7 10^3/uL (0.0-0.8); MONO % 8.3 % (0.0-5.0); NEUTROPHILS # 5.8 10^3/uL (1.5-8.5); NEUTROPHILS % 68.2 % (36.0-66.0); PLATELET COUNT, AUTOMATED 277 10^3/uL (150-450); RED BLOOD COUNT 4.46 10^6/uL (4.30-6.10); WHITE BLOOD COUNT 8.6 10^3/uL (4.0-10.0)
[2019-11-09 10:00] LABS: BILIRUBIN,TOTAL 0.4 MG/DL (0.2-1.0); CALCIUM LEVEL 9.1 MG/DL (8.8-10.2); CREATININE FOR GFR 1.35 MG/DL (0.70-1.30); GLOMERULAR FILTRATION RATE 56.5 (>49); POTASSIUM SERUM 4.4 MEQ/L (3.5-5.1)
[2019-11-09 10:01] LABS: ALBUMIN 3.9 GM/DL (3.2-5.2); CHOLESTEROL RISK RATIO 3.304 (<5); FREE T4 1.1 NG/DL (0.76-1.46); PERCENT SATURATION 35.8 % (19.7-50.0); THYROID STIMULATING HORMONE 1.59 uIU/ML (0.358-3.740); TOTAL PROTEIN 6.9 GM/DL (6.4-8.2)
[2019-11-09 10:02] LABS: MALB URINE SIEMENS 8.7 MG/L; MAU/CREAT RATIO 7.1 MCG/MG (0.0-30.0)
[2019-11-09 10:28] LABS: HEMOGLOBIN A1c 5.9 %
[2019-11-09 10:39] LABS: TOTAL 25(OH) VITAMIN D 89.4 NG/ML (30.0-100.0)
== END ==
LOC: M LAB 08:15
PROVIDERS: ATTEND Physician Assistant
DX: R73.01 Impaired fasting glucose (principal); D50.9 Iron deficiency anemia, unspecified; E55.9 Vitamin D deficiency, unspecified; E78.5 Hyperlipidemia, unspecified; F41.9 Anxiety disorder, unspecified

== ENCOUNTER → 2020-03-15 | Outpatient (CLI) | payer MEDICARE ==
[~2020-03-15] MED LIST changes: -AMLO10TA5 PO; +AMLO1TAB24 PO; +AMLO1TAB25 PO; -AMLO5TAB6 PO; +ASPI-546 PO; -ASPI1TAB15 PO; +ENAL-36 PO; -ENAL10TA2 PO; -LISI20TA19 PO; +LISI20TA35 PO; +PANT40TA29 PO; -PANT40TA3 PO
--- NOTE | 2020-03-15 16:29 | REP ---
REASON: Tobacco abuse. COMPARISON: 02/09/2019 Once again, as per the protocol, only lung window images were sent to the read station for interpretation. No abnormal nodules, masses, or opacities have developed since the last exam. Grossly, there is no change in the mediastinum or pulmonary lupe. Grossly, there is no change in the imaged upper abdomen or imaged osseous structures. IMPRESSION: Stable Lung-RADS category 1 negative low-dose screening CT examination of the lungs. Electronically Signed by Ralph Valle DO 03/15/2020 05:04 P
== END ==
LOC: M RAD 14:07
PROVIDERS: ATTEND Physician Assistant
DX: Z12.2 Encounter for screening for malignant neoplasm of respiratory organs (principal); Z87.891 Personal history of nicotine dependence

== ENCOUNTER → 2020-06-06 | Outpatient (CLI) | payer MEDICARE ==
--- NOTE | 2020-06-11 08:05 | REP ---
BILATERAL LOWER EXTREMITY DUPLEX DOPPLER ARTERIAL ULTRASOUND HISTORY: Peripheral vascular disease. COMPARISON: 10/02/2019. TECHNIQUE: Real-time ultrasound evaluation and duplex Doppler interrogation of the bilateral lower extremity arterial system is performed. FINDINGS: There are findings similar to the prior study. There is again significant diffuse atherosclerotic plaque seen bilaterally. The right superficial femoral artery is occluded. There is reconstitution of the popliteal artery via collateral vessels. There is again significant stenosis of the proximal left superficial femoral artery. Collateral vessels are seen along the distal left superficial femoral artery and popliteal artery. Biphasic waveforms are recorded in the common femoral arteries bilaterally, as well as the profunda and proximal left superficial femoral artery (SFA). Monophasic waveforms are seen more distally bilaterally. BILATERAL LOWER EXTREMITY ARTERIAL DOPPLER VELOCITY CHART RIGHT PSV (cm/s) LEFT PSV (cm/s) Common femoral artery 71 152 Profunda 150 181 Proximal SFA occluded 411 Mid SFA occluded 263 Distal SFA occluded Image not saved/technical error Popliteal 17 89 Proximal FRANCESCO 25 38 Tibioperoneal trunk 29 38 Proximal WOOD COATER 28 67 Distal WOOD COATER 21 21 Distal FRANCESCO 11 12 MTDD
== END ==
LOC: M RAD 12:42
PROVIDERS: ATTEND Physician Assistant
DX: I70.213 Atherosclerosis of native arteries of extremities with intermittent claudication, bilateral legs (principal)

== ENCOUNTER → 2020-12-20 | Outpatient (CLI) | payer MEDICARE ==
[~2020-12-20] MED LIST changes: -LISI40TA PO; +LISI40TA4 PO
--- NOTE | 2020-12-20 15:28 | REP ---
INDICATION: STHSCL KAIBAB ARTERIES W/ CLAUDICAITON CLIFTON LEG. COMPARISON: Comparison study is from June 08, 2020.. TECHNIQUE: Bilateral lower extremity arterial Doppler ultrasound. FINDINGS: Ankle brachial indices are low bilaterally measured at 0.63 on the right and 0.53 on the left. There is severe atherosclerotic plaquing bilaterally. Monophasic waveforms are noted on the right distal to and including the distal SFA and on the left distal to and including the mid SFA. There is a right superficial femoral artery occlusion with distal revascularization. There is a right popliteal artery stenosis with a 3-1 velocity ratio. There is a stenosis at the origin of the left superficial femoral artery (5-1 velocity ratio) and the left distal superficial femoral artery (10-1 velocity ratio). 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 Right popliteal, left proximal SFA, and left distal SFA stenoses. <Electronically signed by Cristóbal Garcia > 12/20/20 [id number]
== END ==
LOC: M RAD 12:51
PROVIDERS: ATTEND Surgery Vascular Surgery
DX: I70.213 Atherosclerosis of native arteries of extremities with intermittent claudication, bilateral legs (principal)

== ENCOUNTER → 2020-12-23 | Outpatient (CLI) | payer MEDICARE ==
[2020-12-23 11:25] LABS: HEMATOCRIT 42.1 % (42.0-52.0); HEMOGLOBIN 13.6 g/dl (13.5-17.5); MEAN CORPUSCULAR HEMOGLOBIN 30.6 pg (27.0-33.0); MEAN CORPUSCULAR HGB CONC 32.3 g/dl (32.0-36.5); MEAN CORPUSCULAR VOLUME 94.6 fl (80.0-96.0); PLATELET COUNT, AUTOMATED 267 10^3/uL (150-450); RED BLOOD COUNT 4.45 10^6/uL (4.30-6.10); WHITE BLOOD COUNT 7.5 10^3/uL (4.0-10.0)
[2020-12-23 11:45] LABS: ALT/SGPT 45 U/L (12-78); BILIRUBIN,TOTAL 0.5 MG/DL (0.2-1.0); BLOOD UREA NITROGEN 20 MG/DL (7-18); CALCIUM LEVEL 9.4 MG/DL (8.8-10.2); CARBON DIOXIDE LEVEL 28 MEQ/L (21-32); CHLORIDE LEVEL 108 MEQ/L (98-107); CHOLESTEROL LEVEL 161 MG/DL (<200); CHOLESTEROL RISK RATIO 3.354 (<5); CREATININE FOR GFR 1.05 MG/DL (0.70-1.30); GLOMERULAR FILTRATION RATE > 60.0 (>49); GLUCOSE, FASTING 95 MG/DL (70-100); HDL CHOLESTEROL 48 MG/DL (>40); LDL CHOLESTEROL 96 MG/DL (<100); NON-HDL-C 113 MG/DL; POTASSIUM SERUM 4.8 MEQ/L (3.5-5.1); SODIUM LEVEL 142 MEQ/L (136-145); TOTAL PROTEIN 7.3 GM/DL (6.4-8.2); TRIGLYCERIDES LEVEL 84 MG/DL (<150)
== END ==
LOC: M LAB 09:35
PROVIDERS: ATTEND Nurse Practitioner Family
DX: E78.5 Hyperlipidemia, unspecified (principal)

== ENCOUNTER → 2021-04-07 | Outpatient (CLI) | payer MEDICARE ==
[2021-04-07 14:02] LABS: BLOOD UREA NITROGEN 18 MG/DL (7-18); CREATININE FOR GFR 1.23 MG/DL (0.70-1.30); GLOMERULAR FILTRATION RATE > 60.0 (>49)
== END ==
LOC: M LAB 13:14
PROVIDERS: ATTEND Surgery Vascular Surgery
DX: I70.213 Atherosclerosis of native arteries of extremities with intermittent claudication, bilateral legs (principal)

== ENCOUNTER → 2021-04-07 | Outpatient (CLI) | payer MEDICARE ==
--- NOTE | 2021-04-07 15:50 | REP ---
INDICATION: HX OF NICOTINE DEPENDENCE. COMPARISON: 03/15/2020 TECHNIQUE: Low-dose screening chest CT FINDINGS: There is a patchy infiltrate adjacent to the left hilum which has developed since the previous study. This represents pneumonia. The lungs are otherwise clear. There are no lung nodules. No hilar or mediastinal adenopathy. No pleural fluid or thickening. IMPRESSION: Left parahilar pneumonia. No lung nodules. <Electronically signed by Rashad Chowdary > 04/07/21 [id number]
== END ==
LOC: M RAD 12:54
PROVIDERS: ATTEND Physician Assistant
DX: Z12.2 Encounter for screening for malignant neoplasm of respiratory organs (principal); Z87.891 Personal history of nicotine dependence; J18.9 Pneumonia, unspecified organism; I70.213 Atherosclerosis of native arteries of extremities with intermittent claudication, bilateral legs

== ENCOUNTER → 2021-04-09 | Outpatient (CLI) | payer MEDICARE ==
[~2021-04-09] MED LIST changes: +ISOVUE-370 76% 100ML VIAL As Ordered ONE
--- NOTE | 2021-04-09 11:04 | REP ---
INDICATION: CLAUDICATION. COMPARISON: None. TECHNIQUE: Scans were obtained during contrast administration. Reconstructions were obtained of the abdomen pelvis and lower extremities. FINDINGS: The abdominal aorta shows normal caliber. The wall is calcified. The celiac axis shows normal caliber. Hepatic left gastric and splenic arteries are unremarkable. One artery for each kidney approximately 70% stenosis proximal portion right renal artery. No stenosis on the left side. Spare mesenteric artery origin, main trunk and visualized branches unremarkable. Common iliac and external iliac arteries show calcifications but normal caliber. Left common femoral artery normal caliber. Calcified plaques causing 80% stenosis proximal superficial femoral artery, 60-70% stenosis mid and distal superficial femoral artery. 50% stenosis popliteal artery. Three-vessel runoff below the left knee. Right common femoral artery 50% stenosis. Occlusion proximal right superficial femoral artery with reconstitution above the knee. Three-vessel runoff below the knee. Abdominal survey: The liver, gallbladder, pancreas, spleen, adrenal glands, kidneys, large and small bowel unremarkable. No mass, adenopathy or inflammatory change in the abdomen or pelvis. IMPRESSION: 50% stenosis right external iliac artery. Occluded proximal portion right superficial femoral artery with reconstitution above the knee. Multiple stenotic areas in the left superficial femoral artery with up to 80% stenosis. Three-vessel runoff below both knees.. <Electronically signed by Rashad Chowdary > 04/09/21 1100
== END ==
LOC: M RAD 09:51
PROVIDERS: ATTEND Surgery Vascular Surgery
DX: I70.213 Atherosclerosis of native arteries of extremities with intermittent claudication, bilateral legs (principal); I77.1 Stricture of artery
CPT/HCPCS: 75635; Q9967

== ENCOUNTER → 2021-07-21 | Outpatient (CLI) | payer MEDICARE ==
[~2021-07-21] MED LIST changes: -CERTTAB3; +CERTTAB5; -ISOVUE-370 76% 100ML VIAL As Ordered ONE
--- NOTE | 2021-07-21 15:28 | REP ---
INDICATION: ABNORMAL FINDING OF LUNG FIELD COMPARISON: 04/07/2021 TECHNIQUE: Axial noncontrast images from the thoracic inlet to the upper abdomen with coronal and sagittal reformations. This CT examination was performed using the following dose reduction techniques: Automated exposure control, adjustment of mA and/or kv according to the patient's size, and use of iterative reconstruction technique. FINDINGS: Bilateral lung funez are well aerated, relatively symmetric and essentially clear. The previously noted subtle left parahilar infiltrate has resolved. No acute consolidation, suspicious nodule or mass. No effusion. No pneumothorax. Small 2 mm density in the periphery of the right lower lobe (image 58) remains stable compared to 03/15/2020 and consistent with tiny scar. Tracheobronchial tree is patent. Evaluation of the mediastinum demonstrates stable atherosclerotic changes to the thoracic aorta and coronary arteries. No cardiomegaly or pericardial effusion. No adenopathy. IMPRESSION: 1. Previous left parahilar infiltrate resolved. 2. No acute mediastinal or pleuroparenchymal process. <Electronically signed by Huey Montes > 07/21/21 [id number]
== END ==
LOC: M PLAIMG 14:40
PROVIDERS: ATTEND Physician Assistant
DX: R91.8 Other nonspecific abnormal finding of lung field (principal); I70.0 Atherosclerosis of aorta; I25.10 Atherosclerotic heart disease of native coronary artery without angina pectoris

== ENCOUNTER → 2021-12-22 | Outpatient (CLI) | payer MEDICARE ==
[~2021-12-22] MED LIST changes: +BUPR-71 PO; -BUPR150T5 PO; +LOSA100T45 PO; -LOSA100T50 PO
[2021-12-22 10:36] LABS: BLOOD UREA NITROGEN 18 MG/DL (7-18); CREATININE FOR GFR 1.17 MG/DL (0.70-1.30); GLOMERULAR FILTRATION RATE > 60.0 (>49)
== END ==
LOC: M LAB 08:41
PROVIDERS: ATTEND Psychiatry & Neurology Neurology
DX: I10 Essential (primary) hypertension (principal)

== ENCOUNTER → 2022-03-03 | Outpatient (CLI) | payer MEDICARE ==
[2022-03-03 10:22] LABS: ALBUMIN 3.9 GM/DL (3.2-5.2); ALT/SGPT 43 U/L (12-78); BILIRUBIN,TOTAL 0.5 MG/DL (0.2-1.0); BLOOD UREA NITROGEN 15 MG/DL (7-18); CALCIUM LEVEL 9.4 MG/DL (8.8-10.2); CARBON DIOXIDE LEVEL 29 MEQ/L (21-32); CHLORIDE LEVEL 107 MEQ/L (98-107); CHOLESTEROL LEVEL 128 MG/DL (<200); CHOLESTEROL RISK RATIO 2.782 (<5); CREATININE FOR GFR 1.14 MG/DL (0.70-1.30); GLOMERULAR FILTRATION RATE > 60.0 (>49); GLUCOSE, FASTING 109 MG/DL (70-100); HDL CHOLESTEROL 46 MG/DL (>40); LDL CHOLESTEROL 67 MG/DL (<100); NON-HDL-C 82 MG/DL; POTASSIUM SERUM 4.5 MEQ/L (3.5-5.1); SODIUM LEVEL 142 MEQ/L (136-145); TOTAL PROTEIN 6.7 GM/DL (6.4-8.2); TRIGLYCERIDES LEVEL 75 MG/DL (<150)
== END ==
LOC: M LAB 09:23
PROVIDERS: ATTEND Nurse Practitioner Family
DX: E78.5 Hyperlipidemia, unspecified (principal)

== ENCOUNTER → 2022-08-12 | Outpatient (CLI) | payer MEDICARE | LOC: M RAD 12:08 | PROVIDERS: ATTEND Physician Assistant | DX: Z87.891 Personal history of nicotine dependence (principal) ==

== ENCOUNTER 2022-11-27 02:18 | Emergency (ER) | payer MEDICARE ==
[~2022-11-27] VITALS: Ht 162.6 cm; Wt 75.0 kg
[~2022-11-27 02:18] MED LIST changes: -ENAL-36 PO; +ENAL1TAB50 PO
[2022-11-27] MEDS ORDERED: IPRATROPIUM 0.5MG/ALBUTEROL 2.5MG INH SOL UD 3ML (DUONEB) NEB ONE (02:35)
[2022-11-27 02:58] LABS: BASO % 0.3 % (0.0-1.0); EOS # 0.1 10^3/uL (0.0-0.5); EOS % 1.4 % (0.0-3.0); HEMATOCRIT 36.8 % (42.0-52.0); HEMOGLOBIN 12.1 g/dl (13.5-17.5); LYMPH # 1.5 10^3/uL (1.5-5.0); LYMPH % 15.2 % (24.0-44.0); MEAN CORPUSCULAR HGB CONC 32.9 g/dl (32.0-36.5); MEAN CORPUSCULAR VOLUME 91.3 fl (80.0-96.0); MONO % 10.5 % (2.0-8.0); NEUTROPHILS # 6.9 10^3/uL (1.5-8.5); NEUTROPHILS % 72.3 % (36.0-66.0); PLATELET COUNT, AUTOMATED 270 10^3/uL (150-450); RED BLOOD COUNT 4.03 10^6/uL (4.30-6.10); WHITE BLOOD COUNT 9.6 10^3/uL (4.0-10.0)
[2022-11-27 03:13] LABS: INR 0.9; PROTHROMBIN TIME 12.3 SECONDS (12.5-14.5)
[2022-11-27 03:18] LABS: LIPASE 28 U/L (12-53)
[2022-11-27 03:34] LABS: ALBUMIN 3.6 G/DL (3.2-5.2); ALKALINE PHOSPHATASE 104 U/L (46-116); ALT/SGPT 138 U/L (7.0-40); AST/SGOT 209 U/L (<34); BILIRUBIN,DIRECT 0.4 MG/DL (<0.4); BILIRUBIN,TOTAL 0.9 MG/DL (0.3-1.2); BLOOD UREA NITROGEN 20 MG/DL (9-23); CALCIUM LEVEL 8.7 MG/DL (8.3-10.6); CARBON DIOXIDE LEVEL 26 MMOL/L (20-31); CHLORIDE LEVEL 103 MMOL/L (98-107); CK-MB VALUE MASS < 1.0 NG/ML (<3.6); CREATININE FOR GFR 1.04 MG/DL (0.70-1.30); GLOMERULAR FILTRATION RATE > 60.0 (>49); GLUCOSE, FASTING 107 MG/DL (74-106); POTASSIUM SERUM 3.9 MMOL/L (3.5-5.1); SODIUM LEVEL 137 MMOL/L (136-145); THYROID STIMULATING HORMONE 2.233 uIU/ML (0.55-4.78); TOTAL PROTEIN 6.1 G/DL (5.7-8.2)
[2022-11-27 03:37] LABS: THYROXINE (T4) 14.6 UG/DL (4.5-10.9)
[2022-11-27 03:41] LABS: CPK CREATINE PHOSPHOKINASE 79 U/L (46-171); MB/CK RELATIVE INDEX 1.26 (< OR =4)
[2022-11-27 04:24] LABS: CK-MB VALUE MASS < 1.0 NG/ML (<3.6)
[2022-11-27 04:31] LABS: CPK CREATINE PHOSPHOKINASE 77 U/L (46-171); MB/CK RELATIVE INDEX 1.29 (< OR =4)
[2022-11-27 05:00] VITALS: BP 134/65
== END 2022-11-27 05:15 | disposition home or self-care (01) ==
LOC: EDBD 02:18 → M ED 02:18
DX: R07.89 Other chest pain (principal); I10 Essential (primary) hypertension; E78.5 Hyperlipidemia, unspecified; J44.9 Chronic obstructive pulmonary disease, unspecified; Z86.73 Personal history of transient ischemic attack (TIA), and cerebral infarction without residual deficits; F17.200 Nicotine dependence, unspecified, uncomplicated; Z79.82 Long term (current) use of aspirin; Z79.899 Other long term (current) drug therapy

== ENCOUNTER → 2023-01-04 | Outpatient (CLI) | payer MEDICARE ==
[~2023-01-04] MED LIST changes: -LOSA100T45 PO; +LOSA100T46 PO
[2023-01-04 09:15] LABS: HEMATOCRIT 43.9 % (42.0-52.0); HEMOGLOBIN 14.2 g/dl (13.5-17.5); MEAN CORPUSCULAR HEMOGLOBIN 30.2 pg (27.0-33.0); MEAN CORPUSCULAR HGB CONC 32.3 g/dl (32.0-36.5); MEAN CORPUSCULAR VOLUME 93.4 fl (80.0-96.0); PLATELET COUNT, AUTOMATED 264 10^3/uL (150-450); WHITE BLOOD COUNT 6.9 10^3/uL (4.0-10.0)
[2023-01-04 09:34] LABS: INR 0.91; PARTIAL THROMBOPLASTIN TIME 23.8 SECONDS (24.8-34.2); PROTHROMBIN TIME 12.5 SECONDS (12.5-14.5)
[2023-01-04 09:49] LABS: BLOOD UREA NITROGEN 18 MG/DL (9-23); CALCIUM LEVEL 9.8 MG/DL (8.3-10.6); CARBON DIOXIDE LEVEL 30 MMOL/L (20-31); CHLORIDE LEVEL 106 MMOL/L (98-107); CREATININE FOR GFR 1.16 MG/DL (0.70-1.30); GLOMERULAR FILTRATION RATE > 60.0 (>49); GLUCOSE, FASTING 105 MG/DL (74-106); POTASSIUM SERUM 4.3 MMOL/L (3.5-5.1); SODIUM LEVEL 139 MMOL/L (136-145)
== END ==
LOC: M LAB 08:29
PROVIDERS: ATTEND Surgery Vascular Surgery
DX: I70.211 Atherosclerosis of native arteries of extremities with intermittent claudication, right leg (principal)

== ENCOUNTER → 2023-02-10 | Outpatient (CLI) | payer MEDICARE ==
[2023-02-10 10:25] LABS: BLOOD UREA NITROGEN 21 MG/DL (9-23); CREATININE FOR GFR 1.12 MG/DL (0.70-1.30); GLOMERULAR FILTRATION RATE > 60.0 (>49)
== END ==
LOC: M LAB 08:40
PROVIDERS: ATTEND Psychiatry & Neurology Neurology
DX: I10 Essential (primary) hypertension (principal)

== ENCOUNTER → 2023-05-06 | Outpatient (CLI) | payer MEDICARE ==
[2023-05-06 09:31] LABS: BASO % 0.4 % (0.0-1.0); EOS # 0.2 10^3/uL (0.0-0.5); EOS % 1.8 % (0.0-3.0); HEMATOCRIT 41.7 % (42.0-52.0); HEMOGLOBIN 13.6 g/dl (13.5-17.5); LYMPH # 1.2 10^3/uL (1.5-5.0); LYMPH % 13.4 % (24.0-44.0); MEAN CORPUSCULAR HEMOGLOBIN 30.2 pg (27.0-33.0); MEAN CORPUSCULAR HGB CONC 32.6 g/dl (32.0-36.5); MEAN CORPUSCULAR VOLUME 92.5 fl (80.0-96.0); MONO # 0.9 10^3/uL (0.0-0.8); MONO % 10.3 % (2.0-8.0); NEUTROPHILS # 6.6 10^3/uL (1.5-8.5); NEUTROPHILS % 73.7 % (36.0-66.0); PLATELET COUNT, AUTOMATED 257 10^3/uL (150-450); RED BLOOD COUNT 4.51 10^6/uL (4.30-6.10); WHITE BLOOD COUNT 8.9 10^3/uL (4.0-10.0)
[2023-05-06 09:56] LABS: HEMOGLOBIN A1c 5.5 % (4.0-6.0)
[2023-05-06 10:05] LABS: ALBUMIN 3.9 G/DL (3.2-5.2); ALKALINE PHOSPHATASE 72 U/L (46-116); ALT/SGPT 37 U/L (7.0-40); AST/SGOT 22 U/L (<34); BILIRUBIN,TOTAL 0.6 MG/DL (0.3-1.2); BLOOD UREA NITROGEN 21 MG/DL (9-23); CALCIUM LEVEL 9.4 MG/DL (8.3-10.6); CARBON DIOXIDE LEVEL 29 MMOL/L (20-31); CHLORIDE LEVEL 105 MMOL/L (98-107); CHOLESTEROL LEVEL 109 MG/DL (<200); CHOLESTEROL RISK RATIO 2.93 (<5); CREATININE FOR GFR 1.16 MG/DL (0.70-1.30); FREE T4 1.26 NG/DL (0.89-1.76); GLOMERULAR FILTRATION RATE > 60.0 (>49); GLUCOSE, FASTING 104 MG/DL (74-106); HDL CHOLESTEROL 37.1 MG/DL (>40); LDL CHOLESTEROL 55.1 MG/DL (<100); NON-HDL-C 71.9 MG/DL; POTASSIUM SERUM 4.5 MMOL/L (3.5-5.1); SODIUM LEVEL 137 MMOL/L (136-145); THYROID STIMULATING HORMONE 1.284 uIU/ML (0.55-4.78); TOTAL 25(OH) VITAMIN D 67.2 NG/ML (20.0-100.0); TOTAL PROTEIN 6.6 G/DL (5.7-8.2); TRIGLYCERIDES LEVEL 84 MG/DL (<150); VITAMIN B12 LEVEL 431 PG/ML (211-911)
== END ==
LOC: M LAB 08:47
PROVIDERS: ATTEND Nurse Practitioner Family
DX: E78.5 Hyperlipidemia, unspecified (principal); E55.9 Vitamin D deficiency, unspecified; R73.01 Impaired fasting glucose; E53.8 Deficiency of other specified B group vitamins
CPT/HCPCS: 36415; 80053; 80061; 82306; 82607; 83036; 84439; 84443; 85025; G0103

== ENCOUNTER → 2023-08-27 | Outpatient (CLI) | payer MEDICARE ==
[~2023-08-27] MED LIST changes: +ARNU1INH3 INH; +EZET10TA21 PO
== END ==
LOC: M RAD 12:05
PROVIDERS: ATTEND Physician Assistant
DX: Z12.2 Encounter for screening for malignant neoplasm of respiratory organs (principal); Z87.891 Personal history of nicotine dependence; R91.1 Solitary pulmonary nodule

== ENCOUNTER 2023-09-02 08:28 | Day surgery (SDC) | payer MEDICARE ==
[~2023-09-02] VITALS: Ht 162.6 cm; Wt 62.8 kg
[~2023-09-02 08:28] MED LIST changes: +NS 1,000 ML IV ONE
[2023-09-02] MEDS ORDERED: fentaNYL 100 MCG/2 ML INJECTION As Ordered ONE (09:04)
[2023-09-02] MEDS ORDERED: LIDOCAINE 2% 100MG/5ML SDV (FOR ANES.) As Ordered ONE (09:04)
[2023-09-02] MEDS ORDERED: propofoL 500 MG/50 ML VIAL As Ordered ONE (09:04)
[2023-09-02 10:06] VITALS: TEMP 97.8
[2023-09-02 10:26] VITALS: BP 133/64; O2SAT 98
== END 2023-09-02 10:41 | disposition home or self-care (01) ==
LOC: M OPP 08:28
PROVIDERS: ATTEND Internal Medicine Gastroenterology
DX: Z12.11 Encounter for screening for malignant neoplasm of colon (principal); K57.30 Diverticulosis of large intestine without perforation or abscess without bleeding; K64.8 Other hemorrhoids; K29.70 Gastritis, unspecified, without bleeding; R07.89 Other chest pain; F17.200 Nicotine dependence, unspecified, uncomplicated; Z86.73 Personal history of transient ischemic attack (TIA), and cerebral infarction without residual deficits; Z79.02 Long term (current) use of antithrombotics/antiplatelets; Z79.51 Long term (current) use of inhaled steroids; Z79.82 Long term (current) use of aspirin; Z79.899 Other long term (current) drug therapy
CPT/HCPCS: 43239; 88305; G0121; J3010

== ENCOUNTER → 2024-01-31 | Outpatient (CLI) | payer MEDICARE ==
[~2024-01-31] MED LIST changes: -NS 1,000 ML IV ONE
[2024-01-31 12:01] LABS: BASO % 0.3 % (0.0-1.0); EOS # 0.2 10^3/uL (0.0-0.5); EOS % 2.1 % (0.0-3.0); HEMATOCRIT 42.7 % (42.0-52.0); HEMOGLOBIN 13.9 g/dl (13.5-17.5); LYMPH # 1.2 10^3/uL (1.5-5.0); LYMPH % 16.5 % (24.0-44.0); MEAN CORPUSCULAR HEMOGLOBIN 30.5 pg (27.0-33.0); MEAN CORPUSCULAR HGB CONC 32.6 g/dl (32.0-36.5); MEAN CORPUSCULAR VOLUME 93.6 fl (80.0-96.0); MONO # 0.7 10^3/uL (0.0-0.8); MONO % 10.5 % (2.0-8.0); NEUTROPHILS # 4.9 10^3/uL (1.5-8.5); NEUTROPHILS % 70.3 % (36.0-66.0); PLATELET COUNT, AUTOMATED 240 10^3/uL (150-450); RED BLOOD COUNT 4.56 10^6/uL (4.30-6.10)
[2024-01-31 12:28] LABS: ALBUMIN 3.9 G/DL (3.2-5.2); ALKALINE PHOSPHATASE 76 U/L (46-116); ALT/SGPT 35 U/L (7.0-40); AST/SGOT 19 U/L (<34); BILIRUBIN,TOTAL 0.6 MG/DL (0.3-1.2); BLOOD UREA NITROGEN 18 MG/DL (9-23); CALCIUM LEVEL 9.9 MG/DL (8.3-10.6); CARBON DIOXIDE LEVEL 31 MMOL/L (20-31); CHLORIDE LEVEL 106 MMOL/L (98-107); CHOLESTEROL LEVEL 123 MG/DL (<200); CHOLESTEROL RISK RATIO 2.72 (<5); CREATININE FOR GFR 1.13 MG/DL (0.70-1.30); GLOMERULAR FILTRATION RATE > 60.0 (>49); GLUCOSE, FASTING 100 MG/DL (74-106); HDL CHOLESTEROL 45.1 MG/DL (>40); LDL CHOLESTEROL 65.9 MG/DL (<100); NON-HDL-C 77.9 MG/DL; SODIUM LEVEL 139 MMOL/L (136-145); TOTAL PROTEIN 6.4 G/DL (5.7-8.2); TRIGLYCERIDES LEVEL 60 MG/DL (<150)
[2024-01-31 12:31] LABS: TOTAL 25(OH) VITAMIN D 86.5 NG/ML (20.0-100.0)
[2024-01-31 12:32] LABS: VITAMIN B12 LEVEL 864 PG/ML (211-911)
[2024-01-31 12:55] LABS: HEMOGLOBIN A1c 5.8 % (4.0-6.0)
== END ==
LOC: M PLALAB 08:24
PROVIDERS: ATTEND Nurse Practitioner Family
DX: R73.01 Impaired fasting glucose (principal); E53.8 Deficiency of other specified B group vitamins; E78.5 Hyperlipidemia, unspecified; I10 Essential (primary) hypertension; E55.9 Vitamin D deficiency, unspecified

== ENCOUNTER → 2024-08-01 | Outpatient (CLI) | payer MEDICARE ==
[2024-08-01 10:57] LABS: BASO % 0.2 % (0.0-1.0); EOS # 0.1 10^3/uL (0.0-0.5); EOS % 0.9 % (0.0-3.0); HEMATOCRIT 43.8 % (42.0-52.0); HEMOGLOBIN 14.2 g/dl (13.5-17.5); LYMPH # 0.8 10^3/uL (1.5-5.0); LYMPH % 10.1 % (24.0-44.0); MEAN CORPUSCULAR HEMOGLOBIN 30.5 pg (27.0-33.0); MEAN CORPUSCULAR HGB CONC 32.4 g/dl (32.0-36.5); MONO # 0.7 10^3/uL (0.0-0.8); NEUTROPHILS # 6.6 10^3/uL (1.5-8.5); NEUTROPHILS % 80.4 % (36.0-66.0); PLATELET COUNT, AUTOMATED 274 10^3/uL (150-450); RED BLOOD COUNT 4.66 10^6/uL (4.30-6.10); THYROID STIMULATING HORMONE 0.855 uIU/ML (0.55-4.78); WHITE BLOOD COUNT 8.2 10^3/uL (4.0-10.0)
[2024-08-01 11:16] LABS: HEMOGLOBIN A1c 5.8 % (4.0-6.0)
[2024-08-01 11:22] LABS: ALBUMIN 4.3 G/DL (3.2-5.2); ALKALINE PHOSPHATASE 83 U/L (40-129); ALT/SGPT 36 U/L (7.0-40); AST/SGOT 21 U/L (<34); BILIRUBIN,TOTAL 0.8 MG/DL (0.3-1.2); BLOOD UREA NITROGEN 21 MG/DL (9-23); CALCIUM LEVEL 10.6 MG/DL (8.3-10.6); CARBON DIOXIDE LEVEL 29 MMOL/L (20-31); CHLORIDE LEVEL 106 MMOL/L (98-107); CHOLESTEROL LEVEL 139 MG/DL (<200); CHOLESTEROL RISK RATIO 2.95 (<5); CREATININE FOR GFR 1.16 MG/DL (0.70-1.30); GLOMERULAR FILTRATION RATE > 60.0 (>49); GLUCOSE, FASTING 125 MG/DL (74-106); LDL CHOLESTEROL 72.6 MG/DL (<100); POTASSIUM SERUM 4.3 MMOL/L (3.5-5.1); SODIUM LEVEL 141 MMOL/L (136-145); TOTAL PROTEIN 7.4 G/DL (5.7-8.2); TRIGLYCERIDES LEVEL 97 MG/DL (<150); VITAMIN B12 LEVEL 1046 PG/ML (211-911)
== END ==
LOC: M PLALAB 08:18
PROVIDERS: ATTEND Nurse Practitioner Family
DX: I10 Essential (primary) hypertension (principal); E78.5 Hyperlipidemia, unspecified; E55.9 Vitamin D deficiency, unspecified; R73.01 Impaired fasting glucose; E53.8 Deficiency of other specified B group vitamins

== ENCOUNTER 2025-01-03 12:22 | Emergency (ER) | payer MEDICARE ==
[~2025-01-03] VITALS: Ht 162.6 cm; Wt 59.9 kg
[2025-01-03 15:58] VITALS: TEMP 96.9
[2025-01-03 17:07] LABS: MEAN CORPUSCULAR HEMOGLOBIN 31.1 pg (27.0-33.0); MEAN CORPUSCULAR HGB CONC 33.3 g/dl (32.0-36.5); MEAN CORPUSCULAR VOLUME 93.3 fl (80.0-96.0); PLATELET COUNT, AUTOMATED 253 10^3/uL (150-450); WHITE BLOOD COUNT 8.9 10^3/uL (4.0-10.0)
[2025-01-03 17:18] VITALS: BP 166/67; O2SAT 98
== END 2025-01-03 17:46 | disposition home or self-care (01) ==
LOC: M ED 12:22
DX: S51.011A Laceration without foreign body of right elbow, initial encounter (principal); W22.8XXA Striking against or struck by other objects, initial encounter; Y92.9 Unspecified place or not applicable; Y93.9 Activity, unspecified; Y99.9 Unspecified external cause status; I10 Essential (primary) hypertension; J44.9 Chronic obstructive pulmonary disease, unspecified; E78.5 Hyperlipidemia, unspecified; Z86.73 Personal history of transient ischemic attack (TIA), and cerebral infarction without residual deficits; K74.60 Unspecified cirrhosis of liver; Z79.82 Long term (current) use of aspirin; Z79.899 Other long term (current) drug therapy

== ENCOUNTER → 2025-03-13 | Outpatient (CLI) | payer MEDICARE ==
[~2025-03-13] MED LIST changes: +ASPI-731 PO; -ASPI81CH32 PO; +LISI40TA10 PO; -LISI40TA4 PO
[2025-03-13 12:17] LABS: CALCIUM LEVEL 9.2 MG/DL (8.3-10.6); CARBON DIOXIDE LEVEL 28.0 MMOL/L (20-31); CHLORIDE LEVEL 106.0 MMOL/L (98-107); CREATININE FOR GFR 1.14 MG/DL (0.70-1.30); GLOMERULAR FILTRATION RATE 69.2 (>42); POTASSIUM SERUM 4.9 MMOL/L (3.5-5.1); SODIUM LEVEL 141.0 MMOL/L (136-145)
== END ==
LOC: M PLALAB 07:59
PROVIDERS: ATTEND Nurse Practitioner Family
DX: I10 Essential (primary) hypertension (principal)

== ENCOUNTER → 2025-04-11 | Outpatient (CLI) | payer MEDICARE ==
[2025-04-11 14:20] LABS: CREATININE FOR GFR 1.17 MG/DL (0.70-1.30); GLOMERULAR FILTRATION RATE 67.1 (>42)
== END ==
LOC: M PLALAB 09:58
PROVIDERS: ATTEND Psychiatry & Neurology Neurology
DX: I10 Essential (primary) hypertension (principal)

== ENCOUNTER → 2025-08-07 | Outpatient (CLI) | payer MEDICARE ==
[~2025-08-07] MED LIST changes: -EZET10TA21 PO; +EZET10TA57 PO
[2025-08-07 12:13] LABS: BASO # 0.0 10^3/uL (0.0-0.2); BASO % 0.4 % (0.0-1.0); EOS # 0.2 10^3/uL (0.0-0.5); EOS % 2.0 % (0.0-3.0); LYMPH # 1.1 10^3/uL (1.5-5.0); LYMPH % 14.2 % (24.0-44.0); MONO # 0.7 10^3/uL (0.0-0.8); MONO % 9.3 % (2.0-8.0); NEUTROPHILS # 5.8 10^3/uL (1.5-8.5); NEUTROPHILS % 73.7 % (36.0-66.0); PLATELET COUNT, AUTOMATED 254 10^3/uL (150-450)
[2025-08-07 12:32] LABS: ALT/SGPT 36.0 U/L (7.0-40); AST/SGOT 24.0 U/L (<34); CALCIUM LEVEL 9.3 MG/DL (8.3-10.6); CARBON DIOXIDE LEVEL 28.0 MMOL/L (20-31); CHLORIDE LEVEL 107.0 MMOL/L (98-107); CHOLESTEROL LEVEL 124.0 MG/DL (<200); CHOLESTEROL RISK RATIO 2.51 (<5); CREATININE FOR GFR 1.13 MG/DL (0.70-1.30); GLOMERULAR FILTRATION RATE 69.9 (>42); LDL CHOLESTEROL 59.3 MG/DL (<100); MAGNESIUM LEVEL 2.2 MG/DL (1.8-2.4); NON-HDL-C 74.7 MG/DL; POTASSIUM SERUM 4.5 MMOL/L (3.5-5.1); SODIUM LEVEL 142.0 MMOL/L (136-145); TRIGLYCERIDES LEVEL 77.0 MG/DL (<150); VITAMIN B12 LEVEL 626.0 PG/ML (211-911)
[2025-08-07 13:04] LABS: ESTIMATED AVERAGE GLUCOSE 117.0 MG/DL (60-110)
== END ==
LOC: M PLALAB 08:38
PROVIDERS: ATTEND Nurse Practitioner Family
DX: I10 Essential (primary) hypertension (principal); E55.9 Vitamin D deficiency, unspecified; E53.8 Deficiency of other specified B group vitamins; R73.01 Impaired fasting glucose; E78.5 Hyperlipidemia, unspecified